=== PATIENT | male | born 1975 | race Caucasian/White ===

== ENCOUNTER 2021-03-29 07:32 | Inpatient (IN) ==
[~2021-03-29 07:32] MED LIST: BUPIVACAINE 0.25% 30 ML VIAL ONE; LIDOCAINE HCL 1% 20 ML VIAL ONE; VANCOMYCIN HCL 1000MG/20ML VIAL ONE; WATER, STERILE FOR INJ 10 ML VIAL ONE
[2021-03-29] MEDS ORDERED: fentaNYL citrate 100 MCG/2 ML VIAL ONE ×2 (08:03→09:01)
[2021-03-29] MEDS ORDERED: MIDAZOLAM HCL 5 MG/ML 1 ML VIAL ONE ×2 (08:03→09:35)
--- NOTE | 2021-03-29 08:14 | Pre Anesthesia Assessment ---
Date of Service March 29, 2021 Pre Sedation Assessment Vital Signs Temp Pulse Resp BP Pulse Ox 03/29/21 07:48 36.7 C 60 16 156/96 H 98 Cardiovascular + bradycardic Respiratory normal respiratory effort, lungs clear to auscultation Pre-Sedation Airway Assessment Smoking Status: Former smoker Short, Thick Neck: No Thyromental Distance: > or= 3.5 Finger Breadths Oral Cavity: + Chipped Teeth Mallampati Class: III ASA: ASA3 NPO Status Date of Last Intake of Fluids: 03/28/21 Time of Last Intake of Fluids: 21:00 Date of Last Intake of Solid Food: 03/28/21 Time of Last Intake of Solid Foods: 21:00 Procedure Planning Contraindications for Sedation: none Current Medications Reviewed: Yes Notes The planned sedation has been discussed with the patient. Informed Consent was obtained. I have identified the patient, determined the appropriateness of sedation and have assessed the patient immediately prior to the procedure. All medicine(s) and interventions are by my order.
--- NOTE | 2021-03-29 08:14 | History & Physical Bridge Note ---
Date of Service March 29, 2021 History & Physical Bridge Note I have examined the patient, reviewed the History & Physical and in the interval since the performance of the History & Physical I have noted the following changes of clinical significance: no changes noted
[2021-03-29] MEDS ORDERED: CLINDAMYCIN PHOS 300 MG/2 ML VIAL ONE (08:42)
[2021-03-29] MEDS ORDERED: MoRPHine SULFATE 2 MG/ML CARP ONE (11:11)
--- NOTE | 2021-03-29 11:23 | Post Anesthesia Assessment ---
Date of Service March 29, 2021 Post Sedation Assessment Vital Signs Temp Pulse Resp BP Pulse Ox 03/29/21 07:48 36.7 C 60 16 156/96 H 98 Recovery Score Activity: Moves 4 extremities Respiration: Deep Breath/Cough Circulation: +/-20% PreAnes Value Consciousness: Fully Awake Oxygen Saturation: > 92% On Room Air Discharge Sedation Level of Care: Fast Track Phase II Post Sedation Plan On clinical assessment, the patient appears to have tolerated the sedation without complications. Patient is recovering as anticipated. Patient will continue to be monitored by nursing and may be discharged when sedation discharge criteria are met per below protocol. Upon Completions of procedure up to 15 minutes continue every 5 minute vital signs and the P.A.R. score; then discharge to a Phase I or Fast Track to Phase II per the following guidelines: * Discharge Patient to appropriate Phase II area if PAR is 8 or greater or return to pre- procedure baseline. The post - procedure orders will be as directed. * If PAR score is less than 8 or not return to pre-procedure baseline then patient will follow Phase I monitoring till PAR is reached for Phase II. The Phase I may be done in procedure room or may call to secure a Phase I area. * If naloxone or flumazenil are used for reversal, hold in Phase I for continued monitoring from when last reversal dose was given for a minimum of 60 minutes or longer pending the nurse and/or physician discretion of patient condition before discharge to Phase II. Please call the Sedation Physician to re-evaluate and complete post-note for discharge to Phase II area. Do NOT discharge from procedure sedation or Phase 1 until post- sedation evaluation note is complete by procedure /sedation MD Sedation Discharge Instructions to be given to the patient at discharge to home.
--- NOTE | 2021-03-29 11:24 | Operative Report ---
Post Operative Report Pre & Post Diagnosis intermittent CHB Operation Date: 03/29/21 08:00 <No data on this case meets the specified criteria> I identified the patient and participated in the time-out.: Yes Procedure Operation Date: 03/29/21 08:00 Actual Procedures p Pacer with A/V Leads (Dual) - Jennifer Tabor DO Surgeon Jennifer Tabor, DO Classroom Assistant none Estimated Blood Loss 300 Findings Consistent with Post-Op Diagnosis Specimens none Description of Procedure see official report I attest to the content of the Intraoperative Record and any orders documented therein. Any exceptions are noted below.
[2021-03-29] MEDS ORDERED: ACETAMINOPHEN 325 MG TAB PO PRN (15:05)
--- NOTE | 2021-03-29 15:21 | History & Physical Report ---
Date of Service March 29, 2021 Assessment & Plan (1) Hypotension: -Perhaps related to periprocedural sedation, in the setting of severe underlying left ventricular hypertrophy, severe prosthetic stenosis. -Admit to telemetry. -Cautious IV fluid bolus. -Hold outpatient benazepril therapy -Monitor (2) Pacemaker: -Status post dual-chamber pacemaker, right atrial lead, RV septal lead. -No evidence of pocket hematoma on exam -Hemoglobin/hematocrit pending -Post procedure chest x-ray pending, oxygen saturations normal, no hypoxia. -No evidence of pericardial effusion on post procedure echo (3) Prosthetic aortic valve stenosis: -Prosthetic (perhaps prosthetic inlet) stenosis, mean gradient just above 40 mmHg, unchanged compared to recent outpatient echo. -Upcoming outpatient evaluation at [facility] in process of being arranged, for consideration of third open heart surgery (4) CAREN (obstructive sleep apnea): -Patient on positive pressure ventilation at bedtime at home His partner is to bring his machine from home for use this evening. Case discussed with Dr Tabor of . Updated Aly, patient's , phone #[phone] [facility]. History of Present Illness Primary Care Provider: Sergio Sosa MD Rich "Lori Mckeon is a 46 year old male who follows as an outpatient with Dr. Johnson of our practice with complex cardiac history as noted below. He presents today for elective permanent pacemaker implantation which was performed by Dr. Tabor of our practice for treatment of symptomatic conduction system disease with findings of recent intermittent complete heart block, sinus bradycardia, long first-degree AV block, and incomplete left bundle branch block. During the procedure, he received conscious sedation over a 2-hour interval including 10 mg of IV midazolam, 100 mcg of IV fentanyl and 2 mg of IV morphine. Post procedure, he has been noted to be hypotensive with recent systolic blood pressure of 76/45 when he stood up to use the restroom in the post procedure recovery unit. He was assessed by the undersigned, and IV fluid boluses in process, and his pressure has improved to 81/58. He is in no acute distress. His device has been interrogated and is functioning appropriately. He denies any chest pressure. His only complaint in terms of discomfort is in pain at his procedural incision area. Past Cardiac / Medical History: 1. Congenitally bicuspid aortic valve 2. Infectious endocarditis in July, for which patient underwent homograft aortic root replacement, aortic valve replacement, single-vessel (right coronary artery) coronary bypass grafting 3.Redo aortic valve replacement with a 21 mm [employer] bioprosthesis (Serial No: [id number], Model: [id number]) due to valve deterioration,insuffciency, November 2016. Surgery performed at [facility]. 2.Progressive prosthetic valve stenosis, moderate ascending aortic enlargement 3.Extreme calcification of the homograft root noted leading to the use of sutureless valve implantation 2016 4.Diagnostic cardiac catheterization performed prior to redo aortic valve replacement revealed an occluded vein graft with excellent onrz-zu-nbwvo collaterals. There was no evidence of obstructive disease in the left system. 5.Hypertension 6.CAREN, CPAP, with supplemental oxgyen. 7.Gastroesophageal reflux 8.Chronic conduction system disease first-degree AV block, incomplete left bundle-branch block with recent progression Allergies Allergy/AdvReac Type Severity Reaction Status Date / Time Sulfa (Sulfonamide Allergy Severe Verified 03/29/21 15:05 Antibiotics) Home Medications Medication Instructions Recorded Confirmed Type acyclovir 800 mg PO DAILY 03/29/21 03/29/21 History allopurinol 100 mg PO DAILY 03/29/21 03/29/21 History aspirin 81 mg PO DAILY 03/29/21 03/29/21 History atorvastatin 40 mg PO DAILY 03/29/21 03/29/21 History benazepril 40 mg PO DAILY 03/29/21 03/29/21 History doxycycline hyclate 50 mg PO DAILY 03/29/21 03/29/21 History famotidine 40 mg PO DAILY 03/29/21 03/29/21 History Past Med/Surg History Social History Smoking Status: Former smoker Hx Alcohol Use: No Hx Substance Use: Yes Communication Ability: Effective Beliefs That Will Affect Care: None Current Living Situation: Spouse Other Information That Helps Us Care for You: No Feels Safe at Home: Yes Safety Concerns: Feels Safe At This Time Assistive Devices: CPAP Review of Systems Review of Systems: All systems reviewed & are unremarkable except as noted in HPI & below Physical Exam Physical Exam: Temp Pulse Resp BP Pulse Ox 36.7 C 80 16 81/58 L 99 03/29/21 07:48 03/29/21 15:00 03/29/21 15:00 03/29/21 15:00 03/29/21 15:00 Constitutional: Mildly ill in appearance, without acute distress Respiratory: normal respiratory effort, lungs clear to auscultation Cardiovascular: Rate/Rhythm: regular rate Heart Sounds: normal S1, normal S2 and + murmur (2/6 systolic murmur) Gastrointestinal (Abdomen): normal bowel sounds, soft, nontender, no hepatosplenomegaly Neurologic: PERRL, EOMI, accommodation nl, no face palsy, no dysarthria Results & Data Results & Data ([facility]) Vital Signs (Past 12 Hours) Vital Signs Temp Pulse Resp BP Pulse Ox 03/29/21 15:00 80 16 81/58 L 99 03/29/21 14:30 90 16 76/45 L 99 03/29/21 14:00 80 16 88/56 L 99 03/29/21 13:30 80 16 114/76 100 03/29/21 13:00 90 16 99/69 L 99 03/29/21 12:45 90 16 114/73 98 03/29/21 12:30 74 18 103/81 98 03/29/21 12:15 84 18 122/66 97 03/29/21 12:00 84 18 95/65 L 97 03/29/21 11:45 90 18 91/65 L 98 03/29/21 11:35 80 18 96/64 L 99 03/29/21 07:48 36.7 C 60 16 156/96 H 98 Diagnostic Findings EKG performed 03/29/2021 at 1456 reveals sinus rhythm with atrial sensed, ventricular paced QRS complexes Echocardiogram performed in the EP lab at the conclusion of procedure today was reviewed independently revealing moderate concentric left ventricular hypertrophy, low normal LVEF 50 to 55%, bioprosthetic aortic valve with Doppler indices suggestive of severe prosthetic stenosis, similar findings to that noted on recent outpatient echo performed 03/08/2021 without evidence of acute pericardial effusion.
--- NOTE | 2021-03-29 16:05 | XRay Report ---
SINGLE VIEW CHEST CLINICAL HISTORY: Status post pacemaker implantation. FINDINGS: An AP, portable, upright chest radiograph is obtained. No prior studies are available for c omparison at the time of dictation. The examination is degraded by portable technique and apical lord otic positioning. The patient is status post midline sternotomy and cardiac valve surgery. A 2-lead c ardiac pacemaker has been placed. Leads project over the right atrial appendage and the right ventric le. The heart is enlarged noting atherosclerotic calcification of the thoracic aorta. The pulmonary v asculature is noncongested. Nonspecific interstitial thickening is likely chronic. No airspace consol idation or large pleural effusion is identified. No pneumothorax is seen. The bony thorax is grossly intact. IMPRESSION: 1. A 2-lead cardiac pacemaker has been placed as above. No pneumothorax is identified post procedure. 2. Cardiomegaly without radiographic evidence of congestive failure. 3. No airspace consolidation or pleural effusion is identified. ACT 112: Negative or not required by law. Electronically signed by: Trenton Delgado M.D. 03/29/2021 4:04 PM
--- NOTE | 2021-03-29 16:07 | Hospitalist Consultation ---
Date of Consultation March 29, 2021 Assessment & Plan (1) Pacemaker: - s/p pacemaker insertion by Dr. Tabor on 03/29/21 - Cardiology, is primary team - follows with Dr. Johnson as an outpatient - Continue all meds as per cardiology-aspirin 81 mg daily, atorvastatin 40 mg daily, benazepril 40 mg daily - CXR reviewed - no pneumothorax, no consolidation of pleural effusions - HH diet (2) Prosthetic aortic valve stenosis: - hx of such, as per HPI - Follow up with cardiology, [facility] (3) Hypotension: - Likely post procedural sedation effect, s/p bolus of 550 mL in procedure, and 250 ML at 1500 - Monitor H&H, awaiting results (4) CAREN (obstructive sleep apnea): - Continue home cpap- is bringing it in from home (5) GERD (gastroesophageal reflux disease): -Continue famotidine (6) DVT prophylaxis: - teds, scds CODE: Full code Dispo: From home, likely to remain in the hospital x 1-2 days Thank you for involving us in the care of Mr. Mckeon. Please do not hesitate to call with questions or concerns. At this time medicine service will follow along. Supervising Physician Co-Signing Physician Notes Patient is a 46-year-old male with history complex medical history was consulted for postop medical management after having elective permanent pacemaker insertion by Dr. Mckeon for symptomatic conduction system disease. Patient has history of intermittent complete heart block with, sinus bradycardia, first- degree AV block and incomplete left bundle branch block. Patient is doing well postop. He denies any chest pain, shortness of breath, dizziness, nausea, abdominal pain. He admits to having minimal soreness at the site of pacemaker insertion. Please review HPI for complete details. On exam patient is moderately built and nourished, no apparent distress, normocephalic atraumatic, lungs are clear to auscultation, S1-S2,+ systolic murmur, left pacemaker, abdomen soft, nontender, normal bowel sounds, alert, awake, oriented, grossly no focal deficits, no pedal edema. Patient is consulted for postop medical management. Found to be hypotensive postoperatively which improved with IV fluids. Will monitor on telemetry. Continue CPAP for obstructive sleep apnea. Cardiology on board. I personally reviewed the record. Patient is interviewed and examined at bedside. Patient's care is coordinated with Elayne Torres PA-C. Please refer to the documentation above for details of patient's presentation and for discussion of other issues. History of Present Illness Reason for Consultation: Medical management Requesting Physician: Dr. Dudley Attending Physician: Jennifer Tabor, History of Present Illness This is a 46 yo M with significant cardiac history who presented for elective permanent pacemaker insertion by Dr. Tabor for treatment of symptomatic conduction system disease with findings of recent intermittent complete heart block, sinus bradycardia, long first-degree AV block, and incomplete left bundle branch block. He has underwent two open heart surgeries previously, and is being evaluated by [facility] after this procedure today for possible third valve revision. Other past medical hx includes: 1. Congenitally bicuspid aortic valve 2. Infectious endocarditis in July, for which patient underwent homograft aortic root replacement, aortic valve replacement, single-vessel (right coronary artery) coronary bypass grafting 3.Redo aortic valve replacement with a 21 mm [employer] bioprosthesis (Serial No: [id number], Model: [id number]) due to valve deterioration, insufficiency, November 2016. Surgery performed at [facility]. 2.Progressive prosthetic valve stenosis, moderate ascending aortic enlargement 3.Extreme calcification of the homograft root noted leading to the use of sutureless valve implantation 2017 4.Diagnostic cardiac catheterization performed prior to redo aortic valve replacement revealed an occluded vein graft with excellent gbqw-yw-mldnz collaterals. There was no evidence of obstructive disease in the left system. 5.Hypertension 6.CAREN, CPAP, with supplemental oxygen. 7.Gastroesophageal reflux 8.Chronic conduction system disease first-degree AV block, incomplete left bundle-branch block with recent progression During the procedure, he received conscious sedation over a 2-hour interval including 10 mg of IV midazolam, 100 mcg of IV fentanyl and 2 mg of IV morphine. Post procedure, he has been noted to be hypotensive with recent systolic blood pressure of 76/45 when he stood up to use the restroom in the post procedure recovery unit. He received IV fluid boluses, and his pressure has improved to 81/58. It is thought that this hypotension is due to known aortic stenosis in conjunction with sedation. His device was interrogated post procedure and is functioning appropriately per cardiology. Pt is doing well currently in room, lying flat. Reports only having incisional pain from pacemaker placement. Denies pressure, flutter, chest pain, lightheadedness or dizziness. He is looking forward to his who is bringing in red lobster for dinner. Reports that he is also bringing in his CPAP. Left eye appears to have blood streaking, patient reports he had cataract surgery 3 weeks ago and suffered retinal detachment injury, and then required retinal reattachment surgery 1 week afterwards. Patient reports this is healing, no eye complaints. Allergies Allergy/AdvReac Type Severity Reaction Status Date / Time Sulfa (Sulfonamide Allergy Severe Verified 03/29/21 15:05 Antibiotics) Home Medications Medication Instructions Recorded Confirmed Type acyclovir 800 mg PO DAILY 03/29/21 03/29/21 History allopurinol 100 mg PO DAILY 03/29/21 03/29/21 History aspirin 81 mg PO DAILY 03/29/21 03/29/21 History atorvastatin 40 mg PO DAILY 03/29/21 03/29/21 History benazepril 40 mg PO DAILY 03/29/21 03/29/21 History doxycycline hyclate 50 mg PO DAILY 03/29/21 03/29/21 History famotidine 40 mg PO DAILY 03/29/21 03/29/21 History Patient History Social History Smoking Status: Never smoker Hx Alcohol Use: No Hx Substance Use: No Communication Ability: Effective Core Shaper Sides Required: No Beliefs That Will Affect Care: None Current Living Situation: Spouse Other Information That Helps Us Care for You: No Feels Safe at Home: Yes Safety Concerns: Feels Safe At This Time Assistive Devices: None Assistive Devices Comment: CPAP HS from home Review of Systems Review of Systems: Constitutional: No fever, sweats or chills Eyes: No diplopia, no worsening or blurred vision ENT: normal hearing, no trouble swallowing, + had Left eye retinal attachment surgery 2 weeks ago. Cataract surgery 3 wks ago on Left eye with retinal detachment. Respiratory: No cough, sputum, dyspnea at rest or on exertion Cardiovascular:+ incisional pain over left chest wall, otherwise No chest pain, tightness or palpitations Abdomen: No pain, nausea, vomiting, diarrhea or constipation Musculoskeletal: No joint pain, calf pain, swelling Neurologic: No weakness, numbness/tingling, or balance problems Psychiatric: No anxiety or depression Skin: No rash or itch Physical Exam Physical Exam: General: awake, alert, no apparent distress Head: Normocephalic, atraumatic ENT: PERRL, EOMI, no pharyngeal exudate, mucous membranes moist, Left eye erythematous with broken blood vessels, slight ecchymosis around the orbit, slight Chest: Clear to auscultation, on room air, no adventitious breath sounds Cardiac: Regular rate and rhythm,+ loud systolic murmur heard best at RSB, no JVD, pacemaker placement badage c/d/i. Normal peripheral pulses, good capillary refill Abdominal: NABS x 4 quadrants, soft, nondistended, nontender to palpation, no rebound or guarding Extremities: Normal inspection, no peripheral edema or erythema, calfs nontender to palpation Psych: Normal mood and affect Neuro: AAO x 3, strength intact bilaterally and rated 5/5, no motor deficits, speech is clear, no peripheral sensory deficits Results & Data Results & Data ([facility]) Vital Signs (Past 12 Hours) Vital Signs Temp Pulse Resp BP Pulse Ox 03/29/21 15:30 80 16 91/68 L 99 03/29/21 15:00 80 16 81/58 L 99 03/29/21 14:30 90 16 76/45 L 99 03/29/21 14:00 80 16 88/56 L 99 03/29/21 13:30 80 16 114/76 100 03/29/21 13:00 90 16 99/69 L 99 03/29/21 12:45 90 16 114/73 98 03/29/21 12:30 74 18 103/81 98 03/29/21 12:15 84 18 122/66 97 03/29/21 12:00 84 18 95/65 L 97 03/29/21 11:45 90 18 91/65 L 98 03/29/21 11:35 80 18 96/64 L 99 03/29/21 07:48 36.7 C 60 16 156/96 H 98
[2021-03-29 17:14] LABS: Basophils # (auto) 0.01 K/uL (0-0.2); Basophils % (auto) 0.1 %; Eosinophils # (auto) 0.08 K/uL (0-0.5); Eosinophils % (auto) 0.9 %; Hematocrit (blood only) 35.1 % (42-52); Hemoglobin 12.2 g/dL (14.0-18.0); Immature Granulocytes # (auto) 0.01 K/uL (0.00-0.02); Immature Granulocytes % (auto) 0.1 %; Lymphocytes # (auto) 1.23 K/uL (1.2-3.4); Lymphocytes % (auto) 13.8 %; Mean Corpuscular Hemoglobin 29.8 pg (25-34); Mean Corpuscular Hgb Conc 34.8 g/dL (32-36); Mean Corpuscular Volume 85.8 fL (80-100); Monocytes # (auto) 0.48 K/uL (0.11-0.59); Monocytes % (auto) 5.4 %; Neutrophils # (auto) 7.12 K/uL (1.4-6.5); Neutrophils % (auto) 79.7 %; Platelet Count 142 K/uL (130-400); RDW Coefficient of Variation 13.4 % (11.5-14.5); RDW Standard Deviation 41.9 fL (36.4-46.3); Red Blood Count 4.09 M/uL (4.7-6.1); White Blood Count 8.93 K/uL (4.8-10.8)
[2021-03-29 17:26] LABS: INR 1.1 (0.9-1.1); Partial Thromboplastin Ratio 0.9; Partial Thromboplastin Time 23.9 Seconds (21.0-31.0); Prothrombin Time 10.7 Seconds (9.0-12.0)
[2021-03-29 17:32] LABS: Albumin Level 3.7 gm/dl (3.4-5.0); BUN Creatinine Ratio 15.2 (10-20); Bilirubin Direct 0.2 mg/dl (0-0.2); Calcium 8.1 mg/dl (8.5-10.1); Creatinine Clr Calc Pharmacy 80.7 ml/min; Est GFR (African American) 89.5 ml/min; Est GFR (Non-African American) 77.3 ml/min; Potassium 3.9 mmol/L (3.5-5.1)
[2021-03-29 17:34] LABS: Albumin Globulin Ratio 1.5 (0.9-2); Bilirubin,Total 0.6 mg/dl (0.2-1); Globulin 2.5 gm/dl (2.5-4.0); Total Protein 6.2 gm/dl (6.4-8.2)
--- NOTE | 2021-03-29 17:37 | Communication Note ---
Date of Service: March 29, 2021 Official radiology report of chest x-ray describes no evidence of pneumothorax. Appropriately positioned. Labs reveal stable findings including stable hemoglobin of 12.2. Hemoglobin obtained as an outpatient 02/22/2021 was 13.6. Renal function normal. Lab results reassuring. Most recent blood pressure measurement from 1709 was 111/72. Trending toward improvement.
[2021-03-29] MEDS ORDERED: SODIUM CHLORIDE 0.65% NA SOLN 45 ML (OCEAN) PRN (18:38)
[2021-03-29] MEDS ORDERED: LORATADINE 10 MG TAB PO ONE (19:00)
[2021-03-29] MEDS ORDERED: oxyCODONE HCL IR 5 MG TAB (IMMEDIATE RELEASE) PO STA (22:47)
[2021-03-30 06:30] LABS: Basophils # (auto) 0.01 K/uL (0-0.2); Basophils % (auto) 0.2 %; Eosinophils # (auto) 0.36 K/uL (0-0.5); Eosinophils % (auto) 5.4 %; Hematocrit (blood only) 33.2 % (42-52); Hemoglobin 11.5 g/dL (14.0-18.0); Immature Granulocytes # (auto) 0.01 K/uL (0.00-0.02); Immature Granulocytes % (auto) 0.2 %; Lymphocytes # (auto) 2.05 K/uL (1.2-3.4); Mean Corpuscular Hemoglobin 30.7 pg (25-34); Mean Corpuscular Hgb Conc 34.6 g/dL (32-36); Mean Corpuscular Volume 88.5 fL (80-100); Monocytes % (auto) 6.1 %; Neutrophils # (auto) 3.78 K/uL (1.4-6.5); Neutrophils % (auto) 57.1 %; Platelet Count 133 K/uL (130-400); RDW Coefficient of Variation 13.5 % (11.5-14.5); RDW Standard Deviation 43.9 fL (36.4-46.3); Red Blood Count 3.75 M/uL (4.7-6.1); White Blood Count 6.61 K/uL (4.8-10.8)
[2021-03-30 07:07] LABS: BUN Creatinine Ratio 18.2 (10-20); Calcium 8.1 mg/dl (8.5-10.1); Creatinine Clr Calc Pharmacy 93.1 ml/min; Est GFR (African American) 106.6 ml/min; Est GFR (Non-African American) 91.9 ml/min
--- NOTE | 2021-03-30 07:41 | XRay Report ---
XR chest 2V PA/lateral HISTORY: 46 years-old Male reassess post pacemaker on 03/29/21 status post placement of left subclavi an pacer COMPARISON: Chest radiograph 03/29/2021 TECHNIQUE: PA and lateral views of the chest FINDINGS: Cardiac mediastinal and hilar silhouettes are unchanged. Prior median sternotomy with cardiac valvula r prosthesis. Left subclavian pacer is unchanged. No pneumothorax, pleural effusion, airspace consoli dation or overt pulmonary edema. Unchanged mild right hemidiaphragm elevation. Bones appear grossly i ntact. IMPRESSION: No acute process. ACT 112: Negative or not required by law. The above report was generated using voice recognition software. It may contain grammatical, syntax o r spelling errors. Electronically signed by: Preston Prince M.D. 03/30/2021 7:39 AM
[2021-03-30 08:04] LABS: Magnesium 2.1 mg/dl (1.8-2.4)
[2021-03-30] MEDS ORDERED: DOXYCYCLINE HYCLATE 50 MG CAP PO SCH (09:00)
[2021-03-30] MEDS ORDERED: ASPIRIN 81 MG ECTAB PO SCH (09:00)
[2021-03-30] MEDS ORDERED: allopurinoL 100 MG TAB PO SCH (09:00)
[2021-03-30] MEDS ORDERED: ATORVASTATIN 40 MG TAB PO SCH (09:00)
[2021-03-30] MEDS ORDERED: FAMOTIDINE 40 MG TABLET PO SCH (09:00)
--- NOTE | 2021-03-30 09:24 | Discharge Summary ---
Date of Service March 30, 2021 Admission HPI Per Admitting Provider Rich Mckeon (Clay) is a 46 year old male who follows as an outpatient with Dr. Johnson of our practice with complex cardiac history as noted below. He presents today for elective permanent pacemaker implantation which was performed by Dr. Tabor of our practice for treatment of symptomatic conduction system disease with findings of recent intermittent complete heart block, sinus bradycardia, long first-degree AV block, and incomplete left bundle branch block. During the procedure, he received conscious sedation over a 2-hour interval including 10 mg of IV midazolam, 100 mcg of IV fentanyl and 2 mg of IV morphine. Post procedure, he has been noted to be hypotensive with recent systolic blood pressure of 76/45 when he stood up to use the restroom in the post procedure recovery unit. He was assessed by the undersigned, and IV fluid boluses in process, and his pressure has improved to 81/58. He is in no acute distress. His device has been interrogated and is functioning appropriately. He denies any chest pressure. His only complaint in terms of discomfort is in pain at his procedural incision area. Past Cardiac / Medical History: 1. Congenitally bicuspid aortic valve 2. Infectious endocarditis in July, for which patient underwent homograft aortic root replacement, aortic valve replacement, single-vessel (right coronary artery) coronary bypass grafting 3.Redo aortic valve replacement with a 21 mm Anders Ondeego bioprosthesis (Serial No: [id number], Model: [id number]) due to valve deterioration,insuffciency, November 2016. [facility] performed at [facility]. 2.Progressive prosthetic valve stenosis, moderate ascending aortic enlargement 3.Extreme calcification of the homograft root noted leading to the use of sutureless valve implantation 2016 4.Diagnostic cardiac catheterization performed prior to redo aortic valve replacement revealed an occluded vein graft with excellent [id number] collaterals. There was no evidence of obstructive disease in the left system. 5.Hypertension 6.CAREN, CPAP, with supplemental oxgyen. 7.Gastroesophageal reflux 8.Chronic conduction system disease first-degree AV block, incomplete left bundle-branch block with recent progression Principal Diagnosis Periprocedure hypotension Dual-chamber pacemaker Prosthetic aortic valve stenosis Discharge Exam Temp Pulse Resp BP Pulse Ox 36.8 C 75 18 121/63 95 03/30/21 08:00 03/30/21 09:02 03/30/21 08:00 03/30/21 08:00 03/30/21 08:00 Constitutional WD/WN, vitals as above Respiratory normal respiratory effort, lungs clear to auscultation Cardiovascular RRR, no murmur, no edema Chest (Breasts) Additional Comments: Well-healing left infraclavicular pacemaker pocket, clean dry and intact, no erythema, no drainage. Gastrointestinal (Abdomen) normal bowel sounds, soft, nontender, no hepatosplenomegaly Neurologic PERRL, EOMI, accommodation nl, no face palsy, no dysarthria Discharge Data Allergies Allergy/AdvReac Type Severity Reaction Status Date / Time Sulfa (Sulfonamide Allergy Severe Verified 03/29/21 15:05 Antibiotics) Consultations 03/29/21 16:49 Consult Hospitalist Routine Procedures Performed Operation Date: 03/29/21 08:00 Actual Procedures p Pacer with A/V Leads (Dual) - Jennifer Tabor DO s Lead LV (No Priopr Implant) - Jennifer Tabor DO s Venogram, Unilateral - Jennifer Tabor DO Ordered Studies Cardiac Enzymes 03/29/21 Range/Units 17:01 AST 18 (15-37) U/L Coagulation 03/29/21 Range/Units 17:01 PT 10.7 (9.0-12.0) Seconds APTT 23.9 (21.0-31.0) Seconds CBC 03/29/21 03/30/21 Range/Units 17:01 05:52 WBC 8.93 6.61 (4.8-10.8) K/uL RBC 4.09 L 3.75 L (4.7-6.1) M/uL Hgb 12.2 L 11.5 L (14.0-18.0) g/dL Hct 35.1 L 33.2 L (42-52) % Plt Count 142 133 (130-400) K/uL Neut # (Auto) 7.12 H 3.78 (1.4-6.5) K/uL Lymph # (Auto) 1.23 2.05 (1.2-3.4) K/uL [place] # (Auto) 0.48 0.40 (0.11-0.59) K/uL Eos # (Auto) 0.08 0.36 (0-0.5) K/uL Baso # (Auto) 0.01 0.01 (0-0.2) K/uL Comprehensive Metabolic Panel 03/29/21 03/30/21 03/30/21 Range/Units 17:01 05:52 07:35 Sodium 140 141 (136-145) mmol/L Potassium 3.9 4.0 (3.5-5.1) mmol/L Chloride 110 H 110 H (98-107) mmol/L Carbon Dioxide 25 24 (21-32) mmol/L BUN 17 18 (7-18) mg/dl Creatinine 1.12 0.97 (0.6-1.4) mg/dl Glucose 98 111 H (70-99) mg/dl Calcium 8.1 L 8.1 L (8.5-10.1) mg/dl Direct Bilirubin 0.2 (0-0.2) mg/dl AST 18 (15-37) U/L ALT 42 (12-78) U/L Alkaline Phosphatase 47 (45-117) U/L Total Protein 6.2 L (6.4-8.2) gm/dl Albumin 3.7 (3.4-5.0) gm/dl Intake and Output 03/29/21 03/30/21 03/30/21 22:59 06:59 14:59 Intake Total 200 / 200 Balance 200 / 200 Intake: Oral 200 / 200 Other: # Unmeasured Voids 1 Weight 79.9 kg Summary of radiology report of chest x-ray performed 03/30/2021: Prior median sternotomy with cardiac valvular prosthesis. Left subclavian pacer is unchanged. No pneumothorax, pleural effusion, airspace consolidation or overt pulmonary edema. Unchanged mild right hemidiaphragm elevation. Bones appear grossly intact. IMPRESSION: No acute process. Subjective: Patient seen in follow-up today. He did well overnight. Blood pressures have stabilized. Chest x-ray and labs without acute abnormality. Hemoglobin stable. He has mild discomfort at the procedure site, controlled with acetaminophen. Telemetry reveals sinus rhythm in the 70s to 80s. He is stable for discharge. Follow-up appointments planned as noted. Hospital Course (1) Hypotension: -Patient presented for planned elective dual-chamber permanent pacemaker for treatment of recent symptomatic bradycardia including intermittent complete heart block. -Periprocedure hypotension noted with systolic blood pressure transiently in the 70s at the conclusion of the procedure. -After patient was monitored in the post procedure recovery area, he stood up to use the restroom, and his blood pressure declined back to the 70s transiently. He received IV fluids. -After admission to the telemetry unit, his blood pressure improved, with deepthi garces systolic blood pressure readings over 100 mmHg, most recent measurement this morning at 9 AM 121/63 which is his typical outpatient baseline. -Hypotension likely explained on the basis of his underlying severe concentric left ventricular hypertrophy, prosthetic aortic valve/aortic root (calcific) stenosis and having received the necessary sedation for the procedure. -Post procedure chest x-ray yesterday and again this morning reveals stable findings with no pneumothorax, leads are in the appropriate position. No congestive heart failure. -Device has been interrogated twice yesterday, with appropriate function. (2) Pacemaker: -Appropriate device function. -Patient already scheduled for wound check, device interrogation as an outpatient on 04/07/2021. (3) Prosthetic aortic valve stenosis: -Case discussed with Dr. Johnson by phone today. -Efforts are in process to release patient's records including recent pacemaker operative note to the [facility] with planned referral/consultation there within the next month. DISPOSITION: Follow-up appointments 04/07/2021 9:00 AM Provider [facility] Becerra -for wound check and device interrogation Total Time Total Time Spent Total Time Spent (In Minutes): 45 minutes including examining the patient, reviewing data, coordinating discharge appointments and preparing this document. Discharge Plan Discharge Items Patient Disposition: Home - Self-Care Reason For Visit: Intermittent Complete Heart Block Discharge Diagnosis: intermittent CHB s/p ppm Condition on Discharge: Good Activity: As commented below Activity Comment: do not raise the left elbow over the left shoulder for 1 month Lifting: No more than 10 pounds Lifting Comment: do not lift more than 10 pounds with the left arm for 2 weeks Bathing: Keep incision dry Bathing Comment: keep dressing on and dry until wound check next week; do not shower Sexual Activity: After two weeks Non-emergency contact: Collet Driller Call non-emergency contact if: you have any medication questions and your pain is not controlled Follow-up/Referrals: Sergio Sosa MD [Primary Care Provider] - Addtl Attending Provider Instructions: If you go home today 03/29/2021 then send a remote device check tomorrow 03/30/2021 Device and wound check as scheduled next week at [facility] Card[facility] Addtl Service [place] Provider Instructions: Hold home benazepril dose tomorrow, 03/31/2021. If patient without dizziness subjectively on 04/01/2021, he can resume his benazepril 40 mg daily at that time. Follow-up visits: 04/07/2021 9:00 AM Provider Pacer Clinic [facility]-for wound check, device interrogation -Referral to [facility] for evaluation of prosthetic/aortic root stenosis in process. Patient's records including recent pacemaker operative report are to be transferred to [place] by office staff, with plans for appointment within the next month. Pending Studies at Discharge: No Stand-Alone Forms: My [facility] Medications and DC Order Prescriptions: New acetaminophen 325 mg Tablet 650 mg PO Q4H PRNQty: 0 RF: 0 Continued atorvastatin 40 mg Tablet 40 mg PO DAILY RF: 0 famotidine 40 mg Tablet 40 mg PO DAILY RF: 0 allopurinol 100 mg Tablet 100 mg PO DAILY RF: 0 acyclovir 800 mg Tablet 800 mg PO DAILY RF: 0 aspirin 81 mg Tablet 81 mg PO DAILY RF: 0 benazepril 40 mg Tablet 40 mg PO DAILY RF: 0 doxycycline hyclate 50 mg Tablet 50 mg PO DAILY RF: 0 Discharge Orders: Discharge Order (Routine); Ordered 03/30/21 Ordered By: Kurtis Dudley Admission Data Admit Date/Time: 03/29/21 15:46 Attending Provider: Jennifer Tabor Admit Provider: Kurtis Dudley Primary Care Provider: Sergio Sosa Other Providers: Florentino Olmos ; Nai Berg
[2021-03-30] MEDS ORDERED: ACETAMINOPHEN 325 MG TAB PO ONE (09:31)
[2021-03-30] MEDS ORDERED: ACYCLOVIR 400 MG TAB PO SCH (12:00)
--- NOTE | 2021-03-30 22:25 | Electrocardiogram Report ---
Test Reason : Blood Pressure : / mmHG Vent. Rate : 075 BPM Atrial Rate : 075 BPM P-R Int : 162 ms QRS Dur : 156 ms QT Int : 460 ms P-R-T Axes : 026 -78 105 degrees QTc Int : 513 ms Atrial-sensed ventricular-paced rhythm Abnormal ECG No previous ECGs available Confirmed by Evangelista Moralez ([id number]) on 03/30/2021 10:25:14 PM Referred By: Scott Johnson Confirmed By:Evangelista Moralez
--- NOTE | 2021-04-05 16:48 | Operative Report (OR) ---
DATE OF OPERATION: 03/29/2021 PREOPERATIVE DIAGNOSIS: Intermittent complete heart block. POSTOPERATIVE DIAGNOSIS: Intermittent complete heart block. PROCEDURE: Dual chamber rate responsive permanent pacemaker along with intracardiac His electrogram recordings under fluoroscopic guidance along with peripheral venogram. SURGEON: Jennifer Tabor DO. ASSISTANTS: None. ANESTHESIA: Monitored conscious sedation administered under my supervision by Corinne Batista. Start time 8:52, end time 11:13. A total of 8 mg of Versed, 200 mcg of fentanyl. INTRAVENOUS FLUIDS 520 mL CONTRAST: 40 mL. ANTIBIOTICS: Clindamycin 600 mL. BLOOD LOSS: 300 mL ADDITIONAL MEDICINES: 2 mg of morphine. COMPLICATIONS: None. CONDITION: Stable. URINE OUTPUT: Not applicable. SPECIMENS: None. FINDINGS: See below. DRAINS: None. INDICATIONS: This is a 46-year-old gentleman who has a past medical history for aortic valve replacement x2 with most recent echo showing that he has severe aortic stenosis again with gradient of 42.6 mmHg and a velocity of 4.5 cm2, hypertension, obstructive sleep apnea, coronary artery disease, history of a CABG x1, first degree AV block, sinus bradycardia and most recently wore a Zio patch monitor that showed a lot of intermittent complete heart block. Due to the intermittent complete heart block, he was recommended a pacemaker. CONSENT: Consent was obtained prior to the patient going into electrophysiology lab. The patient was informed of the risks, benefits and alternative procedure. Risks include but not limited to sudden cardiac , cardiac arrhythmias, cerebrovascular accident, myocardial infarction, injury to the blood vessels, chamber of the heart, lung, bleeding, and infection. The patient understood these risks and agreed with procedure as planned. Informed consent was obtained. DESCRIPTION OF THE PROCEDURE: The patient was brought into the electrophysiology lab in a fasting state. He was connected to continuous cardiac monitoring. A timeout was performed to ensure patient identity and procedure correctly. He received prophylactic antibiotics prior to incision. [place] precautions maintained throughout the procedure. Monitored conscious sedation was given throughout the procedure for patient's comfort level. 10 mL of 1% lidocaine, bupivacaine mixture were given in the left deltopectoral groove. Incision was made in left deltopectoral groove. Blunt dissection performed down to identify cephalic vein; however, none could be identified, so peripheral venogram was performed to identify the axillary vein and venous axillary access was obtained through a needlestick without any problems. Guidewire was inserted without any resistance. A 7-Niuean sheath was then inserted through the guidewire without any resistance. Dilator was removed and a second guidewire was inserted through the sheath to allow for retained venous access. Sheath was removed, flushed, reinserted over the dilator, then reinserted over one of the guidewires. Guidewire and dilator were removed. Then, the right atrial lead was temporarily placed in the right ventricle to have backup pacing while we fixated the lead in the left bundle region. Then, over the retained guidewire, first I used a 7-Niuean short sheath but then I had to switch it out for a long followed then by the His C215 sheath, we ended up using 2 of them, so I had to switch 1 out, was advanced over a Glidewire down into the right ventricle. The Glidewire and dilator were removed. Then the pacing lead was advanced through the C315 sheath and intracardiac electrogram recordings of the His bundle was performed. The AH was found to be 166 milliseconds, HV 88 milliseconds with the camera then moved to ALANIS 30, we marked where the His bundle area is and then came about 2 cm down from that in a line that was conjunction with the apex to kind of have an idea where we are going to put the left bundle lead. The catheter was then positioned down in that area and we came on pacing to see how the waveform looked in V1. There were times where it looked good with a nice W pattern. I tried to screwing, but I was having some difficulty advancing the lead, so the lead was repositioned a few times and again at one point, I did use a second sheath, because the sheath was beginning to malfunction. Ultimately, I found a nice spot on the septum with good R waves with V1 showing a good progression into an R prime as well as impedance drops and V6 pacing stimulation to QRS being shorter. We did a venogram through the sheath to see how well I was into the septum. Ultimately, I liked the positioning and the threshold looked good and the morphology of the QRS looked good. So, the C315 His sheath was then slit under fluoroscopic guidance. Then a 7-Niuean sheath remained while I repositioned the right atrial lead into the right atrium. So the right atrial lead that was temporarily in the right ventricle for backup pacing, screw was retracted. Then using a preformed jacob J, the lead was placed in the right atrial appendage under fluoroscopic guidance. There was adequate pacing and sensing thresholds and no diaphragmatic stimulation with high output pacing. The 7-Niuean sheath was peeled away and lead was fixated to pectoralis muscle using 0 silk suture. The long 7-Niuean sheath was then slit, the wire was peeled away that is over the left bundle lead and then the left bundle lead was fixated to pectoralis muscle using 0 silk suture. A pacemaker pocket was created using blunt dissection over the pectoralis muscle within the pectoralis fascia. The pocket was flushed with copious amounts of bacitracin saline wash and inspected for hemostasis. The leads were attached to the pulse generator making sure the pins were in appropriate position, passed set screw and set screws were all tightened. Pulse generator was then placed in antibiotic pouch followed then by being placed in the pocket, making sure the leads were lying flat beneath the device. The incision was then closed in a 3-layer fashion with a 2-0 interrupted Vicryl stitch, followed by 3-0 Vicryl interrupted stitch followed by a 4-0 Monocryl running stitch and Dermabond and Telfa was applied. Of note, patient did have a significant blood loss, because there was a lot of back bleeding and I did end up putting a pursestring around the sites as well. Also, of note, the patient had transient drop in his blood pressure, most likely we think it was from the sedation and the severe aortic stenosis. We did do a limited echo when we were done and there was no effusion or anything in that nature. EQUIPMENT: 1. Pulse generator is a Medtronic Keli XT DR SUZY Kwok [id number], serial number [id number]. 2. Tyrx pouch, reference [id number], lot number [id number]. 3. Right atrial lead Medtronic 5076-52 cm, serial number [id number]. 4. Left bundle lead, Medtronic 3830-69 cm, serial number [id number]. INTRAOPERATIVE TESTIN. Right atrial lead: P waves 3.2 millivolts, impedance 535 ohms, threshold 1 volt at 0.5 milliseconds. 2. Left bundle lead: R-waves 8 millivolts, impedance 799 ohms, threshold 0.7 volts at 0.5 milliseconds. FINAL MEASUREMENTS THROUGH THE DEVICE: 1. Right atrial lead: P waves 2.4 millivolts, impedance 456 ohms, threshold 0.5 volts at 0.4 milliseconds. 2. Left bundle lead: R waves 9.3 millivolts, impedance 684 ohms, threshold 0.5 volts at 0.4 milliseconds. FINAL PARAMETERS: DDD 60/150, right atrial amplitude 3.5 volts, pulse width 0.4 milliseconds, sensitivity 0.3 millivolts. Left bundle amplitude 3.5 volts, pulse width 0.4 milliseconds, sensitivity 0.9 millivolts. IMPRESSION: Successful dual chamber rate responsive permanent pacemaker implantation along with intracardiac electrogram His recordings and a peripheral venogram under fluoroscopic guidance secondary to intermittent complete heart block. PLAN: Monitor the patient post-procedure. If his blood pressure does not improve then would monitor him overnight. He is not allowed to lift left elbow or left shoulder for 1 month. He cannot lift more than 10 pounds with the left arm for 2 weeks. He is to keep the dressing on and dry until his wound check next week. I attest to the content of the Intraoperative Record and any orders documented therein. Any exception s are noted below.
== END 2021-03-30 11:52 | disposition home or self-care (01) | DRG 243 ==
LOC: EP 07:32 → 2S 15:46

== ENCOUNTER 2021-10-28 09:06 | Inpatient (IN) ==
[2021-10-28] MEDS ORDERED: SODIUM CHLORIDE 0.9% 1000ML 1,000 ML IV ONE (09:39)
--- NOTE | 2021-10-28 09:46 | Emergency Department Note ---
History of Present Illness General Chief complaint: Infection Stated complaint: BLOOD INFECTION Time Seen by Provider: 10/28/21 09:25 Source: patient Mode of arrival: ambulatory Limitations: no limitations History of Present Illness Maximum Pain Intensity: 6 This patient is a 46-year-old male who was sent over after having a positive blood culture for strep drawn yesterday at [place]. He has started having symptoms last week where he had intermittent fevers body aches headache and right knee pain and swelling. The knee pain is been last for 5 days. He had a similar episode last month and got better with antibiotics. He did have open heart surgery for 5 months ago where they replaced a mechanical valve and did a single bypass. He said last month that was related to wound infection which is now healed. He was tested negative for Covid on 10 25. His CBC yesterday shows a normal white count of 7.2 and a hemoglobin of 12. He had normal electrolytes. He has had no cough or sore throat. No urinary symptoms. No rash. No diarrhea. No abdominal or back pain. At present he has a minimal headache. no neck pain or stiffness. He did tell me he had a temperature up to 102 last evening Home Medications Medication Instructions Recorded Confirmed Type atorvastatin 40 mg tablet 40 mg PO HS 03/29/21 10/28/21 History famotidine 40 mg tablet 40 mg PO QAM 03/29/21 10/28/21 History acetaminophen 325 mg tablet 650 mg PO Q4H PRN 10/28/21 10/28/21 History acyclovir 800 mg tablet 800 mg PO DAILY 10/28/21 10/28/21 History allopurinol 300 mg tablet 300 mg PO QAM 10/28/21 10/28/21 History amlodipine 10 mg tablet 10 mg PO DAILY 10/28/21 10/28/21 History aspirin 81 mg chewable tablet 81 mg PO QAM 10/28/21 10/28/21 History doxycycline hyclate 50 mg capsule 50 mg PO BID 10/28/21 10/28/21 History metoprolol tartrate 50 mg tablet 50 mg PO BID 10/28/21 10/28/21 History multivit with minerals-folic 1 tab PO QAM 10/28/21 10/28/21 History acid-lycopene 0.4 mg-600 mcg tablet (One Daily For Men) pregabalin 75 mg capsule 75 mg PO BID 10/28/21 10/28/21 History warfarin 4 mg tablet 2 mg PO ESQUIVEL 10/28/21 10/28/21 History warfarin 4 mg tablet 4 mg PO MOTUWETHFRSA 10/28/21 10/28/21 History Allergies Allergy/AdvReac Type Severity Reaction Status Date / Time Sulfa (Sulfonamide Allergy Severe Verified 10/28/21 10:07 Antibiotics) Past Med/Surg History Medical History (Updated 10/28/21 @ 13:59 by Elliott Hartman MD) Bacteremia due to Streptococcus GERD (gastroesophageal reflux disease) History of cardiac disorder Per outpatient cardiology note: Congenitally bicuspid aortic valve 1.Infectious endocarditis in July 2001 status post homograft aortic root replacement, aortic valve replacement, single-vessel (RCA) coronary artery bypass grafting (likely due to coronary compromise with homograft) in 2000 2.Redo aortic valve replacement with a 21 mm [employer] bioprosthesis (Serial No: [id number], Model: [id number]) due to valve deterioration,insuffciency, November 2016. Surgery performed at [facility]. Preoperative coronary angiography demonstrated chronic right coronary occlusion with collateral fill and no obstructive disease in left coronary system. Severe homograft and aortic root calcification was noted and patient underwent sutureless Anders valve surgical implantation. 3.Status post 03/29/2021 dual chamber pacemaker implantation at [facility], Dr. Tabor. [employer] [place] XT DR SUZY Kwok [id number], Serial number [id number]. Tyrx pouch, reference [id number], lot number [id number]. Right atrial lead: Medtronic 5076-52 cm, Serial number [id number]. Left bundle lead: Medtronic 3830-69 cm, Serial number [id number]. 4.Status post June 14, 2021 excision of homograft root with rebecca valve a nd replacement with a 23 mm On-X mechanical prosthetic valve, ascending yrn arch replacement, and right radial artery bypass grafting to the RCA via full conventional sternotomy at [facility]. Discharge date: 06/21/2021 HTN (hypertension) CAREN (obstructive sleep apnea) Pacemaker Surgical History (Updated 10/28/21 @ 13:59 by Elliott Hartman MD) Hx of mechanical aortic valve replacement S/P CABG x 1 Family History Mother Diabetes Social History Smoking Status: Never smoker Hx Alcohol Use: No Hx Substance Use: No Communication Ability: Effective Blood Bank Business Manager Required: No Beliefs That Will Affect Care: None Current Living Situation: Spouse Feels Safe at Home: Yes Assistive Devices: None Immunizations: Past medical historyartificial heart valve. Denies diabetes. Social historylives locally. Is followed by Dr. Sosa in [place] Review of Systems A total of 10 systems reviewed and were otherwise negative Physical Exam Vital Signs Vital Signs - 24 hr 10/28/21 09:15 10/28/21 10:00 10/28/21 11:15 Temperature 37.2 C Temperature Source Temporal Artery Scan Pulse Rate 98 H Pulse Rate [Left Apical] 84 Pulse Rhythm [Left Apical] Regular Pulse Strength [Left Apical] Normal Respiratory Rate 18 21 Respiratory Effort / Characteristics Non-Labored Spontaneous Non-Labored Spontaneous Respiratory Depth Normal Respiratory Pattern Regular Blood Pressure 132/72 Blood Pressure [Right Arm] 109/75 Blood Pressure Mean 92 Blood Pressure Mean [Right Arm] 86 Blood Pressure Position [Right Arm] Lying Pulse Oximetry 96 98 98 Oxygen Delivery Method Room Air Room Air Room Air Sepsis Recent Fever Within 48 Hours No Sepsis New/Unexplained Change in Mental Status No Sepsis Action Taken by Nursing No Action Required 10/28/21 12:00 10/28/21 13:15 Temperature Temperature Source Pulse Rate Pulse Rate [Left Apical] 94 H Pulse Rhythm [Left Apical] Regular Pulse Strength [Left Apical] Normal Respiratory Rate 17 Respiratory Effort / Characteristics Non-Labored Spontaneous Non-Labored Spontaneous Respiratory Depth Normal Respiratory Pattern Regular Blood Pressure Blood Pressure [Right Arm] 131/75 Blood Pressure Mean Blood Pressure Mean [Right Arm] 93 Blood Pressure Position [Right Arm] Lying Pulse Oximetry 97 98 Oxygen Delivery Method Room Air Room Air Sepsis Recent Fever Within 48 Hours Sepsis New/Unexplained Change in Mental Status Sepsis Action Taken by Nursing General: Well developed well nourished not ill-appearing middle-age male who appears in no acute distress, breathing comfortably on room air. Normal speech HEENT: Normal cephalic atraumatic. Pupils are equal round and reactive to light. Extraocular movements are intact. Oropharynx is pink with moist mucous membranes. No swelling of the mouth lips or tongue. Neck: Supple with a midline trachea. No meningeal signs or stiffness, no JVD or bruits. No Stridor. Chest: Clear to auscultation bilaterally. No wheezes or rhonchi. No increased work of breathing. Heart: Regular rate and rhythm without murmurs or gallops. Abdomen: Soft nontender, nondistended without rebound guarding or rigidity. Extremities: No cyanosis clubbing or edema. No calf tenderness or assymetry. Right knee is tender and moderately swollen. There is no redness. Spine/Back. Non tender to palpation. No CVA tenderness Skin: Good turgor without rashes. Neurologic exam: Cranial nerves two through 12 are intact. Motor and sensation are intact and symmetrical throughout. Course Administered Medications Discontinued Medications Sodium Chloride (Nss 1000ml) 1,000 mls @ 999 mls/hr IV .Q1H1M ONE Stop: 10/28/21 10:39 Last Infusion: 10/28/21 13:00 Dose: 0 mls/hr Documented by: [id number] Admin: 10/28/21 11:38 Dose: 999 mls/hr Documented by: [id number] Vancomycin HCl 2,000 mg/ (Sodium Chloride) 540 mls @ 200 mls/hr IV NOW STA Stop: 10/28/21 12:33 Last Admin: 10/28/21 11:37 Dose: 200 mls/hr Documented by: [id number] Ceftriaxone Sodium (Rocephin) 2,000 mg in 70 mls @ 140 mls/hr IV NOW STA Stop: 10/28/21 10:25 Last Infusion: 10/28/21 12:30 Dose: 0 mls/hr Documented by: [id number] Admin: 10/28/21 11:56 Dose: 140 mls/hr Documented by: [id number] Ioversol (Optiray 320 100ml) 94 ml IV ONCE ONE Stop: 10/28/21 13:31 Last Admin: 10/28/21 13:31 Dose: 94 ml Documented by: [id number] Lidocaine HCl (Xylocaine 1%/Sod Bicarb 20 Ml Vial) 20 ml INFIL NOW ONE Stop: 10/28/21 10:48 Last Admin: 10/28/21 11:38 Dose: Not Given Documented by: [id number] Tramadol HCl (Tramadol Hcl 50 Mg Tablet) 50 mg PO NOW STA Stop: 10/28/21 11:48 Last Admin: 10/28/21 11:56 Dose: 50 mg Documented by: [id number] Medical Decision Making Differential Diagnosis Sepsis, endocarditis, Covid, pneumonia, septic knee, tickborne illness, electrolyte or metabolic abnormality Medical Records Attestation: I reviewed the patient's medical records. Home Medications Current Medication List: was personally reviewed by me Laboratory Data Attestation: I reviewed the patient's lab results. Result diagrams: 10/28/21 10:21 10/28/21 10:21 Lab Results 10/28/21 10/28/21 10/28/21 Range/Units 10:21 10: 10:21 WBC 7.26 (4.8-10.8) K/uL RBC 4.60 L (4.7-6.1) M/uL Hgb 12.3 L (14.0-18.0) g/dL Hct 37.6 L (42-52) % MCV 81.7 (80-100) fL MCH 26.7 (25-34) pg MCHC 32.7 (32-36) g/dL RDW Std Deviation 46.9 H (36.4-46.3) fL RDW Coeff of Bronson 15.8 H (11.5-14.5) % Plt Count 208 (130-400) K/uL MPV 10.0 (7.4-10.4) fL Immature Gran % (Auto) 0.1 % Neut % (Auto) 79.9 % Lymph % (Auto) 13.5 % Ray % (Auto) 3.9 % Eos % (Auto) 2.5 % Baso % (Auto) 0.1 % Neut # (Auto) 5.80 (1.4-6.5) K/uL Lymph # (Auto) 0.98 L (1.2-3.4) K/uL Ray # (Auto) 0.28 (0.11-0.59) K/uL Eos # (Auto) 0.18 (0-0.5) K/uL Baso # (Auto) 0.01 (0-0.2) K/uL Immature Gran # (Auto) 0.01 (0.00-0.02) K/uL Polychromasia 1+ ESR (0-15) mm/hr PT 14.7 H (9.0-12.0) Seconds INR 1.5 H (0.9-1.1) APTT 41.6 H (21.0-31.0) Seconds PTT Ratio 1.6 Sodium 139 (136-145) mmol/L Potassium 3.8 (3.5-5.1) mmol/L Chloride 107 (98-107) mmol/L Carbon Dioxide 27 (21-32) mmol/L Anion Gap 5.0 (3-11) BUN 14 (7-18) mg/dl Creatinine 0.99 (0.6-1.4) mg/dl Est Cr Clr Drug Dosing 91.3 ml/min Est GFR ( Amer) 103.9 ml/min Est GFR (Non-Af Amer) 89.7 ml/min BUN/Creatinine Ratio 13.7 (10-20) Glucose 109 H (70-99) mg/dl Lactate (0.4-2.0) mmol/L Calcium 9.3 (8.5-10.1) mg/dl Magnesium 2.1 (1.8-2.4) mg/dl Total Bilirubin 0.9 (0.2-1) mg/dl AST 28 (15-37) U/L ALT 53 (12-78) Alkaline Phosphatase 137 H D (45-117) U/L Troponin I < 0.015 (0-0.045) ng/ml C-Reactive Protein 6.92 H (0-0.29) mg/dl Total Protein 7.9 (6.4-8.2) gm/dl Albumin 3.8 (3.4-5.0) gm/dl Globulin 4.1 H (2.5-4.0) gm/dl Albumin/Globulin Ratio 0.9 (0.9-2) Procalcitonin (0-0.5) ng/ml Fluid Comment Synovial Source Synovial Color Synovial Appearance Synovial WBC (0-200) /ul Synovial RBC /uL Synovial Polynuclear % % Synovial Mononuclear % % Anaplasma Smear See Comment Lyme Disease IgG Ab (Negative) Lyme Disease IgM Ab (Negative) SARS-CoV-2 (PCR) (Negative) Influenza Type A (PCR) (Neg) Influenza Type B (PCR) (Neg) RSV (RT-PCR) (Neg) 10/28/21 10/28/21 10/28/21 Range/Units 10:21 10:21 10:21 WBC (4.8-10.8) K/uL RBC (4.7-6.1) M/uL Hgb (14.0-18.0) g/dL Hct (42-52) % MCV (80-100) fL MCH (25-34) pg MCHC (32-36) g/dL RDW Std Deviation (36.4-46.3) fL RDW Coeff of Bronson (11.5-14.5) % Plt Count (130-400) K/uL MPV (7.4-10.4) fL Immature Gran % (Auto) % Neut % (Auto) % Lymph % (Auto) % Ray % (Auto) % Eos % (Auto) % Baso % (Auto) % Neut # (Auto) (1.4-6.5) K/uL Lymph # (Auto) (1.2-3.4) K/uL Ray # (Auto) (0.11-0.59) K/uL Eos # (Auto) (0-0.5) K/uL Baso # (Auto) (0-0.2) K/uL Immature Gran # (Auto) (0.00-0.02) K/uL Polychromasia ESR 49 H (0-15) mm/hr PT (9.0-12.0) Seconds INR (0.9-1.1) APTT (21.0-31.0) Seconds PTT Ratio Sodium (136-145) mmol/L Potassium (3.5-5.1) mmol/L Chloride (98-107) mmol/L Carbon Dioxide (21-32) mmol/L Anion Gap (3-11) BUN (7-18) mg/dl Creatinine (0.6-1.4) mg/dl Est Cr Clr Drug Dosing ml/min Est GFR ( Amer) ml/min Est GFR (Non-Af Amer) ml/min BUN/Creatinine Ratio (10-20) Glucose (70-99) mg/dl Lactate 2.0 (0.4-2.0) mmol/L Calcium (8.5-10.1) mg/dl Magnesium (1.8-2.4) mg/dl Total Bilirubin (0.2-1) mg/dl AST (15-37) U/L ALT (12-78) Alkaline Phosphatase (45-117) U/L Troponin I (0-0.045) ng/ml C-Reactive Protein (0-0.29) mg/dl Total Protein (6.4-8.2) gm/dl Albumin (3.4-5.0) gm/dl Globulin (2.5-4.0) gm/dl Albumin/Globulin Ratio (0.9-2) Procalcitonin 0.53 H (0-0.5) ng/ml Fluid Comment Synovial Source Synovial Color Synovial Appearance Synovial WBC (0-200) /ul Synovial RBC /uL Synovial Polynuclear % % Synovial Mononuclear % % Anaplasma Smear Lyme Disease IgG Ab Negative (Negative) Lyme Disease IgM Ab Negative (Negative) SARS-CoV-2 (PCR) (Negative) Influenza Type A (PCR) (Neg) Influenza Type B (PCR) (Neg) RSV (RT-PCR) (Neg) 10/28/21 10/28/21 Range/Units 10:21 11:26 WBC (4.8-10.8) K/uL RBC (4.7-6.1) M/uL Hgb (14.0-18.0) g/dL Hct (42-52) % MCV (80-100) fL MCH (25-34) pg MCHC (32-36) g/dL RDW Std Deviation (36.4-46.3) fL RDW Coeff of Bronson (11.5-14.5) % Plt Count (130-400) K/uL MPV (7.4-10.4) fL Immature Gran % (Auto) % Neut % (Auto) % Lymph % (Auto) % Ray % (Auto) % Eos % (Auto) % Baso % (Auto) % Neut # (Auto) (1.4-6.5) K/uL Lymph # (Auto) (1.2-3.4) K/uL Ray # (Auto) (0.11-0.59) K/uL Eos # (Auto) (0-0.5) K/uL Baso # (Auto) (0-0.2) K/uL Immature Gran # (Auto) (0.00-0.02) K/uL Polychromasia ESR (0-15) mm/hr PT (9.0-12.0) Seconds INR (0.9-1.1) APTT (21.0-31.0) Seconds PTT Ratio Sodium (136-145) mmol/L Potassium (3.5-5.1) mmol/L Chloride (98-107) mmol/L Carbon Dioxide (21-32) mmol/L Anion Gap (3-11) BUN (7-18) mg/dl Creatinine (0.6-1.4) mg/dl Est Cr Clr Drug Dosing ml/min Est GFR ( Amer) ml/min Est GFR (Non-Af Amer) ml/min BUN/Creatinine Ratio (10-20) Glucose (70-99) mg/dl Lactate (0.4-2.0) mmol/L Calcium (8.5-10.1) mg/dl Magnesium (1.8-2.4) mg/dl Total Bilirubin (0.2-1) mg/dl AST (15-37) U/L ALT (12-78) Alkaline Phosphatase (45-117) U/L Troponin I (0-0.045) ng/ml C-Reactive Protein (0-0.29) mg/dl Total Protein (6.4-8.2) gm/dl Albumin (3.4-5.0) gm/dl Globulin (2.5-4.0) gm/dl Albumin/Globulin Ratio (0.9-2) Procalcitonin (0-0.5) ng/ml Fluid Comment Synovial Source KNEE Synovial Color YELLOW Synovial Appearance CLOUDY Synovial WBC 96824 H (0-200) /ul Synovial RBC 6000 /uL Synovial Polynuclear % 87.0 % Synovial Mononuclear % 13.0 % Anaplasma Smear Lyme Disease IgG Ab (Negative) Lyme Disease IgM Ab (Negative) SARS-CoV-2 (PCR) NEGATIVE (Negative) Influenza Type A (PCR) Negative (Neg) Influenza Type B (PCR) Negative (Neg) RSV (RT-PCR) Negative (Neg) Imaging Data Attestation: I personally reviewed and interpreted this imaging study as follows: My Impression: Chest x-rayno acute infiltrate, failure, pneumothorax. There is a pacemaker in place. Knee x-rayno fracture or acute abnormality. There may be a small effusion. Radiologist's Impression: Chest X-Ray 10/28/21 09:36 XR chest 1V portable CLINICAL HISTORY: SEPSIS. Evaluate cardiopulmonary status COMPARISON STUDY: 03/30/2021 TECHNIQUE: 1 view of the chest FINDINGS: Single frontal view of the chest demonstrates the heart to be enlarged status post previous cardiothoracic surgery and pacer placement. There is hyperinflation of the lungs with attenuation of the pulmonary vasculature peripherally characteristic of underlying chronic obstructive pulmonary disease. No smoking history was provided. The lungs are clear of alveolar opacities. There is no evidence for pleural effusion. There is no evidence for vascular congestion. There is no acute osseous pathology. IMPRESSION: No acute cardiopulmonary disease. There is evidence for underlying COPD. ACT 112: Negative or not required by law. Electronically signed by: Kwame Barnett M.D. 10/28/2021 10:04 AM Knee X-Ray 10/28/21 09:37 XR knee RT 1 or 2V routine CLINICAL HISTORY: rt knee pain and swelling. COMPARISON STUDY: No previous studies for comparison. TECHNIQUE: 2 right knee views FINDINGS: Bones: There is no evidence for an acute fracture or dislocation. There is no lytic or blastic lesion. Joints: The joint spaces are maintained. There is a small intra-articular effusion. The bones are in anatomic alignment. Soft tissues: There is no focal soft tissue abnormality. There is no radiopaque foreign body. IMPRESSION: No acute osseous pathology. Small intra-articular effusion. ACT 112: Negative or not required by law. Electronically signed by: Kwame Barnett M.D. 10/28/2021 10:[address] 10/28/21 11:14 CT chest diagnostic w con CLINICAL HISTORY: eval for abscess, hx mechancial AVR, pacer, CABG . Reported positive blood cultures. COMPARISON STUDY: Portable chest from 10/28/2021 CT DOSE: 390.82 mGy.cm TECHNIQUE: Standard CT of the Chest was performed with IV contrast. A dose lowering technique was utilized adhering to the principles of ALARA. Contrast Volume: Optiray 320, 94 ml FINDINGS: Airway: The airway is clear. No endobronchial lesion is identified. Lungs: The lungs are clear of acute alveolar opacities, air bronchograms or pulmonary nodules. Pleura: There is no evidence for pleural effusion. There is no evidence for pneumothorax. There is minimal pleural thickening involving the right anterior chest wall the right middle lobe. Mediastinum: There is no evidence for pathologic adenopathy. The patient is status post previous cardiothoracic surgery. The heart size is within normal limits. Coronary artery calcifications present. No definite mediastinal hematoma is seen. Cardiac pacer is in place. The thoracic aorta is within normal limits. There is no evidence for pericardial effusion. Upper abdomen: The adrenal glands are normal bilaterally. There is a small hiatal hernia. Osseous structures: There is no acute osseous pathology. IMPRESSION: 1. No acute chest disease. 2. Status post previous cardiac thoracic surgery with no evidence for mediastinal hematoma or abnormal fluid collection. 3. Status post pacer placement with no evidence for abnormal fluid collection surrounding the pacer. ACT 112: Negative or not required by law. Electronically signed by: Kwame Barnett M.D. 10/28/2021 1:40 PM ECG Data Attestation: I personally reviewed and interpreted this ECG as follows: Indication: + weakness Rate (beats per minute): 81 Rhythm: + normal sinus ECG Intervals/blocks: + First degree AV block and + Left bundle branch block ECG [facility]: + Normal ECG ST segments: + Normal ST segments ECG Findings: no PACs or no PVCs Comparison ECG Date: from (03/29/21) Change: the following changes noted (Normal sinus rhythm has replaced a paced rhythm) MDM Narrative This patient comes in as described above. He was sent to the ER after an positive blood cultures yesterday he has had fevers and also knee pain he also has mechanical heart valve so he would certainly be at risk for endocarditis. I reviewed his chart and I saw him while he was still in the lobby as I was concerned with his history. He looks well. I did examine him and order blood work. I discussed his findings with our ED pharmacist. The patient had to strep positive on 2/2 vials and given his history I think is unlikely contaminant . we did order him IV Rocephin as well as IV vancomycin after seeing the patient but before any labs are back as I felt that he needed it promptly further blood testing and imaging was ordered here. He was ordered 1 L IV normal saline bolus. He was reassessed frequently. White count is not elevated. Lactic acid is to. Procalcitonin is not elevated. Covid testing was negative. We did tap his knee, please refer to Giles Cavazos PA-C note. Apparently there was turbid fluid, but the white count was only 15,000 so therefore is more likely inflammatory than infectious. EKG shows a bundle branch block. He has no chest pain. He may have endocarditis. Shannan saw the patient in the ER and will admit him for further treatment and evaluation. Continuous cardiac monitoring: Orders placed in EMR for continuous cardiac monitoring. Upon my interpretation the patient noted to be in normal sinus rhythm at a rate 85 Impression & Plan Sepsis, Pacemaker, Bacteremia due to Streptococcus, Hx of mechanical aortic valve replacement, Lab test negative for COVID-19 virus Discharge Plan Visit Data Chief Complaint: Infection Stated Complaint: BLOOD INFECTION ED Provider: Elliott Hartman Discharge Problem: Sepsis, Pacemaker, Bacteremia due to Streptococcus, Hx of mechanical aortic valve replacement, Lab test negative for COVID-19 virus Forms Stand Alone Forms: [facility] Prescriptions Prescriptions: No Action doxycycline hyclate 50 mg capsule 50 mg PO BID RF: 0 metoprolol tartrate 50 mg tablet 50 mg PO BID RF: 0 aspirin 81 mg Tablet,Chewable 81 mg PO QAM RF: 0 allopurinol 300 mg tablet 300 mg PO QAM RF: 0 acetaminophen 325 mg tablet 650 mg PO Q4H PRN (Reason: Pain) RF: 0 One Daily For Men 0.4-600 mg-mcg Tablet 1 tab PO QAM RF: 0 acyclovir 800 mg tablet 800 mg PO DAILY RF: 0 warfarin 4 mg tablet 4 mg PO MOTUWETHFRSA RF: 0 warfarin 4 mg tablet 2 mg PO ESQUIVEL RF: 0 amlodipine 10 mg tablet 10 mg PO DAILY RF: 0 pregabalin 75 mg capsule 75 mg PO BID RF: 0 atorvastatin 40 mg Tablet 40 mg PO HS RF: 0 famotidine 40 mg Tablet 40 mg PO QAM RF: 0 Referrals Referrals: Sergio Sosa MD [Primary Care Provider] - Discharge Problem: Sepsis Qualifiers: Sepsis type: sepsis due to unspecified organism Sepsis acute organ dysfunction status: unspecified Qualified Code(s): A41.9 - Sepsis, unspecified organism
[2021-10-28] MEDS ORDERED: VANCOMYCIN HCL 2,000 MG in SODIUM CHLORIDE 0.9% 500 ML IV STA (09:52)
[2021-10-28] MEDS ORDERED: cefTRIAXone SODIUM 2,000 MG/70 ML BAG IV STA (09:56)
--- NOTE | 2021-10-28 10:05 | XRay Report ---
XR chest 1V portable CLINICAL HISTORY: SEPSIS. Evaluate cardiopulmonary status COMPARISON STUDY: 03/30/2021 TECHNIQUE: 1 view of the chest FINDINGS: Single frontal view of the chest demonstrates the heart to be enlarged status post previous cardiotho racic surgery and pacer placement. There is hyperinflation of the lungs with attenuation of the pulmo nary vasculature peripherally characteristic of underlying chronic obstructive pulmonary disease. No smoking history was provided. The lungs are clear of alveolar opacities. There is no evidence for ple ural effusion. There is no evidence for vascular congestion. There is no acute osseous pathology. IMPRESSION: No acute cardiopulmonary disease. There is evidence for underlying COPD. ACT 112: Negative or not required by law. Electronically signed by: Kwame Barnett M.D. 10/28/2021 10:04 AM
--- NOTE | 2021-10-28 10:06 | XRay Report ---
XR knee RT 1 or 2V routine CLINICAL HISTORY: rt knee pain and swelling. COMPARISON STUDY: No previous studies for comparison. TECHNIQUE: 2 right knee views FINDINGS: Bones: There is no evidence for an acute fracture or dislocation. There is no lytic or blastic lesion . Joints: The joint spaces are maintained. There is a small intra-articular effusion. The bones are in anatomic alignment. Soft tissues: There is no focal soft tissue abnormality. There is no radiopaque foreign body. IMPRESSION: No acute osseous pathology. Small intra-articular effusion. ACT 112: Negative or not required by law. Electronically signed by: Kwame Barnett M.D. 10/28/2021 10:04 AM
[2021-10-28 10:28] LABS: Basophils # (auto) 0.01 K/uL (0-0.2); Basophils % (auto) 0.1 %; Eosinophils # (auto) 0.18 K/uL (0-0.5); Eosinophils % (auto) 2.5 %; Hematocrit (blood only) 37.6 % (42-52); Hemoglobin 12.3 g/dL (14.0-18.0); Immature Granulocytes # (auto) 0.01 K/uL (0.00-0.02); Immature Granulocytes % (auto) 0.1 %; Lymphocytes # (auto) 0.98 K/uL (1.2-3.4); Lymphocytes % (auto) 13.5 %; Mean Corpuscular Hemoglobin 26.7 pg (25-34); Mean Corpuscular Hgb Conc 32.7 g/dL (32-36); Mean Corpuscular Volume 81.7 fL (80-100); Monocytes # (auto) 0.28 K/uL (0.11-0.59); Monocytes % (auto) 3.9 %; Neutrophils % (auto) 79.9 %; Platelet Count 208 K/uL (130-400); RDW Coefficient of Variation 15.8 % (11.5-14.5); RDW Standard Deviation 46.9 fL (36.4-46.3); White Blood Count 7.26 K/uL (4.8-10.8)
[2021-10-28 10:38] LABS: INR 1.5 (0.9-1.1); Partial Thromboplastin Ratio 1.6; Partial Thromboplastin Time 41.6 Seconds (21.0-31.0); Prothrombin Time 14.7 Seconds (9.0-12.0)
[2021-10-28 10:44] LABS: Alanine Aminotransferase 53 (12-78); Albumin Level 3.8 gm/dl (3.4-5.0); Aspartate Aminotransferase 28 U/L (15-37); BUN Creatinine Ratio 13.7 (10-20); Blood Urea Nitrogen 14 mg/dl (7-18); C Reactive Protein 6.92 mg/dl (0-0.29); Calcium 9.3 mg/dl (8.5-10.1); Carbon Dioxide 27 mmol/L (21-32); Chloride 107 mmol/L (98-107); Creatinine Clr Calc Pharmacy 91.3 ml/min; Est GFR (African American) 103.9 ml/min; Est GFR (Non-African American) 89.7 ml/min; Glucose 109 mg/dl (70-99); Magnesium 2.1 mg/dl (1.8-2.4); Potassium 3.8 mmol/L (3.5-5.1); Sodium 139 mmol/L (136-145)
[2021-10-28] MEDS ORDERED: XYLOCAINE 1%/SOD BICARB 20 ML VIAL INFIL ONE (10:47)
[2021-10-28 10:49] LABS: Albumin Globulin Ratio 0.9 (0.9-2); Alkaline Phosphatase 137 U/L (45-117); Bilirubin,Total 0.9 mg/dl (0.2-1); Globulin 4.1 gm/dl (2.5-4.0); Total Protein 7.9 gm/dl (6.4-8.2); Troponin I < 0.015 ng/ml (0-0.045)
[2021-10-28 10:50] LABS: Polychromasia 1+
[2021-10-28 11:07] LABS: Procalcitonin 0.53 ng/ml (0-0.5)
[2021-10-28 11:13] LABS: Lyme Ab IgG w/WB Rflx Negative (Negative); Lyme Ab IgM w/WB Rflx Negative (Negative)
[2021-10-28 11:14] LABS: Influenza A virus by PCR Negative (Neg); Influenza B virus by PCR Negative (Neg); RSV by PCR Negative (Neg); SARS CoV2 RNA(COVID-19) InHosp NEGATIVE (Negative)
[2021-10-28] MEDS ORDERED: traMADol HCL 50 MG TABLET PO STA (11:47)
--- NOTE | 2021-10-28 11:56 | Cardiology Consultation ---
Date of Consultation October 28, 2021 Assessment & Plan (1) Bacteremia due to Streptococcus: (2) Hx of mechanical aortic valve replacement: (3) Pacemaker: (4) Septic joint of right knee joint: Complex 46-year-old patient presents with acute right knee septic joint and Streptococcus bacteremia. Recent Streptococcus bacteremia noted in early September successfully treated with single dose of intramuscular Rocephin and oral antibiotics. Follow-up cultures negative. I suspect recurrent bacteremia secondary to dental cleanings he performs routinely with metal utensils. Recommend empiric broad-spectrum antibiotic therapy and ID consultation. CT of the chest will be performed due to right-sided discomfort near prior surgical site to exclude presence of abscess. Resting 2D transthoracic echocardiogram will be performed at bedside while in the emergency department. Ultimately patient will most likely require transesophageal echocardiogram to exclude endocarditis. Further recommendations pending review of imaging. Patient is status post aortic valve replacement with On-X aortic valve mechanical prosthesis. Goal INR for this type of valve in the aortic position is 1.5-2.0 in combination with low-dose aspirin. History of Present Illness Reason for Consultation: Bacteremia Requesting Physician: Dr. Benavides Attending Physician: Dr. Benavides History of Present Illness 46-year-old patient with complex cardiovascular history listed below presents fo r evaluation of fever, right knee pain, and outpatient Streptococcus blood culture. Admits to scraping his teeth with a dental utensil on a weekly basis. Typically takes antibiotics before any dental procedures, however, does not utilize antibiotics in his home. Generally does not cause any gum bleeding although he admits this is a terrible habit. Fevers began on Saturday. The discomfort but developed on Saturday. He contacted his primary care physician who performed a Covid test and blood cultures. Right knee was tapped by orthopedic surgery in the ER. Fluid sent for culture. IV antibiotics ordered, however, have not administered. Patient currently resting comfortably. Denies chest discomfort or unusual shortness of breath. Fevers typically occurring in the evening with associated diaphoresis. Notes mild soreness near his right sided chest incision. Sternotomy wound well opposed without erythema or drainage. Patient present at bedside. Offers no additional concerns/complaints. Complex cardiovascular history: 1. Congenitally bicuspid aortic valve 2. Infectious endocarditis in July 2001 status post homograft aortic root replacement, aortic valve replacement, single-vessel (RCA) coronary artery bypass grafting (likely due to coronary compromise with homograft) in 2000 3. Redo aortic valve replacement with a 21 mm Anders [employer]ical bioprosthesis (Serial No: [id number], Model: [id number]) due to valve deterioration,insuffciency, November 2016. Surgery performed at [facility]. Preoperative coronary angiography demonstrated chronic right coronary occlusion with collateral fill and no obstructive disease in left coronary system. Severe homograft and aortic root calcification was noted and patient underwent sut ureless Anders valve surgical implantation. 4. Status post 03/29/2021 dual chamber pacemaker implantation at [facility], Dr. Tabor. Medtronic [place] XT DR SUZY Kwok [id number], Serial number [id number]. Tyrx pouch, reference [id number], lot number [id number]. Right atrial lead: Medtronic 5076-52 cm, Serial number [id number]. Left bundle lead: Medtronic 3830-69 cm, Serial number [id number]. 5. Status post June 14, 2021 excision of homograft root with rebecca valve and replacement with a 23 mm On-X mechanical prosthetic valve, ascending yrn arch replacement, and right radial artery bypass grafting to the RCA via full conventional sternotomy at [facility]. Discharge date: 06/21/2021 6. Hypertension 7. CAREN, CPAP, with supplemental oxgyen. 8. Gastroesophageal reflux 9. Gout Allergies Allergy/AdvReac Type Severity Reaction Status Date / Time Sulfa (Sulfonamide Allergy Severe Unknown Verified 10/28/21 14:33 Antibiotics) Home Medications Medication Instructions Recorded Confirmed Type atorvastatin 40 mg tablet 40 mg PO HS 03/29/21 10/28/21 History famotidine 40 mg tablet 40 mg PO QAM 03/29/21 10/28/21 History acetaminophen 325 mg tablet 650 mg PO Q4H PRN 10/28/21 10/28/21 History acyclovir 800 mg tablet 800 mg PO DAILY 10/28/21 10/28/21 History allopurinol 300 mg tablet 300 mg PO QAM 10/28/21 10/28/21 History amlodipine 10 mg tablet 10 mg PO DAILY 10/28/21 10/28/21 History aspirin 81 mg chewable tablet 81 mg PO QAM 10/28/21 10/28/21 History doxycycline hyclate 50 mg capsule 50 mg PO BID 10/28/21 10/28/21 History metoprolol tartrate 50 mg tablet 50 mg PO BID 10/28/21 10/28/21 History multivit with minerals-folic 1 tab PO QAM 10/28/21 10/28/21 History acid-lycopene 0.4 mg-600 mcg tablet (One Daily For Men) pregabalin 75 mg capsule 75 mg PO BID 10/28/21 10/28/21 History warfarin 4 mg tablet 2 mg PO ESQUIVEL 10/28/21 10/28/21 History warfarin 4 mg tablet 4 mg PO MOTUWETHFRSA 10/28/21 10/28/21 History Patient History Medical History (Updated 10/28/21 @ 13:59 by Elliott Hartman MD) Bacteremia due to Streptococcus GERD (gastroesophageal reflux disease) History of cardiac disorder Per outpatient cardiology note: Congenitally bicuspid aortic valve 1.Infectious endocarditis in July 2001 status post homograft aortic root replacement, aortic valve replacement, single-vessel (RCA) coronary artery bypass grafting (likely due to coronary compromise with homograft) in 2000 2.Redo aortic valve replacement with a 21 mm Anders [employer]ical bioprosthesis (Serial No: [id number], Model: [id number]) due to valve deterioration,insuffciency, November 2016. Surgery performed at [facility]. Preoperative coronary angiography demonstrated chronic right coronary occlusion with collateral fill and no obstructive disease in left coronary system. Severe homograft and aortic root calcification was noted and patient underwent sutureless Anders valve surgical implantation. 3.Status post 03/29/2021 dual chamber pacemaker implantation at [facility], Dr. Tabor. Medtronic [place] XT DR SUZY Kwok [id number], Serial number [id number]. Tyrx pouch, reference [id number], lot number [id number]. Right atrial lead: Medtronic 5076-52 cm, Serial number [id number]. Left bundle lead: Medtronic 3830-69 cm, Serial number [id number]. 4.Status post June 14, 2021 excision of homograft root with rebecca valve and replacement with a 23 mm On-X mechanical prosthetic valve, ascending yrn arch replacement, and right radial artery bypass grafting to the RCA via full conventional sternotomy at [facility]. Discharge date: 06/21/2021 HTN (hypertension) CAREN (obstructive sleep apnea) Pacemaker Surgical History (Updated 10/28/21 @ 13:59 by Elliott Hartman MD) Hx of mechanical aortic valve replacement S/P CABG x 1 Family History Mother Diabetes Social History Smoking Status: Never smoker Second Hand Exposure: No; Do You Dip or Chew Tobacco: No; Tobacco Cessation Education Requested by Patient: No Hx Alcohol Use: No Hx Substance Use: Yes Last Used Substance: Unknown Preferred Language: Estonian Communication Ability: Effective Clam Bed Laborer Required: No Beliefs That Will Affect Care: None Current Living Situation: Spouse Current Living Situation Comment: second floor apartment Other Information That Helps Us Care for You: No Feels Safe at Home: Yes Safety Concerns: Feels Safe At This Time Assistive Devices: CPAP and Glasses Review of Systems Review of Systems: All systems reviewed & are unremarkable except as noted in Subjective Physical Exam Constitutional: well developed, well nourished and + ill appearing; no acute distress Respiratory: normal respiratory effort; no respiratory distress, no labored breathing and no retractions Auscultation: lungs clear to auscultation bilaterally; no crackles, no rales, no rhonchi and no wheezes Cardiovascular: Rate/Rhythm: regular rate and regular rhythm Heart Sounds: normal S1, normal S2 and + murmur (2/6 systolic murmur heard best at the base. Humphreys closure click.) Vessels: no JVD and no carotid bruit Extremities: + edema (+ Right knee tenderness without erythema or edema.) Gastrointestinal (Abdomen): Inspection/Auscultation: abdomen normal to inspection and normal bowel sounds; abdomen not distended Percussion/Palpation: abdomen soft; abdomen nontender, no guarding and abdomen not rigid Neurologic: CN's II-XI intact bilaterally and moves all extremities; no focal motor deficits Motor/Sensory: no tremor Psychiatric: A+Ox3, euthymic affect Results & Data ([facility]) Vital Signs (Past 12 Hours) Vital Signs Temp Pulse Resp BP Pulse Ox 10/28/21 09:15 37.2 C 98 H 18 132/72 96
--- NOTE | 2021-10-28 12:35 | History & Physical Report ---
Date of Service October 28, 2021 Assessment & Plan (1) Bacteremia due to Streptococcus: (2) Hx of mechanical aortic valve replacement: Plan: -Admit to telemetry -Patient presenting by referral of outpatient provider for evaluation of recurrent strep bacteremia. 09/19 outpatient blood cultures grew strep and patient received IM ceftriaxone x 1 dose and completed a course of p.o. Augmentin for 10 days. Repeat blood cultures on 09/26 were negative. Blood cultures from 10/27 growing strep. -Recurrent bacteremia may be due to patient's self dental cleanings. -Echocardiogram and CT chest ordered to evaluate for abscess due to recent cardiac surgical history and mechanical aortic valve. Ultimately likely will need NINO. -S/p Vanco and ceftriaxone in ED, will continue with -ID consult -Continue Coumadin for mechanical aortic valve, INR 1.5 - acceptable for On-X valve -Cardiology consult, case discussed with Dr. Martinez (3) Septic joint of right knee joint: Plan: -Given significant pain and effusion on XR, highly suspicious for septic right knee joint -No history of prior surgical intervention to right knee -S/p joint aspiration in the ED -Follow cultures (4) Pacemaker: Plan: -S/p 03/2021, insertion site healed without dehiscence, surrounding erythema or drainage (5) HTN (hypertension): Plan: -BP controlled, continue metoprolol and amlodipine (6) CAREN (obstructive sleep apnea): Plan: -CPAP as per home settings (7) DVT prophylaxis: Plan: -On Coumadin Plan: Attending Addendum: care coordinated with CHEY rosado please refer to her notes for full details, I agree with her notes patient seen and examined, records reviewed by myself as well on exam, patient seen resting in bed, not in distress Reports 5 out of 10 pain on the knee no chest pain, dyspnea, palpitations, dizziness no other symptoms VS noted and reviewed oriented x 3 , not in distress, speaks in sentences with no effort nor accessory muscle use normal rate, regular rhythm, no murmurs clear breath sounds bilaterally non distended, soft, nontender Right knee edema, warmth, tenderness no bipedal edema, erythema, warmth no neuro deficits WBC 7.2 Hg 12.3 Crea 0.99 ASSESSMENT AND PLAN Streptococcus bacteremia Rule out infective endocarditis Septic knee arthritis, right knee TTE Follow-up right knee synovial fluid culture IV vancomycin and ceftriaxone other diagnoses and plan of care as per CHEY rosado's notes Maximo Benavides MD History of Present Illness Chief Complaint: Bacteremia Primary Care Provider: Sergio Sosa MD 46-year-old medically complex male with PMH infectious endocarditis in July 2001 status post homograft aortic root replacement, aortic valve replacement, single-vessel (RCA) coronary artery bypass grafting; redo aortic valve replacement with bioprosthetic valve 2016, s/p pacemaker for high-grade second-degree and third-degree AV block March 2021, s/p excision of homograft root with rebecca valve and replacement with a 23 mm On-X mechanical prosthetic valve, ascending yrn arch replacement, and right radial artery bypass grafting to the RCA via full conventional sternotomy 06/14/2021, CAREN on CPAP, HTN, and other problems listed below who presents the ED by referral of outpatient provider for bacteremia. At the beginning of September, patient developed fevers and body aches and questionable infection of pacemaker insertion site. Blood cultures at that time grew strep and patient received IM ceftriaxone x 1 dose and completed a course of p.o. Augmentin for 10 days. Repeat blood cultures on 09/26 were negative. Patient was starting to feel improved until about 1 week ago when fevers returned. Reports he is running a fever of as high as 102 in the evenings. Has associated body aches, chills, diaphoresis. Developed acute right knee pain a few days ago and patient has been requiring a cane to ambulate. No known injury or trauma. Patient denies previous surgical intervention to the right knee. Reports that pacemaker insertion site and right chest wall incision site have healed however patient reports a deep pain over the right chest wall incision site. No dehiscence, surrounding erythema, or drainage reported. Patient also reports intermittent headaches that are resolved with Tylenol. No nuchal rigidity. Patient denies chest pain or shortness of breath. No lightheadedness, dizziness, diaphoresis, syncopal events. He has had a poor appetite however denies abdominal pain, nausea, vomiting, diarrhea. No urinary symptoms. With the return of fevers this week, patient had repeat blood cultures performed on 10/27 that are growing strep. Patient was referred to the ED for further evaluation. In the ED, patient is hemodynamically stable and afebrile. Labs show CRP 6.9, procalcitonin 0.5, otherwise unremarkable. Right knee x-ray shows a small effusion and patient underwent joint aspiration in ED. Patient received IV ceftriaxone, IV vancomycin, IVF. 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 Allergies Allergy/AdvReac Type Severity Reaction Status Date / Time Sulfa (Sulfonamide Allergy Severe Unknown Verified 10/28/21 14:33 Antibiotics) Home Medications Medication Instructions Recorded Confirmed Type atorvastatin 40 mg tablet 40 mg PO HS 03/29/21 10/28/21 History famotidine 40 mg tablet 40 mg PO QAM 03/29/21 10/28/21 History acetaminophen 325 mg tablet 650 mg PO Q4H PRN 10/28/21 10/28/21 History acyclovir 800 mg tablet 800 mg PO DAILY 10/28/21 10/28/21 History allopurinol 300 mg tablet 300 mg PO QAM 10/28/21 10/28/21 History amlodipine 10 mg tablet 10 mg PO DAILY 10/28/21 10/28/21 History aspirin 81 mg chewable tablet 81 mg PO QAM 10/28/21 10/28/21 History doxycycline hyclate 50 mg capsule 50 mg PO BID 10/28/21 10/28/21 History metoprolol tartrate 50 mg tablet 50 mg PO BID 10/28/21 10/28/21 History multivit with minerals-folic 1 tab PO QAM 10/28/21 10/28/21 History acid-lycopene 0.4 mg-600 mcg tablet (One Daily For Men) pregabalin 75 mg capsule 75 mg PO BID 10/28/21 10/28/21 History warfarin 4 mg tablet 2 mg PO ESQUIVEL 10/28/21 10/28/21 History warfarin 4 mg tablet 4 mg PO MOTUWETHFRSA 10/28/21 10/28/21 History Past Med/Surg History Medical History (Updated 10/28/21 @ 13:59 by Elliott Hartman MD) Bacteremia due to Streptococcus GERD (gastroesophageal reflux disease) History of cardiac disorder Per outpatient cardiology note: Congenitally bicuspid aortic valve 1.Infectious endocarditis in July 2001 status post homograft aortic root replacement, aortic valve replacement, single-vessel (RCA) coronary artery bypass grafting (likely due to coronary compromise with homograft) in 2000 2.Redo aortic valve replacement with a 21 mm Anders [employer]ical bioprosthesis (Serial No: [id number], Model: [id number]) due to valve deterioration,insuffciency, November 2016. Surgery performed at [facility]. Preoperative coronary angiography demonstrated chronic right coronary occlusion with collateral fill and no obstructive disease in left coronary system. Severe homograft and aortic root calcification was noted and patient underwent sutureless Anders valve surgical implantation. 3.Status post 03/29/2021 dual chamber pacemaker implantation at [facility], Dr. Tabor. Medtronic [place] XT DR SUZY Kwok [id number], Serial number [id number]. Tyrx pouch, reference [id number], lot number [id number]. Right atrial lead: Medtronic 5076-52 cm, Serial number [id number]. Left bundle lead: Medtronic 3830-69 cm, Serial number [id number]. 4.Status post June 14, 2021 excision of homograft root with rebecca valve and replacement with a 23 mm On-X mechanical prosthetic valve, ascending yrn arch replacement, and right radial artery bypass grafting to the RCA via full conventional sternotomy at [facility]. Discharge date: 06/21/2021 HTN (hypertension) CAREN (obstructive sleep apnea) Pacemaker Surgical History (Updated 10/28/21 @ 13:59 by Elliott Hartman MD) Hx of mechanical aortic valve replacement S/P CABG x 1 Family History Mother Diabetes Social History Smoking Status: Never smoker Second Hand Exposure: No; Do You Dip or Chew Tobacco: No; Tobacco Cessation Education Requested by Patient: No Hx Alcohol Use: No Hx Substance Use: Yes Last Used Substance: Unknown Preferred Language: Mongolian Communication Ability: Effective Wire Inserter Required: No Beliefs That Will Affect Care: None Current Living Situation: Spouse Current Living Situation Comment: second floor apartment Other Information That Helps Us Care for You: No Feels Safe at Home: Yes Safety Concerns: Feels Safe At This Time Assistive Devices: Cane, CPAP and Glasses Review of Systems Review of Systems: ROS per HPI, all other systems reviewed and negative Physical Exam Constitutional: WD/WN, vitals as above Eyes: PERRL, conjunctivae normal, anicteric sclerae ENMT: external ear and nose normal, oropharynx normal Respiratory: normal respiratory effort, lungs clear to auscultation Cardiovascular: Rate/Rhythm: regular rate and regular rhythm Heart Sounds: + click Vessels: normal peripheral pulses Extremities: no edema Chest (Breasts): Additional Comments: Right chest wall incision site, medial sternotomy incision site, left chest wall pacemaker insertion site all healed without signs of dehiscence, surrounding erythema, or drainage Gastrointestinal (Abdomen): normal bowel sounds, soft, nontender, no hepatosplenomegaly Musculoskeletal: no cyanosis or clubbing, extremities motor strength 5/5 Knee: + limited ROM of knee (Right knee due to pain, mild edema noted) Skin: no rashes, warm and dry Neurologic: PERRL, EOMI, accommodation nl, no face palsy, no dysarthria Psychiatric: A+Ox3, euthymic affect Results & Data Results & Data ([facility]) Vital Signs (Past 12 Hours) Vital Signs Temp Pulse Pulse Resp BP BP Pulse Ox 10/28/21 11:15 84 21 109/75 98 10/28/21 09:15 37.2 C 98 H 18 132/72 96 Laboratory Results Short CBC 10/28/21 Range/Units 10:21 WBC 7.26 (4.8-10.8) K/uL Hgb 12.3 L (14.0-18.0) g/dL Hct 37.6 L (42-52) % Plt Count 208 (130-400) K/uL BMP 10/28/21 10:21 Sodium 139 Potassium 3.8 Chloride 107 Carbon Dioxide 27 BUN 14 Creatinine 0.99 Glucose 109 H Calcium 9.3 Cardiac Enzymes 10/28/21 Range/Units 10:21 Troponin I < 0.015 (0-0.045) ng/ml Liver Function 10/28/21 Range/Units 10:21 Total Bilirubin 0.9 (0.2-1) mg/dl AST 28 (15-37) U/L ALT 53 (12-78) Alkaline Phosphatase 137 H D (45-117) U/L Albumin 3.8 (3.4-5.0) gm/dl Diagnostic Findings Chest X-Ray 10/28/21 09:36 XR chest 1V portable CLINICAL HISTORY: SEPSIS. Evaluate cardiopulmonary status COMPARISON STUDY: 03/30/2021 TECHNIQUE: 1 view of the chest FINDINGS: Single frontal view of the chest demonstrates the heart to be enlarged status post previous cardiothoracic surgery and pacer placement. There is hyperinflation of the lungs with attenuation of the pulmonary vasculature peripherally characteristic of underlying chronic obstructive pulmonary disease. No smoking history was provided. The lungs are clear of alveolar opacities. There is no evidence for pleural effusion. There is no evidence for vascular congestion. There is no acute osseous pathology. IMPRESSION: No acute cardiopulmonary disease. There is evidence for underlying COPD. ACT 112: Negative or not required by law. Electronically signed by: Kwame Barnett M.D. 10/28/2021 10:04 AM Knee X-Ray 10/28/21 09:37 XR knee RT 1 or 2V routine CLINICAL HISTORY: rt knee pain and swelling. COMPARISON STUDY: No previous studies for comparison. TECHNIQUE: 2 right knee views FINDINGS: Bones: There is no evidence for an acute fracture or dislocation. There is no lytic or blastic lesion. Joints: The joint spaces are maintained. There is a small intra-articular effusion. The bones are in anatomic alignment. Soft tissues: There is no focal soft tissue abnormality. There is no radiopaque foreign body. IMPRESSION: No acute osseous pathology. Small intra-articular effusion. ACT 112: Negative or not required by law. Electronically signed by: Kwame Barnett M.D. 10/28/2021 10:04 AM Code Status & VTE Plan VTE Prophylaxis Plan VTE Prophylaxis will be ordered: Yes
[2021-10-28 12:45] LABS: Appearance Synovial Fluid CLOUDY; Color Synovial Fluid YELLOW; RBC Synovial Fluid (A) 6000 /uL; Source Synovial Fluid KNEE; WBC Synovial Fluid (A) 15843 /ul (0-200)
--- NOTE | 2021-10-28 12:56 | Emergency Department Note ---
ED Visit Note Patient was seen in room C1. I was asked to aspirate his right knee by Dr. Hartman. Please see his dictation for full history and physical. Patient has a moderate right knee effusion. There is no redness or warmth. It is tender to touch. Informed oral consent was obtained for aspiration. Patient's right knee was identified in the suprapatellar pouch was marked. Skin was cleansed Betadine x2 and alcohol swab x1. An 18-gauge needle was used to aspirate the knee of 30 mL of cloudy yellow synovial fluid. Knee was decompressed. Hemostasis was achieved with a Band-Aid. Fluid was sent for crystal analysis, Gram stain, aerobic and anaerobic culture with sensitivity. Patient tolerated the procedure well. : Sepsis Qualifiers: Sepsis type: sepsis due to unspecified organism Sepsis acute organ dysfunction status: unspecified Qualified Code(s): A41.9 - Sepsis, unspecified organism
[2021-10-28] MEDS ORDERED: OPTIRAY 320 100ml IV ONE (13:30)
--- NOTE | 2021-10-28 13:41 | CT Scan Report ---
CT chest diagnostic w con CLINICAL HISTORY: eval for abscess, hx mechancial AVR, pacer, CABG . Reported positive blood cultures . COMPARISON STUDY: Portable chest from 10/28/2021 CT DOSE: 390.82 mGy.cm TECHNIQUE: Standard CT of the Chest was performed with IV contrast. A dose lowering technique was u tilized adhering to the principles of ALARA. Contrast Volume: Optiray 320, 94 ml FINDINGS: Airway: The airway is clear. No endobronchial lesion is identified. Lungs: The lungs are clear of acute alveolar opacities, air bronchograms or pulmonary nodules. Pleura: There is no evidence for pleural effusion. There is no evidence for pneumothorax. There is mi nimal pleural thickening involving the right anterior chest wall the right middle lobe. Mediastinum: There is no evidence for pathologic adenopathy. The patient is status post previous card iothoracic surgery. The heart size is within normal limits. Coronary artery calcifications present. N o definite mediastinal hematoma is seen. Cardiac pacer is in place. The thoracic aorta is within norm al limits. There is no evidence for pericardial effusion. Upper abdomen: The adrenal glands are normal bilaterally. There is a small hiatal hernia. Osseous structures: There is no acute osseous pathology. IMPRESSION: 1. No acute chest disease. 2. Status post previous cardiac thoracic surgery with no evidence for mediastinal hematoma or abnorma l fluid collection. 3. Status post pacer placement with no evidence for abnormal fluid collection surrounding the pacer. ACT 112: Negative or not required by law. Electronically signed by: Kwame Barnett M.D. 10/28/2021 1:40 PM
[2021-10-28] MEDS ORDERED: VANCOMYCIN CONSULT ACTIVE PRN (14:28)
--- NOTE | 2021-10-28 15:20 | Pharmacy Report ---
Pharmacy Vanc AUC Short Note - Date of Service October 28, 2021 - Assessment & Plan Assessment 46 year old M receiving IV Vancomycin and Ceftriaxone (not a consult) for treatment of recurrent bacteremia secondary to Strep; also with septic joint of R knee. Day # 1 of antimicrobial therapy. * Patient recently given Ceftriaxone IM x 1 and completed 10 days of Augmentin. He has recurrent bacteremia. Hx mechanical valve replacement. * No renal impairment noted; sCr = 0.99 mg/dL with estimated CrCl ~91 mL/min. Estimated pharmacokinetic parameters: * Ke ~0.079/hr, T1/2 ~8.8 hrs * Patient received Vancomycin 2000mg (~25mg/kg) IV x 1 as a loading dose in the ED Plan Vancomycin * AUC/MARTIN is the preferred PK/PD target for vancomycin * AUC guided dosing is effective and associated with decreased risk of nephrotoxicity compared to traditional trough targets * Given indication of bacteremia, will dose Vancomycin aggressively at 1250mg (~15.5 mg/kg) IV q12 to quickly achieve therapeutic concentrations, which according to [employer] will produce a supratherapeutic AUC/MARTIN and trough. Dosing will likely need to be reduced. * Target AUC/MARTIN of 400-600 mg/L.hr and goal trough 15-20 mcg/mdL * Trough level ordered for: 10/30/21 @ 0930 Pharmacy will continue to follow and will adjust dose/frequency as necessary. Thank you.
[2021-10-28] MEDS: ACETAMINOPHEN 325 MG TAB PO PRN (16:20)
[2021-10-28] MEDS: WARFARIN SOD 4 MG TAB PO SCH (17:16)
[2021-10-28 22:00] LABS: Appearance Urine Clear (Clear); Bilirubin Urine Negative (Negative); Blood Urine Negative (Negative); Color Urine Yellow; Glucose Urine UA Negative (Negative); Ketones Urine Negative (Negative); Leukocyte Esterase Urine Negative (Negative); Nitrite Urine Negative (Negative); Protein Urine Negative (Negative); Urobilinogen Urine Negative (Negative)
[2021-10-28] MEDS: VANCOMYCIN HCL 1,250 MG in SODIUM CHLORIDE 0.9% 250 ML IV SCH (22:12)
[2021-10-28] MEDS: PREGABALIN 75 MG CAP PO SCH (22:12)
[2021-10-28] MEDS: ATORVASTATIN 40 MG TAB PO SCH (22:12)
[2021-10-28] MEDS: METOPROLOL TARTRATE 50 MG TAB PO SCH (22:30)
[2021-10-29 08:10] LABS: Hemoglobin 11.2 g/dL (14.0-18.0); Mean Corpuscular Hemoglobin 26.2 pg (25-34); Mean Platelet Volume 10.1 fL (7.4-10.4); Platelet Count 227 K/uL (130-400); RDW Coefficient of Variation 15.8 % (11.5-14.5); RDW Standard Deviation 47.3 fL (36.4-46.3); Red Blood Count 4.27 M/uL (4.7-6.1)
[2021-10-29 08:25] LABS: INR 1.6 (0.9-1.1); Prothrombin Time 15.4 Seconds (9.0-12.0)
[2021-10-29 08:44] LABS: BUN Creatinine Ratio 12.2 (10-20); Calcium 8.9 mg/dl (8.5-10.1); Creatinine Clr Calc Pharmacy 114.4 ml/min; Est GFR (African American) 123.1 ml/min; Est GFR (Non-African American) 106.2 ml/min; Potassium 3.8 mmol/L (3.5-5.1)
[2021-10-29] MEDS: PREGABALIN 75 MG CAP PO SCH ×2 (08:59→21:24)
[2021-10-29] MEDS: ASPIRIN 81 MG ECTAB PO SCH (08:59)
[2021-10-29] MEDS: FAMOTIDINE 40 MG TABLET PO SCH (08:59)
[2021-10-29] MEDS: allopurinoL 300 MG TAB PO SCH (08:59)
[2021-10-29] MEDS: amLODIPine BESYLATE 5 MG TAB PO SCH (08:59)
[2021-10-29] MEDS: METOPROLOL TARTRATE 50 MG TAB PO SCH ×2 (08:59→21:24)
[2021-10-29] MEDS: ACYCLOVIR 400 MG TAB PO SCH (08:59)
[2021-10-29] MEDS: VANCOMYCIN HCL 1,250 MG in SODIUM CHLORIDE 0.9% 250 ML IV SCH ×2 (09:04→22:25)
--- NOTE | 2021-10-29 10:17 | Consultation Report ---
ORTHOPEDIC INPATIENT CONSULTATION DATE OF CONSULTATION: 10/29/2021. Special attention to right knee swelling. HISTORY OF PRESENT ILLNESS: This is a 46-year-old male who was admitted with strep bacteremia. He n otes complaints of pain and swelling in the right knee over the past several days. He was seen in [facility] Emergency Department last night. The knee was aspirated. He states overall the knee feels much be tter today and he denies significant pain in the knee. Radiographic evaluation, I reviewed AP and la teral of the right knee. No acute fracture or dislocation. No significant arthritic changes are see n. Small effusion is seen on lateral radiographs. Laboratory test, aspirated fluid shows white coun t of 15. Crystals are pending. Synovial red cells are 6000. 87% PMNs. Aspirate findings were 30 m L of cloudy yellow synovial fluid. Gram stain is negative. Right knee exam shows minimal swelling in the knee. Patient has near full range of motion of the kne e without significant pain or discomfort. He has no evidence of erythema surrounding the knee and cl inically does not have evidence of septic knee on examination. Casts are soft. Knee is stable to varus and valgus stress, and he has flexion beyond 90 degrees of t he knee without significant discomfort. Quadriceps is intact to function. ASSESSMENT: 1. Right knee effusion. 2. Strep bacteremia. 3. History of mechanical aortic valve. PLAN: I discussed findings and treatment with him. At this point in time, his exam is very benign, does not suggest a septic knee. Cell count was 15,000, which makes a septic knee somewhat less likel y. Gram stain was negative. At this point in time, we will observe and follow cultures. At this po int in time, I would not recommend any surgical intervention for right knee. From my standpoint, he may eat today. Job ID: [id number]
[2021-10-29] MEDS: HYDROCODONE/ACETAMOPHEN 5/325MG TAB PO PRN (10:32)
--- NOTE | 2021-10-29 10:47 | Cardiology Progress Note ---
Date of Service October 29, 2021 Assessment & Plan (1) Bacteremia due to Streptococcus: (2) Hx of mechanical aortic valve replacement: (3) Pacemaker: (4) Septic joint of right knee joint: Plan: Complex 46-year-old patient presents with Streptococcus bacteremia and possible right septic knee joint. Recent Streptococcus bacteremia noted in early September successfully treated with single dose of intramuscular Rocephin and oral antibiotics. Recurrent bacteremia secondary to dental cleanings he performs routinely with metal utensils. Continue broad-spectrum antibiotic therapy and ID consultation. Recommend transesophageal echocardiogram. Risk versus benefit discussed. Patient agreeable to proceed in a.m. 10/30/2021. Anesthesia consulted. N.p.o. except medications after midnight. Patient is status post aortic valve replacement with On-X aortic valve mechanical prosthesis. Goal INR for this type of valve in the aortic position is 1.5-2.0 in combination with low-dose aspirin. Admission and Anticipated Discharge Date Admission Date: October 28, 2021 Subjective Patient seen and examined at the bedside. Feeling better today. Heart rate trending downward. No recurrent fevers. Right knee pain improved. Reports fleeting chest pain yesterday in the afternoon. No recurrence overnight. Denies orthopnea, PND, or lower extremity edema. Difficulty achieving IV access noted. IV team present to attempt access under ultrasound guidance. Review of Systems Review of Systems: All systems reviewed & are unremarkable except as noted in Subjective Physical Exam Constitutional: well developed, well nourished and + ill appearing; no acute distress Respiratory: normal respiratory effort; no respiratory distress, no labored breathing and no retractions Auscultation: lungs clear to auscultation bilaterally; no crackles, no rales, no rhonchi and no wheezes Cardiovascular: Rate/Rhythm: regular rate and regular rhythm Heart Sounds: normal S1, normal S2 and + murmur (2/6 systolic murmur heard best at the base. [place] closure click.) Vessels: no JVD and no carotid bruit Extremities: + edema (+ Right knee tenderness without erythema or edema.) Gastrointestinal (Abdomen): Inspection/Auscultation: abdomen normal to inspection and normal bowel sounds; abdomen not distended Percussion/Palpation: abdomen soft; abdomen nontender, no guarding and abdomen not rigid Neurologic: CN's II-XI intact bilaterally and moves all extremities; no focal motor deficits Motor/Sensory: no tremor Psychiatric: A+Ox3, euthymic affect Results & Data ([facility]) Vital Signs (Past 12 Hours) Vital Signs Temp Pulse Pulse Resp BP Pulse Ox 10/29/21 07:19 75 10/29/21 07:15 36.7 C 71 18 123/79 94 10/29/21 03:30 36.7 C 79 18 121/73 97 10/28/21 23:11 36.8 C 73 17 125/77 96
--- NOTE | 2021-10-29 11:03 | Anesthesiology Consultation ---
Date of Service October 29, 2021 Assessment & Plan (1) Encounter for pre-operative examination: Chart Review Chart Review: Acceptable Risk for Surgery History Height/Weight Height: 5 ft 9 in Weight: 82 kg Allergies Allergy/AdvReac Type Severity Reaction Status Date / Time Sulfa (Sulfonamide Allergy Severe Unknown Verified 10/28/21 14:33 Antibiotics) Medications Home Medications Medication Instructions Recorded Confirmed Last Taken atorvastatin 40 mg tablet 40 mg PO HS 03/29/21 10/28/21 10/27/21 famotidine 40 mg tablet 40 mg PO QAM 03/29/21 10/28/21 10/28/21 acetaminophen 325 mg tablet 650 mg PO Q4H PRN 10/28/21 10/28/21 10/27/21 acyclovir 800 mg tablet 800 mg PO DAILY 10/28/21 10/28/21 Unknown allopurinol 300 mg tablet 300 mg PO QAM 10/28/21 10/28/21 10/28/21 amlodipine 10 mg tablet 10 mg PO DAILY 10/28/21 10/28/21 Unknown aspirin 81 mg chewable tablet 81 mg PO QAM 10/28/21 10/28/21 10/28/21 doxycycline hyclate 50 mg capsule 50 mg PO BID 10/28/21 10/28/21 10/28/21 metoprolol tartrate 50 mg tablet 50 mg PO BID 10/28/21 10/28/21 10/28/21 multivit with minerals-folic 1 tab PO QAM 10/28/21 10/28/21 10/28/21 acid-lycopene 0.4 mg-600 mcg tablet (One Daily For Men) pregabalin 75 mg capsule 75 mg PO BID 10/28/21 10/28/21 Unknown warfarin 4 mg tablet 2 mg PO ESQUIVEL 10/28/21 10/28/21 Unknown warfarin 4 mg tablet 4 mg PO [id number] 10/28/21 10/28/21 Unknown Active Medications Generic Name Dose Route Start Last Admin Trade Name Freq PRN Reason Stop Dose Admin Acetaminophen 650 mg 10/28/21 14:28 10/28/21 16:20 Acetaminophen 325 Mg Tab PO 11/27/21 14:27 650 mg Q4H PRN Administration Pain or Fever Hydrocodone Bitart/Acetaminophen 1 tab 10/28/21 14:28 10/29/21 10:32 Hydrocodone/Acetamophen 5/325mg Tab PO 11/11/21 14:27 1 tab Q6H PRN Administration Severe Pain Acyclovir 800 mg 10/29/21 09:00 10/29/21 08:59 Acyclovir 400 Mg Tab PO 11/28/21 08:59 800 mg DAILY MICHAEL Administration Allopurinol 300 mg 10/29/21 09:00 10/29/21 08:59 Allopurinol 300 Mg Tab PO 11/28/21 08:59 300 mg QAM MICHAEL Administration Amlodipine Besylate 10 mg 10/29/21 09:00 10/29/21 08:59 Amlodipine Besylate 5 Mg Tab PO 11/28/21 08:59 10 mg DAILY MICHAEL Administration Aspirin 81 mg 10/29/21 09:00 10/29/21 08:59 Aspirin 81 Mg Ectab PO 11/28/21 08:59 81 mg QAM MICHAEL Administration Atorvastatin Calcium 40 mg 10/28/21 21:00 10/28/21 22:12 Atorvastatin 40 Mg Tab PO 11/27/21 20:59 40 mg HS MICHAEL Administration Famotidine 40 mg 10/29/21 09:00 10/29/21 08:59 Famotidine 40 Mg Tablet PO 11/28/21 08:59 40 mg QAM MICHAEL Administration Vancomycin HCl 1,250 mg/ 275 mls @ 200 mls/hr 10/28/21 22:00 10/29/21 09:04 Sodium Chloride IV 11/11/21 21:59 200 mls/hr Q12H MICHAEL Administration Metoprolol Tartrate 50 mg 10/28/21 21:00 10/29/21 08:59 Metoprolol Tartrate 50 Mg Tab PO 11/27/21 20:59 50 mg BID MICHAEL Administration Pregabalin 75 mg 10/28/21 21:00 10/29/21 08:59 Pregabalin 75 Mg Cap PO 11/27/21 20:59 75 mg BID MICHAEL Administration Warfarin Sodium 4 mg 10/28/21 16:00 10/28/21 17:16 Warfarin Sod 4 Mg Tab PO 11/27/21 15:59 4 mg [id number] MICHAEL Administration Past Medical History Medical History (Updated 10/29/21 @ 11:02 by Low Quevedo MD) Anemia Bacteremia due to Streptococcus GERD (gastroesophageal reflux disease) History of cardiac disorder Per outpatient cardiology note: Congenitally bicuspid aortic valve 1.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 Surgery performed at [facility]. Preoperative coronary angiography demonstrated chronic right coronary occlusion with collateral fill and no obstructive disease in left coronary system. Severe homograft and aortic root calcification was noted and patient underwent sutureless Anders valve surgical implantation. 3.Status post 03/29/2021 dual chamber pacemaker implantation at [facility], Dr. Tabor. [employer] [place] XT DR SUZY Kwok [id number], Serial number [id number]. Tyrx pouch, reference ETCX5557, lot number [id number]. Right atrial lead: Medtronic 5076-52 cm, Serial number [id number]. Left bundle lead: Medtronic 3830-69 cm, Serial number [id number]. 4.Status post June 14, 2021 excision of homograft root with rebecca valve and replacement with a 23 mm On-X mechanical prosthetic valve, ascending yrn arch replacement, and right radial artery bypass grafting to the RCA via full conventional sternotomy at [facility]. Discharge date: 06/21/2021 HTN (hypertension) CAREN (obstructive sleep apnea) Pacemaker Past Family History Family History Mother Diabetes Past Surgical History Surgical History (Updated 10/29/21 @ 10:58 by Low Quevedo MD) History of permanent cardiac pacemaker placement Hx of mechanical aortic valve replacement Hx of prosthetic aortic valve replacement S/P CABG x 1 Social History Smoking Status: Never smoker Do You Dip or Chew Tobacco: No Hx Alcohol Use: No Hx Substance Use: Yes substance use type: marijuana Last Used Substance: Unknown Physical Exam Vital Signs Last Vital Signs Temp 36.7 C 10/29/21 07:15 Pulse 75 10/29/21 07:19 Resp 18 10/29/21 07:15 BP 123/79 10/29/21 07:15 Pulse Ox 94 10/29/21 07:15 Testing Laboratory Results 10/29/21 07:38 10/29/21 07:38 PT 15.4 Seconds (9.0-12.0) H 10/29/21 07:38 INR 1.6 (0.9-1.1) H 10/29/21 07:38 APTT 41.6 Seconds (21.0-31.0) H 10/28/21 10:21 Urine Color Yellow 10/28/21 21:45 Urine Appearance Clear (Clear) 10/28/21 21:45 Urine pH 6.0 (4.5-7.5) 10/28/21 21:45 Ur Specific [place] 1.020 (1.000-1.030) 10/28/21 21:45 Urine Protein Negative (Negative) 10/28/21 21:45 Urine Glucose (UA) Negative (Negative) 10/28/21 21:45 Urine Ketones Negative (Negative) 10/28/21 21:45 Urine Nitrite Negative (Negative) 10/28/21 21:45 Ur Leukocyte Esterase Negative (Negative) 10/28/21 21:45 10/28/21 10:21 Aerobic Blood Culture - Preliminary Blood Gram positive cocci in chains Anaerobic Blood Culture - Preliminary Gram positive cocci in chains 10/28/21 09:36 Aerobic Blood Culture - Preliminary Blood Gram positive cocci in chains Anaerobic Blood Culture - Preliminary Gram positive cocci in chains 10/28/21 11:26 Gram Stain - Final Knee,Right Electrocardiogram Date: 10/28/21 Findings: + NSR @ (with LBBB vs pacemaker? Rate 81) Echocardiogram Date: 10/28/21 EF: 50-55% LV Function: normal Other Findings: + LVH (moderate) appropriately functioning mechanical aortic valve prosthesis
--- NOTE | 2021-10-29 11:46 | Hospitalist Progress Note ---
Date of Service October 29, 2021 Assessment & Plan (1) Bacteremia due to Streptococcus: (2) Hx of mechanical aortic valve replacement: Plan: per CHEY Guerra's notes with attending including below: -Patient presenting by referral of outpatient provider for evaluation of recurrent strep bacteremia. 09/19 outpatient blood cultures grew strep and patient received IM ceftriaxone x 1 dose and completed a course of p.o. Augmentin for 10 days. Repeat blood cultures on 09/26 were negative. Blood cultures from 10/27 growing strep. -Recurrent bacteremia may be due to patient's self dental cleanings. -Echocardiogram and CT chest ordered to evaluate for abscess due to recent cardiac surgical history and mechanical aortic valve. Ultimately likely will need NINO. -S/p Vanco and ceftriaxone in ED, will continue with -ID consult -Continue Coumadin for mechanical aortic valve, INR 1.5 - acceptable for On-X valve -Cardiology consult, case discussed with Dr. Martinez 10/29 blood culture: gram positive cocci in chains afebrile clinically improving continue Vanco + Ceftri Day 2 ID consulted for NINO tomorrow (3) Septic joint of right knee joint: Plan: -Given significant pain and effusion on XR, highly suspicious for septic right knee joint -No history of prior surgical intervention to right knee -S/p joint aspiration in the ED 10/29 synovial fluid: WBC 15 K cultures pending pain better PRN analgesics (4) Pacemaker: Plan: -S/p 03/2021, insertion site healed without dehiscence, surrounding erythema or drainage (5) HTN (hypertension): Plan: -BP controlled, continue metoprolol and amlodipine (6) CAREN (obstructive sleep apnea): Plan: -CPAP as per home settings (7) DVT prophylaxis: Plan: -On Coumadin Admission and Anticipated Discharge Date Admission Date: October 28, 2021 Subjective ff up for Strep bacteremia, Knee infection, etc seen resting in bed, US guided IV placement in progress patient reports pain on the IV insertion site no chest pain, dyspnea, palpitations, dizziness no fever/chills knee pain improving no other symptoms Review of Systems Review of Systems: all noted and negative except for above Physical Exam Physical Exam: General- oriented x 3, not in distress, speaks in sentences with no effort or accessory muscle use Eyes- anicteric Neck- no JVD Lungs- clear breath sounds bilaterally, no rales/wheezes Heart- normal rate, regular rhythm; no murmurs Abdomen- normal bowel sounds, nondistended, soft, nontender Extremities- no pretibial edema, no calf tenderness Neuro- alert, oriented x 3; no gross focal neurologic deficits Skin- warm & dry Results & Data Results & Data ([facility]) Vital Signs (Past 12 Hours) Vital Signs Temp Pulse Pulse Resp BP Pulse Ox 10/29/21 11:25 36.7 C 79 18 126/67 95 10/29/21 07:19 75 10/29/21 07:15 36.7 C 71 18 123/79 94 10/29/21 03:30 36.7 C 79 18 121/73 97
[2021-10-29] MEDS: cefTRIAXone SODIUM 2,000 MG in DEXTROSE 5% 50 ML IV SCH (13:36)
[2021-10-29] MEDS ORDERED: WARFARIN SOD 2 MG TAB PO SCH (16:00)
[2021-10-29] MEDS: ACETAMINOPHEN 325 MG TAB PO PRN (16:18)
[2021-10-29] MEDS: traMADol HCL 50 MG TABLET PO PRN (19:42)
--- NOTE | 2021-10-29 21:09 | Electrocardiogram Report ---
Test Reason : Blood Pressure : / mmHG Vent. Rate : 081 BPM Atrial Rate : 081 BPM P-R Int : 228 ms QRS Dur : 160 ms QT Int : 400 ms P-R-T Axes : 043 -05 091 degrees QTc Int : 464 ms Sinus rhythm with 1st degree A-V block Left bundle branch block Abnormal ECG When compared with ECG of 29-MAR-2021 14:56, Ventricular pacing is no longer present Confirmed by Evangelista Moralez ([id number]) on 10/29/2021 9:08:57 PM Referred By: REFERRED SELF Confirmed By:Evangelista Moralez
[2021-10-29] MEDS: ATORVASTATIN 40 MG TAB PO SCH (21:24)
[2021-10-30] MEDS ORDERED: BENZOCAINE/TETRACAIN/BUTAM 50 APPLN/5 GM CAN EXT ONE (07:40)
[2021-10-30] MEDS ORDERED: ATROPINE SULFATE 0.1 MG/ML 10ML SYR IV PRN (07:51)
[2021-10-30] MEDS ORDERED: ePHEDrine sulfate 50 MG/ML AMP IV PRN (07:51)
--- NOTE | 2021-10-30 08:10 | Anesthesiology Progress Note ---
Date of Service October 30, 2021 Anesthesia Post Procedure Vital Signs Vital Signs: Temp Pulse Pulse Pulse Resp BP Pulse Ox 10/30/21 07:12 67 10/30/21 07:00 69 20 131/79 98 10/30/21 02:55 36.4 C L 63 18 114/72 98 10/29/21 22:48 68 10/29/21 22:46 36.5 C 68 18 127/80 96 10/29/21 19:49 36.7 C 76 19 129/75 95 10/29/21 15:54 72 10/29/21 15:39 36.7 C 69 16 123/74 97 10/29/21 11:25 36.7 C 79 18 126/67 95 Pain Intensity Head: Pain Intensity: 5 Transfer of Care Handoff Completed per policy Notes Mental Status: alert / awake / arousable Patient Amnestic to Procedure: Yes Nausea / Vomiting: adequately controlled Pain: adequately controlled Airway Patency, RR, SpO2: stable & adequate BP & HR: stable & adequate Hydration State: stable & adequate Anesthetic Complications: no major complications apparent
[2021-10-30] MEDS ORDERED: PROPOFOL IV EMULSION 10 MG/ML 20 ML VIAL IV ONE (08:15)
[2021-10-30] MEDS ORDERED: VANCOMYCIN TROUGH ONE (09:30)
[2021-10-30 10:44] LABS: INR 1.5 (0.9-1.1); Prothrombin Time 15.1 Seconds (9.0-12.0)
[2021-10-30] MEDS: traMADol HCL 50 MG TABLET PO PRN ×2 (11:04→16:18)
[2021-10-30] MEDS: ACYCLOVIR 400 MG TAB PO SCH (11:05)
[2021-10-30] MEDS: amLODIPine BESYLATE 5 MG TAB PO SCH (11:06)
[2021-10-30] MEDS: ASPIRIN 81 MG ECTAB PO SCH (11:06)
[2021-10-30] MEDS: allopurinoL 300 MG TAB PO SCH (11:06)
[2021-10-30] MEDS: METOPROLOL TARTRATE 50 MG TAB PO SCH ×2 (11:07→20:04)
[2021-10-30] MEDS: FAMOTIDINE 40 MG TABLET PO SCH (11:07)
[2021-10-30] MEDS: PREGABALIN 75 MG CAP PO SCH ×2 (11:09→20:04)
[2021-10-30] MEDS: VANCOMYCIN HCL 1,250 MG in SODIUM CHLORIDE 0.9% 250 ML IV SCH (11:12)
--- NOTE | 2021-10-30 11:24 | Cardiology Progress Note ---
Date of Service October 30, 2021 Assessment & Plan (1) Endocarditis of mitral valve: (2) Bacteremia due to Streptococcus: (3) Hx of mechanical aortic valve replacement: (4) Pacemaker: (5) Septic joint of right knee joint: Plan: Complex 46-year-old patient presents with Streptococcus bacteremia and possible right septic knee joint. Transesophageal echocardiogram performed 10/30/21 demonstrating filamentous mitral valve echodensity suggesting possible vegetati on. 6 weeks of antibiotic therapy recommended. Initial blood culture reporting alpha Streptococcus with sensitivities to follow. Previous bacteremia secondary to strep viridans noted in September. Await ID recommendations. Suspect recurrent bacteremia secondary to dental cleanings he performs routinely with metal utensils. Repeat blood cultures x2 today. Patient is status post aortic valve replacement with On-X aortic valve mechanical prosthesis. Goal INR for this type of valve in the aortic position is 1.5-2.0 in combination with low-dose aspirin. Admission and Anticipated Discharge Date Admission Date: October 28, 2021 Subjective Patient seen examined the bedside. Transesophageal echocardiogram performed today. Evidence of possible mitral valve vegetation. No evidence of mechanical aortic valve replacement vegetation. Patient feeling well post procedure. Denies chest pain or shortness of breath. No dysphagia or odynophagia. Telemetry reveals sinus rhythm and atrial pacing. No recurrent fevers overnight. Review of Systems Review of Systems: All systems reviewed & are unremarkable except as noted in Subjective Physical Exam Constitutional: well developed, well nourished and + ill appearing; no acute distress Respiratory: normal respiratory effort; no respiratory distress, no labored breathing and no retractions Auscultation: lungs clear to auscultation bilaterally; no crackles, no rales, no rhonchi and no wheezes Cardiovascular: Rate/Rhythm: regular rate and regular rhythm Heart Sounds: normal S1, normal S2 and + murmur (2/6 systolic murmur heard best at the base. [place] closure click.) Vessels: no JVD and no carotid bruit Extremities: + edema (+ Right knee tenderness without erythema or edema.) Gastrointestinal (Abdomen): Inspection/Auscultation: abdomen normal to inspection and normal bowel sounds; abdomen not distended Percus abel/Palpation: abdomen soft; abdomen nontender, no guarding and abdomen not rigid Neurologic: CN's II-XI intact bilaterally and moves all extremities; no focal motor deficits Motor/Sensory: no tremor Psychiatric: A+Ox3, euthymic affect Results & Data ([facility]) Vital Signs (Past 12 Hours) Vital Signs Temp Pulse Pulse Resp BP Pulse Ox 10/30/21 08:57 75 10/30/21 08:38 36.4 C L 66 18 124/78 99 10/30/21 08:24 66 15 119/73 99 10/30/21 08:20 66 15 109/69 99 10/30/21 08:15 73 15 115/71 99 10/30/21 08:10 74 15 103/69 98 10/30/21 07:12 67 10/30/21 07:00 69 20 131/79 98 10/30/21 02:55 36.4 C L 63 18 114/72 98
--- NOTE | 2021-10-30 12:11 | Hospitalist Progress Note ---
Date of Service October 30, 2021 Assessment & Plan (1) Bacteremia due to Streptococcus: (2) Endocarditis of mitral valve: (3) Hx of mechanical aortic valve replacement: Plan: -Patient presenting by referral of outpatient provider for evaluation of recurrent strep bacteremia. 09/19 outpatient blood cultures grew strep and patient received IM ceftriaxone x 1 dose and completed a course of p.o. Augmentin for 10 days. Repeat blood cultures on 09/26 were negative. Blood cultures from 10/27 growing strep. -Recurrent bacteremia may be due to patient's self dental cleanings. -No abscess identified on CT chest -S/p NINO 10/30/2021 - filamentous mitral valve echodensity suggesting possible vegetation. Cardiology recommending 6 weeks of antibiotics. -Remains on IV Vanco and ceftriaxone (day 3) -12/20 blood cultures from 10/28 growing alpha strep. Will repeat cultures today. -Remains afebrile -Awaiting ID recommendations -Continue Coumadin for mechanical aortic valve, INR 1.5 - acceptable for On-X valve -Cardiology following, input appreciated (4) Septic joint of right knee joint: Plan: -Septic joint ruled out -S/p joint aspiration on 10/28 - Gram stain and culture negative -Evaluated by orthopedics -Pain resolved (5) Pacemaker: Plan: -S/p 03/2021, insertion site healed without dehiscence, surrounding erythema or d rainage (6) HTN (hypertension): Plan: -BP controlled, continue metoprolol and amlodipine (7) CAREN (obstructive sleep apnea): Plan: -CPAP as per home settings (8) DVT prophylaxis: Plan: -On Coumadin Plan: Attending Addendum: care coordinated with CHEY rosado please refer to her notes for full details, I agree with her notes patient seen and examined, records reviewed by myself as well on exam, patient seen sitting up in bed, comfortable, not in distress, pleasant States he feels better overall No fevers or chills, weakness, headache, nausea vomiting Right knee pain resolved No chest pain, palpitations, dizziness no other symptoms VS noted and reviewed oriented x3, not in distress, speaks in sentences with no effort nor accessory muscle use normal rate, regular rhythm, positive click clear breath sounds bilaterally non distended, soft, nontender Right knee-no edema/warmth/tenderness, no bipedal edema, erythema, warmth no neuro deficits INR 1.5 ASSESSMENT AND PLAN Strep bacteremia, possible endocarditis Possible septic arthritis Blood cultures: Strep day Repeat blood cultures: Negative so far Synovial fluid cultures: Negative so far Status post NINO: Positive edema to structure in the mitral valve Continue IV vancomycin plus ceftriaxone day #3 Awaiting ID service recommendations, will need 6 weeks of IV antibiotics Follow synovial fluid crystal analysis other diagnoses and plan of care as per CHEY rosado's notes Maximo Benavides MD Admission and Anticipated Discharge Date Admission Date: October 28, 2021 Subjective Patient seen and examined. Follow-up for strep bacteremia. Status post NINO this morning. Feeling well post procedure. Reports intermittent headaches that have been resolved with Tylenol. Remains afebrile. Right knee pain resolved. Ambulating without difficulty. Denies chest pain or shortness of breath. No abdominal pain or nausea. Review of Systems Review of Systems: ROS per HPI, all other systems reviewed and negative Physical Exam Constitutional: WD/WN, vitals as above no acute distress Respiratory: normal respiratory effort, lungs clear to auscultation Cardiovascular: Rate/Rhythm: regular rate and regular rhythm Heart Sounds: + click Vessels: normal peripheral pulses Extremities: no edema Gastrointestinal (Abdomen): Percussion/Palpation: abdomen soft; abdomen nontender Musculoskeletal: Full range of motion without pain to right knee Skin: no rashes, warm and dry Neurologic: no focal motor deficits Psychiatric: A+Ox3, euthymic affect Results & Data Results & Data ([facility]) Vital Signs (Past 12 Hours) Vital Signs Temp Pulse Pulse Resp BP Pulse Ox 10/30/21 10:43 36.6 C 70 18 136/84 97 10/30/21 08:57 75 10/30/21 08:38 36.4 C L 66 18 124/78 99 10/30/21 08:24 66 15 119/73 99 10/30/21 08:20 66 15 109/69 99 10/30/21 08:15 73 15 115/71 99 10/30/21 08:10 74 15 103/69 98 10/30/21 07:12 67 10/30/21 07:00 69 20 131/79 98 10/30/21 02:55 36.4 C L 63 18 114/72 98
[2021-10-30] MEDS: cefTRIAXone SODIUM 2,000 MG in DEXTROSE 5% 50 ML IV SCH (12:46)
[2021-10-30] MEDS: HYDROCODONE/ACETAMOPHEN 5/325MG TAB PO PRN (12:50)
--- NOTE | 2021-10-30 13:09 | Pharmacy Report ---
Pharmacy Vanc AUC Short Note - Date of Service October 30, 2021 - Assessment & Plan Assessment 46 year old M receiving empiric vancomycin and ceftriaxone for treatment of Streptococcal bacteremia/endocarditis/septic arthritis of right knee. Patient has history of mechanical aortic valve replacement and recurrent bacteremia. NINO completed today showing filamentous mitral valve echodensity (suggesting possible vegetation) although no vegetation noted on mechanical aortic valve. Pertinent microbiologic data includes: Blood culture growing alpha strep and gram-positive cocci in chains (likely also alpha strep). Patient previously had viridans group strep bacteremia. Reasonable to continue current antibiotic regimen until final identification and sensitivities are available. Day # 3 of antimicrobial therapy. Plan Vancomycin * AUC/MARTIN is the preferred PK/PD target for vancomycin * AUC guided dosing is effective and associated with decreased risk of nephrotoxicity compared to traditional trough targets * Trough level of 9.9 mcg/mL is predicted to achieve low-end of target AUC/MARTIN of 400-600 mg/L.hr , but given bacteremia/endocarditis will increase dose * Change dose to 1000 mg IV every 8 hours is predicted to achieve target AUC/MARTIN of 400-600 mg/L.hr and has 10% risk of nephrotoxicity * Follow-up trough levels will be ordered as needed Ceftriaxone * 2 g IV q24h - remains appropriate Pharmacy will continue to follow and will adjust dose/frequency as necessary. Thank you.
[2021-10-30] MEDS: WARFARIN SOD 4 MG TAB PO SCH (16:17)
[2021-10-30] MEDS: VANCOMYCIN HCL 1,000 MG in SODIUM CHLORIDE 0.9% 250 ML IV SCH (17:30)
[2021-10-30] MEDS: ATORVASTATIN 40 MG TAB PO SCH (20:04)
[2021-10-31] MEDS: VANCOMYCIN HCL 1,000 MG in SODIUM CHLORIDE 0.9% 250 ML IV SCH (01:59)
[2021-10-31] MEDS: METOPROLOL TARTRATE 50 MG TAB PO SCH (08:12)
[2021-10-31] MEDS: amLODIPine BESYLATE 5 MG TAB PO SCH (08:13)
[2021-10-31] MEDS: FAMOTIDINE 40 MG TABLET PO SCH (08:14)
[2021-10-31] MEDS: ASPIRIN 81 MG ECTAB PO SCH (08:14)
[2021-10-31] MEDS: allopurinoL 300 MG TAB PO SCH (08:14)
[2021-10-31] MEDS: ACYCLOVIR 400 MG TAB PO SCH (08:14)
[2021-10-31] MEDS: PREGABALIN 75 MG CAP PO SCH (08:17)
[2021-10-31 08:23] LABS: Hematocrit (blood only) 36.2 % (42-52); Hemoglobin 11.9 g/dL (14.0-18.0); Mean Corpuscular Hemoglobin 26.7 pg (25-34); Mean Corpuscular Hgb Conc 32.9 g/dL (32-36); Mean Corpuscular Volume 81.3 fL (80-100); Mean Platelet Volume 9.6 fL (7.4-10.4); Platelet Count 282 K/uL (130-400); RDW Coefficient of Variation 15.5 % (11.5-14.5); RDW Standard Deviation 45.5 fL (36.4-46.3); Red Blood Count 4.45 M/uL (4.7-6.1); White Blood Count 6.28 K/uL (4.8-10.8)
[2021-10-31 08:36] LABS: INR 1.6 (0.9-1.1); Prothrombin Time 15.6 Seconds (9.0-12.0)
[2021-10-31 08:42] LABS: BUN Creatinine Ratio 13.6 (10-20); Calcium 8.9 mg/dl (8.5-10.1); Creatinine Clr Calc Pharmacy 101.5 ml/min; Est GFR (African American) 117.2 ml/min; Est GFR (Non-African American) 101.1 ml/min
[2021-10-31 08:48] LABS: Potassium 3.8 mmol/L (3.5-5.1)
--- NOTE | 2021-10-31 11:10 | Cardiology Progress Note ---
Date of Service October 31, 2021 Assessment & Plan (1) Endocarditis of mitral valve: (2) Bacteremia due to Streptococcus: (3) Hx of mechanical aortic valve replacement: (4) Pacemaker: (5) Septic joint of right knee joint: Plan: Culture and sensitivity finalized. Continue Rocephin. Discontinue vancomycin. Await ID recommendations regarding antibiotic therapy. Patient will need PICC line placement. INR therapeutic, 1.6 today. Repeat blood culture drawn yesterday with results pending at this time. Continue other cardiovascular medications. Patient may be discharged home pending PICC line placement and ID recommendations. Admission and Anticipated Discharge Date Admission Date: October 28, 2021 Subjective Patient seen examined at the bedside. Feeling well overnight. No dysrhythmias on telemetry. No recurrent fevers. Blood culture demonstrating strep mitis/oralis. Pansensitive. Awaiting ID input. Review of Systems Review of Systems: All systems reviewed & are unremarkable except as noted in Subjective Physical Exam Constitutional: well developed, well nourished and + ill appearing; no acute distress Respiratory: normal respiratory effort; no respiratory distress, no labored breathing and no retractions Auscultation: lungs clear to auscultation bilaterally; no crackles, no rales, no rhonchi and no wheezes Cardiovascular: Rate/Rhythm: regular rate and regular rhythm Heart Sounds: normal S1, normal S2 and + murmur (2/6 systolic murmur heard best at the base. [place] closure click.) Vessels: no JVD and no carotid bruit Extremities: + edema (+ Right knee tenderness without erythema or edema.) Gastrointestinal (Abdomen): Inspection/Auscultation: abdomen normal to inspection and normal bowel sounds; abdomen not distended Percussion/Palpation: abdomen soft; abdomen nontender, no guarding and abdomen not rigid Neurologic: CN's II-XI intact bilaterally and moves all extremities; no focal motor deficits Motor/Sensory: no tremor Psychiatric: A+Ox3, euthymic affect Results & Data ([facility]) Vital Signs (Past 12 Hours) Vital Signs Temp Pulse Pulse Resp BP Pulse Ox 10/31/21 07:58 36.6 C 60 18 141/62 H 10/31/21 07:19 71 10/31/21 03:25 36.6 C 63 18 119/73 97 10/31/21 00:14 36.6 C 63 16 122/76 98
[2021-10-31] MEDS: cefTRIAXone SODIUM 2,000 MG in DEXTROSE 5% 50 ML IV SCH (12:05)
--- NOTE | 2021-10-31 17:36 | Discharge Summary ---
Date of Service October 31, 2021 Admission HPI Per Admitting Provider 46-year-old medically complex male with PMH infectious endocarditis in July 2001 status post homograft aortic root replacement, aortic valve replacement, single-vessel (RCA) coronary artery bypass grafting; redo aortic valve replacement with bioprosthetic valve 2016, s/p pacemaker for high-grade second- degree and third-degree AV block March 2021, s/p excision of homograft root with rebecca valve and replacement with a 23 mm On-X mechanical prosthetic valve, ascending yrn arch replacement, and right radial artery bypass grafting to the RCA via full conventional sternotomy 06/14/2021, CAREN on CPAP, HTN, and other problems listed below who presents the ED by referral of outpatient provider for bacteremia. At the beginning of September, patient developed fevers and body aches and questionable infection of pacemaker insertion site. Blood cultures at that time grew strep and patient received IM ceftriaxone x 1 dose and completed a course of p.o. Augmentin for 10 days. Repeat blood cultures on 09/26 were negative. Patient was starting to feel improved until about 1 week ago when fevers returned. Reports he is running a fever of as high as 102 in the evenings. Has associated body aches, chills, diaphoresis. Developed acute right knee pain a few days ago and patient has been requiring a cane to ambulate. No known injury or trauma. Patient denies previous surgical intervention to the right knee. Reports that pacemaker insertion site and right chest wall incision site have healed however patient reports a deep pain over the right chest wall incision site. No dehiscence, surrounding erythema, or drainage reported. Patient also reports intermittent headaches that are resolved with Tylenol. No nuchal rigidity. Patient denies chest pain or shortness of breath. No lightheadedness, dizziness, diaphoresis, syncopal events. He has had a poor appetite however denies abdominal pain, nausea, vomiting, diarrhea. No urinary symptoms. With the return of fevers this week, patient had repeat blood cultures performed on 10/27 that are growing strep. Patient was referred to the ED for further evaluation. In the ED, patient is hemodynamically stable and afebrile. Labs show CRP 6.9, procalcitonin 0.5, otherwise unremarkable. Right knee x-ray shows a small effusion and patient underwent joint aspiration in ED. Patient received IV ceftriaxone, IV vancomycin, IVF. 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 Admission Exam Per Admitting Provider Constitutional: WD/WN, vitals as above Eyes: PERRL, conjunctivae normal, anicteric sclerae ENMT: external ear and nose normal, oropharynx normal Respiratory: normal respiratory effort, lungs clear to auscultation Cardiovascular: Rate/Rhythm: regular rate and regular rhythm Heart Sounds: + click Vessels: normal peripheral pulses Extremities: no edema Chest (Breasts): Additional Comments: Right chest wall incision site, medial sternotomy incision site, left chest wall pacemaker insertion site all healed without signs of dehiscence, surrounding erythema, or drainage Gastrointestinal (Abdomen): normal bowel sounds, soft, nontender, no hepatosplenomegaly Musculoskeletal: no cyanosis or clubbing, extremities motor strength 5/5 Knee: + limited ROM of knee (Right knee due to pain, mild edema noted) Skin: no rashes, warm and dry Neurologic: PERRL, EOMI, accommodation nl, no face palsy, no dysarthria Psychiatric: A+Ox3, euthymic affect Principal Diagnosis Streptococcal bacteremia Mitral valve endocarditis Discharge Exam Constitutional WD/WN, vitals as above Respiratory normal respiratory effort, lungs clear to auscultation Cardiovascular Rate/Rhythm: regular rate and regular rhythm Heart Sounds: + click Extremities: no edema Gastrointestinal (Abdomen) Percussion/Palpation: abdomen soft; abdomen nontender Skin no rashes, warm and dry Neurologic no focal motor deficits Psychiatric A+Ox3, euthymic affect Discharge Data Allergies Allergy/AdvReac Type Severity Reaction Status Date / Time Sulfa (Sulfonamide Allergy Severe Unknown Verified 11/01/21 08:18 Antibiotics) Consultations Cardiology Infectious disease Orthopedics Procedures Performed Operation Date: 10/30/21 07:30 Actual Procedures p Echo Transesophageal - DO miguel ángel Mancuso Doppler Echo Limited/Follow Up - DO miguel ángel Mancuso Echo Color Flow - Joshua Martinez DO Ordered Studies 10/28/2021 CXR IMPRESSION: No acute cardiopulmonary disease. There is evidence for underlying COPD. 10/28/2021 right knee XR IMPRESSION: No acute osseous pathology. Small intra- articular effusion. 10/28/2021 CT chest IMPRESSION: 1. No acute chest disease. 2. Status post previous cardiac thoracic surgery with no evidence for mediastinal hematoma or abnormal fluid collection. 3. Status post pacer placement with no evidence for abnormal fluid collection surrounding the pacer. Hospital Course (1) Bacteremia due to Streptococcus: (2) Endocarditis of mitral valve: (3) Hx of mechanical aortic valve replacement: -Patient presenting by referral of outpatient provider for evaluation of recurrent strep bacteremia. 09/19 outpatient blood cultures grew strep and patient received IM ceftriaxone x 1 dose and completed a course of p.o. Augmentin for 10 days. Repeat blood cultures on 09/26 were negative. Blood cultures from 10/27 growing strep. -Recurrent bacteremia may be due to patient's self dental cleanings. -No abscess identified on CT chest -S/p NINO 10/30/2021 - filamentous mitral valve echodensity suggesting possible vegetation. -ID consulted -Initially on IV Vanco and ceftriaxone --> discharged on ceftriaxone 2 g IV daily to complete 6 weeks of therapy from last negative blood culture (last dose 12/11/2021). Ultrasound-guided IV placed. Patient will receive daily antibiotic at MTU at [facility]. -2/2 blood cultures from 10/28 growing Streptococcus mitis/oralis. Blood cultures from 10/30 no growth to date. -Continue Coumadin for mechanical aortic valve, INR 1.6 - acceptable for On-X valve. [facility] anticoagulation clinic notified. (4) Septic joint of right knee joint: -Septic joint ruled out -S/p joint aspiration on 10/28 - Gram stain and culture negative -Evaluated by orthopedics -Pain resolved (5) Pacemaker: -S/p 03/2021, insertion site healed without dehiscence, surrounding erythema or drainage (6) HTN (hypertension): -BP controlled, continue metoprolol and amlodipine (7) CAREN (obstructive sleep apnea): -CPAP as per home settings Attending Addendum: delayed entry date of service noted above care coordinated with CHEY Guerra please refer to her notes for full details, I agree with her notes patient seen and examined, records reviewed by myself as well on exam, patient seen resting in bed, comfortable, in good spirit states he feels much better overall no chest pain, dyspnea, palpitations, dizziness no other symptoms VS noted and reviewed oriented x 3, not in distress, speaks in sentences with no effort nor accessory muscle use normal rate, regular rhythm, no murmurs, (+) click clear breath sounds bilaterally non distended, soft, nontender no bipedal edema, erythema, warmth knee: no edema, warmth, tenderness, full ROM no neuro deficits WBC 6 INR 1.2 ASSESSMENT AND PLAN STREP BACTEREMIA Ceftri 2g IV x 6 weeks KNEE SEPTIC ARTHRITIS RULED OUT synovial fluid culture negative other diagnoses and plan of care as per CHEY Guerra's notes Maximo Benavides MD Total Time Total Time Spent Total Time Spent (In Minutes): 35 Discharge Plan Discharge Items Patient Disposition: Home - Self-Care Reason For Visit: BACTEREMIA Discharge Diagnosis: Bacteremia (infection and blood) Activity: Resume your previous activity Non-emergency contact: Primary Care Provider and Pyrotechnic Mixer Call non-emergency contact if: you have any medication questions, your symptoms worsen, your pain is not controlled and you have a fever Follow-up/Referrals: Joshua Martinez DO [Pyrotechnic Mixer] - (Office will reach out to you regarding appointment) Sergio Sosa MD [Primary Care Provider] - (Date & Time 11/03/2021 3:20 PM Provider Sergio Sosa MD Department Family Practice [facility] ) Diet: Heart Healthy Addtl Attending Provider Instructions: You were admitted to the hospital for bacteremia (infection in your blood). There is also concern that the mitral valve in your heart may be infected as well. You will need to be on IV antibiotics for the next 6 weeks. You will need to come to the medical treatment unit (MTU) at [facility] daily. First appointment tomorrow at 830. Saturday-Saturday @0830 and Saturday and Saturday @0800 You also had right knee pain. Fluid was drained. There was no suggested infection in the fluid. Continue follow-up appointments as scheduled. The cardiology office will reach out to you for a follow-up appointment. Continue all other home medications as prescribed. Continue to follow with the anticoagulation clinic for Coumadin dosing. Pending Studies at Discharge: Yes Studies:: Blood cultures from 10/30 Stand-Alone Forms: [facility] [employer], Smoking Cessation Medications and DC Order Prescriptions: New ceftriaxone 2 gram recon soln 2 g IV DAILY Qty: 40 RF: 0 Continued doxycycline hyclate 50 mg capsule 50 mg PO DAILY RF: 0 metoprolol tartrate 50 mg tablet 50 mg PO BID RF: 0 aspirin 81 mg Tablet,Chewable 81 mg PO QAM RF: 0 allopurinol 300 mg tablet 300 mg PO QAM RF: 0 acetaminophen 325 mg tablet 650 mg PO Q4H PRN (Reason: Pain) RF: 0 One Daily For Men 0.4-600 mg-mcg Tablet 1 tab PO QAM RF: 0 acyclovir 800 mg tablet 800 mg PO DAILY RF: 0 warfarin 4 mg tablet 4 mg PO MOTUWETHFRSA RF: 0 warfarin 4 mg tablet 2 mg PO ESQUIVEL RF: 0 amlodipine 10 mg tablet 10 mg PO DAILY RF: 0 pregabalin 75 mg capsule 75 mg PO BID RF: 0 atorvastatin 40 mg Tablet 40 mg PO HS RF: 0 famotidine 40 mg Tablet 40 mg PO QAM RF: 0 Discharge Orders: Discharge Order (Routine); Ordered 10/31/21 Ordered By: Miya Guerra Admission Data Admit Date/Time: 10/28/21 10:26 Attending Provider: Maximo Benavides Admit Provider: Maximo Benavides Primary Care Provider: Sergio Sosa Other Providers: Joshua Martinez ; Loy Mazariegos ; Marek Owens ; Clifford Quintanilla I. ; Jose Griffin II ; Vanessa Rubio ; Kirk Kim ; Dima Rosenberg ; Maximo Benavides ; Dejon Adams ; Keyana Soto ; Ximena Harvey ; Penelope Mulligan ; Alissa Tang ; Soha Jacobo ; Low Quevedo ; Ramón Loo ; Crow Gomez ; Robby Soriano ; Marie Soriano ; Elliott Baker ; Kisha Ann ; Zeeshan Newman ; Adalberto Stearns ; Ward Wong ; Kiran Hernandez ; Becky Benitez ; Kirk Malik ; María Baez ; Miya Malik ; Ghulam Guevara ; Anne Marie Garner ; Saeid Martinez ; Herlinda De La Rosa ; Amanda Pina ; Anne Marie Rebolledo ; Ester Lewis ; Gerardo Tovar ; Alize Ross ; Bhavna Stokes ; Sangita Glover ; Augusta Dudley ; Reddy Dudley V ; Gaetano Spears ; Ximena Stahl ; Prashant Velazquez ; Jess Sotelo ; Susan Valverde ; Reddy Rodríguez ; Julian Benitez ; Paul Bryant ; Luisana Olivera ; Luisa Patton ; Reddy Lion ; Sangita Lindo ; Kurtis Saha ; Balwinder Hernandez ; Lucía Evans ; Dejon Mortensen ; Brionna Vickers ; Jaime Avila ; Ancelmo Prieto ; Dejon Walker ; Low Farias Jr ; Bonny Robertosn Other Interventions: Discharge Summary Assessment (RN) Last Done: 10/31/21 13:57
== END 2021-10-31 15:30 | disposition home or self-care (01) | DRG 393 ==
LOC: ED 09:06 → EDINP 10:26 → 2S 20:28

== ENCOUNTER 2024-09-05 10:24 | Inpatient (IN) ==
--- OUTSIDE RECORDS SUMMARY | 2024-09-05 10:30 | External Medical Summary | Summary of Care ---
Author Name Unknown Organization [facility] Address [address] [place] [address] Phone [phone] Care Team Providers Care Health Information Manager Name Role Phone Sergio Sosa MD Primary Care Provider [phone] Reason for Visit * Reason Comments Dosage Adjustment In Person (Anticoag Cl inic) Encounter Details Date Type Department Care Team (Latest Contact Info) Description 09/04/2024 8:10 AM EDT Anticoagulation Pharmacy, [place] [address] [place] [address] [facility] [address] [place] [address] Status post mechanical aortic valve replacement*; Anticoagulation management encounter Allergies Active Allergy Reactions Criticality Noted Date Comments Sulfa Antibiotics Other (Please comment) High 2017 Pt cannot remember what reaction he had to sulfa documented as of this encounter (statuses as of 09/04/2024) Medications Medication Sig Dispensed Refills Start Date End Date Status CPAP every night at bedtime. Active One-A-Day Mens Oral Tablet Take 1 Tablet by mouth in the morning. Active [facility] Adv Probiotic Gummies Oral Tablet Chewable Take 1 Each by mouth in the morning. Active Finasteride 2.5 MG OR TABS Take 0.5 Tablets by mouth in the morning. Active hydrOXYzine HCl 10 MG Oral Tablet (Atarax) TAKE 1 TABLET BY MOUTH EVERY 6 HOURS NEEDED FOR ITCHING. 40 Tablet 2 09/10/2023 Active Doxycycline Hyclate 50 MG Oral Capsule (Vibramycin)Indication s:Perioral dermatitis TAKE 1 CAPSULE BY MOUTH IN THE MORNING AND BEFORE BEDTIME 60 Capsule 2 03/21/2024 Active Aspirin Low Dose 81 MG Oral Tablet Delayed Release (aspirin enteric coated)Indications:ASC VD (arteriosclerotic cardiovascular disease) TAKE 1 TABLET BY MOUTH EVERY DAY 30 Tablet 5 05/15/2024 Active amLODIPine Besylate 10 MG Oral Tablet (Norvasc) Take 1 Tablet by mouth in the morning. 90 Tablet 2 07/09/2024 Active Lisinopril 2.5 MG Oral Tablet (Prinivil)Indications: Hypertensive nephropathy Take 1 Tablet by mouth in the morning. 90 Tablet 07/10/2024 Active Allopurinol 300 MG Oral Tablet (Zyloprim)Indications: Hyperuricemia TAKE 1 TABLET BY MOUTH EVERY DAY IN THE MORNING 90 Tablet 07/11/2024 Active Metoprolol Tartrate 50 MG Oral Tablet (Lopressor) TAKE 1 TABLET BY MOUTH IN THE MORNING AND BEFORE BEDTIME 180 Tablet 07/11/2024 Active Atorvastatin Calcium 40 MG Oral Tablet (Lipitor)Indications:S /P CABG x 1 TAKE 1 TABLET BY MOUTH EVERY DAY IN THE MORNING 30 Tablet 2 08/04/2024 Active Acyclovir 800 MG Oral Tablet (Zovirax) TAKE 1 TABLET BY MOUTH DAILY AT NOON 30 Tablet 5 08/14/2024 Active Pregabalin 75 MG Oral Capsule (Lyrica)Indications:St atus post mechanical aortic valve replacement TAKE 1 CAPSULE BY MOUTH IN THE MORNING AND BEFORE BEDTIME 60 Capsule 08/14/2024 Active Amoxicillin 500 MG Oral Capsule (Amoxil) Take four capsules one hour prior to dental work 4 Capsule 5 08/20/2024 Active Warfarin Sodium 4 MG Oral Tablet (Coumadin)Indications: Status post mechanical aortic valve replacement TAKE 1 TO 1.5 TABLETS (4MG TO 6MG) BY MOUTH DAILY DIRECTED BY COUMADIN CLINIC 45 Tablet 5 09/04/2024 Active Famotidine 40 MG Oral Tablet (Pepcid) TAKE 1 TABLET BY MOUTH EVERY DAY IN THE MORNING 30 Tablet 5 09/04/2024 Active documented as of this encounter (statuses as of 09/04/2024) Active Problems Problem Noted Date Diagnosed Date Overweight (BMI 25.0-29.9) 05/28/2023 Intermittent complete atrioventricular block 01/2023 Cardiac pacemaker in situ 07/12/2021 Status post mechanical aortic valve replacement 06/20/2021 Hyperuricemia 01/02/2019 S/P CABG x 1 01/01/2019 CAREN (obstructive sleep apnea) 01/01/2019 Gastroesophageal reflux disease with esophagitis 06/26/2018 HTN, goal below 130/80 06/26/2018 documented as of this encounter (statuses as of 09/04/2024) Resolved Problems Problem Noted Date Diagnosed Date Resolved Date Mitral valve vegetation 11/06/2021 02/0 12/2022 S/P aortic valve replacement with bioprosthetic valve 01/01/2019 07/12/2021 HIV disease 06/26/2018 06/27/2018 History of endocarditis 06/26/201801/16 documented as of this encounter (statuses as of 09/04/2024) Immunizations Name Administration Dates Next Due COVID-19 mRNA, LNP-s, No Pre serve, 2-Dose Series (BluelightApp) 08/17/2021,02/15/2021,01/25/2021 COVID-19, LNP-s, No Preserve , Poncho-sucrose, Ages 12+ (Pfizer) 02/12/2022 COVID-19, MRNA-LNP, 23-24, P F, 50 MCG/0.5 mL, 12 YRS AND ABOVE, IM (MODERNA-Spikevax) 08/03/2023 Covid-19, Mrna, Lnp-s, Pf, B ivalent, 50 Mcg, IM, 12 yrs and above (Moderna) 08/15/2022 Seasonal Influenza Virus Vac cine, Unspecified Formulation 01/01/2019 Seasonal Influenza, MDCK, Tr ivalent, PF, (Flucelvax) 07/04/2024 Seasonal Influenza, PF, 6 M & above, IM , (FluLaval or Fluzone) 08/09/2023,07/28/2021,08/09/2020,2018,01/01/2019 Seasonal Influenza, Quadriva lent, No Preserve, IM 08/15/2022 TDAP (age 10 and older)(Boostrix) 01/01/2019 documented as of this encounter Social History Tobacco Use Types Packs/Day Years Used Date Smoking Tobacco: Never Smokeless Tobacco: Never Comments:smoked a few cigare ttes in his early 20s Alcohol Use Standard Drinks/Week Comments Not Currently 2 (1 standard drink = 0.6 oz pur e alcohol) PHQ-2 Answer Date Recorded PHQ Adult Total Score 0 09/10/2022 Hunger Vital Sign Answer Date Recorded Within the past 12 months, y ou worried that your food would run out before you got the money to buy more. Never true 08/06/20 24 Within the past 12 months, t he food you bought just didn't last and you didn't have money to get more. Never true 08/06/2024 Childcare Answer Date Recorded Do you feel overwhelmed with taking care of a child, family member or friend? No 08/06/2024 Does your family need help f inding childcare? (Household - for ages 0-17 years) Not on file 08/06/2024 Clothing Answer Date Recorded Have you been unable to get clothing when it was really needed? No 08/06/2024 Is your family able to get c lothes or diapers when needed? (Household - for ages 0-17 years) Not on file 08/06/2024 Personal Safety Answer Date Recorded Do you feel unsafe or have concerns for your saf ety? No 08/06/2024 Do you have concerns for you r family's safety? (Household - for ages 0-17 years) Not on file 08/06/2024 Utilities Answer Date Recorded Do you have trouble paying y our heating, water, or electric bill? No 08/06/2024 Is your family able to pay t he heat, water, or electric bill? (Household - for ages 0-17 years) Not on file 08/06/2024 Does your family have access to good internet? (Household - for ages 0-17 years) Not on file 08/06/2024 Employment Status Answer Date Recorded Are you unemployed or without regular income? No 08/06/2024 Does the household have a re gular source of income? (Household - for ages 0-17 years) Not on file 08/06/2024 Social Connections Answer Date Recorded How often do you feel lonely or isolated from th ose around you? Never 08/06/2024 Financial Resource Strain Answer Date R ecorded Do you have any trouble payi ng for your medications, or do you think you might in the future? No 08/06/2024 Does your family have troubl e paying for medicine? (Household - for ages 0-17 years) Not on file 08/06/2024 Transportation Needs Answer Date Record ed Do you have trouble getting a ride to medical visits or work? (Adult - for ages 18 years and over) Not on file 08/06/2024 Does your family have a hard time getting a ride to doctors visits? (Household - for ages 0-17 years) Not on file 08/06/2024 Has lack of transportation k ept you from medical appointments, meetings, work, or from getting things needed for daily living? Check all that apply. No 08/06/2024 Do you (or your family) have trouble finding or paying for a ride (transportation)? (Household - for ages 0-17 years) Not on file 08/06/2024 Housing Stability Answer Date Recorded Do you currently live in a s helter or have no steady place to sleep at night? No 08/06/2024 Do you think you are at risk of becoming homeless? (Adult - for ages 18 years and over) Not on file 08/06/2024 Does your family worry about paying for your home or becoming homeless? (Household - for ages 0-17 years) Not on file 0 08/06/2024 Are you homeless or worried that you might be in the future? No 08/06/2024 Are you (or your family) leslie eless or worried that you might be in the future? (Household - for ages 0-17 years) Not on file Food Insecurity Answer Date Recorded Do you need food for this week? No 08/06/2024 Are you able to get enough f ood for your family? (Household - for ages 0-17 years) Not on file 08/06/2024 Does your family need food t his week? (Household - for ages 0-17 years) Not on file 08/06/2024 Do you always have enough fo od for your family? (Household - for ages 0-17 years) Not on file 08/06/2024 Sex and Gender Information Value Date Recorded Sex Assigned at Male 04/11/2023 12:28 PM EDT Gender Identity Male 04/11/2023 12:28 PM EDT Sexual Orientation [place] 04/11/2023 12 :28 PM EDT Job Start Date Occupation Industry Not on file Not on file Not on file documented as of this encounter Progress Notes * Whit Espinosa RPh - 09/04/2024 8:11 AM EDT Medication Therapy Disease Management - Anticoagulation Patient: Rich Mckeon | : 1975 Subjective Contacts Contact Date/Time Type Contact Phone/Fax 08/28/2024 05:11 AM EDT Vendor (Outgoing) Rich Mckeon [phone] 09/01/2024 05:14 AM EDT Vendor (Outgoing) Rich Mckeon [phone] 09/03/2024 05:11 AM EDT Vendor (Outgoing) Laura Mckeonence Ritchie [phone] Patient-Reported Symptoms: Objective Current Warfarin Dose As of 09/04/2024 Warfarin maintenance plan: 6 mg (4 mg x 1.5) every Fri; 4 mg (4 mg x 1) all other days INR Result As of 09/04/2024 INR goal: 1.7-2.5 INR used for dosin.7 (09/04/2024) Assessment & Plan Warfarin Plan As of 09/04/2024 Full warfarin instructions: 6 mg every Fri; 4 mg all other days No change documented: Whit Espinosa RPh Next INR check: 10/23/2024 Repeat PT/INR in 7 week(s) Weekly dose: not changed Additional Dosing Information: Description I spent a total of 10-19 minutes (exact time 10 mins) on the date of service in preparation, delivery, and documentation of the care provided to Rich Mckeon excluding any time spent in the performance of separately billed services or time spent by another provider/QHP. Whit Espinosa RPh Clinical Pharmacist 09/04/2024, 8:11 AM documented in this encounter Plan of Treatment Upcoming Encounters Date Type Department Care Team (Late st Contact Info) Description 10/08/2024 9:00 AM EST Office Visit [facility] [address] [place] [place] [phone] Liz Leigh CRNP [address] [place] [address] 10/23/2024 8:00 AM EST Anticoagulation Pharmacy, [facility] [address] [place] [address] [facility] [address] [place] [address] Scheduled Procedures Name Priority Associated Diagnoses Date/Ti me COLONOSCOPY FLEXIBLE PROXIMA L DIAGNOSTIC Recall Special screening for malignant neoplasms, colon Health Maintenance Due Date Last Done Comments Hepatitis B Vaccine (1 of 3 - 19+ 3-dose series) 1992 Cologuard 2018 Fecal Occult Blood Test 2018 Sigmoidoscopy 2018 Zoster Vaccines (1 of 2) 2023 Depression Screening 09/10/2023 09/10/2022 COVID-19 Vaccine ( season) 2024 07/04/2024, 08/03/2023, 08/15/2022, Additional history exists GFR 04/03/2025 04/03/2024, 03/19, 08/20/2022, Additional history exists Albumin/Creatinine Ratio 04/12/2026 04/12/2023, 08/19 Diabetes Screening 08/07/2027 08/07/2024, 0 04/03/2024, 04/12/2023, Additional history exists DTap/Tdap Vaccines (2 - Td or Tdap) 01/01/2029 01/01/2019 Lipid Panel 08/07/2029 08/07/2024, 03/19, 02/22/2021, Additional history exists Colonoscopy 04/26/2033 04/26/2023, 04/26/2023 Colorectal Cancer Screening 04/26/2033 Influenza Vaccine (FLU shot) Completed , 08/09/2023, 08/15/2022, Additional history exists HPV (Gardasil) Vaccine Aged Out No lo nger eligible based on patient's age to complete this topic MENINGOCOCCAL (MENACTRA/MENVEO) Aged Out No longer eligible based on patient's age to complete this topic Pneumococcal Vaccine: Pediatrics (0 to 5 Years) and At-Risk Patients (6 to 64 Years) Aged Out No longer eligible based on patient's age to complete this topic documented as of this encounter Medical Devices Implanted Type Area Syrup Machine Laborer Device Identifier Shelf Expiration Date Model / Serial / Lot Lens 15.0 [id number] - [id number] - [id number] Implanted:Qty: 1 on 05/12/2020 by Javid Zepeda MD at [facility] Right: Eye [employer] 10/17/2022 [id number] / [id number] / [id number] Envista [id number] 15.00d Implanted:Qty: 1 on 02/21/2021 by Javid Zepeda MD at [facility] Left: Eye [employer] 02/15/2023 [id number] / [id number] / [id number] Band Circling 2.5mm Michael - [id number] Implanted:Qty: 1 on 03/03/2021 by Rich Chaudhari MD at [facility] Left: Eye [employer] 05/17/2024 [id number] / / [id number] Silicone Band (Shruthi 70) - [id number] Implanted:Qty: 1 on 03/03/2021 by Rich Chaudhari MD at [facility] Left: Eye [employer] 04/17/2024 [id number] / / [id number] documented as of this encounter Procedures Procedure Name Priority Date/Time Associated Diagnosis Comments INR FINGERSTICK, POINT OF CARE STAT 09/04/2024 8:14 AM EDT Status post mechanical aortic valve replacement Anticoagulation management encounter documented in this encounter Results * INR FINGERSTICK, POINT OF CARE (09/04/2024 8:14 AM EDT) Fingerstick INR 1.7 INR 8:30 AM EDT [facility] Blood 09/04/2024 8:14 AM EDT 09/04/2024 8:30 AM EDT Narrative [facility] 56- - 09/04/2024 8:30 AM EDT Therapeutic ranges for non-operative patients: Prophylaxsis/treatment of DVT: (Range:2.0-3.0) Treatment of pulmonary embolism:(Range:2.0-3.0) Prevention of systemic embolism from: -tissue heart valves -acute myocardial infarction -valvular heart disease -atrial fibrillation (Range: 2.0-3.0) Mechanical prosthetic valves: (Range: 2.5-3.5) Whit Espinosa [facility] POINT OF CARE TEST DOCKED DEVICE UNSOLICITED RESULTS [facility] [address] [place] [address] documented in this encounter Visit Diagnoses Diagnosis Status post mechanical aortic valve replacement- Primary Anticoagulation management encounter Encounter for therapeutic drug monitoring documented in this encounter Care Teams Health Information Manager Relationship Specialty Start Date End Date Sergio Sosa MD [address] [facility] [place] [address] PCP - General Family Medicine 06/26/18 documented as of this encounter"
--- OUTSIDE RECORDS SUMMARY | 2024-09-05 10:31 | External Medical Summary | Summary of Care ---
Author Name Unknown Organization [facility] Address [address] [place] [address] Phone [phone] Care Team Providers Care Cook Restaurant Name Role Phone Sergio Sosa MD Primary Care Provider [phone] Reason for Visit * Reason Comments Dosage Adjustment In Person (Anticoag Cl inic) Encounter Details Date Type Department Care Team (Latest Contact Info) Description 07/24/2024 8:30 AM EDT Anticoagulation Pharmacy, [place] [address] [place] [address] [facility] [address] [place] [address] Anticoagulation management encounter*; Status post mechanical aortic valve replacement Allergies Active Allergy Reactions Criticality Noted Date Comments Sulfa Antibiotics Other (Please comment) High 2017 Pt cannot remember what reaction he had to sulfa documented as of this encounter (statuses as of 07/24/2024) Medications Medication Sig Dispensed Refills Start Date End Date Status CPAP every night at bedtime. Active One-A-Day Mens Oral Tablet Take 1 Tablet by mouth in the morning. Active Amoxicillin 500 MG Oral Capsule (Amoxil) Take four capsules one hour prior to dental work 4 Capsule 5 01/21/2023 Active [facility] Adv Probiotic Gummies Oral Tablet Chewable Take 1 Each by mouth in the morning. Active Finasteride 2.5 MG OR TABS Take 0.5 Tablets by mouth in the morning. Active hydrOXYzine HCl 10 MG Oral Tablet (Atarax) TAKE 1 TABLET BY MOUTH EVERY 6 HOURS NEEDED FOR ITCHING. 40 Tablet 2 09/10/2023 Active Warfarin Sodium 4 MG Oral Tablet (Coumadin)Indications: Status post mechanical aortic valve replacement Take 1 to 1.5 tablets (4mg to 6mg) by mouth daily as directed by Coumadin clinic 135 Tablet 1 12/25/2023 Active Acyclovir 800 MG Oral Tablet (Zovirax) TAKE 1 TABLET BY MOUTH DAILY AT NOON 90 Tablet 1 02/29/2024 Active Atorvastatin Calcium 40 MG Oral Tablet (Lipitor)Indications:S /P CABG x 1 TAKE 1 TABLET BY MOUTH EVERY DAY IN THE MORNING 90 Tablet 1 02/29/2024 Active Famotidine 40 MG Oral Tablet (Pepcid) TAKE 1 TABLET BY MOUTH EVERY DAY IN THE MORNING 90 Tablet 1 03/14/2024 Active Doxycycline Hyclate 50 MG Oral Capsule [...] the morning. 90 Tablet 2 07/09/2024 Active Pregabalin 75 MG Oral Capsule (Lyrica)Indications:St atus post mechanical aortic valve replacement Take 1 Capsule by mouth in the morning and 1 Capsule before bedtime. 60 Capsule 07/10/2024 Active Lisinopril 2.5 MG Oral Tablet (Prinivil)Indications: [...] AND BEFORE BEDTIME 180 Tablet 07/11/2024 Active documented as of this encounter (statuses as of 07/24/2024) Active Problems Problem Noted Date Diagnosed Date Overweight (BMI 25.0-29.9) 05/28/2023 Intermittent complete atrioventricular block 01/2023 Cardiac pacemaker in situ 07/12/2021 Status post mechanical aortic valve replacement 06/20/2021 Hyperuricemia 01/02/2019 S/P CABG x 1 01/01/2019 CAREN (obstructive sleep apnea) 01/01/2019 Gastroesophageal reflux disease with esophagitis 06/26/2018 HTN, goal below 130/80 06/26/2018 documented as of this encounter (statuses as of 07/24/2024) Resolved Problems Problem Noted Date Diagnosed Date Resolved Date Mitral valve vegetation 11/06/2021 02/12/2022 S/P aortic valve replacement with bioprosthetic valve 01/01/2019 07/12/2021 HIV disease 06/26/2018 06/27/2018 History of endocarditis 06/26/201801/16 documented as of this encounter (statuses as of 07/24/2024) Immunizations Name Administration Dates Next Due COVID-19 mRNA, LNP-s, No Pre serve, 2-Dose Series ([employer]) 08/17/2021,02/15/2021,01/25/2021 COVID-19, LNP-s, No Preserve , Poncho-sucrose, Ages 12+ (Pfizer) 02/12/2022 Covid-19, Mrna, Lnp-s, Pf, Bivalent, 50 Mcg, IM, 12 yrs and above (Moderna) 08/15/2022 Seasonal Influenza, PF, 6 M & above, IM , (FluLaval or Fluzone) 08/09/2023,07/28/2021,08/09/2020, 0 19,01/01/2019 Seasonal Influenza, Quadriva lent, No Preserve, IM [...] the money to buy more. Never true 05/23/20 23 Within the past 12 months, t he food you bought just didn't last and you didn't have money to get more. Never true 05/23/2023 Childcare Answer Date Recorded Do you feel overwhelmed with taking care of a child, family member or friend? No 05/23/2023 Does your family need help f inding childcare? (Household - for ages 0-17 years) Not on file 05/23/2023 Clothing Answer Date Recorded Have you been unable to get clothing when it was really needed? No 05/23/2023 Is your family able to get c lothes or diapers when needed? (Household - for ages 0-17 years) Not on file 05/23/2023 Personal Safety Answer Date Recorded Do you feel unsafe or have concerns for your saf ety? No 05/23/2023 Do you have concerns for you r family's safety? (Household - for ages 0-17 years) Not on file 05/23/2023 Utilities Answer Date Recorded Do you have trouble paying y our heating, water, or electric bill? (Adult - for ages 18 years and over) Not on file 06/03/2024 Is your family able to pay t he heat, water, or electric bill? (Household - for ages 0-17 years) Not on file 06/03/2024 Does your family have access to good internet? (Household - for ages 0-17 years) Not on file 06/03/2024 Employment Status Answer Date Recorded Are you unemployed or without regular income? No 05/23/2023 Does the household have a re lar source of income? (Household - for ages 0-17 years) Not on file 05/23/2023 Social Connections Answer Date Recorded How often do you feel lonely or isolated from those around you? (Adult - for ages 18 years and over) Not on file 06/03/2024 Financial Resource Strain Answer Date R ecorded Do you have any trouble payi ng for your medications, or do you think you might in the future? No 05/23/2023 Does your family have troubl e paying for medicine? (Household - for ages 0-17 years) Not on file 05/23/2023 Transportation Needs Answer Date Record ed READ ONLY Do you have troubl e getting a ride to medical visits or work? Never True 05/23/2023 Does your family have a hard time getting a ride to doctors visits? (Household - for ages 0-17 years) Not on file 05/23/2023 Has lack of transportation k ept you from medical appointments, meetings, work, or from getting things needed for daily living? Check all that apply. (Adult - for ages 18 years and over) Not on file 05/23/2023 Do you (or your family) have trouble finding or paying for a ride (transportation)? (Household - for ages 0-17 years) Not on file 05/23/2023 Housing Stability Answer Date Recorded Do you currently live in a s helter or have no steady place to sleep at night? No 05/23/2023 READ ONLY Do you think you a re at risk of becoming homeless? No 05/23/2023 Does your family worry about paying for your home or becoming homeless? (Household - for ages 0-17 years) Not on file 0 05/23/2023 Are you homeless or worried that you might be in the future? (Adult - for ages 18 years and over) Not on file Are you (or your family) leslie eless or worried that you might be in the future? (Household - for ages 0-17 years) Not on file Food Insecurity Answer Date Recorded Do you need food for this week? No 05/23/2023 Are you able to get enough f ood for your family? (Household - for ages 0-17 years) Not on file 05/23/2023 Does your family need food t his week? (Household - for ages 0-17 years) Not on file 05/23/2023 Do you always have enough fo od for your family? (Household - for ages 0-17 years) Not on file 05/23/2023 Sex and Gender Information Value Date Recorded Sex Assigned at Male 04/11/2023 12:28 PM EDT Gender Identity Male 04/11/2023 12:28 PM EDT Sexual Orientation [place] 04/11/2023 12 :28 PM EDT Job Start Date Occupation Industry Not on file Not on file Not on file documented as of this encounter Progress Notes * Whit Espinosa, Formerly [facility] - 07/24/2024 8:19 AM EDT Medication Therapy Disease Management - Anticoagulation Patient: Rich Mckeon | : 1975 Subjective Patient-Reported Symptoms: Patient Findings Negatives: Signs/symptoms of thrombosis, Signs/symptoms of bleeding, Change in health, Change in alcohol use, Change in activity, Upcoming invasive procedure, Missed doses, Extra doses, Change in medications, Change in diet/appetite, Bruising Objective Current Warfarin Dose As of 07/24/2024 Warfarin maintenance plan: 6 mg (4 mg x 1.5) every Fri; 4 mg (4 mg x 1) all other days INR Result As of 07/24/2024 INR goal: 1.7-2.5 INR used for dosin.1 (07/24/2024) Assessment & Plan Warfarin Plan As of 07/24/2024 Full warfarin instructions: 6 mg every Fri; 4 mg all other days No change documented: Whit Espinosa dee dee Next INR check: 09/04/2024 Repeat PT/INR in 6 week(s) Weekly dose: not changed Additional Dosing Information: Description I spent a total of 10-19 minutes (exact time 10 mins) on the date of service in preparation, delivery, and documentation of the care provided to Rich Mckeon excluding any time spent in the performance of separately billed services or time spent by another provider/QHP. Whit Espinosa [facility] Clinical Pharmacist 07/24/2024, 8:24 AM documented in this encounter Plan of Treatment Upcoming Encounters Date Type Department Care Team (Late st Contact Info) Description 08/07/2024 11:40 AM EDT Office Visit [facility] [address] [place] [address] Sergio Sosa MD [address] [place] [address] 09/04/2024 8:10 AM EDT [address] [address] [facility] [address] [facility] [place] [address] Scheduled Procedures Name Priority Associated Diagnoses Date/Ti me COLONOSCOPY FLEXIBLE PROXIMA L DIAGNOSTIC Recall Special screening for malignant neoplasms, colon Health Maintenance Due Date Last Done Comments Hepatitis B Vaccine (1 of 3 - 19+ 3-dose series) 1992 Cologuard 2018 Fecal Occult Blood Test 2018 Sigmoidoscopy 2018 Zoster Vaccines (1 of 2) 2023 Depression Screening 09/10/2023 09/10/2022 GFR 04/03/2025 04/03/2024, 03/19, 08/20/2022, Additional history exists Albumin/Creatinine Ratio 04/12/2026 04/12/2023, 08/19 Diabetes Screening 04/03/2027 04/03/2024, 0 04/12/2023, 08/20/2022, Additional history exists Lipid Panel 04/12/2028 04/12/2023, 04/0 05/2021, 06/26/2018 DTap/Tdap Vaccines (2 - Td or Tdap) 01/01/2029 01/01/2019 Colonoscopy 04/26/2033 04/26/2023, 04/26/2023 Colorectal Cancer Screening 04/26/2033 COVID-19 Vaccine Completed 07/04/2024, , 08/15/2022, Additional history exists Influenza Vaccine (FLU shot) Completed , 08/09/2023, [...] this encounter Medical Devices Implanted Type Area Lead Php Developer Device Identifier Shelf Expiration Date Model / Serial / Lot Lens 15.0 Mx60e - [id number] - [id number] Implanted:Qty: 1 on 05/12/2020 by Javid Zepeda MD at OR [facility] Right: Eye [employer]US[employer] LOMB 10/17/2022 [id number]-58.0 / [id number] / [id number] Envista Mx60e 15.00d Implanted:Qty: 1 on 02/21/2021 by Javid Zepeda MD at [facility] Left: Eye BAUSCH & LOMB 02/15/2023 [id number] / [id number] / [id number] Band Circling 2.5mm Michael - [id number] Implanted:Qty: 1 on 03/03/2021 by Rich Chaudhari MD at [facility] Left: Eye [employer] 05/17/2024 [id number] / / [id number] Silicone Band (Shruthi 70) - [id number] Implanted:Qty: 1 on 03/03/2021 by Rich Chaudhari MD at [facility] Left: Eye [employer] 04/17/2024 [id number] / / [id number] documented as of this encounter Procedures Procedure Name Priority Date/Time Associated Diagnosis Comments INR FINGERSTICK, POINT OF CARE STAT 07/24/2024 8:24 AM EDT Status post mechanical aortic valve replacement Anticoagulation management encounter documented in this encounter Results * INR FINGERSTICK, POINT OF CARE (07/24/2024 8:24 AM EDT) Fingerstick INR 2.1 INR 8:26 AM EDT [facility] Blood 07/24/2024 8:24 AM EDT 07/24/2024 8:[address] [facility] - 07/24/2024 8:26 AM EDT Therapeutic ranges for non-operative patients: Prophylaxsis/treatment of DVT: (Range:2.0-3.0) Treatment of pulmonary embolism:(Range:2.0-3.0) Prevention of systemic embolism from: -tissue heart valves -acute myocardial infarction -valvular heart disease -atrial fibrillation (Range: 2.0-3.0) Mechanical prosthetic valves: (Range: 2.5-3.5) Whit Espinosa [facility] LAB POINT OF CARE TEST DOCKED DEVICE UNSOLICITED RESULTS LAB[facility]ATORY [place] [address] [place], [place] [id number] documented in this encounter Visit Diagnoses Diagnosis Anticoagulation management encounter- Primary Encounter for therapeutic drug monitoring Status post mechanical aortic valve replacement documented in this encounter Care Teams Cook Restaurant Relationship Specialty Start Date End Date [facility]ergio [facility] [address] [facility] [place] [address] PCP - General Family Medicine 06/26/18 documented as of this encounter"
--- OUTSIDE RECORDS SUMMARY | 2024-09-05 10:31 | External Medical Summary | Summary of Care ---
Author Name Unknown Organization [facility] Address [address] [facility] [place] [address] Phone [phone] Care Team Providers Care Mixer Blender Name Role Phone Sergio Sosa MD Primary Care Provider [phone] Encounter Details Date Type Department Care Team (Late st Contact Info) Description 08/07/2024 Orders Only PATIENT PORTAL DO NOT DELETE THIS DEPT USED BY [place] [place] [address] Allergies Active Allergy Reactions Criticality Noted Date Comments Sulfa Antibiotics Other (Please comment) High 2017 Pt cannot remember what reaction he had to sulfa documented as of this encounter (statuses as of 08/07/2024) Medications Medication Sig Dispensed Refills Start Date [...] AT NOON 90 Tablet 1 02/29/2024 Active Famotidine 40 [...] THE MORNING 30 Tablet 2 08/04/2024 Active documented as of this encounter (statuses as of 08/07/2024) Active Problems Problem Noted Date Diagnosed Date Overweight (BMI 25.0-29.9) 05/28/2023 Intermittent complete atrioventricular block 01/2023 Cardiac pacemaker in situ 07/12/2021 Status post mechanical aortic valve replacement 06/20/2021 Hyperuricemia 01/02/2019 S/P CABG x 1 01/01/2019 CAREN (obstructive sleep apnea) 01/01/2019 Gastroesophageal reflux disease with esophagitis 06/26/2018 HTN, goal below 130/80 06/26/2018 documented as of this encounter (statuses as of 08/07/2024) Resolved Problems Problem Noted Date Diagnosed Date Resolved Date Mitral valve vegetation 11/06/2021 0212/2022 S/P aortic valve replacement with bioprosthetic valve 01/01/2019 07/12/2021 HIV disease 06/26/2018 06/27/2018 History of endocarditis 06/26/201801/16 documented as of this encounter (statuses as of 08/07/2024) Immunizations Name Administration Dates Next Due COVID-19 mRNA, LNP-s, No Pre serve, 2-Dose Series (Pfizer) 08/17/2021,02/15/2021,01/25/2021 COVID-19, LNP-s, No Preserve , Poncho-sucrose, [...] on file documented as of this encounter Plan of Treatment Upcoming Encounters Date Type Department Care Team (Late st Contact Info) Description 08/07/2024 11:40 AM EDT Office Visit Family Practice [facility] [address] [address] Serigo Sosa MD [address] [place] [address] 09/04/2024 8:10 AM EDT Anticoagulation Pharmacy, [place] [address] [place] [address] [facility] [address] [place] [address] Scheduled Procedures Name Priority Associated Diagnoses Date/Ti [...] this encounter Medical Devices Implanted Type Area Fisher Reef Net Device Identifier Shelf Expiration Date Model / Serial / Lot Lens 15.0 Mx60e - [id number] - [id number] Implanted:Qty: 1 on 05/12/2020 by Javid Zepeda MD at [facility] Right: Eye [employer] LOMB 10/17/2022 [id number]-[id number] / [id number] / [id number] Envista Mx60e 15.00d Implanted:Qty: 1 on 02/21/2021 by Javid Zepeda MD at [facility] Left: Eye BAUSCH [employer] LOMB 02/15/2023 [id number] / [id number] / [id number] Band Circling 2.5mm Michael - [id number] Implanted:Qty: 1 on 03/03/2021 by [facility] Left: Eye [employer] 05/17/2024 [id number] / / [id number] Silicone Band (Shruthi 70) - [id number] Implanted:Qty: 1 on 03/03/2021 by Rich [facility]aud[facility]ari MD [facility] Left: Eye [employer] 04/17/2024 [id number] / / [id number] documented as of this encounter Care Teams Mixer Blender Relationship Specialty Start Date End Date Sergio Sosa MD [address] [place] [address] PCP - General Family Medicine 06/26/18 documented as of this encounter
--- OUTSIDE RECORDS SUMMARY | 2024-09-05 10:31 | External Medical Summary | Summary of Care ---
Author Name Unknown Organization [facility] Address [address] [place] [facility] [place] [address] Phone [phone] Care Team Providers Care Board Operator Name Role Phone Sergio Sosa MD Primary Care Provider [phone] Reason for Visit * Reason Onset Date Comments Medication Refill 08/19/2024 Encounter Details Date Type Department Care Team (Late st Contact Info) Description 08/19/2024 Refill [address]iology, [facility] [address] [place] [address] Wilfred Ricketts [facility] [address] [place] [address] Allergies Active Allergy Reactions Criticality Noted Date Comments Sulfa Antibiotics Other (Please comment) High 2017 Pt cannot remember what reaction he had to sulfa documented as of this encounter (statuses as of 08/20/2024) Medications Medication Sig Dispensed Refills Start Date [...] Active Warfarin Sodium 4 MG Oral Tablet (Coumadin)Indication s:Status post mechanical aortic valve replacement Take 1 to 1.5 tablets (4mg to 6mg) by mouth daily as directed by Coumadin clinic 135 Tablet 1 12/25/2023 Active Famotidine 40 MG Oral Tablet (Pepcid) TAKE 1 TABLET BY MOUTH EVERY DAY IN THE MORNING 90 Tablet 1 03/14/2024 Active Doxycycline Hyclate 50 MG Oral Capsule (Vibramycin)Indicati ons:Perioral dermatitis TAKE 1 CAPSULE BY MOUTH IN THE MORNING AND BEFORE BEDTIME 60 Capsule 2 03/21/2024 Active Aspirin Low Dose 81 MG Oral Tablet Delayed Release (aspirin enteric coated)Indications:A SCVD (arteriosclerotic cardiovascular disease) TAKE 1 TABLET BY MOUTH EVERY DAY 30 Tablet 5 05/15/2024 Active amLODIPine Besylate 10 MG Oral Tablet (Norvasc) Take 1 Tablet by mouth in the morning. 90 Tablet 2 07/09/2024 Active Lisinopril 2.5 MG Oral Tablet (Prinivil)Indication s:Hypertensive nephropathy Take 1 Tablet by mouth in the morning. 90 Tablet 07/10/2024 Active Allopurinol 300 MG Oral Tablet (Zyloprim)Indication s:Hyperuricemia TAKE 1 TABLET BY MOUTH EVERY DAY IN THE MORNING 90 Tablet 07/11/2024 Active Metoprolol Tartrate 50 MG Oral Tablet (Lopressor) TAKE 1 TABLET BY MOUTH IN THE MORNING AND BEFORE BEDTIME 180 Tablet 07/11/2024 Active Atorvastatin Calcium 40 MG Oral Tablet (Lipitor)Indications :S/P CABG x 1 TAKE 1 TABLET BY MOUTH EVERY DAY IN THE MORNING 30 Tablet 2 08/04/2024 Active Acyclovir 800 MG Oral Tablet (Zovirax) TAKE 1 TABLET BY MOUTH DAILY AT NOON 30 Tablet 5 08/14/2024 Active Pregabalin 75 MG Oral Capsule (Lyrica)Indications: Status post mechanical aortic valve replacement TAKE 1 CAPSULE BY MOUTH IN THE MORNING AND BEFORE BEDTIME 60 Capsule 08/14/2024 Active Amoxicillin 500 MG Oral Capsule (Amoxil) Take four capsules one hour prior to dental work 4 Capsule 5 08/20/2024 Active Amoxicillin 500 MG Oral Capsule (Amoxil) Take four capsules one hour prior to dental work 4 Capsule 5 01/21/2023 Discontinue d(Refill) documented as of this encounter (statuses as of 08/20/2024) Active Problems Problem Noted Date Diagnosed Date Overweight (BMI 25.0-29.9) 05/28/2023 Intermittent complete atrioventricular block 01/2023 Cardiac pacemaker in situ 07/12/2021 Status post mechanical aortic valve replacement 06/20/2021 Hyperuricemia 01/02/2019 S/P CABG x 1 01/01/2019 CAREN (obstructive sleep apnea) 01/01/2019 Gastroesophageal reflux disease with esophagitis 06/26/2018 HTN, goal below 130/80 06/26/2018 documented as of this encounter (statuses as of 08/20/2024) Resolved Problems Problem Noted Date Diagnosed Date Resolved Date Mitral valve vegetation 11/06/2021 02/12/2022 S/P aortic valve replacement with bioprosthetic valve 01/01/2019 07/12/2021 HIV disease 06/26/2018 06/27/2018 History of endocarditis 06/26/201801/16 documented as of this encounter (statuses as of 08/20/2024) Immunizations Name Administration Dates Next Due COVID-19 mRNA, LNP-s, No Pre serve, 2-Dose Series ([employer]) 08/17/2021,02/15/2021,01/25/2021 COVID-19, LNP-s, No Preserve , Poncho-sucrose, [...] on file documented as of this encounter Miscellaneous Notes * Telephone Encounter - Wilfred Ricketts PA-C - 08/20/2024 5:28 PM EDTSigned Prescriptions: Disp Refills Amoxicillin 500 MG Oral Capsule (Amoxil) 4 Caps*5 Sig: Take four capsules one hour prior to dental work Authorizing Provider: WILFRED RICKETTS * Telephone Encounter - Flo Colmenares RPh - 08/20/2024 3:07 PM EDTPending Prescriptions: Disp Refills Amoxicillin 500 MG Oral Capsule (Amoxil) 4 Caps*5 Sig: Take four capsules one hour prior to dental work Electronically signed by Flo Colmenares [facility] at 08/20/2024 3:07 PM EDT * Telephone Encounter - Flo Colmenares RP - 08/20/2024 3:06 PM EDT [facility] is currently not authorized to approve refills for the pended medication(s) per refill protocol. Please approve if appropriate. Patient has not been seen by cardiology since 03/22/23. Flo Colmenares, Pharm.D. Clinical Pharmacist Centralized Clinical Pharmacy Services ([facility]) 08/20/2024, 3:06 PM [phone] Electronically signed by Flo Colmenares [facility] at 08/20/2024 3:07 PM EDT documented in this encounter Plan of Treatment Upcoming Encounters Date Type Department Care Team (Late st Contact Info) Description 09/04/2024 8:10 AM EDT [facility]ticoagulation Pharm[facility], [place] [address] [address] [facility] [address] [address] 10/08/2024 9:00 AM EST Office Visit [facility] [address] [place] [phone] Liz Leigh CRNP [address] [place] [address] Scheduled Procedures Name Priority Associated Diagnoses Date/Ti [...] this encounter Medical Devices Implanted Type Area Manager Of Training Device Identifier Shelf Expiration Date Model / Serial / Lot Lens 15.0 Mx60e - [id number] - [id number] Implanted:Qty: 1 on 05/12/2020 by Javid Zepeda MD at [facility] Right: Eye [employer]OM[employer] 10/17/2022 [id number]-80.0 / [id number] / [id number] Envista Mx60e 15.00d Implanted:Qty: 1 on 02/21/2021 by Javid Zepeda MD at [facility] Left: Eye BAUSCH [employer] LOMB 02/15/2023 [id number] / [id number] / [id number] Band Circling 2.5mm Michael - [id number] Implanted:Qty: 1 on 03/03/2021 by Rich Chaudhari MD at [facility] Left: Eye [employer] 05/17/2024 [id number] / / [id number] Silicone Band (Shruthi 70) - [id number] Implanted:Qty: 1 on 03/03/2021 by Rich Chaudhari MD at [facility] Left: Eye [employer] 04/17/2024 [id number] / / [id number] documented as of this encounter Care Teams Board Operator Relationship Specialty Start Date End Date Sergio Sosa MD [address] [place] [address] PCP - General Family Medicine 06/26/18 documented as of this encounter
--- OUTSIDE RECORDS SUMMARY | 2024-09-05 10:31 | External Medical Summary ---
Author Name Unknown Address Unknown Organization K01:LABORATORY [facility] [place] - [address] [place] [address] Laboratory Report Ordering Provider Test Date Status NAS BARBOZA 08/07/2024 12:23:38 Final Observation Date Value Abnormality Reference (Units ) Status HbA1C 08/07/2024 12:23:38 5.5 4.0-5.6 (% ) Final The use of HbA1c to monitor glycemic status is based on normal hemoglobin and HbA composition. This test should not be used in patients with abnormal hemoglobin that affects the half life of the red blood cell or the in vivo glycation rates. Glucose, estimated average 08/07/2024 12:23:38 111 <126 (mg/dL) Final Performing Location LABORATORY [facility] - [address] [place] [address]
--- OUTSIDE RECORDS SUMMARY | 2024-09-05 10:31 | External Medical Summary ---
Author Name Unknown Address Unknown Organization K01:LABORATORY [facility] - [address] [place] [address] Laboratory Report Ordering Provider Test Date Status NAS BARBOZA 08/07/2024 12:23:38 Final Observation Date Value Abnormality Reference (Units ) Status Uric Acid 08/07/2024 12:23:38 4.8 3.4-7.0 (m g/dL) Final Performing Location LABORATORY [facility] - [address] [place] [address]
--- OUTSIDE RECORDS SUMMARY | 2024-09-05 10:31 | External Medical Summary | Summary of Care ---
Author Name Unknown Organization [facility] Address [address] [facility] [place] [address] Phone [phone] Care Team Providers Care School Superintendent Name Role Phone Jabari Lovell MD Primary Care Provider [phone] Reason for Visit * Reason Comments eRx-Medication Refill Encounter Details Date Type Department Care Team (Late st Contact Info) Description 08/02/2024 Refill Family Practice [facility] [address] [place] [address] Jabari Lovell MD [address] [place] [address] ASCVD (arteriosclerotic cardiovascular disease)*; S/P CABG x 1 Allergies Active Allergy Reactions Criticality Noted Date Comments Sulfa Antibiotics Other (Please comment) High 2017 Pt cannot remember what reaction he had to sulfa documented as of this encounter (statuses as of 08/05/2024) Medications Medication Sig Dispensed Refills Start Date [...] Active Warfarin Sodium 4 MG Oral Tablet (Coumadin)Indicatio ns:Status post mechanical aortic valve replacement Take 1 [...] Active Doxycycline Hyclate 50 MG Oral Capsule (Vibramycin)Indicat ions:Perioral dermatitis TAKE 1 CAPSULE BY MOUTH IN THE MORNING AND BEFORE BEDTIME 60 Capsule 2 03/21/2024 Active Aspirin Low Dose 81 MG Oral Tablet Delayed Release (aspirin enteric coated)Indications: ASCVD (arteriosclerotic cardiovascular disease) TAKE 1 TABLET BY MOUTH EVERY DAY 30 Tablet 5 05/15/2024 Active amLODIPine Besylate 10 MG Oral Tablet (Norvasc) Take 1 Tablet by mouth in the morning. 90 Tablet 2 07/09/2024 Active Pregabalin 75 MG Oral Capsule (Lyrica)Indications :Status post mechanical aortic valve replacement Take 1 Capsule by mouth in the morning and 1 Capsule before bedtime. 60 Capsule 07/10/2024 Active Lisinopril 2.5 MG Oral Tablet (Prinivil)Indicatio ns:Hypertensive nephropathy Take 1 Tablet by mouth in the morning. 90 Tablet 07/10/2024 Active Allopurinol 300 MG Oral Tablet (Zyloprim)Indicatio ns:Hyperuricemia TAKE 1 TABLET BY MOUTH EVERY DAY IN THE MORNING 90 Tablet 07/11/2024 Active Metoprolol Tartrate 50 MG Oral Tablet (Lopressor) TAKE 1 TABLET BY MOUTH IN THE MORNING AND BEFORE BEDTIME 180 Tablet 07/11/2024 Active Atorvastatin Calcium 40 MG Oral Tablet (Lipitor)Indication s:S/P CABG x 1 TAKE 1 TABLET BY MOUTH EVERY DAY IN THE MORNING 30 Tablet 2 08/04/2024 Active Atorvastatin Calcium 40 MG Oral Tablet (Lipitor)Indication s:S/P CABG x 1 TAKE 1 TABLET BY MOUTH EVERY DAY IN THE MORNING 90 Tablet 1 02/29/2024 4 Discontinued documented as of this encounter (statuses as of 08/05/2024) Active Problems Problem Noted Date Diagnosed Date Overweight (BMI 25.0-29.9) 05/28/2023 Intermittent complete atrioventricular block 01/2023 Cardiac pacemaker in situ 07/12/2021 Status post mechanical aortic valve replacement 06/20/2021 Hyperuricemia 01/02/2019 S/P CABG x 1 01/01/2019 CAREN (obstructive sleep apnea) 01/01/2019 Gastroesophageal reflux disease with esophagitis 06/26/2018 HTN, goal below 130/80 06/26/2018 documented as of this encounter (statuses as of 08/05/2024) Resolved Problems Problem Noted Date Diagnosed Date Resolved Date Mitral valve vegetation 11/06/2021 02/0 12/2022 S/P aortic valve replacement with bioprosthetic valve 01/01/2019 07/12/2021 HIV disease 06/26/2018 06/27/2018 History of endocarditis 06/26/201801/16 documented as of this encounter (statuses as of 08/05/2024) Immunizations Name Administration Dates Next Due COVID-19 [...] 05/23/2023 Does the household have a re gular [...] encounter Miscellaneous Notes * Telephone Encounter - Long Foy - 08/05/2024 11:21 PM EDT Received message from [facility] regarding patient needing labs. Patient was notified. Successfully contacted patient and provided [facility] message. * Telephone Encounter - Denisse Hernandez [facility] - 08/04/2024 7:52 AM EDTSigned Prescriptions: Disp Refills Atorvastatin Calcium 40 MG Oral Tablet (Li*30 Tab*2 Sig: TAKE 1 TABLET BY MOUTH EVERY DAY IN THE MORNING Authorizing Provider: JABARI LOVELL Ordering User: DENISSE HERNANDEZ * Telephone Encounter - Denisse Hernandez [facility] - 08/04/2024 7:50 AM EDT Provided 90 days supply with 0 refill(s) until upcoming appointment. Per refill protocol patient should have lipid panel on file within past year. Reviewed AMP report, Care Gaps/Health Maintenance, medications list, and for any routine labs typically ordered for this patient. Lab orders placed. Please contact patient to advise of labs ordered for blood draw. Recommend patient to fast if able for labs. Patient may still have water and regular medications. Advise to obtain labs before requesting the next refill. Thanks, Denisse Hernandez [facility] Clinical Pharmacist Centralized Clinical Pharmacy Services (CCPS) [phone] documented in this encounter Plan of Treatment Upcoming Encounters Date Type Department Care Team (Late st Contact Info) Description 08/07/2024 11:40 AM EDT Office Visit Family Practice [facility] [address] [place] [address] Jabari Lovell MD [address] [place] [address] 09/04/2024 8:10 AM EDT Anticoagulation Pharmacy, [place] [address] [address] [facility] [address] [place] [address] Scheduled Orders Name Type Priority Associated Diagnoses Orde r Schedule LIPID PANEL WITH DIRECT LDL IF TG IS HIGH Lab Routine ASCVD (arteriosclerotic cardiovascular disease) Expected: 08/11/2024 (Approximate), Expires: 08/04/2025 Scheduled Procedures Name Priority Associated Diagnoses Date/Ti [...] Additional history exists Lipid Panel 04/12/2028 04/12/2023, 05/2021, 06/26/2018 DTap/Tdap Vaccines (2 - Td [...] this encounter Medical Devices Implanted Type Area Chucking Lathe Operator Device Identifier Shelf Expiration Date Model / Serial / Lot Lens 15.0 Mx60e - [id number] - [id number] Implanted:Qty: 1 on 05/12/2020 by Javid Zepeda MD at OR [facility] Right: Eye BAUSCH [employer] LOMB 10/17/2022 [id number] / [id number] / [id number] Envista Mx60e 15.00d Implanted:Qty: 1 on 02/21/2021 by Javid Zepeda MD at OR [facility] Left: Eye BAUSCH & LOMB 02/15/2023 [id number] / [id number] / [id number] Band Circling 2.5mm Michael - [id number] Implanted:Qty: 1 on 03/03/2021 by [facility] Left: Eye [employer] 05/17/2024 [id number] / / [id number] Silicone Band (Shruthi 70) - [id number] Implanted:Qty: 1 on 03/03/2021 by [facility] Left: Eye [employer] 04/17/2024 [id number] / / [id number] documented as of this encounter Visit Diagnoses Diagnosis ASCVD (arteriosclerotic cardiovascular disease)- Primary Unspecified cardiovascular disease S/P CABG x 1 Postsurgical aortocoronary bypass status documented in this encounter Care Teams School Superintendent Relationship Specialty Start Date End Date Jabari Lovell MD [address] [place] [address] PCP - General Family Medicine 06/26/18 documented as of this encounter
--- OUTSIDE RECORDS SUMMARY | 2024-09-05 10:31 | External Medical Summary ---
Author Name Unknown Address Unknown Organization K01:LABORATORY [facility] [place] [address] [place] [address] Laboratory Report Ordering Provider Test Date Status KHLOE BARROS 08/07/2024 12:23:38 Final Observation Date Value Abnormality Reference (Units ) Status MYCODE SPECIMEN-SST 08/07/2024 12:23:38 Freezing of extracted DNA, whole blood and/or serum. Final Performing Location LABORATORY [facility] - [address] [place] [address]
--- OUTSIDE RECORDS SUMMARY | 2024-09-05 10:31 | External Medical Summary | Summary of Care ---
Author Name Unknown Organization [facility] Address [address] [facility] [place] [address] Phone [phone] Care Team Providers Care Motel Manager Name Role Phone Jabari Lovell MD Primary Care Provider [phone] Reason for Visit * Reason Comments eRx-Medication Refill Encounter Details Date Type Department Care Team (Late st Contact Info) Description 08/13/2024 Refill Family Practice [facility] [address] [place] [address] Jabari Lovell MD [address] [place] [address] Encounter for long-term (current) use of medications*; Status post mechanical aortic valve replacement Allergies Active Allergy Reactions Criticality Noted Date Comments Sulfa Antibiotics Other (Please comment) High 2017 Pt cannot remember what reaction he had to sulfa documented as of this encounter (statuses as of 08/14/2024) Medications Medication Sig Dispensed Refills Start Date [...] 07/09/2024 Active Lisinopril 2.5 MG Oral Tablet (Prinivil)Indicatio [...] 08/14/2024 Active Pregabalin 75 MG Oral Capsule (Lyrica)Indications :Status post mechanical aortic valve replacement TAKE 1 CAPSULE BY MOUTH IN THE MORNING AND BEFORE BEDTIME 60 Capsule 08/14/2024 Active Acyclovir 800 MG Oral Tablet (Zovirax) TAKE 1 TABLET BY MOUTH DAILY AT NOON 90 Tablet 1 02/29/2024 4 Discontinued Pregabalin 75 MG Oral Capsule (Lyrica)Indications :Status post mechanical aortic valve replacement Take 1 Capsule by mouth in the morning and 1 Capsule before bedtime. 60 Capsule 07/10/2024 4 Discontinued documented as of this encounter (statuses as of 08/14/2024) Active Problems Problem Noted Date Diagnosed Date Overweight (BMI 25.0-29.9) 05/28/2023 Intermittent complete atrioventricular block 01/2023 Cardiac pacemaker in situ 07/12/2021 Status post mechanical aortic valve replacement 06/20/2021 Hyperuricemia 01/02/2019 S/P CABG x 1 01/01/2019 CAREN (obstructive sleep apnea) 01/01/2019 Gastroesophageal reflux disease with esophagitis 06/26/2018 HTN, goal below 130/80 06/26/2018 documented as of this encounter (statuses as of 08/14/2024) Resolved Problems Problem Noted Date Diagnosed Date Resolved Date Mitral valve vegetation 11/06/2021 02/0 12/2022 S/P aortic valve replacement with bioprosthetic valve 01/01/2019 07/12/2021 HIV disease 06/26/2018 06/27/2018 History of endocarditis 06/26/201801/16 documented as of this encounter (statuses as of 08/14/2024) Immunizations Name Administration Dates Next Due COVID-19 mRNA, LNP-s, No Pre serve, 2-Dose Series ([employer]) 08/17/2021,02/15/2021,01/25/2021 COVID-19, LNP-s, No Preserve , Poncho-sucrose, [...] encounter Miscellaneous Notes * Telephone Encounter - Jabari Lovell MD - 08/14/2024 10:46 AM EDTSigned Prescriptions: Disp Refills Acyclovir 800 MG Oral Tablet (Zovirax) 30 Tab*5 Sig: TAKE 1 TABLET BY MOUTH DAILY AT NOON Authorizing Provider: JABARI LOVELL Ordering User: YADY SILVA Pregabalin 75 MG Oral Capsule (Lyrica) 60 Cap*0 Sig: TAKE 1 CAPSULE BY MOUTH IN THE MORNING AND BEFORE BEDTIME Authorizing Provider: JABARI LOVELL * Telephone Encounter - Yady Silva [facility] - 08/14/2024 9:20 AM EDTPending Prescriptions: Disp Refills Pregabalin 75 MG Oral Capsule (Lyrica) 60 Cap*0 Sig: TAKE 1 CAPSULE BY MOUTH IN THE MORNING AND BEFORE BEDTIME Signed Prescriptions: Disp Refills Acyclovir 800 MG Oral Tablet (Zovirax) 30 Tab*5 Sig: TAKE 1 TABLET BY MOUTH DAILY AT NOON Authorizing Provider: JABARI LOVELL Ordering User: YADY SILVA * Telephone Encounter - Yady Silva RP - 08/14/2024 9:14 AM EDT I have reviewed the patients controlled substance dispensing history in the Prescription Drug Monitoring Program in compliance with the [facility] regulations before prescribing a controlled substance. PDMP checked on 08/14/2024. Pending Prescriptions: Disp Refills Pregabalin 75 MG Oral Capsule (Lyrica) [P*60 Cap*0 Sig: TAKE 1 CAPSULE BY MOUTH IN THE MORNING AND BEFORE BEDTIME Last Visit: 08/07/2024 (in office), Visit date not found (telemedicine) Next Visit: Visit date not found Date medication was last filled: 07/11 Date medication is due for refill: 08/09 Pharmacy: [id number] [address] [place] [address] Is this request for a controlled substance? Yes and Urine Drug Screen Not completed Toxicology results: No results found for this or any previous visit. Please approve if appropriate. Thanks, Yady Silva PharmD Clinical Pharmacist Centralized Clinical Pharmacy Services (CCPS) [phone] 08/14/2024 9:14 AM * Telephone Encounter - Yady Silva [facility] - 08/14/2024 9:11 AM EDT Pt just had labs drawn 08/07- CBC not ordered Provided 30 days supply with 5 refill(s) until next routine labs will approximately be drawn. Per refill protocol patient should have CBC on file within past year. Reviewed AMP report, Care Gaps/Health Maintenance, medications list, and for any routine labs typically ordered for this patient. Lab orders placed. Patient can complete labs with next routine lab work. Thanks, Yady Silva PharmD Clinical Pharmacist Centralized Clinical Pharmacy Services (CCPS) [phone] 08/14/2024 9:13 AM documented in this encounter Plan of Treatment Upcoming Encounters Date Type Department Care Team (Late st Contact Info) Description 09/04/2024 8:10 AM EDT Anticoagulation Pharmacy, [place] [address] [address] [facility] [address] [address] 10/08/2024 9:00 AM EST Office Visit Sleep Disorders Ctr [facility] [address] [place] [phone] Liz Leigh CRNP [address] [place] [address] Scheduled Orders Name Type Priority Associated Diagnoses Orde r Schedule CBC Lab Routine Status post mechanical aortic valve replacement Encounter for long-term (current) use of medications Expected: 08/14/2024 (Approximate), Expires: 08/14/2025 Scheduled Procedures Name Priority Associated Diagnoses Date/Ti [...] this encounter Medical Devices Implanted Type Area Legal Support Assistant Device Identifier Shelf Expiration Date Model / Serial / Lot Lens 15.0 Mx60e - [id number] - [id number] Implanted:Qty: 1 on 05/12/2020 by Javid Zepeda MD at OR [facility] Right: Eye [employer]CH [employer] LOMB 10/17/2022 [id number]-09.0 / [id number] / [id number] Envista Mx60e 15.00d Implanted:Qty: 1 on 02/21/2021 by Javid Zepeda MD at OR [facility] Left: Eye BAUSCH & LOMB 02/15/2023 [id number] / [id number] / [id number] Band Circling 2.5mm [place] - [id number] Implanted:Qty: 1 on 03/03/2021 by Rich Chaudhari MD at [facility] Left: Eye [employer] 05/17/2024 [id number] / / [id number] Silicone Band (Shruthi 70) - [id number] Implanted:Qty: 1 on 03/03/2021 by [facility] Left: Eye [employer] 04/17/2024 [id number] / / [id number] documented as of this encounter Visit Diagnoses Diagnosis Encounter for long-term (current) use of medications- Primary Encounter for long-term (current) use of other medications Status post mechanical aortic valve replacement documented in this encounter Care Teams Motel Manager Relationship Specialty Start Date End Date Jabari Lovell MD [address] [place] [address] PCP - General Family Medicine 06/26/18 documented as of this encounter
--- OUTSIDE RECORDS SUMMARY | 2024-09-05 10:31 | External Medical Summary | Summary of Care ---
Author Name Unknown Organization [facility] Address [address] [place] [address] Phone [phone] Care Team Providers Care Cargo Bracer Name Role Phone Sergio Sosa MD Primary Care Provider [phone] Reason for Visit * Reason Comments Outpatient Testing Encounter Details Date Type Department Care Team (Late st Contact Info) Description 08/07/2024 12:30 PM EDT Laboratory Laboratory, [place] [facility] [address] [place] [phone] [facility] [address] [place] [address] Open CS Other*[id number]; ASCVD (arteriosclerotic cardiovascular disease); Hyperuricemia; Screening for diabetes mellitus Allergies Active Allergy Reactions Criticality Noted Date [...] mRNA, LNP-s, No Pre serve, 2-Dose Series ([employer]) 08/17/2021,02/15/2021,01/25/2021 COVID-19, LNP-s, No Preserve , Poncho-sucrose, [...] Description 09/04/2024 8:10 AM EDT Anticoagulation Pharmacy, [place] [address] [facility] [address] [place] [address] [facility] [address] 10/08/2024 9:00 AM EST [facility] [address] [place] [phone] Liz Leigh CRNP [address] [facility] [place] [address] Pending Results Name Type Priority Associated Diagnoses Date /Time MYCODE SUBSEQUENT ADULT Lab Routine MyCode Research Other*[id number] 08/07/2024 12:23 PM EDT LIPID PANEL WITH DIRECT LDL IF TG IS HIGH Lab Routine ASCVD (arteriosclerotic cardiovascular disease) 08/07/2024 12:23 PM EDT URIC ACID Lab Routine Hyperuricemia 08/07/2024 12:23 PM EDT HEMOGLOBIN A1C Lab Routine Screening for diabetes mellitus 08/07/2024 12:23 PM EDT MYCODE SST1 Lab Routine MyCode Research Other*[id number] 08/07/2024 12:23 PM EDT MYCODE SST2 Lab Routine MyCode Research Other*[id number] 08/07/2024 12:23 PM EDT Scheduled Procedures Name Priority Associated Diagnoses Date/Ti [...] Additional history exists Lipid Panel 04/12/2028 04/12/2023, 0405/2021, 06/26/2018 DTap/Tdap Vaccines (2 - Td or [...] this encounter Medical Devices Implanted Type Area Product Evangelist Device Identifier Shelf Expiration Date Model / Serial / Lot Lens 15.0 Mx60e - [id number] - [id number] Implanted:Qty: 1 on 05/12/2020 by Javid Zepeda MD at OR [facility] Right: Eye BAUSCH & LOMB 10/17/2022 [id number]-41.0 / [id number] / [id number] Envista Mx60e 15.00d Implanted:Qty: 1 on 02/21/2021 by Javid Zepeda MD at OR [facility] Left: Eye BAUSCH & LOMB 02/15/2023 [id number] / [id number] / [id number] Band Circling 2.5mm [place] - [id number] Implanted:Qty: 1 on 03/03/2021 by Rich Chaudhari MD at [facility] Left: Eye [employer] 05/17/2024 [id number] / / [id number] Silicone Band (Shruthi 70) - [id number] Implanted:Qty: 1 on 03/03/2021 by [facility] Left: Eye [employer] 04/17/2024 [id number] / / [id number] documented as of this encounter Visit Diagnoses Diagnosis MyCode Research Other*[id number] ASCVD (arteriosclerotic cardiovascular disease) Unspecified cardiovascular disease Hyperuricemia Other abnormal blood chemistry Screening for diabetes mellitus documented in this encounter Care Teams Cargo Bracer Relationship Specialty Start Date End Date Sergio Sosa MD [address] [place] [address] PCP - General Family Medicine 06/26/18 documented as of this encounter
--- OUTSIDE RECORDS SUMMARY | 2024-09-05 10:31 | External Medical Summary | Summary of Care ---
Author Name Unknown Organization [facility] Address [address] [place] [facility] [place] [place] [address] Phone [phone] Care Team Providers Care Grab Setter Name Role Phone Jabari Lovell MD Primary Care Provider [phone] Reason for Visit * Reason Comments eRx-Medication Refill Encounter Details Date Type Department Care Team (Late st Contact Info) Description 09/04/2024 Refill Family Practice [facility] [address] [place] [address] Jabari Lovell MD [address] [place] [address] Status post mechanical aortic valve replacement Allergies [...] (Coumadin)Indicatio ns:Status post mechanical aortic valve replacement TAKE 1 TO 1.5 TABLETS (4MG TO 6MG) BY MOUTH DAILY DIRECTED BY COUMADIN CLINIC 45 Tablet 5 09/04/2024 Active Famotidine 40 MG Oral Tablet (Pepcid) TAKE 1 TABLET BY MOUTH EVERY DAY IN THE MORNING 30 Tablet 5 09/04/2024 Active Warfarin Sodium 4 MG Oral Tablet (Coumadin)Indicatio ns:Status post mechanical aortic valve replacement Take 1 to 1.5 tablets (4mg to 6mg) by mouth daily as directed by Coumadin clinic 135 Tablet 1 12/25/2023 4 Discontinued Famotidine 40 MG Oral Tablet (Pepcid) TAKE 1 TABLET BY MOUTH EVERY DAY IN THE MORNING 90 Tablet 1 03/14/2024 4 Discontinued documented as of this encounter [...] mRNA, LNP-s, No Pre serve, 2-Dose Series ([employer]) 08/17/2021,02/15/2021,01/25/2021 COVID-19, LNP-s, No Preserve , Poncho-sucrose, [...] encounter Miscellaneous Notes * Telephone Encounter - Ileana Huizar [facility] - 09/04/2024 7:41 AM EDTSigned Prescriptions: Disp Refills Warfarin Sodium 4 MG Oral Tablet (Coumadin)45 Tab*5 Sig: TAKE 1 TO 1.5 TABLETS (4MG TO 6MG) BY MOUTH DAILY DIRECTED BY COUMADIN CLINICAuthorizing Provider: JABARI LOVELL User: ILEANA HUIZAR Famotidine 40 MG Oral Tablet (Pepcid) 30 Tab*5 Sig:TAKE 1 TABLET BY MOUTH EVERY DAY IN THE MORNINGAuthorizing Provider: JABARI LOVELL User: ILEANA HUIZAR documented in this encounter Plan of Treatment Upcoming Encounters Date Type Department Care Team (Late st Contact Info) Description 09/04/2024 8:10 AM EDT Anticoagulation Pharmacy, [place] [address] [place] [facility] [place] [address] [facility] [address] [place] [facility] [place] [place] [address] 10/08/2024 9:00 AM EST Office Visit Sleep Disorders Ctr [address] [place] [address] Liz Leigh CRNP [address] [place] [address] Scheduled Procedures Name Priority Associated Diagnoses Date/Ti [...] this encounter Medical Devices Implanted Type Area School Psychologist Assistant Device Identifier Shelf Expiration Date Model / Serial / Lot Lens 15.0 Mx60e - [id number] - [id number] Implanted:Qty: 1 on 05/12/2020 by Javid Zepeda MD at OR [facility] Right: Eye BAUSCH [employer] LOMB 10/17/2022 [id number]-25.0 / [id number] / [id number] Envista Mx60e 15.00d Implanted:Qty: 1 on 02/21/2021 by Javid Zepeda MD at OR [facility] Left: Eye BAUSCH & LOMB 02/15/2023 [id number] / [id number] / [id number] Band Circling 2.5mm [place] - [id number] Implanted:Qty: 1 on 03/03/2021 by [facility] Left: Eye [employer] 05/17/2024 [id number] / / [id number] Silicone Band (Shruthi 70) - [id number] Implanted:Qty: 1 on 03/03/2021 by Rich Chaudhari MD at [facility] Left: Eye [employer] 04/17/2024 [id number] / / [id number] documented as of this encounter Visit Diagnoses Diagnosis Status post mechanical aortic valve replacement documented in this encounter Care Teams Grab Setter Relationship Specialty Start Date End Date Jabari Lovell MD [address] [facility] [place] [address] PCP - General Family Medicine 06/26/18 documented as of this encounter
--- OUTSIDE RECORDS SUMMARY | 2024-09-05 10:31 | External Medical Summary | Summary of Care ---
Author Name Unknown Organization [facility] Address [address] [place] [address] Phone [phone] Care Team Providers Care Sealer Operator Name Role Phone Sergio Sosa MD Primary Care Provider [phone] [phone] Reason for Visit * Reason Onset Date Comments Encounter Created in Error 07/10/2024 Encounter Details Date Type Department Care Team (Late st Contact Info) Description 07/10/2024 Telephone Family Practice [facility] [address] [place] [address] Sergio Sosa MD [address] [place] [address] Encounter Created in Error Allergies Active Allergy Reactions Criticality Noted Date Comments Sulfa Antibiotics Other (Please comment) High 2017 Pt cannot remember what reaction he had to sulfa documented as of this encounter (statuses as of 07/15/2024) Medications Medication Sig Dispensed Refills Start Date [...] the morning. 90 Tablet 2 07/09/2024 Active documented as of this encounter (statuses as of 07/15/2024) Active Problems Problem Noted Date Diagnosed Date Overweight (BMI 25.0-29.9) 05/28/2023 Intermittent complete atrioventricular block 01/2023 Cardiac pacemaker in situ 07/12/2021 Status post mechanical aortic valve replacement 06/20/2021 Hyperuricemia 01/02/2019 S/P CABG x 1 01/01/2019 CAREN (obstructive sleep apnea) 01/01/2019 Gastroesophageal reflux disease with esophagitis 06/26/2018 HTN, goal below 130/80 06/26/2018 documented as of this encounter (statuses as of 07/15/2024) Resolved Problems Problem Noted Date Diagnosed Date Resolved Date Mitral valve vegetation 11/06/2021 02/0 12/2022 S/P aortic valve replacement with bioprosthetic valve 01/01/2019 07/12/2021 HIV disease 06/26/2018 06/27/2018 History of endocarditis 06/26/201801/16 documented as of this encounter (statuses as of 07/15/2024) Immunizations Name Administration Dates Next Due COVID-19 [...] Care Team (Late st Contact Info) Description 07/24/2024 8:30 AM EDT [facility] [place] [address] [address] [facility] [address] [address] 08/07/2024 11:40 AM EDT Office Visit Family Practice [facility] [address] [place] [address] Sergio Sosa MD [address] [place] [address] Scheduled Procedures Name Priority Associated Diagnoses Date/Ti [...] this encounter Medical Devices Implanted Type Area Sheet Metal Mechanic Device Identifier Shelf Expiration Date Model / Serial / Lot Lens 15.0 Mx60e - [id number] - [id number] Implanted:Qty: 1 on 05/12/2020 by Javid Zepeda MD at [facility] Right: Eye [employer]CH [employer] LOMB 10/17/2022 [id number]-00.0 / [id number] / [id number] Envista Mx60e 15.00d Implanted:Qty: 1 on 02/21/2021 by Javid Zepeda MD at [facility] Left: Eye BAUSCH & LOMB 02/15/2023 [id number] / [id number] / [id number] Band Circling 2.5mm Michael - [id number] Implanted:Qty: 1 on 03/03/2021 by Rich Chaudhari MD at [facility] Left: Eye [employer] 05/17/2024 [id number] / / [id number] Silicone Band (Shruthi 70) - [id number] Implanted:Qty: 1 on 03/03/2021 by Rich Chaudhari MD at [facility] Left: Eye [employer] 04/17/2024 [id number] / / [id number] documented as of this encounter Care Teams Sealer Operator Relationship Specialty Start Date End Date Sergio Sosa MD [address] [place] [place] [address] PCP - General Family Medicine 06/26/18 documented as of this encounter
--- OUTSIDE RECORDS SUMMARY | 2024-09-05 10:31 | External Medical Summary | Summary of Care ---
Author Name Unknown Organization [facility] Address [address] [facility] [place] [address] Phone [phone] Care Team Providers Care Sales Marketing Director Name Role Phone Sergio Sosa MD Primary Care Provider [phone] Encounter Details Date Type Department Care Team (Late st Contact Info) Description 07/24/2024 Result Scan Unspecified Department Scott Johnson MD [address] [place] [address] <No scans attached> Allergies Active Allergy Reactions Criticality Noted Date [...] mRNA, LNP-s, No Pre serve, 2-Dose Series (Partly) 08/17/2021,02/15/2021,01/25/2021 COVID-19, LNP-s, No Preserve , Poncho-sucrose, [...] 08/07/2024 11:40 AM EDT Office Visit Family [address] [place] [address] Sergio Sosa MD [address] [place] [address] 09/04/2024 8:10 AM EDT Anticoagulation Pharmacy, [place] [address] [place] [address] [facility] [address] [place] [address] Scheduled Procedures Name Priority Associated Diagnoses Date/Ti [...] this encounter Medical Devices Implanted Type Area Debone Supervisor Device Identifier Shelf Expiration Date Model / Serial / Lot Lens 15.0 Mx60e - [id number] - [id number] Implanted:Qty: 1 on 05/12/2020 by Javid Zepeda MD at [facility] Right: Eye BAUSCH & LOMB 10/17/2022 [id number]-24.0 / [id number] / [id number] Envista Mx60e 15.00d Implanted:Qty: 1 on 02/21/2021 by Javid Zepeda MD at [facility] Left: Eye BAUSCH & LOMB 02/15/2023 [id number] / [id number] / [id number] Band Circling 2.5mm Allen - [id number] Implanted:Qty: 1 on 03/03/2021 by Rich Chaudhari MD at [facility] Left: Eye [employer] 05/17/2024 [id number] / / [id number] Silicone Band (Shruthi 70) - [id number] Implanted:Qty: 1 on 03/03/2021 by Rich Chaudhari MD at [facility] Left: Eye [employer] 04/17/2024 [id number] / / [id number] documented as of this encounter Procedures Procedure Name Priority Date/Time Associated Diagnosis Comments CARDIOLOGY SCANNED RESULT 07/24/2024 documented in this encounter Results * CARDIOLOGY SCANNED RESULT (07/24/2024) 07/24/2024 Scott Johnson MD OTHER documented in this encounter Care Teams Sales Marketing Director Relationship Specialty Start Date End Date Sergio Sosa MD [address] [place] [address] PCP - General Family Medicine 06/26/18 documented as of this encounter
--- OUTSIDE RECORDS SUMMARY | 2024-09-05 10:31 | External Medical Summary ---
Author Name Unknown Address Unknown Organization K01:[facility] [place] [address] [place] [address] Laboratory Report Ordering Provider Test Date Status KHLOE BARROS 08/07/2024 12:23:38 Final Observation Date Value Abnormality Reference (Units ) Status MYCODE SPECIMEN-SST 08/07/2024 12:23:38 Freezing of extracted DNA, whole blood and/or serum. Final Performing Location LABORATORY C - [address] [place] [address]
--- OUTSIDE RECORDS SUMMARY | 2024-09-05 10:31 | External Medical Summary | Summary of Care ---
Author Name Unknown Organization [facility] Address [address] [place] [address] Phone [phone] Care Team Providers Care Government Relations Analyst Name Role Phone Sergio Sosa MD Primary Care Provider [phone] [phone] Reason for Visit * Reason Onset Date Comments Advice 08/06/2024 Encounter Details Date Type Department Care Team (Late st Contact Info) Description 08/06/2024 Telephone Family Practice [facility] [address] [place] [address] Sergio Sosa MD [address] [place] [address] Advice Allergies Active Allergy Reactions Criticality Noted Date Comments Sulfa Antibiotics Other (Please comment) High 2017 Pt cannot remember what reaction he had to sulfa documented as of this encounter (statuses as of 08/17/2024) Medications Medication Sig Dispensed Refills Start Date [...] as of this encounter (statuses as of 08/17/2024) Active Problems Problem Noted Date Diagnosed Date Overweight (BMI 25.0-29.9) 05/28/2023 Intermittent complete atrioventricular block 01/2023 Cardiac pacemaker in situ 07/12/2021 Status post mechanical aortic valve replacement 06/20/2021 Hyperuricemia 01/02/2019 S/P CABG x 1 01/01/2019 CAREN (obstructive sleep apnea) 01/01/2019 Gastroesophageal reflux disease with esophagitis 06/26/2018 HTN, goal below 130/80 06/26/2018 documented as of this encounter (statuses as of 08/17/2024) Resolved Problems Problem Noted Date Diagnosed Date Resolved Date Mitral valve vegetation 11/06/2021 02/0 12/2022 S/P aortic valve replacement with bioprosthetic valve 01/01/2019 07/12/2021 HIV disease 06/26/2018 06/27/2018 History of endocarditis 06/26/201801/16 documented as of this encounter (statuses as of 08/17/2024) Immunizations Name Administration Dates Next Due COVID-19 mRNA, LNP-s, No Pre serve, 2-Dose Series ([employer]) 08/17/2021,02/15/2021,01/25/2021 COVID-19, LNP-s, No Preserve , Poncho-sucrose, [...] encounter Miscellaneous Notes * Telephone Encounter - Michelle Barron LPN - 08/06/2024 3:59 PM EDT Called patient. He is coming in for a physical C-pap/sleep apnea was just a question he had. He will come in and have his blood work done. He will fast 8 hours. * Telephone Encounter - Sergio Sosa MD - 08/06/2024 12:20 PM EDT Sebastien is on my schedule tomorrow for "sleep apnea CPAP alternatives." That would be for sleep medicine, not family practice. The only thing I would do is refer him to sleep medicine, so an appointment is not needed. Call Sebastien and ask 1.) Who he last saw for sleep apnea And 2.) If he doesn't have a sleep doctor in the area, pend a referral so that I can refer him to one to discuss Thank you! Dr. Sosa documented in this encounter Plan of Treatment Upcoming Encounters Date Type Department Care Team (Late st Contact Info) Description 09/04/2024 8:10 AM EDT Anticoagulation Pharmacy, [place] [address] [place] [address] [facility] [address] [place] [address] 10/08/2024 9:00 AM EST Office Visit Sleep Disorders Ctr [facility] [address] [facility] [place] [id number] Liz Leigh CRNP [address] [place] [address] Scheduled Procedures Name Priority Associated Diagnoses Date/Ti [...] this encounter Medical Devices Implanted Type Area Public Transit Bus Driver Device Identifier Shelf Expiration Date Model / Serial / Lot Lens 15.0 Mx60e - [id number] - [id number] Implanted:Qty: 1 on 05/12/2020 by Javid Zepeda MD at OR [facility] Right: Eye BAUSCH & LOMB 10/17/2022 [id number]-46.0 / [id number] / [id number] Envista Mx60e 15.00d Implanted:Qty: 1 on 02/21/2021 by Javid Zepeda MD at OR [facility] Left: Eye BAUSCH & LOMB 02/15/2023 [id number] / [id number] / [id number] Band Circling 2.5mm [place] - [id number] Implanted:Qty: 1 on 03/03/2021 by Rich Chaudhari MD at [facility] Left: Eye [employer] 05/17/2024 [id number] / / [id number] Silicone Band (Shruthi 70) - [id number] Implanted:Qty: 1 on 03/03/2021 by Rich Chaudhari MD at [facility] Left: Eye [employer] 04/17/2024 [id number] / / [id number] documented as of this encounter Care Teams Government Relations Analyst Relationship Specialty Start Date End Date Sergio Sosa MD [address] [place] [address] PCP - General Family Medicine 06/26/18 documented as of this encounter
--- OUTSIDE RECORDS SUMMARY | 2024-09-05 10:31 | External Medical Summary ---
Author Name Unknown Address Unknown Organization : Laboratory Report Ordering Provider Test Date Status FRITZROYA 07/24/2024 08:24:32 Final Therapeutic ranges for non-o perative patients:
Prophylaxsis/treatment of DVT: (Range:2.0-3.0)
Treatment of pulmonary embolism:(Range:2.0-3.0)
Prevention of systemic embolism from:
-tissue heart valves
-acute myocardial infarction
-valvular heart disease
-atrial fibrillation
(Range: 2.0-3.0)
Mechanical prosthetic valves: (Range: 2.5-3.5) Observation Date Value Abnormality Reference (Units ) Status INR in Capillary blood by Coagulation assay 07/24/2024 08:24:32 2.1 (INR) Final Performing Location
--- OUTSIDE RECORDS SUMMARY | 2024-09-05 10:31 | External Medical Summary ---
Author Name Unknown Address Unknown Organization K01:[facility] [place] [address] [place] [facility] [place] [address] Laboratory Report Ordering Provider Test Date Status DAVID FALLON 08/07/2024 12:23:38 Final Observation Date Value Abnormality Reference (Units ) Status Triglyceride 08/07/2024 12:23:38 189 Above high normal <=174 (mg/dL) Final Triglyceride Reference Range s (mg/dL):
<150 Acceptable
150-174 Borderline high
175-499 High
>=500 Very high Cholesterol 08/07/2024 12:23:38 163 <200 (mg /dL) Final Total Cholesterol Reference Ranges (mg/dL):
<200 Desirable
200-239 Borderline high
>=240 High HDL 08/07/2024 12:23:38 52 >39 (mg/dL ) Final HDL Cholesterol Reference Ra nges (mg/dL):
>=60 High (Desirable)
<50 Low (Undesirable) For Females
<40 Low (Undesirable) For Males NON-HDL CHOLESTEROL 08/07/2024 12:23:38 111 <=159 (mg/dL) Final Non-HDL Cholesterol Referenc e Range (mg/dL):
<100 Target level for high risk ASCVD patient
<130 Optimal for general population
130-159 Near optimal for general population
160-189 Borderline High
190-219 High
>=220 Very High LDL, (calculated) 08/07/2024 12:23:38 73 <= 129 (mg/dL) Final LDL Cholesterol Reference Ra nges (mg/dL):
<70 Target level for high risk ASCVD patient
<100 Optimal for general population
100-129 Near optimal for general population
130-159 Borderline high
160-189 High
>=190 Very high Performing Location [facility] [place] [address] [facility] [place] [address]
--- OUTSIDE RECORDS SUMMARY | 2024-09-05 10:31 | External Medical Summary | Summary of Care ---
Author Name Unknown Organization [facility] Address [address] [place] [address] Phone [phone] Care Team Providers Care Appraisal Technician Name Role Phone Sergio Sosa MD Primary Care Provider [phone] Reason for Referral * Evaluate & Treat - Unlimited Visits (Within 10 days (routine)) - Authorized Specialty Diagnoses / Procedures Referred By Contcheri t Referred To Contact Sleep Medicine / Sleep Disorders Diagnoses CAREN (obstructive sleep apnea) Sergio Sosa MD [address] [place] [address] Referral ID Status Reason Start Date Expiration Date Visits Requested Visits Authorized [id number] Authorized Specialty Services Required 08/07/2024 2 2 Question Answer GS CAD SLEEP MED ADULT REFERRAL Sleep Apnea Testing and Management Does the patient snore and/or gasp at night or has been told they stop breathing at night? Yes, document patient's symptoms in progress note Referral Priority Within 10 days (routine) Where should this appointment be scheduled? [facility] Reason for Visit * Reason Comments Physical-Exam Pt here for cpe Encounter Details Date Type Department Care Team (Latest Contact Info) Description 08/07/2024 11:40 AM EDT Office Visit Family Practice [facility] [address] [place] [address] Sergio Sosa MD [address] [place] [address] Routine general medical examination at a health care facility*; CAREN (obstructive sleep apnea); Status post mechanical aortic valve replacement; Intermittent complete atrioventricular block (HCC); HTN, goal below 130/80; Cardiac pacemaker in situ; Gastroesophageal reflux disease with esophagitis without hemorrhage; S/P CABG x 1; Overweight (BMI 25.0-29.9); Screening for diabetes mellitus; Hyperuricemia Allergies Active Allergy Reactions Criticality Noted Date [...] mRNA, LNP-s, No Pre serve, 2-Dose Series ([employer]) 08/17/2021,02/15/2021,01/25/2021 COVID-19, LNP-s, No Preserve , Poncho-sucrose, [...] on file documented as of this encounter Last Filed Vital Signs Vital Sign Reading Time Taken Comments Blood Pressure 122/78 08/07/2024 11:46 AM EDT Pulse 68 08/07/2024 11:46 AM EDT Temperature 36.3 C (97.4 F) 08/07/2024 11:46 AM E DT Respiratory Rate 18 08/07/2024 11:46 AM EDT Oxygen Saturation - - Inhaled Oxygen Concentration - - Weight 80.3 kg (177 lb) 08/07/2024 11:46 AM EDT Height 175.3 cm (5' 9") 08/07/2024 11:46 AM EDT Body Mass Index 26.14 08/07/2024 11:46 AM EDT documented in this encounter Progress Notes * Sergio Sosa MD - 08/07/2024 2:07 PM EDT SUBJECTIVE: Rich Mckeon is a 49 year old male. Chief Complaint Patient presents with Physical-Exam Pt here for cpe HPI: Routine yearly exam. Doing very well. Hasn't seen sleep medicine in 5 years so needs to get back inwith them. Referral placed. Medications reviewed. Blood work up to date. Flu vaccine given. Patient Active Problem List Diagnosis Gastroesophageal reflux disease with esophagitis HTN, goal below 130/80 S/P CABG x 1 CAREN (obstructive sleep apnea) Hyperuricemia Status post mechanical aortic valve replacement Cardiac pacemaker in situ Intermittent complete atrioventricular block (HCC) Overweight (BMI 25.0-29.9) Current Outpatient Medications Medication Sig Dispense Refill CPAP every night at bedtime. One-A-Day Mens Oral Tablet Take 1 Tablet by mouth in the morning. Amoxicillin 500 MG Oral Capsule (Amoxil) Take four capsules one hour prior to dental work 4 Capsule5 [facility] Adv Probiotic Gummies Oral Tablet Chewable Take 1 Each by mouth in the morning. Finasteride 2.5 MG OR TABS Take 0.5 Tablets by mouth in the morning. hydrOXYzine HCl 10 MG Oral Tablet (Atarax) TAKE 1 TABLET BY MOUTH EVERY 6 HOURS NEEDED FOR ITCHING. 40 Tablet 2 Warfarin Sodium 4 MG Oral Tablet (Coumadin) Take 1 to 1.5 tablets (4mg to 6mg) by mouth daily as directed by Coumadin clinic 135 Tablet 1 Acyclovir 800 MG Oral Tablet (Zovirax) TAKE 1 TABLET BY MOUTH DAILY AT NOON 90 Tablet 1 Famotidine 40 MG Oral Tablet (Pepcid) TAKE 1 TABLET BY MOUTH EVERY DAY IN THE MORNING 90 Tablet 1 Doxycycline Hyclate 50 MG Oral Capsule (Vibramycin) TAKE 1 CAPSULE BY MOUTH IN THE MORNING AND BEFORE BEDTIME 60 Capsule 2 Aspirin Low Dose 81 MG Oral Tablet Delayed Release (aspirin enteric coated) TAKE 1 TABLET BY MOUTH EVERY DAY 30 Tablet 5 amLODIPine Besylate 10 MG Oral Tablet (Norvasc) Take 1 Tablet by mouth in the morning. 90 Tablet 2 Pregabalin 75 MG Oral Capsule (Lyrica) Take 1 Capsule by mouth in the morning and 1 Capsule before bedtime. 60 Capsule 0 Lisinopril 2.5 MG Oral Tablet (Prinivil) Take 1 Tablet by mouth in the morning. 90 Tablet 0 Allopurinol 300 MG Oral Tablet (Zyloprim) TAKE 1 TABLET BY MOUTH EVERY DAY IN THE MORNING 90 Tablet0 Metoprolol Tartrate 50 MG Oral Tablet (Lopressor) TAKE 1 TABLET BY MOUTH IN THE MORNING AND BEFORE BEDTIME 180 Tablet 0 Atorvastatin Calcium 40 MG Oral Tablet (Lipitor) TAKE 1 TABLET BY MOUTH EVERY DAY IN THE MORNING 30Tablet 2 No current facility-administered medications for this visit. Allergy: Review of patient's allergies indicates: Allergen Reactions Sulfa Antibiotics Other (Please comment) Pt cannot remember what reaction he had to sulfa OBJECTIVE: BP 122/78 | Pulse 68 | Temp 36.3 C (97.4 F) (Tympanic) | Resp 18 | Ht 1.753 m (5' 9") | Wt 80.3kg (177 lb) | BMI 26.14 kg/m | BSA 1.98 m General: alert, healthy, and no distress Head: Normocephalic, No masses, lesions, tenderness or abnormalities Neck: supple, no adenopathy, no bruits, thyroid normal size, non-tender, without nodularity Lungs: chest symmetric with normal AP diameter, no chest deformities noted, no chest wall tenderness, lungs clear to auscultation Heart: regular rate & rhythm, no murmur, and no gallops; + aortic click Extremities: less than 2 second capillary refill, no joint deformities, effusion, or inflammation Neuro Exam: alert & oriented x 3 with fluent speech, no focal motor/sensory deficits, gait normal, reflexes normal and symmetric Skin: skin color, texture, turgor are normal, no rashes or significant lesions ASSESSMENT AND PLAN: (Z00.00) Routine general medical examination at a health care facility (primary encounter diagnosis) Plan: age appropriate anticipatory guidance and health maintenance discussed/updated (G47.33) CAREN (obstructive sleep apnea) Plan: SLEEP MEDICINE REFERRAL OP (Z95.2) Status post mechanical aortic valve replacement Plan: stable (I44.2) Intermittent complete atrioventricular block (HCC) Plan: stable (I10) HTN, goal below 130/80 Plan: stable (Z95.0) Cardiac pacemaker in situ Plan: stable (K21.00) Gastroesophageal reflux disease with esophagitis without hemorrhage Plan: stable (Z95.1) S/P CABG x 1 Plan: continue medical mgmt (E66.3) Overweight (BMI 25.0-29.9) Plan: diet/exercise (Z13.1) Screening for diabetes mellitus Plan: HEMOGLOBIN A1C (E79.0) Hyperuricemia Plan: URIC ACID Follow up as needed. No other complaints were offered at this time. Sergio Sosa MD documented in this encounter Nursing Notes * Mary Ellen Mackey LPN - 08/07/2024 11:46 AM EDT The patient has been properly identified by confirmation of name and date of . Chief Complaint Patient presents with Physical-Exam Pt here for cpe documented in this encounter Plan of Treatment Upcoming Encounters Date Type Department Care Team (Late st Contact Info) Description 09/04/2024 8:10 AM EDT Anticoagulation Pharmacy, [place] [address] [place] [address] [facility] [address] [place] [address] 10/08/2024 9:00 AM EST Office Visit Sleep Disorders Ctr [facility] [address] [facility] [place] [phone] Liz Leigh CRNP [address] [facility] [place] [address] Pending Results Name Type Priority Associated Diagnoses Date /Time URIC ACID Lab Routine Hyperuricemia 08/07/2024 12:23 PM EDT HEMOGLOBIN A1C Lab Routine Screening for diabetes mellitus 08/07/2024 12:23 PM EDT Scheduled Orders Name Type Priority Associated Diagnoses Orde r Schedule URIC ACID Lab Routine Hyperuricemia Expected: 08/07/2024 (Approximate), Expires: 08/07/2025 HEMOGLOBIN A1C Lab Routine Screening for diabetes mellitus Expected: 08/07/2024 (Approximate), Expires: 08/07/2025 Scheduled Procedures Name Priority Associated Diagnoses Date/Ti me COLONOSCOPY FLEXIBLE PROXIMA L DIAGNOSTIC Recall Special screening for malignant neoplasms, colon Scheduled Referrals Name Type Priority Associated Diagnoses Orde r Schedule SLEEP MEDICINE REFERRAL OP Referral Within 10 days (routine) CAREN (obstructive sleep apnea) Ordered: 08/07/2024 Health Maintenance Due Date Last Done Comments [...] encounter Medical Devices Implanted Type Area Lead Esthetician Device Identifier Shelf Expiration Date Model / Serial / Lot Lens 15.0 Mx60e - [id number] - [id number] Implanted:Qty: 1 on 05/12/2020 by Javid Zepeda MD at OR [facility] Right: Eye BAUSCH [employer] LOMB 10/17/2022 [id number]-88.0 / [id number] / [id number] Envista Mx60e 15.00d Implanted:Qty: 1 on 02/21/2021 by Javid Zepeda MD at OR [facility] Left: Eye BAUSCH [employer] LOMB 02/15/2023 [id number] / [id number] / [id number] Band Circling 2.5mm Michael - [id number] Implanted:Qty: 1 on 03/03/2021 by Rich Chaudhari MD at [facility] Left: Eye [employer] 05/17/2024 [id number] / / [id number] Silicone Band (Shruthi 70) - [id number] Implanted:Qty: 1 on 03/03/2021 by iRch Chaudhari MD at [facility] Left: Eye [employer] 04/17/2024 [id number] / / [id number] documented as of this encounter Visit Diagnoses Diagnosis Routine general medical examination at a health care facility- Primary CAREN (obstructive sleep apnea) Obstructive sleep apnea (adult) (pediatric) Status post mechanical aortic valve replacement Intermittent complete atrioventricular block (HCC) Atrioventricular block, complete HTN, goal below 130/80 Unspecified essential hypertension Cardiac pacemaker in situ Gastroesophageal reflux disease with esophagitis without hemorrhage S/P CABG x 1 Postsurgical aortocoronary bypass status Overweight (BMI 25.0-29.9) Overweight Screening for diabetes mellitus Hyperuricemia Other abnormal blood chemistry documented in this encounter Care Teams Appraisal Technician Relationship Specialty Start Date End Date Sergio Sosa MD [address] [place] [address] PCP - General Family Medicine 06/26/18 documented as of this encounter
--- OUTSIDE RECORDS SUMMARY | 2024-09-05 10:31 | External Medical Summary ---
Author Name Unknown Address Unknown Organization : Laboratory Report Ordering Provider Test Date Status LEO HUZayra 09/04/2024 08:14:17 Final Therapeutic ranges for non-o perative patients:
Prophylaxsis/treatment of DVT: (Range:2.0-3.0)
Treatment of pulmonary embolism:(Range:2.0-3.0)
Prevention of systemic embolism from:
-tissue heart valves
-acute myocardial infarction
-valvular heart disease
-atrial fibrillation
(Range: 2.0-3.0)
Mechanical prosthetic valves: (Range: 2.5-3.5) Observation Date Value Abnormality Reference (Units ) Status INR in Capillary blood by Coagulation assay 09/04/2024 08:14:17 1.7 (INR) Final Performing Location
--- OUTSIDE RECORDS SUMMARY | 2024-09-05 10:32 | External Medical Summary | Summary of Care ---
Author Name Unknown Organization [facility] Address [address] [place] [address] Phone [phone] Care Team Providers Care Cooking Appliance Repair Technician Name Role Phone Jabari Lovell MD Primary Care Provider +1 [phone] Reason for Visit * Reason Comments eRx-Medication Refill Encounter Details Date Type Department Care Team (Late st Contact Info) Description 04/28/2024 Refill Family Practice [facility] [address] [place] [address] Jabari Lovell MD [address] [place] [address] Status post mechanical aortic valve replacement Allergies Active Allergy Reactions Criticality Noted Date Comments Sulfa Antibiotics Other (Please comment) High 2017 Pt cannot remember what reaction he had to sulfa documented as of this encounter (statuses as of 04/29/2024) Medications Medication Sig Dispensed Refills Start Date [...] FOR ITCHING. 40 Tablet 2 09/10/2023 Active Aspirin Low Dose 81 MG Oral Tablet Delayed Release (aspirin enteric coated)Indications: ASCVD (arteriosclerotic cardiovascular disease) TAKE 1 TABLET BY MOUTH EVERY DAY 30 Tablet 5 11/15/2023 Active Lisinopril 2.5 MG Oral Tablet (Prinivil)Indicatio ns:Hypertensive nephropathy TAKE 1 TABLET BY MOUTH EVERY DAY IN THE MORNING 30 Tablet 5 11/29/2023 Active amLODIPine Besylate 10 MG Oral Tablet (Norvasc) TAKE 1 TABLET BY MOUTH EVERY DAY IN THE MORNING 90 Tablet 2 12/13/2023 Active Metoprolol Tartrate 50 MG Oral Tablet (Lopressor) TAKE 1 TABLET BY MOUTH IN THE MORNING AND BEFORE BEDTIME 180 Tablet 1 12/25/2023 Active Allopurinol 300 MG Oral Tablet (Zyloprim)Indicatio ns:Hyperuricemia TAKE 1 TABLET BY MOUTH EVERY DAY IN THE MORNING 90 Tablet 1 12/25/2023 Active Warfarin Sodium 4 MG Oral Tablet [...] BEFORE BEDTIME 60 Capsule 2 03/21/2024 Active Pregabalin 75 MG Oral Capsule (Lyrica)Indications :Status post mechanical aortic valve replacement TAKE 1 CAPSULE BY MOUTH EVERY DAY IN THE MORNING AND AT BEDTIME 60 Capsule 04/29/2024 Active Pregabalin 75 MG Oral Capsule (Lyrica)Indications :Status post mechanical aortic valve replacement TAKE 1 CAPSULE BY MOUTH IN THE MORNING AND AT BEDTIME 60 Capsule 03/21/2024 Discontinued documented as of this encounter (statuses as of 04/29/2024) Active Problems Problem Noted Date Diagnosed Date Overweight (BMI 25.0-29.9) 05/28/2023 Intermittent complete atrioventricular block 01/2023 Cardiac pacemaker in situ 07/12/2021 Status post mechanical aortic valve replacement 06/20/2021 Hyperuricemia 01/02/2019 S/P CABG x 1 01/01/2019 CAREN (obstructive sleep apnea) 01/01/2019 Gastroesophageal reflux disease with esophagitis 06/26/2018 HTN, goal below 130/80 06/26/2018 documented as of this encounter (statuses as of 04/29/2024) Resolved Problems Problem Noted Date Diagnosed Date Resolved Date Mitral valve vegetation 11/06/202112/2022 S/P aortic valve replacement with bioprosthetic valve 01/01/2019 07/12/2021 HIV disease 06/26/2018 06/27/2018 History of endocarditis 06/26/201801/16 documented as of this encounter (statuses as of 04/29/2024) Immunizations Name Administration Dates Next Due COVID-19 mRNA, LNP-s, No Pre serve, 2-Dose Series (Nine Star) 08/17/2021,02/15/2021,01/25/2021 COVID-19, LNP-s, No Preserve , Poncho-sucrose, [...] money to get more. Never true 05/23/2023 Sex and Gender Information Value Date Recorded Sex Assigned at Male 04/11/2023 12:28 PM EDT Gender Identity Male 04/11/2023 12:28 PM EDT Sexual Orientation [place] 04/11/2023 12 :28 PM EDT Job Start Date Occupation Industry Not on file Not on file Not on file documented as of this encounter Miscellaneous Notes * Telephone Encounter - Jabari Lovell MD - 04/29/2024 11:26 AM EDTSigned Prescriptions: Disp Refills Pregabalin 75 MG Oral Capsule (Lyrica) 60 Cap*0 Sig: TAKE 1 CAPSULE BY MOUTH EVERY DAY IN THE MORNING AND AT BEDTIME Authorizing Provider: JABARI LOVELL * Telephone Encounter - Crow Lundberg [facility] - 04/29/2024 10:52 AM EDTPending Prescriptions: Disp Refills Pregabalin 75 MG Oral Capsule [Pharmacy Me*60 Cap*0 Sig: TAKE 1 CAPSULE BY MOUTH EVERY DAY IN THE MORNING AND AT BEDTIME * Telephone Encounter - Crow Lundberg [facility] - 04/29/2024 10:51 AM EDT I have reviewed the patients controlled substance dispensing history in the Prescription Drug Monitoring Program in compliance with the [facility] regulations before prescribing a controlled substance. PDMP checked on 04/29/2024. Pending Prescriptions: Disp Refills Pregabalin 75 MG Oral Capsule (Lyrica) [P*60 Cap*0 Sig: TAKE 1 CAPSULE BY MOUTH EVERY DAY IN THE MORNING AND AT BEDTIME Last Visit: 05/28/2023 (in office), Visit date not found (telemedicine) Next Visit: Visit date not found Date medication was last filled: 03/21/24 Date medication is due for refill: 04/19/24 Pharmacy: [id number] [address] [place] [address] Is this request for a controlled substance? Yes and Urine Drug Screen Not completed Toxicology results: No results found for this or any previous visit. Please approve if appropriate. Thank You, Crow Espitia [facility] Clinical Pharmacist Centralized Clinical Pharmacy Services (CCPS) 04/29/2024, 10:51 AM documented in this encounter Plan of Treatment Upcoming Encounters Date Type Department Care Team (Late st Contact Info) Description 06/12/2024 8:30 AM EDT Anticoagulation Pharmacy, [address] [address] [facility] [address] [place] [id number] Scheduled Procedures Name Priority Associated Diagnoses Date/Ti me COLONOSCOPY FLEXIBLE PROXIMA L DIAGNOSTIC Recall Special screening for malignant neoplasms, colon Health Maintenance Due Date Last Done Comments Hepatitis B (1 of 3 - 19+ 3-dose series) 1992 Cologuard 2018 Fecal Occult Blood Test 2018 Sigmoidoscopy 2018 Zoster Vaccines (1 of 2) 2023 Depression Screening 09/10/2023 09/10/2022 GFR 04/03/2025 04/03/2024, 03/19, 08/20/2022, Additional history exists Albumin/Creatinine Ratio 04/12/2026 04/12/2023, 08/19 Diabetes Screening 04/03/2027 04/03/2024, 0 04/12/2023, 08/20/2022, Additional history exists Lipid Panel 04/12/2028 04/12/2023, 04/0 05/2021, 06/26/2018 DTaP,Tdap,and Td Vaccines (2 - Td or Tdap) 01/01/2029 01/01/2019 Colonoscopy 04/26/2033 04/26/2023, 04/26/2023 Colorectal Cancer Screening 04/26/2033 COVID-19 Vaccine Completed 08/03/2023, , 02/12/2022, Additional history exists Influenza Vaccine (FLU shot) Completed , 08/15/2022, 07/28/2021, Additional history exists GARDASIL-HPV IMMUNIZATION SERIES Aged Out No longer eligible based on [...] this encounter Medical Devices Implanted Type Area Dollyman Device Identifier Shelf Expiration Date Model / Serial / Lot Lens 15.0 Mx60e - [id number] - [id number] Implanted:Qty: 1 on 05/12/2020 by Javid Zepeda MD at OR [facility] Right: Eye [employer]OMB 10/17/2022 [id number] / [id number] / [id number] Envista Mx60e 15.00d Implanted:Qty: 1 on 02/21/2021 by Javid Zepeda MD at OR [facility] Left: Eye BAUSCH [employer] LOMB 02/15/2023 [id number] / [id number] / [id number] Band Circling 2.5mm [place] - [id number] Implanted:Qty: 1 on 03/03/2021 by [facility] Left: Eye [employer] 05/17/2024 [id number] / / [id number] Silicone Band (Shruthi 70) - [id number] Implanted:Qty: 1 on 03/03/2021 by [facility] Left: Eye [employer] 04/17/2024 [id number] / / [id number] documented as of this encounter Visit Diagnoses Diagnosis Status post mechanical aortic valve replacement documented in this encounter Care Teams Cooking Appliance Repair Technician Relationship Specialty Start Date End Date Jabari Lovell MD [address] [place] [address] PCP - General Family Medicine 06/26/18 documented as of this encounter
--- OUTSIDE RECORDS SUMMARY | 2024-09-05 10:32 | External Medical Summary ---
Author Name Unknown Address Unknown Organization K01:[facility] [address] [facility] [place] [address] Laboratory Report Ordering Provider Test Date Status YVONNE BEE 04/03/2024 08:16:26 Final Observation Date Value Abnormality Reference (Units ) Status BUN 04/03/2024 08:16:26 13 6-20 (mg/dL) Final Creatinine 04/03/2024 08:16:26 1.0 0.6-1.2 (mg/dL) Final Glomerular filtration rate/1.73 sq M.predicted [Volume Rate/Area] in Serum, Plasma or Blood by Creatinine-based formula (CKD-EPI) 04/03/2024 08:16:26 >90 >=60 (mL/min) Final eGFR is calculated based on the CKD-EPI 2020 equation Sodium 04/03/2024 08:16:26 141 135-146 (m mol/L) Final Potassium 04/03/2024 08:16:26 4.5 3.5-5.1 (m mol/L) Final Cl 04/03/2024 08:16:26 106 98-107 (mm ol/L) Final CO2 04/03/2024 08:16:26 25 22-32 (mmo l/L) Final Anion gap 04/03/2024 08:16:26 10 7-15 (mmol /L) Final Glucose 04/03/2024 08:16:26 98 70-120 (mg /dL) Final Albumin 04/03/2024 08:16:26 4.5 3.8-5.0 (g /dL) Final AST (Aspartate aminotransferase) 04/03/2024 08:16:26 35 10-50 (U/L) Fin al Alk Phos 04/03/2024 08:16:26 63 35-130 (U/ L) Final Bilirubin, Total 04/03/2024 08:16:26 0.8 <=1 .2 (mg/dL) Final Calcium 04/03/2024 08:16:26 9.1 8.4-10.2 ( mg/dL) Final Protein 04/03/2024 08:16:26 6.5 6.0-8.3 (g /dL) Final ALT (Alanine aminotransferase) 04/03/2024 08:16:26 52 Above high normal 10-50 (U/L) Final Performing Location [facility] - [address] [facility] [address]
--- OUTSIDE RECORDS SUMMARY | 2024-09-05 10:32 | External Medical Summary | Summary of Care ---
Author Name Unknown Organization [facility] Address [address] [place] [place] [address] Phone [phone] Care Team Providers Care Facilitator Name Role Phone Jabari Lovell MD Primary Care Provider [phone] [phone] Reason for Visit * Reason Comments eRx-Medication Refill Encounter Details Date Type Department Care Team (Late st Contact Info) Description 03/13/2024 [facility]ill [facility] [place] [address] Jabari Lovell MD [address] [place] [address] Encounter for long-term (current) use of medications* Allergies Active Allergy Reactions Criticality Noted Date Comments Sulfa Antibiotics Other (Please comment) High 2017 Pt cannot remember what reaction he had to sulfa documented as of this encounter (statuses as of 03/14/2024) Medications Medication Sig Dispensed Refills Start Date End Date Status CPAP every night at bedtime. 0 Active One-A-Day Mens Oral Tablet Take 1 Tablet by mouth in the morning. 0 Active Amoxicillin 500 MG Oral Capsule (Amoxil) Take four capsules one hour prior to dental work 4 Capsule 5 01/21/2023 Active [facility] Adv Probiotic Gummies Oral Tablet Chewable Take 1 Each by mouth in the morning. 0 Active Finasteride 2.5 MG OR TABS Take 0.5 Tablets by mouth in the morning. 0 Active hydrOXYzine HCl 10 MG Oral Tablet (Atarax) TAKE 1 TABLET BY MOUTH EVERY 6 HOURS NEEDED FOR ITCHING. 40 Tablet 2 09/10/2023 Active Doxycycline Hyclate 50 MG Oral Capsule (Vibramycin)Indicat ions:Perioral dermatitis TAKE 1 CAPSULE BY MOUTH IN THE MORNING AND BEFORE BEDTIME 60 Capsule 2 10/07/2023 Active Aspirin Low Dose 81 MG Oral [...] Coumadin clinic 135 Tablet 1 12/25/2023 Active Pregabalin 75 MG Oral Capsule (Lyrica)Indications :Status post mechanical aortic valve replacement TAKE 1 CAPSULE BY MOUTH IN THE MORNING AND BEFORE BEDTIME 60 Capsule 0 02/13/2024 Active Acyclovir 800 MG Oral Tablet (Zovirax) [...] THE MORNING 90 Tablet 1 03/14/2024 Active Famotidine 40 MG Oral Tablet (Pepcid) TAKE 1 TABLET BY MOUTH EVERY DAY IN THE MORNING 30 Tablet 5 10/04/2023 4 Discontinued documented as of this encounter (statuses as of 03/14/2024) Active Problems Problem Noted Date Diagnosed Date Overweight (BMI 25.0-29.9) 05/28/2023 Intermittent complete atrioventricular block 01/2023 Cardiac pacemaker in situ 07/12/2021 Status post mechanical aortic valve replacement 06/20/2021 Hyperuricemia 01/02/2019 S/P CABG x 1 01/01/2019 CAREN (obstructive sleep apnea) 01/01/2019 Gastroesophageal reflux disease with esophagitis 06/26/2018 HTN, goal below 130/80 06/26/2018 documented as of this encounter (statuses as of 03/14/2024) Resolved Problems Problem Noted Date Diagnosed Date Resolved Date Mitral valve vegetation 11/06/202112/2022 S/P aortic valve replacement with bioprosthetic valve 01/01/2019 07/12/2021 HIV disease 06/26/2018 06/27/2018 History of endocarditis 06/26/201801/16 documented as of this encounter (statuses as of 03/14/2024) Immunizations Name Administration Dates Next Due COVID-19 mRNA, LNP-s, No Pre serve, 2-Dose Series (JoGuru) 08/17/2021,02/15/2021,01/25/2021 COVID-19, LNP-s, No Preserve , Poncho-sucrose, [...] encounter Miscellaneous Notes * Telephone Encounter - Robyn Kent RPh - 03/14/2024 6:42 AM EDT Signed Prescriptions: Disp Refills Famotidine 40 MG Oral Tablet (Pepcid) 90 Tab*1 Sig: TAKE 1 TABLET BY MOUTH EVERY DAY IN THE MORNINGAuthorizing Provider: JABARI LOVELL User: ROBYN KENT * Telephone Encounter - Robyn Kent RPh - 03/14/2024 6:40 AM EDT Protocol passed, but pt is due for SCr soon. Appropriate labs ordered. Patient may obtain these labs with next routine blood work. Thank you, Victorino AnsariD Clinical Pharmacist Centralized Clinical Pharmacy Services (formally Telepharmacy) [phone] 03/14/2024 6:42 AM documented in this encounter Plan of Treatment Upcoming Encounters Date Type Department Care Team (Late st Contact Info) Description 04/24/2024 8:30 AM EDT Anticoagulation Pharmacy, [place] [address] [place] [facility] [place] [address] [facility] [address] [place] [facility] [place] [address] Scheduled Orders Name Type Priority Associated Diagnoses Orde r Schedule COMPREHENSIVE METABOLIC PANEL Lab Routine Encounter for long-term (current) use of medications Expected: 03/21/2024 (Approximate), Expires: 03/14/2025 Scheduled Procedures Name Priority Associated Diagnoses Date/Ti me COLONOSCOPY FLEXIBLE PROXIMA L DIAGNOSTIC Recall Special screening for malignant neoplasms, colon Health Maintenance Due Date Last Done Comments Hepatitis B (1 of 3 - 19+ 3-dose series) 1992 Cologuard 2018 Fecal Occult Blood Test 2018 Sigmoidoscopy 2018 Zoster Vaccines (1 of 2) 2023 Depression Screening 09/10/2023 09/10/2022 GFR 04/12/2024 04/12/2023, 10/01/2022, 10/27/2021, Additional history exists Albumin/Creatinine Ratio 04/12/2026 04/12/2023, 102 02/2022 Diabetes Screening 04/12/2026 04/12/2023, 1 , 10/27/2021, Additional history exists Lipid Panel 04/12/2028 04/12/2023, [...] this encounter Medical Devices Implanted Type Area Mail Carrier Device Identifier Shelf Expiration Date Model / Serial / Lot Lens 15.0 Mx60e - [id number] - [id number] Implanted:Qty: 1 on 05/12/2020 by Javid Zepeda MD at OR [facility] Right: Eye BAUSCH [employer] LOMB 10/17/2022 [id number]-21.0 / [id number] / [id number] Envista Mx60e 15.00d Implanted:Qty: 1 on 02/21/2021 by Javid Zepeda MD at [facility] Left: Eye BAUSCH [employer] LOMB 02/15/2023 [id number] / [id number] / [id number] Band Circling 2.5mm [place] - [id number] Implanted:Qty: 1 on 03/03/2021 by Rich Chaudhari MD at [facility] Left: Eye [employer] 05/17/2024 [id number] / / [id number] Silicone Band (Shruthi 70) - [id number] Implanted:Qty: 1 on 03/03/2021 by [facility] Left: Eye [employer] 04/17/2024 [id number] / / [id number] documented as of this encounter Visit Diagnoses Diagnosis Encounter for long-term (current) use of medications- Primary Encounter for long-term (current) use of other medications documented in this encounter Care Teams Facilitator Relationship Specialty Start Date End Date Jabari Lovell MD [address] [place] [address] PCP - General Family Medicine 06/26/18 documented as of this encounter
--- OUTSIDE RECORDS SUMMARY | 2024-09-05 10:32 | External Medical Summary | Summary of Care ---
Author Name Unknown Organization [facility] Address [address] [place] [address] Phone [phone] Care Team Providers Care Weights And Measures Inspector Name Role Phone Sergio Sosa MD Primary Care Provider [phone] [phone] Reason for Visit * Reason Comments Outpatient Testing Encounter Details Date Type Department Care Team (Late st Contact Info) Description 04/03/2024 8:20 AM EDT Laboratory Laboratory, [place] [address] [place] [id number] [facility] [address], [place] [id number] Encounter for long-term (current) use of medications Allergies Active Allergy Reactions Criticality Noted Date Comments Sulfa Antibiotics Other (Please comment) High 2017 Pt cannot remember what reaction he had to sulfa documented as of this encounter (statuses as of 04/03/2024) Medications Medication Sig Dispensed Refills Start Date [...] 11/15/2023 Active Lisinopril 2.5 MG Oral Tablet (Prinivil)Indications: Hypertensive nephropathy TAKE 1 TABLET BY MOUTH EVERY [...] 12/25/2023 Active Allopurinol 300 MG Oral Tablet (Zyloprim)Indications: [...] 03/21/2024 Active Pregabalin 75 MG Oral Capsule (Lyrica)Indications:St atus post mechanical aortic valve replacement TAKE 1 CAPSULE BY MOUTH IN THE MORNING AND AT BEDTIME 60 Capsule 0 03/21/2024 Active documented as of this encounter (statuses as of 04/03/2024) Active Problems Problem Noted Date Diagnosed Date Overweight (BMI 25.0-29.9) 05/28/2023 Intermittent complete atrioventricular block 01/2023 Cardiac pacemaker in situ 07/12/2021 Status post mechanical aortic valve replacement 06/20/2021 Hyperuricemia 01/02/2019 S/P CABG x 1 01/01/2019 CAREN (obstructive sleep apnea) 01/01/2019 Gastroesophageal reflux disease with esophagitis 06/26/2018 HTN, goal below 130/80 06/26/2018 documented as of this encounter (statuses as of 04/03/2024) Resolved Problems Problem Noted Date Diagnosed Date Resolved Date Mitral valve vegetation 11/06/2021 02/0 12/2022 S/P aortic valve replacement with bioprosthetic valve 01/01/2019 07/12/2021 HIV disease 06/26/2018 06/27/2018 History of endocarditis 06/26/201801/16 documented as of this encounter (statuses as of 04/03/2024) Immunizations Name Administration Dates Next Due COVID-19 [...] Description 04/24/2024 8:30 AM EDT Anticoagulation Pharmacy, [place] [address] [place] [address] [facility] [address] [place] [address] Pending Results Name Type Priority Associated Diagnoses Date /Time COMPREHENSIVE METABOLIC PANEL Lab Routine Encounter for long-term (current) use of medications 04/03/2024 8:16 AM EDT Scheduled Procedures Name Priority Associated Diagnoses Date/Ti me COLONOSCOPY FLEXIBLE PROXIMA L DIAGNOSTIC Recall Special screening for malignant neoplasms, colon Health Maintenance Due Date Last Done Comments Hepatitis B (1 of 3 - 19+ 3-dose series) 1992 Cologuard 2018 Fecal Occult Blood Test 2018 Sigmoidoscopy 2018 Zoster Vaccines (1 of 2) 2023 Depression Screening 09/10/2023 09/10/2022 GFR 04/12/2024 04/12/2023, 10/0 01/2022, 10/27/2021, Additional history exists Albumin/Creatinine Ratio 04/12/2026 04/12/2023, 10/2 02/2022 Diabetes Screening 04/12/2026 04/12/2023, 1 , [...] this encounter Medical Devices Implanted Type Area Supervisor Plate Pasting Device Identifier Shelf Expiration Date Model / Serial / Lot Lens 15.0 Mx60e - [id number] - [id number] Implanted:Qty: 1 on 05/12/2020 by Javid Zepeda MD at OR [facility] Right: Eye [employer]CH [employer] LOMB 10/17/2022 [id number]-23.0 / [id number] / [id number] Envista Mx60e 15.00d Implanted:Qty: 1 on 02/21/2021 by Javid Zepeda MD at [facility] Left: Eye BAUSCH [employer] LOMB 02/15/2023 [id number] / [id number] / [id number] Band Circling 2.5mm [place] - [id number] Implanted:Qty: 1 on 03/03/2021 by [facility] Left: Eye [employer] 05/17/2024 [id number] / / [id number] Silicone Band (Shruthi 70) - [id number] Implanted:Qty: 1 on 03/03/2021 by [facility] Left: Eye [employer] 04/17/2024 [id number] / / [id number] documented as of this encounter Visit Diagnoses Diagnosis Encounter for long-term (current) use of medications Encounter for long-term (current) use of other medications documented in this encounter Care Teams Weights And Measures Inspector Relationship Specialty Start Date End Date Sergio Sosa MD [address] [place] [address] PCP - General Family Medicine 06/26/18 documented as of this encounter
--- OUTSIDE RECORDS SUMMARY | 2024-09-05 10:32 | External Medical Summary ---
Author Name Unknown Address Unknown Organization : Laboratory Report Ordering Provider Test Date Status ROYA HU 04/24/2024 08:28:53 Final Therapeutic ranges for non-o perative patients:
Prophylaxsis/treatment of DVT: (Range:2.0-3.0)
Treatment of pulmonary embolism:(Range:2.0-3.0)
Prevention of systemic embolism from:
-tissue heart valves
-acute myocardial infarction
-valvular heart disease
-atrial fibrillation
(Range: 2.0-3.0)
Mechanical prosthetic valves: (Range: 2.5-3.5) Observation Date Value Abnormality Reference (Units ) Status INR in Capillary blood by Coagulation assay 04/24/2024 08:28:53 2.3 (INR) Final Performing Location
--- OUTSIDE RECORDS SUMMARY | 2024-09-05 10:32 | External Medical Summary | Summary of Care ---
Author Name Unknown Organization [facility] Address [address] [facility] [address] Phone [phone] Care Team Providers Care Supervisor Hydrochloric Area Name Role Phone Jabari Lovell MD Primary Care Provider [phone] [phone] Reason for Visit * Reason Comments eRx-Medication Refill Encounter Details Date Type Department Care Team (Late st Contact Info) Description 07/10/2024 Refill Family Practice [facility] [address] [place] [address] Jabari Lovell MD [address] [place] [address] Hyperuricemia Allergies Active Allergy Reactions Criticality Noted Date Comments Sulfa Antibiotics Other (Please comment) High 2017 Pt cannot remember what reaction he had to sulfa documented as of this encounter (statuses as of 07/11/2024) Medications Medication Sig Dispensed Refills Start Date [...] AND BEFORE BEDTIME 180 Tablet 07/11/2024 Active Metoprolol Tartrate 50 MG Oral Tablet (Lopressor) TAKE 1 TABLET BY MOUTH IN THE MORNING AND BEFORE BEDTIME 180 Tablet 1 12/25/2023 08/24/202 4 Discontinued Allopurinol 300 MG Oral Tablet (Zyloprim)Indicatio ns:Hyperuricemia TAKE 1 TABLET BY MOUTH EVERY DAY IN THE MORNING 90 Tablet 1 12/25/2023 4 Discontinued documented as of this encounter (statuses as of 07/11/2024) Active Problems Problem Noted Date Diagnosed Date Overweight (BMI 25.0-29.9) 05/28/2023 Intermittent complete atrioventricular block 01/2023 Cardiac pacemaker in situ 07/12/2021 Status post mechanical aortic valve replacement 06/20/2021 Hyperuricemia 01/02/2019 S/P CABG x 1 01/01/2019 CAREN (obstructive sleep apnea) 01/01/2019 Gastroesophageal reflux disease with esophagitis 06/26/2018 HTN, goal below 130/80 06/26/2018 documented as of this encounter (statuses as of 07/11/2024) Resolved Problems Problem Noted Date Diagnosed Date Resolved Date Mitral valve vegetation 11/06/2021 0212/2022 S/P aortic valve replacement with bioprosthetic valve 01/01/2019 07/12/2021 HIV disease 06/26/2018 06/27/2018 History of endocarditis 06/26/201801/16 documented as of this encounter (statuses as of 07/11/2024) Immunizations Name Administration Dates Next Due COVID-19 mRNA, LNP-s, No Pre serve, 2-Dose Series ([employer]) 08/17/2021,02/15/2021,01/25/2021 COVID-19, LNP-s, No Preserve , [...] encounter Miscellaneous Notes * Telephone Encounter - Florentino Daniel [facility] - 07/11/2024 12:08 PM EDT Signed Prescriptions: Disp Refills Allopurinol 300 MG Oral Tablet (Zyloprim) 90 Tab*0 Sig: TAKE 1 TABLET BY MOUTH EVERY DAY IN THE MORNINGAuthorizing Provider: JABARI LOVELL User: FLORENTINO DANIEL Metoprolol Tartrate 50 MG Oral Tablet (Lop*180 Ta*0 Sig: TAKE 1 TABLET BY MOUTH IN THE MORNING AND BEFORE BEDTIMEAuthorizing Provider: JABARI LOVELL User: FLORENTINO DANIEL * Telephone Encounter - Florentino Daniel [facility] - 07/11/2024 12:05 PM EDT 90 days sent until appt. Thank You, Florentino Daniel, Pharm-D Clinical Pharmacist [facility] ([facility]) [phone] 07/11/2024, 12:06 PM documented in this encounter Plan of Treatment Upcoming Encounters Date Type Department Care Team (Late st Contact Info) Description 07/24/2024 8:30 AM EDT [facility]ticoagulation Pharmacy, [place] [address] [address] [place], [facility] [address] [address] 08/07/2024 11:40 AM EDT Office Visit Family [facility] [address] [place] [address] Jabari Lovell MD [address] [place] [address] Scheduled Procedures Name Priority Associated Diagnoses Date/Ti [...] this encounter Medical Devices Implanted Type Area It Security Administrator Device Identifier Shelf Expiration Date Model / Serial / Lot Lens 15.0 Mx60e - [id number] - [id number] Implanted:Qty: 1 on 05/12/2020 by Javid Zepeda MD at [facility] Right: Eye [employer] 10/17/2022 [id number]-[id number] / [id number] / [id number] Envista Mx60e 15.00d Implanted:Qty: 1 on 02/21/2021 by Javid Zepeda MD at OR [facility] Left: Eye [employer]OMB 02/15/2023 [id number] / [id number] / [id number] Band Circling 2.5mm [place] - [id number] Implanted:Qty: 1 on 03/03/2021 by [facility] Left: Eye [employer] 05/17/2024 [id number] / / [id number] Silicone Band (Shruthi 70) - [id number] Implanted:Qty: 1 on 03/03/2021 by [facility] Left: Eye [employer] 04/17/2024 [id number] / / [id number] documented as of this encounter Visit Diagnoses Diagnosis Hyperuricemia Other abnormal blood chemistry documented in this encounter Care Teams Supervisor Hydrochloric Area Relationship Specialty Start Date End Date Jabari Lovell MD [address] [place] [address] PCP - General Family Medicine 06/26/18 documented as of this encounter
--- OUTSIDE RECORDS SUMMARY | 2024-09-05 10:32 | External Medical Summary | Summary of Care ---
Author Name Unknown Organization [facility] Address [address] [place] [address] Phone [phone] Care Team Providers Care Watch Caser Name Role Phone Jabari Lovell MD Primary Care Provider [phone] [phone] Reason for Visit * Reason Onset Date Comments Medication Refill 07/09/2024 Encounter Details Date Type Department Care Team (Late st Contact Info) Description 07/09/[address] [facility] [address] [place] [address] Jabari Lovell MD [address] [place] [address] Status post mechanical aortic valve replacement Allergies Active Allergy Reactions Criticality Noted Date Comments Sulfa Antibiotics Other (Please comment) High 2017 Pt cannot remember what reaction he had to sulfa documented as of this encounter (statuses as of 07/10/2024) Medications Medication Sig Dispensed Refills Start Date [...] FOR ITCHING. 40 Tablet 2 09/10/2023 Active Metoprolol Tartrate 50 MG Oral Tablet (Lopressor) TAKE 1 TABLET BY MOUTH IN THE MORNING AND BEFORE BEDTIME 180 Tablet 1 12/25/2023 Active Allopurinol 300 MG Oral Tablet (Zyloprim)Indication [...] 07/09/2024 Active Pregabalin 75 MG Oral Capsule (Lyrica)Indications: Status post mechanical aortic valve replacement Take 1 Capsule by mouth in the morning and 1 Capsule before bedtime. 60 Capsule 07/10/2024 Active Lisinopril 2.5 MG Oral Tablet (Prinivil)Indication s:Hypertensive nephropathy TAKE 1 TABLET BY MOUTH EVERY DAY IN THE MORNING 90 Tablet 05/16/2024 Discontinue d(Refill) Pregabalin 75 MG Oral Capsule (Lyrica)Indications: Status post mechanical aortic valve replacement TAKE 1 CAPSULE BY MOUTH EVERY DAY IN THE MORNING AND AT BEDTIME 60 Capsule 06/04/2024 Discontinue d(Refill) documented as of this encounter (statuses as of 07/10/2024) Active Problems Problem Noted Date Diagnosed Date Overweight (BMI 25.0-29.9) 05/28/2023 Intermittent complete atrioventricular block 01/2023 Cardiac pacemaker in situ 07/12/2021 Status post mechanical aortic valve replacement 06/20/2021 Hyperuricemia 01/02/2019 S/P CABG x 1 01/01/2019 CAREN (obstructive sleep apnea) 01/01/2019 Gastroesophageal reflux disease with esophagitis 06/26/2018 HTN, goal below 130/80 06/26/2018 documented as of this encounter (statuses as of 07/10/2024) Resolved Problems Problem Noted Date Diagnosed Date Resolved Date Mitral valve vegetation 11/06/202112/2022 S/P aortic valve replacement with bioprosthetic valve 01/01/2019 07/12/2021 HIV disease 06/26/2018 06/27/2018 History of endocarditis 06/26/201801/16 documented as of this encounter (statuses as of 07/10/2024) Immunizations Name Administration Dates Next Due COVID-19 mRNA, LNP-s, No Pre serve, 2-Dose Series ([employer]) 08/17/2021,02/15/2021,01/25/2021 COVID-19, LNP-s, No Preserve , [place]-sucrose, [...] Telephone Encounter - Jabari Lovell MD - 07/10/2024 4:36 PM EDTSigned Prescriptions: Disp Refills Pregabalin 75 MG Oral Capsule (Lyrica) 60 Cap*0 Sig: Take 1 Capsule by mouth in the morning and 1 Capsule before bedtime. Authorizing Provider: JABARI LOVELL * Telephone Encounter - Crow Lundberg [facility] - 07/10/2024 2:26 PM EDTPending Prescriptions: Disp Refills Pregabalin 75 MG Oral Capsule (Lyrica) 60 Cap*0 Sig: Take 1 Capsule by mouth in the morning and 1 Capsule before bedtime. * Telephone Encounter - Crow Lundberg [facility] - 07/10/2024 2:25 PM EDT I have reviewed the patients controlled substance dispensing history in the Prescription Drug Monitoring Program in compliance with the [facility] regulations before prescribing a controlled substance. PDMP checked on 07/10/2024. Pending Prescriptions: Disp Refills Pregabalin 75 MG Oral Capsule (Lyrica) 60 Cap*0 Sig: Take 1 Capsule by mouth in the morning and 1 Capsule before bedtime. Last Visit: 05/28/2023 (in office), Visit date not found (telemedicine) Next Visit: 08/07/2024 Date medication was last filled: 06/05/24 Date medication is due for refill: 07/04/24 Pharmacy: [id number] [address] [facility] Is this request for a controlled substance? Yes and Urine Drug Screen Not completed Toxicology results: No results found for this or any previous visit. Please approve if appropriate. Thank You, Crow Espitia [facility] Clinical Pharmacist [facility] ([facility]) 07/10/2024, 2:25 PM documented in this encounter Plan of Treatment Upcoming Encounters Date Type Department Care Team (Late st Contact Info) Description 07/24/2024 8:30 AM EDT Anticoagulation Pharmacy, [address] [address] [facility] [address] [place] [address] 08/07/2024 11:40 AM EDT Office Visit Family Practice [facility] [address] [facility] [place] [address] Jabari Lovell MD [address] [place] [address] Scheduled Procedures Name Priority Associated Diagnoses Date/Ti me COLONOSCOPY FLEXIBLE PROXIMA L DIAGNOSTIC Recall Special screening for malignant neoplasms, colon Health Maintenance Due Date Last Done Comments Hepatitis B Vaccine (1 of 3 - 19+ 3-dose series) 1992 Cologuard 2018 Fecal Occult Blood Test 2018 Sigmoidoscopy 2018 Zoster Vaccines (1 of 2) 2023 Depression Screening 09/10/2023 09/10/2022 GFR 04/03/2025 04/03/2024, 05/2 04/2023, 08/20/2022, Additional history exists Albumin/Creatinine Ratio 04/12/2026 [...] this encounter Medical Devices Implanted Type Area Repacker Device Identifier Shelf Expiration Date Model / Serial / Lot Lens 15.0 Mx60e - [id number] - [id number] Implanted:Qty: 1 on 05/12/2020 by Javid Zepeda MD at OR [facility] Right: Eye [employer] 10/17/2022 [id number]-82.0 / [id number] / [id number] Envista Mx60e 15.00d Implanted:Qty: 1 on 02/21/2021 by Javid Zepeda MD at [facility] Left: Eye [employer] LOM[employer] 02/15/2023 [id number] / [id number] / [id number] Band Circling 2.5mm [place] - [id number] Implanted:Qty: 1 on 03/03/2021 by Rich Chaudhari MD at [facility] Left: Eye [employer] 05/17/2024 [id number] / / [id number] Silicone Band (Shruthi 70) - [id number] Implanted:Qty: 1 on 03/03/2021 by Rich Chaudhari MD at [facility] Left: Eye [employer] 04/17/2024 [id number] / / [id number] documented as of this encounter Visit Diagnoses Diagnosis Status post mechanical aortic valve replacement documented in this encounter Care Teams Watch Caser Relationship Specialty Start Date End Date Jabari Lovell MD [address] [place] [address] PCP - General Family Medicine 06/26/18 documented as of this encounter
--- OUTSIDE RECORDS SUMMARY | 2024-09-05 10:32 | External Medical Summary ---
Author Name Unknown Address Unknown Organization : Laboratory Report Ordering Provider Test Date Status SYLVIE LEONARD 06/12/2024 08:34:42 Final Therapeutic ranges for non-o perative patients:
Prophylaxsis/treatment of DVT: (Range:2.0-3.0)
Treatment of pulmonary embolism:(Range:2.0-3.0)
Prevention of systemic embolism from:
-tissue heart valves
-acute myocardial infarction
-valvular heart disease
-atrial fibrillation
(Range: 2.0-3.0)
Mechanical prosthetic valves: (Range: 2.5-3.5) Observation Date Value Abnormality Reference (Units ) Status INR in Capillary blood by Coagulation assay 06/12/2024 08:34:42 2.1 (INR) Final Performing Location
--- OUTSIDE RECORDS SUMMARY | 2024-09-05 10:32 | External Medical Summary | Summary of Care ---
Author Name Unknown Organization [facility] Address [address] [place] [facility] [place] [address] Phone [phone] Care Team Providers Care Marketing Information Coordinator Name Role Phone Jabari Lovell MD Primary Care Provider +1 [phone] Reason for Visit * Reason Onset Date Comments Medication Refill 07/09/2024 Encounter Details Date Type Department Care Team (Late st Contact Info) Description 07/09/2024 Refill Family Practice [address] [place] [address] [place] [address] Erasmo Delgado DO [address] [place] [address] Allergies Active Allergy Reactions Criticality Noted Date Comments Sulfa Antibiotics Other (Please comment) High 2017 Pt cannot remember what reaction he had to sulfa documented as of this encounter (statuses as of 07/09/2024) Medications Medication Sig Dispensed Refills Start Date [...] EVERY DAY 30 Tablet 5 05/15/2024 Active Lisinopril 2.5 MG Oral Tablet (Prinivil)Indication s:Hypertensive nephropathy TAKE 1 TABLET BY MOUTH EVERY DAY IN THE MORNING 90 Tablet 05/16/2024 Active Pregabalin 75 MG Oral Capsule (Lyrica)Indications: Status post mechanical aortic valve replacement TAKE 1 CAPSULE BY MOUTH EVERY DAY IN THE MORNING AND AT BEDTIME 60 Capsule 06/04/2024 Active amLODIPine Besylate 10 MG Oral Tablet (Norvasc) Take 1 Tablet by mouth in the morning. 90 Tablet 2 07/09/2024 Active amLODIPine Besylate 10 MG Oral Tablet (Norvasc) TAKE 1 TABLET BY MOUTH EVERY DAY IN THE MORNING 90 Tablet 2 12/13/2023 4 Discontinue d(Refill) documented as of this encounter (statuses as of 07/09/2024) Active Problems Problem Noted Date Diagnosed Date Overweight (BMI 25.0-29.9) 05/28/2023 Intermittent complete atrioventricular block 01/2023 Cardiac pacemaker in situ 07/12/2021 Status post mechanical aortic valve replacement 06/20/2021 Hyperuricemia 01/02/2019 S/P CABG x 1 01/01/2019 CAREN (obstructive sleep apnea) 01/01/2019 Gastroesophageal reflux disease with esophagitis 06/26/2018 HTN, goal below 130/80 06/26/2018 documented as of this encounter (statuses as of 07/09/2024) Resolved Problems Problem Noted Date Diagnosed Date Resolved Date Mitral valve vegetation 11/06/202112/2022 S/P aortic valve replacement with bioprosthetic valve 01/01/2019 07/12/2021 HIV disease 06/26/2018 06/27/2018 History of endocarditis 06/26/201801/16 documented as of this encounter (statuses as of 07/09/2024) Immunizations Name Administration Dates Next Due COVID-19 [...] Telephone Encounter - Jabari Lovell MD - 07/09/2024 9:42 PM EDTSigned Prescriptions: Disp Refills amLODIPine Besylate 10 MG Oral Tablet (Nor*90 Tab*2 Sig: Take 1 Tablet by mouth in the morning. Authorizing Provider: JABARI LOVELL * Telephone Encounter - Anila Fontaine [facility] - 07/09/2024 1:29 PM EDT Pending Prescriptions: Disp Refills amLODIPine Besylate 10 MG Oral Tablet (Nor*90 Tab*2 * Telephone Encounter - Anila Fontaine [facility] - 07/09/2024 1:28 PM EDT Did you pend patient's preferred pharmacy and medication before forwarding?no Pharmacy: [id number] [address] [facility] Pending Prescriptions: Disp Refills amLODIPine Besylate 10 MG Oral Tablet (No*90 Tab*2 Last Visit: Visit date not found (in office), Visit date not found (telemedicine) Next Visit: Visit date not found If no future appointments scheduled, and last appointment is greater than a year ago, please schedule patient for a follow-up appointment Last date the medication was ordered: 12/13/2023 Is this request for a controlled substance?No Urine Drug Screen:No results found for this or any previous visit. Patient Phone Numbers Labs: Lab Results Component Value Date/Time CREAT 1.0 04/03/2024 08:16 AM CREAT 0.9 09/25/2019 09:10 AM POTASSIUM 4.5 04/03/2024 08:16 AM POTASSIUM 4.3 06/21/2021 06:48 AM POTASSIUM 4.2 09/25/2019 09:10 AM TSH 1.36 08/20/2022 10:41 AM TSH 1.37 01/26/2019 11:43 AM LDLCALC 104 06/26/2018 09:49 AM LDLDIRECT 79 04/12/2023 11:00 AM LDLDIRECT NOT APPLICABLE 06/26/2018 09:49 AM ALT 52 (H) 04/03/2024 08:16 AM ALT 26 01/26/2019 11:43 AM documented in this encounter Plan of Treatment Upcoming Encounters Date Type Department Care Team (Late st Contact Info) Description 07/24/2024 8:30 AM EDT Anticoagulation Pharmacy, [place] [address] [place] [address] [facility] [address] [place] [address] 08/07/2024 11:40 AM EDT Office Visit Family Practice [facility] [address] [place] [place] [address] Jabari Lovell MD [address] [place] [address] Scheduled Procedures Name Priority Associated Diagnoses Date/Ti [...] this encounter Medical Devices Implanted Type Area Production Administrator Device Identifier Shelf Expiration Date Model / Serial / Lot Lens 15.0 Mx60e - [id number] - [id number] Implanted:Qty: 1 on 05/12/2020 by Javid Zepeda MD at OR [facility] Right: Eye [employer] 10/17/2022 [id number] / [id number] / [id number] Envista Mx60e 15.00d Implanted:Qty: 1 on 02/21/2021 by Javid Zepeda MD at OR [facility] Left: Eye [employer]OM[employer] 02/15/2023 [id number] / [id number] / [id number] Band Circling 2.5mm [place] - [id number] Implanted:Qty: 1 on 03/03/2021 by Rich Chaudhari MD at [facility] Left: Eye [employer] 05/17/2024 [id number] / / [id number] Silicone Band (Shruthi 70) - [id number] Implanted:Qty: 1 on 03/03/2021 by Rich Chaudhari MD at [facility] Left: Eye [employer] 04/17/2024 [id number] / / [id number] documented as of this encounter Care Teams Marketing Information Coordinator Relationship Specialty Start Date End Date Jabari Lovell MD [address] [place] [address] PCP - General Family Medicine 06/26/18 documented as of this encounter
--- OUTSIDE RECORDS SUMMARY | 2024-09-05 10:32 | External Medical Summary | Summary of Care ---
Author Name Unknown Organization [facility] Address [address] [place] [address] Phone [phone] Care Team Providers Care Safety Patrol Officer Name Role Phone Sergio Sosa MD Primary Care Provider [phone] [phone] Reason for Visit * Reason Comments Dosage Adjustment In Person (Anticoag Cl inic) Encounter Details Date Type Department Care Team (Latest Contact Info) Description 03/13/2024 8:20 AM EDT Anticoagulation Pharmacy, [place] [address] [place] [address] [facility] [address] [place] [address] Anticoagulation management encounter*; Status post mechanical aortic valve replacement Allergies Active Allergy Reactions Criticality Noted Date Comments Sulfa Antibiotics Other (Please comment) High 2017 Pt cannot remember what reaction he had to sulfa documented as of this encounter (statuses as of 03/13/2024) Medications Medication Sig Dispensed Refills Start Date [...] FOR ITCHING. 40 Tablet 2 09/10/2023 Active Famotidine 40 MG Oral Tablet (Pepcid) TAKE 1 TABLET BY MOUTH EVERY DAY IN THE MORNING 30 Tablet 5 10/04/2023 Active Doxycycline Hyclate 50 MG Oral Capsule [...] 12/25/2023 Active Pregabalin 75 MG Oral Capsule (Lyrica)Indications:St [...] THE MORNING 90 Tablet 1 02/29/2024 Active documented as of this encounter (statuses as of 03/13/2024) Active Problems Problem Noted Date Diagnosed Date Overweight (BMI 25.0-29.9) 05/28/2023 Intermittent complete atrioventricular block 01/2023 Cardiac pacemaker in situ 07/12/2021 Status post mechanical aortic valve replacement 06/20/2021 Hyperuricemia 01/02/2019 S/P CABG x 1 01/01/2019 CAREN (obstructive sleep apnea) 01/01/2019 Gastroesophageal reflux disease with esophagitis 06/26/2018 HTN, goal below 130/80 06/26/2018 documented as of this encounter (statuses as of 03/13/2024) Resolved Problems Problem Noted Date Diagnosed Date Resolved Date Mitral valve vegetation 11/06/2021 0212/2022 S/P aortic valve replacement with bioprosthetic valve 01/01/2019 07/12/2021 HIV disease 06/26/2018 06/27/2018 History of endocarditis 06/26/201801/16 documented as of this encounter (statuses as of 03/13/2024) Immunizations Name Administration Dates Next Due COVID-19 [...] of this encounter Progress Notes * Whit Espionsa RPh - 03/13/2024 8:20 AM EDT Medication Therapy Disease Management - Anticoagulation Patient: Rich Mckeon | : 1975 Subjective Patient-Reported Symptoms: Patient Findings Negatives: Signs/symptoms of thrombosis, Signs/symptoms of bleeding, Change in health, Change in alcohol use, Change in activity, Upcoming invasive procedure, Missed doses, Extra doses, Change in medications, Change in diet/appetite, Bruising Objective Current Warfarin Dose As of 03/13/2024 Warfarin maintenance plan: 6 mg (4 mg x 1.5) every Fri; 4 mg (4 mg x 1) all other days INR Result As of 03/13/2024 INR goal: 1.7-2.5 INR used for dosin.1 (03/13/2024) Assessment & Plan Warfarin Plan As of 03/13/2024 Full warfarin instructions: 6 mg every Fri; 4 mg all other days No change documented: Whit Espinosa RPh Next INR check: 04/24/2024 Repeat PT/INR in 6 week(s) Weekly dose: not changed Additional Dosing Information: Description Whit Espinosa RPh Clinical Pharmacist 03/13/2024, 8:20 AM documented in this encounter Plan of Treatment Upcoming Encounters Date Type Department Care Team (Late st Contact Info) Description 04/24/2024 8:30 AM EDT Anticoagulation Pharmacy, [address] [place] [address] [facility] [address] [place] [address] Scheduled Procedures Name Priority Associated Diagnoses Date/Ti me COLONOSCOPY FLEXIBLE PROXIMA L DIAGNOSTIC Recall Special screening for malignant neoplasms, colon Health Maintenance Due Date Last Done Comments Hepatitis B (1 of 3 - 19+ 3-dose series) 1992 Cologuard 2018 Fecal Occult Blood Test 2018 Sigmoidoscopy 2018 Zoster Vaccines (1 of 2) 2023 Depression Screening 09/10/2023 09/10/2022 GFR 04/12/2024 04/12/2023, 1001/2022, 10/27/2021, Additional history exists Albumin/Creatinine Ratio 04/12/2026 04/12/2023, 2 02/2022 Diabetes Screening 04/12/2026 04/12/2023, 1 , 10/27/2021, Additional history exists Lipid Panel 04/12/2028 04/12/2023, 040 05/2021, 06/26/2018 DTaP,Tdap,and Td Vaccines (2 - [...] this encounter Medical Devices Implanted Type Area Compliance Mgr Device Identifier Shelf Expiration Date Model / Serial / Lot Lens 15.0 Mx60e - [id number] - [id number] Implanted:Qty: 1 on 05/12/2020 by Javid Zepeda MD at OR [facility] Right: Eye [employer]CH [employer] LOMB 10/17/2022 [id number]-01.0 / [id number] / [id number] Envista Mx60e 15.00d Implanted:Qty: 1 on 02/21/2021 by Javid Zepeda MD at [facility] Left: Eye BAUSCH & LOMB 02/15/2023 [id number] / [id number] / [id number] Band Circling 2.5mm [place] - [id number] Implanted:Qty: 1 on 03/03/2021 by Rich Chaudhari MD at [facility] Left: Eye [employer] 05/17/2024 [id number] / / [id number] Silicone Band (Shruhti 70) - [id number] Implanted:Qty: 1 on 03/03/2021 by [facility] Left: Eye [employer] 04/17/2024 [id number] / / [id number] documented as of this encounter Procedures Procedure Name Priority Date/Time Associated Diagnosis Comments INR FINGERSTICK, POINT OF CARE STAT 03/13/2024 8:23 AM EDT Status post mechanical aortic valve replacement Anticoagulation management encounter documented in this encounter Results * INR FINGERSTICK, POINT OF CARE (03/13/2024 8:23 AM EDT) Fingerstick INR 2.1 INR 8:24 AM EDT [facility] 56-01 Blood 03/13/2024 8:23 AM EDT 03/13/2024 8:24 AM EDT [facility] - 03/13/2024 8:24 AM EDT Therapeutic ranges for non-operative patients: Prophylaxsis/treatment of DVT: (Range:2.0-3.0) Treatment of pulmonary embolism:(Range:2.0-3.0) Prevention of systemic embolism from: -tissue heart valves -acute myocardial infarction -valvular heart disease -atrial fibrillation (Range: 2.0-3.0) Mechanical prosthetic valves: (Range: 2.5-3.5) Whit Espinosa [facility] LAB POINT OF CARE TEST DOCKED DEVICE UNSOLICITED RESULTS [facility] [address] [place] [address] documented in this encounter Visit Diagnoses Diagnosis Anticoagulation management encounter- Primary Encounter for therapeutic drug monitoring Status post mechanical aortic valve replacement documented in this encounter Care Teams Safety Patrol Officer Relationship Specialty Start Date End Date Sergio Sosa [facility] [address] [facility] [place] [address] PCP - General Family Medicine 06/26/18 documented as of this encounter"
--- OUTSIDE RECORDS SUMMARY | 2024-09-05 10:32 | External Medical Summary | Summary of Care ---
Author Name Unknown Organization [facility] Address [address] [place] [address] Phone [phone] Care Team Providers Care Veneer Manufacturer Name Role Phone Jabari Lovell MD Primary Care Provider [phone] [phone] Reason for Visit * Reason Onset Date Comments Medication Refill 07/09/2024 Encounter Details Date Type Department Care Team (Late st Contact Info) Description 07/09/2024 Refill Family Practice [facility] [address] [place] [address] Jabari Lovell MD [address] [place] [address] Hypertensive nephropathy Allergies Active Allergy Reactions Criticality Noted Date [...] EVERY DAY 30 Tablet 5 05/15/2024 Active Pregabalin 75 MG Oral Capsule (Lyrica)Indications: [...] in the morning. 90 Tablet 07/10/2024 Active Lisinopril 2.5 MG Oral Tablet (Prinivil)Indication s:Hypertensive nephropathy TAKE 1 TABLET BY MOUTH EVERY DAY IN THE MORNING 90 Tablet 05/16/2024 4 Discontinue d(Refill) documented as of this [...] encounter Miscellaneous Notes * Telephone Encounter - Mary Jo Lundberg [facility] - 07/10/2024 2:34 PM EDTSigned Prescriptions: Disp Refills Lisinopril 2.5 MG Oral Tablet (Prinivil) 90 Tab*0 Sig: Take 1 Tablet by mouth in the morning.Authorizing Provider: JABARI LOVELL User: MARY JO CARRANZA Electronically signed by Mary Jo Lundberg [facility] at 07/10/2024 2:34 PM EDT * Telephone Encounter - Mary Jo Lundberg [facility] - 07/10/2024 2:33 PM EDT Approved refill to hold until office visit on 08/07/24 Electronically signed by Mary Jo Lundberg [facility] at 07/10/2024 2:34 PM EDT * Telephone Encounter - Mary Jo Lundberg [facility] - 07/10/2024 2:33 PM EDT Pending Prescriptions: Disp Refills Lisinopril 2.5 MG Oral Tablet (Prinivil) 90 Tab*0 Last Visit: 05/28/2023 (in office), Visit date not found (telemedicine) Next Visit: 08/07/2024 If no future appointments scheduled, and last appointment is greater than a year ago, please schedule patient for a follow-up appointment Last date the medication was ordered: 05/16/24 Pharmacy: [id number] Is this request for a controlled substance? No Urine Drug Screen:No results found for this [...] 08:16 AM ALT 26 01/26/2019 11:43 AM Electronically signed by Mary Jo Lundberg [facility] at 07/10/2024 2:34 PM EDT documented in this encounter Plan of Treatment Upcoming Encounters Date Type Department Care Team (Late st Contact Info) Description 07/24/2024 8:30 AM EDT Anticoagulation Pharmacy, [place] [address] [place] [address] [facility] [address] [place] [address] 08/07/2024 11:40 AM EDT Office Visit Family Practice [facility] [address] [facility] [place] [address] Jabari Lovell MD [address] [facility] [place] [address] Scheduled Procedures Name Priority Associated Diagnoses Date/Ti [...] Ratio 04/12/2026 04/12/2023, 10/2 02/2022 Diabetes Screening 04/03/2027 04/03/2024, 0 04/12/2023, 08/20/2022, [...] this encounter Medical Devices Implanted Type Area Certified Anesthesiologist Assistant Device Identifier Shelf Expiration Date Model / Serial / Lot Lens 15.0 Mx60e - [id number] - [id number] Implanted:Qty: 1 on 05/12/2020 by Javid Zepeda MD at OR [facility] Right: Eye [employer]CH [employer] LOMB 10/17/2022 [id number]-63.0 / [id number] / [id number] Envista Mx60e 15.00d Implanted:Qty: 1 on 02/21/2021 by Javid [facility]epeda MD at [facility] Left: Eye BAUSCH & LOMB 02/15/2023 [id number] / [id number] / [id number] Band Circling 2.5mm [place] - [id number] Implanted:Qty: 1 on 03/03/2021 by Rich Chaudhari MD at [facility] Left: Eye [employer] 05/17/2024 [id number] / / [id number] Silicone Band (Shruthi 70) - [id number] Implanted:Qty: 1 on 03/03/2021 by Rich Chaudhari MD at [facility] Left: Eye [employer] 04/17/2024 [id number] / / [id number] documented as of this encounter Visit Diagnoses Diagnosis Hypertensive nephropathy Unspecified hypertensive kidney disease with chronic kidney disease stage I through stage IV, or unspecified documented in this encounter Care Teams Veneer Manufacturer Relationship Specialty Start Date End Date Jabrai Lovell MD [address] [place] [address] PCP - General Family Medicine 06/26/18 documented as of this encounter
--- OUTSIDE RECORDS SUMMARY | 2024-09-05 10:32 | External Medical Summary | Summary of Care ---
Author Name Unknown Organization [facility] Address [address] [place] [facility] [place] [address] Phone [phone] Care Team Providers Care Jewelry Consultant Name Role Phone Sergio Sosa MD Primary Care Provider [phone] [phone] Encounter Details Date Type Department Care Team (Late st Contact Info) Description 04/23/2024 Result Scan Unspecified Department Scott Johnson MD [address] [place] [address] <No scans attached> Allergies Active Allergy Reactions Criticality Noted Date Comments Sulfa Antibiotics Other (Please comment) High 2017 Pt cannot remember what reaction he had to sulfa documented as of this encounter (statuses as of 04/23/2024) Medications Medication Sig Dispensed Refills Start Date [...] MORNING AND AT BEDTIME 60 Capsule 03/21/2024 Active documented as of this encounter (statuses as of 04/23/2024) Active Problems Problem Noted Date Diagnosed Date Overweight (BMI 25.0-29.9) 05/28/2023 Intermittent complete atrioventricular block 01/2023 Cardiac pacemaker in situ 07/12/2021 Status post mechanical aortic valve replacement 06/20/2021 Hyperuricemia 01/02/2019 S/P CABG x 1 01/01/2019 CAREN (obstructive sleep apnea) 01/01/2019 Gastroesophageal reflux disease with esophagitis 06/26/2018 HTN, goal below 130/80 06/26/2018 documented as of this encounter (statuses as of 04/23/2024) Resolved Problems Problem Noted Date Diagnosed Date Resolved Date Mitral valve vegetation 11/06/2021 02/0 12/2022 S/P aortic valve replacement with bioprosthetic valve 01/01/2019 07/12/2021 HIV disease 06/26/2018 06/27/2018 History of endocarditis 06/26/201801/16 documented as of this encounter (statuses as of 04/23/2024) Immunizations Name Administration Dates Next Due COVID-19 mRNA, LNP-s, No Pre serve, 2-Dose Series ([employer]) 08/17/2021,02/15/2021,01/25/2021 COVID-19, LNP-s, No Preserve , Poncho-sucrose, [...] Description 04/24/2024 8:30 AM EDT Anticoagulation Pharmacy, [place] [address] [place] [address] [facility] [address] [place] [address] Scheduled Procedures Name Priority Associated Diagnoses Date/Ti [...] this encounter Medical Devices Implanted Type Area Rotary Screen Printing Machine Operator Device Identifier Shelf Expiration Date Model / Serial / Lot Lens 15.0 Mx60e - [id number] - [id number] Implanted:Qty: 1 on 05/12/2020 by Javid Zepeda MD at OR [id number] Right: Eye [employer] LOMB 10/17/2022 [id number]-67.0 / [id number] / [id number] Envista Mx60e 15.00d Implanted:Qty: 1 on 02/21/2021 by Javid Zepeda MD at [facility] Left: Eye BAUSCH [employer] LOMB 02/15/2023 [id number] / [id number] / [id number] Band Circling 2.5mm Michael - [id number] Implanted:Qty: 1 on 03/03/2021 by Rich Chaudhari MD at [facility] Left: Eye [employer] 05/17/2024 [id number] / / [id number] Silicone Band (Shruthi 70) - [id number] Implanted:Qty: 1 on 03/03/2021 by Rich Chaudhari MD at [facility] Left: Eye [employer] 04/17/2024 [id number] / / [id number] documented as of this encounter Procedures Procedure Name Priority Date/Time Associated Diagnosis Comments CARDIOLOGY SCANNED RESULT 04/23/2024 documented in this encounter Results * CARDIOLOGY SCANNED RESULT (04/23/2024) 04/23/2024 Scott Johnson MD OTHER documented in this encounter Care Teams Jewelry Consultant Relationship Specialty Start Date End Date Sergio Sosa MD [address] [place] [address] PCP - General Family Medicine 06/26/18 documented as of this encounter
--- OUTSIDE RECORDS SUMMARY | 2024-09-05 10:32 | External Medical Summary | Summary of Care ---
Author Name Unknown Organization [facility] Address [address] [facility] [place] [address] Phone [phone] Care Team Providers Care Peanut Picker Name Role Phone Sergio Sosa MD Primary Care Provider [phone] [phone] Encounter Details Date Type Department Care Team (Late st Contact Info) Description 03/17/2024 Orders Only PATIENT PORTAL DO NOT DELETE THIS DEPT USED BY [place] [address] Allergies Active Allergy Reactions Criticality Noted Date Comments Sulfa Antibiotics Other (Please comment) High 2017 Pt cannot remember what reaction he had to sulfa documented as of this encounter (statuses as of 03/17/2024) Medications Medication Sig Dispensed Refills Start Date [...] THE MORNING 90 Tablet 1 03/14/2024 Active documented as of this encounter (statuses as of 03/17/2024) Active Problems Problem Noted Date Diagnosed Date Overweight (BMI 25.0-29.9) 05/28/2023 Intermittent complete atrioventricular block 01/2023 Cardiac pacemaker in situ 07/12/2021 Status post mechanical aortic valve replacement 06/20/2021 Hyperuricemia 01/02/2019 S/P CABG x 1 01/01/2019 CAREN (obstructive sleep apnea) 01/01/2019 Gastroesophageal reflux disease with esophagitis 06/26/2018 HTN, goal below 130/80 06/26/2018 documented as of this encounter (statuses as of 03/17/2024) Resolved Problems Problem Noted Date Diagnosed Date Resolved Date Mitral valve vegetation 11/06/2021 0212/2022 S/P aortic valve replacement with bioprosthetic valve 01/01/2019 07/12/2021 HIV disease 06/26/2018 06/27/2018 History of endocarditis 06/26/201801/16 documented as of this encounter (statuses as of 03/17/2024) Immunizations Name Administration Dates Next Due COVID-19 mRNA, LNP-s, No Pre serve, 2-Dose Series (IRI) 08/17/2021,02/15/2021,01/25/2021 COVID-19, LNP-s, No Preserve , Poncho-sucrose, [...] Description 04/24/2024 8:30 AM EDT Anticoagulation Pharmacy, [place] [address] [place] [facility] [place] [place] [address] [facility] [address] [place] [facility] [place] [place] [address] Scheduled Procedures Name Priority Associated Diagnoses Date/Ti [...] this encounter Medical Devices Implanted Type Area Bell Maker Device Identifier Shelf Expiration Date Model / Serial / Lot Lens 15.0 Mx60e - [id number] - [id number] Implanted:Qty: 1 on 05/12/2020 by Javid Zepeda MD at OR [facility] Right: Eye BAUSCH [employer] LOMB 10/17/2022 [id number]-67.0 / [id number] / [id number] Envista Mx60e 15.00d Implanted:Qty: 1 on 02/21/2021 by Javid Zepeda MD at OR [facility] Left: Eye BAUSCH [employer] LOMB 02/15/2023 [id number] / [id number] / [id number] Band Circling 2.5mm [place] - [id number] Implanted:Qty: 1 on 03/03/2021 by [facility] Left: Eye [employer] 05/17/2024 [id number] / / [id number] Silicone Band (Shruthi 70) - [id number] Implanted:Qty: 1 on 03/03/2021 by [facility] Left: Eye [employer] 04/17/2024 [id number] / / [id number] documented as of this encounter Care Teams Peanut Picker Relationship Specialty Start Date End Date Sergio Sosa MD [address] [place] [address] PCP - General Family Medicine 06/26/18 documented as of this encounter
--- OUTSIDE RECORDS SUMMARY | 2024-09-05 10:32 | External Medical Summary | Summary of Care ---
Author Name Unknown Organization [facility] Address [address] [place] [address] Phone [phone] Care Team Providers Care Retail Interior Designer Name Role Phone Sergio Sosa MD Primary Care Provider [phone] Encounter Details Date Type Department Care Team (Late st Contact Info) Description 06/29/2024 Orders Only Outcomes Research Department [address] [place], [place] [id number] Shakila Blackmon CHRA MyCode Research Other*[id number] Allergies Active Allergy Reactions Criticality Noted Date Comments Sulfa Antibiotics Other (Please comment) High 2017 Pt cannot remember what reaction he had to sulfa documented as of this encounter (statuses as of 06/29/2024) Medications Medication Sig Dispensed Refills Start Date [...] FOR ITCHING. 40 Tablet 2 09/10/2023 Active amLODIPine Besylate 10 MG Oral Tablet [...] 05/15/2024 Active Lisinopril 2.5 MG Oral Tablet (Prinivil)Indications: Hypertensive nephropathy TAKE 1 TABLET BY MOUTH EVERY DAY IN THE MORNING 90 Tablet 05/16/2024 Active Pregabalin 75 MG Oral Capsule (Lyrica)Indications:St atus post mechanical aortic valve replacement TAKE 1 CAPSULE BY MOUTH EVERY DAY IN THE MORNING AND AT BEDTIME 60 Capsule 06/04/2024 Active documented as of this encounter (statuses as of 06/29/2024) Active Problems Problem Noted Date Diagnosed Date Overweight (BMI 25.0-29.9) 05/28/2023 Intermittent complete atrioventricular block 01/2023 Cardiac pacemaker in situ 07/12/2021 Status post mechanical aortic valve replacement 06/20/2021 Hyperuricemia 01/02/2019 S/P CABG x 1 01/01/2019 CAREN (obstructive sleep apnea) 01/01/2019 Gastroesophageal reflux disease with esophagitis 06/26/2018 HTN, goal below 130/80 06/26/2018 documented as of this encounter (statuses as of 06/29/2024) Resolved Problems Problem Noted Date Diagnosed Date Resolved Date Mitral valve vegetation 11/06/202112/2022 S/P aortic valve replacement with bioprosthetic valve 01/01/2019 07/12/2021 HIV disease 06/26/2018 06/27/2018 History of endocarditis 06/26/201801/16 documented as of this encounter (statuses as of 06/29/2024) Immunizations Name Administration Dates Next Due COVID-19 mRNA, LNP-s, No Pre serve, 2-Dose Series ([email or web address]) 08/17/2021,02/15/2021,01/25/2021 COVID-19, LNP-s, No Preserve , Poncho-sucrose, [...] Description 07/24/2024 8:30 AM EDT Anticoagulation Pharmacy, [place] [address] [facility] [place] [address] [facility] [address] [place] [address] 08/07/2024 11:40 AM EDT Office Visit Family [facility] [address] [place] [address] Sergio Sosa MD [address] [place] [address] Scheduled Orders Name Type Priority Associated Diagnoses Orde r Schedule MYCODE SUBSEQUENT ADULT Lab Routine MyCode Research Other*[id number] Every 6 Months for 2 Occurrences starting 06/29/2024 until 07/19/2025 Scheduled Procedures Name Priority Associated Diagnoses Date/Ti me COLONOSCOPY FLEXIBLE PROXIMA L DIAGNOSTIC Recall Special screening for malignant neoplasms, colon Health Maintenance Due Date Last Done Comments Hepatitis B Vaccine (1 of 3 - 19+ 3-dose series) 1992 Cologuard 2018 Fecal Occult Blood Test 2018 Sigmoidoscopy 2018 Zoster Vaccines (1 of 2) 2023 Depression Screening 09/10/2023 09/10/2022 Influenza Vaccine (FLU shot) (#1) 2024 08/09/2023, 08/15/2022, 07/28/2021, Additional history exists GFR 04/03/2025 04/03/2024, 03/19, 08/20/2022, Additional history exists Albumin/Creatinine Ratio 04/12/2026 04/12/2023, 08/19 Diabetes Screening 04/03/2027 04/03/2024, 0 04/12/2023, 08/20/2022, Additional history exists Lipid Panel 04/12/2028 04/12/2023, 04/0 05/2021, 06/26/2018 DTaP,Tdap,and Td Vaccines (2 - Td or Tdap) 01/01/2029 01/01/2019 Colonoscopy 04/26/2033 04/26/2023, 04/26/2023 Colorectal Cancer Screening 04/26/2033 COVID-19 Vaccine Completed 08/03/2023, , 02/12/2022, Additional history exists HPV (Gardasil) Vaccine Aged [...] this encounter Medical Devices Implanted Type Area Customer Support Manager Device Identifier Shelf Expiration Date Model / Serial / Lot Lens 15.0 Mx60e - [id number] - [id number] Implanted:Qty: 1 on 05/12/2020 by Javid Zepeda MD at OR [facility] Right: Eye BAUSCH [employer] LOMB 10/17/2022 [id number]-71.0 / [id number] / [id number] Envista Mx60e 15.00d Implanted:Qty: 1 on 02/21/2021 by Javid Zepeda MD at OR [facility] Left: Eye BAUSCH [employer] LOMB 02/15/2023 [id number] / [id number] / [id number] Band Circling 2.5mm [place] - [id number] Implanted:Qty: 1 on 03/03/2021 by [facility] Left: Eye [employer] 05/17/2024 [id number] / / [id number] Silicone Band (Shruthi 70) - [id number] Implanted:Qty: 1 on 03/03/2021 by Rich Chaudhari MD [facility] Left: Eye [employer] 04/17/2024 [id number] / / [id number] documented as of this encounter Visit Diagnoses Diagnosis MyCode Research Other*[id number] documented in this encounter Care Teams Retail Interior Designer Relationship Specialty Start Date End Date Sergio Sosa MD [address] [place] [address] PCP - General Family Medicine 06/26/18 documented as of this encounter
--- OUTSIDE RECORDS SUMMARY | 2024-09-05 10:32 | External Medical Summary | Summary of Care ---
Author Name Unknown Organization [facility] Address [address] [place] [place] [address] Phone [phone] Care Team Providers Care Liner Machine Operator Helper Name Role Phone Jabari Lovell MD Primary Care Provider [phone] [phone] Reason for Visit * Reason Comments eRx-Medication Refill Encounter Details Date Type Department Care Team (Late st Contact Info) Description 05/15/2024 Refill Family Practice [facility] [address] [place] [address] Jabari Lovell MD [address] [place] [address] ASCVD (arteriosclerotic cardiovascular disease) Allergies Active Allergy Reactions Criticality Noted Date Comments Sulfa Antibiotics Other (Please comment) High 2017 Pt cannot remember what reaction he had to sulfa documented as of this encounter (statuses as of 05/15/2024) Medications Medication Sig Dispensed Refills Start Date [...] FOR ITCHING. 40 Tablet 2 09/10/2023 Active Lisinopril 2.5 MG Oral Tablet (Prinivil)Indicatio [...] AND AT BEDTIME 60 Capsule 04/29/2024 Active Aspirin Low Dose 81 MG Oral Tablet Delayed Release (aspirin enteric coated)Indications: ASCVD (arteriosclerotic cardiovascular disease) TAKE 1 TABLET BY MOUTH EVERY DAY 30 Tablet 5 05/15/2024 Active Aspirin Low Dose 81 MG Oral Tablet Delayed Release (aspirin enteric coated)Indications: ASCVD (arteriosclerotic cardiovascular disease) TAKE 1 TABLET BY MOUTH EVERY DAY 30 Tablet 5 11/15/2023 4 Discontinued documented as of this encounter (statuses as of 05/15/2024) Active Problems Problem Noted Date Diagnosed Date Overweight (BMI 25.0-29.9) 05/28/2023 Intermittent complete atrioventricular block 01/2023 Cardiac pacemaker in situ 07/12/2021 Status post mechanical aortic valve replacement 06/20/2021 Hyperuricemia 01/02/2019 S/P CABG x 1 01/01/2019 CAREN (obstructive sleep apnea) 01/01/2019 Gastroesophageal reflux disease with esophagitis 06/26/2018 HTN, goal below 130/80 06/26/2018 documented as of this encounter (statuses as of 05/15/2024) Resolved Problems Problem Noted Date Diagnosed Date Resolved Date Mitral valve vegetation 11/06/2021 02/0 12/2022 S/P aortic valve replacement with bioprosthetic valve 01/01/2019 07/12/2021 HIV disease 06/26/2018 06/27/2018 History of endocarditis 06/26/201801/16 documented as of this encounter (statuses as of 05/15/2024) Immunizations Name Administration Dates Next Due COVID-19 [...] our heating, water, or electric bill? No 05/23/2023 Is your family able to pay t he heat, water, or electric bill? (Household - for ages 0-17 years) Not on file 05/23/2023 Does your family have access to good internet? (Household - for ages 0-17 years) Not on file 05/23/2023 Employment Status Answer Date Recorded Are you unemployed or without regular income? No 05/23/2023 Does the household have a re gular source of income? (Household - for ages 0-17 years) Not on file 05/23/2023 Social Connections Answer Date Recorded How often do you feel lonely or isolated from th ose around you? Never 05/23/2023 Financial Resource Strain Answer Date R ecorded [...] encounter Miscellaneous Notes * Telephone Encounter - Kaci Murray [facility] - 05/15/2024 10:43 AM EDT Signed Prescriptions: Disp Refills Aspirin Low Dose 81 MG Oral Tablet Delayed*30 Tab*5 Sig: TAKE 1 TABLET BY MOUTH EVERY DAYAuthorizing Provider: JABARI LOVELL User: KACI MURRAY E documented in this encounter Plan of Treatment Upcoming Encounters Date Type Department Care Team (Late st Contact Info) Description 06/12/2024 8:30 AM EDT [facility] [address] [place] [address] [facility] [address] [place] [address] Scheduled Procedures Name Priority Associated Diagnoses Date/Ti [...] this encounter Medical Devices Implanted Type Area Sales Associate Device Identifier Shelf Expiration Date Model / Serial / Lot Lens 15.0 Mx60e - [id number] - [id number] Implanted:Qty: 1 on 05/12/2020 by Javid Zepeda MD at [facility] Right: Eye [employer]OM[employer] 10/17/2022 [id number] / [id number] / [id number] Envista Mx60e 15.00d Implanted:Qty: 1 on 02/21/2021 by Javid Zepeda MD at [facility] Left: Eye BAUSCH [employer] LOMB 02/15/2023 [id number] / [id number] / [id number] Band Circling 2.5mm Michael - [id number] Implanted:Qty: 1 on 03/03/2021 by Rich Chaudhari MD at [facility] Left: Eye [employer] 05/17/2024 [id number] / / [id number] Silicone Band (Shruthi 70) - [id number] Implanted:Qty: 1 on 03/03/2021 by [facility] Left: Eye [employer] 04/17/2024 [id number] / / [id number] documented as of this encounter Visit Diagnoses Diagnosis ASCVD (arteriosclerotic cardiovascular disease) Unspecified cardiovascular disease documented in this encounter Care Teams Liner Machine Operator Helper Relationship Specialty Start Date End Date Jabari Lovell MD [address] [place] [address] PCP - General Family Medicine 06/26/18 documented as of this encounter
--- OUTSIDE RECORDS SUMMARY | 2024-09-05 10:32 | External Medical Summary | Summary of Care ---
Author Name Unknown Organization [facility] Address [address] [place] [address] Phone [phone] Care Team Providers Care Janitorial Account Manager Name Role Phone Sergio Sosa MD Primary Care Provider [phone] [phone] Reason for Visit * Reason Comments Dosage Adjustment In Person (Anticoag Cl inic) Encounter Details Date Type Department Care Team (Latest Contact Info) Description 04/24/2024 8:30 AM EDT Anticoagulation Pharmacy, [place] [address] [place] [address] [facility] [address] [place] [address] Anticoagulation management encounter*; Status post mechanical aortic valve replacement Allergies Active Allergy Reactions Criticality Noted Date Comments Sulfa Antibiotics Other (Please comment) High 2017 Pt cannot remember what reaction he had to sulfa documented as of this encounter (statuses as of 04/24/2024) Medications Medication Sig Dispensed Refills Start Date [...] as of this encounter (statuses as of 04/24/2024) Active Problems Problem Noted Date Diagnosed Date Overweight (BMI 25.0-29.9) 05/28/2023 Intermittent complete atrioventricular block 01/2023 Cardiac pacemaker in situ 07/12/2021 Status post mechanical aortic valve replacement 06/20/2021 Hyperuricemia 01/02/2019 S/P CABG x 1 01/01/2019 CAREN (obstructive sleep apnea) 01/01/2019 Gastroesophageal reflux disease with esophagitis 06/26/2018 HTN, goal below 130/80 06/26/2018 documented as of this encounter (statuses as of 04/24/2024) Resolved Problems Problem Noted Date Diagnosed Date Resolved Date Mitral valve vegetation 11/06/202112/2022 S/P aortic valve replacement with bioprosthetic valve 01/01/2019 07/12/2021 HIV disease 06/26/2018 06/27/2018 History of endocarditis 06/26/201801/16 documented as of this encounter (statuses as of 04/24/2024) Immunizations Name Administration Dates Next Due COVID-19 [...] Progress Notes * Whit Espinosa RPh - 04/24/2024 8:21 AM EDT Medication Therapy Disease Management - Anticoagulation Patient: Rich Mckeon | : 1975 Subjective Patient-Reported Symptoms: Patient Findings Negatives: Signs/symptoms of thrombosis, Signs/symptoms of bleeding, Change in health, Change in alcohol use, Change in activity, Upcoming invasive procedure, Missed doses, Extra doses, Change in medications, Change in diet/appetite, Bruising Objective Current Warfarin Dose As of 04/24/2024 Warfarin maintenance plan: 6 mg (4 mg x 1.5) every Fri; 4 mg (4 mg x 1) all other days INR Result As of 04/24/2024 INR goal: 1.7-2.5 INR used for dosin.3 (04/24/2024) Assessment & Plan Warfarin Plan As of 04/24/2024 Full warfarin instructions: 6 mg every Fri; 4 mg all other days No change documented: Whit Espinosa RPh Next INR check: 06/12/2024 Repeat PT/INR in 7 week(s) Weekly dose: not changed Additional Dosing Information: Description Whit Espinosa RPh Clinical Pharmacist 04/24/2024, 8:21 AM documented in this encounter Plan of Treatment Upcoming Encounters Date Type Department Care Team (Late st Contact Info) Description 06/12/2024 8:30 AM EDT Anticoagulation Pharmacy, [address] [address] [facility] [address] [facility] [address] Scheduled Orders Name Type Priority Associated Diagnoses Orde r Schedule PT INR Lab Routine Status post mechanical aortic valve replacement Anticoagulation management encounter 26 Occurrences starting 04/24/2024 until 04/24/2025 INR FINGERSTICK, POINT OF CARE Point of Care Testing - Unsolicited Results STAT Status post mechanical aortic valve replacement Anticoagulation management encounter Every 2 Weeks for 26 Occurrences starting 04/24/2024 until 04/24/2025, 1 completed Scheduled Procedures Name Priority Associated Diagnoses Date/Ti [...] this encounter Medical Devices Implanted Type Area Bus Monitor Device Identifier Shelf Expiration Date Model / Serial / Lot Lens 15.0 Mx60e - [id number] - [id number] Implanted:Qty: 1 on 05/12/2020 by Javid Zepeda MD at OR [facility] Right: Eye [employer] LOMB 10/17/2022 [id number]-86.0 / [id number] / [id number] Envista Mx60e 15.00d Implanted:Qty: 1 on 02/21/2021 by Javid Zepeda MD at [facility] Left: Eye [employer] LOMB 02/15/2023 [id number] / [id number] / [id number] Band Circling 2.5mm Michael - [id number] Implanted:Qty: 1 on 03/03/2021 by [facility] Left: Eye [employer] 05/17/2024 [id number] / / [id number] Silicone Band (Shruthi 70) - [id number] Implanted:Qty: 1 on 03/03/2021 by [facility] Left: Eye [employer] 04/17/2024 [id number] / / [id number] documented as of this encounter Procedures Procedure Name Priority Date/Time Associated Diagnosis Comments INR FINGERSTICK, POINT OF CARE STAT 04/24/2024 8:28 AM EDT Status post mechanical aortic valve replacement Anticoagulation management encounter documented in this encounter Results * INR FINGERSTICK, POINT OF CARE (04/24/2024 8:28 AM EDT) Fingerstick INR 2.3 INR 8:30 AM EDT LABORATORY [place] 56-01 Blood 04/24/2024 8:28 AM EDT 04/24/2024 8:30 AM EDT [facility]ative [facility] - 04/24/2024 8:30 AM EDT Therapeutic ranges for non-operative patients: Prophylaxsis/treatment of DVT: (Range:2.0-3.0) Treatment of pulmonary embolism:(Range:2.0-3.0) Prevention of systemic embolism from: -tissue heart valves -acute myocardial infarction -valvular heart disease -atrial fibrillation (Range: 2.0-3.0) Mechanical prosthetic valves: (Range: 2.5-3.5) Whit Espinosa [facility] POINT OF CARE TEST DOCKED DEVICE UNSOLICITED RESULTS LABORATORY [place] [address] [place] [address] documented in this encounter Visit Diagnoses Diagnosis Anticoagulation management encounter- Primary Encounter for therapeutic drug monitoring Status post mechanical aortic valve replacement documented in this encounter Care Teams Janitorial Account Manager Relationship Specialty Start Date End Date Sergio Sosa MD [facility] [place] [address] PCP - General Family Medicine 06/26/18 documented as of this encounter"
--- OUTSIDE RECORDS SUMMARY | 2024-09-05 10:32 | External Medical Summary | Summary of Care ---
Author Name Unknown Organization [facility] Address [address] [place] [address] Phone [phone] Care Team Providers Care Sheet Mill Supervisor Name Role Phone Jabari Lovell MD Primary Care Provider [phone] [phone] Reason for Visit * Reason Comments eRx-Medication Refill Encounter Details Date Type Department Care Team (Late st Contact Info) Description 06/03/2024 Refill Family Practice [facility] [address] [place] [address] Jabari Lovell MD [address] [place] [address] Status post mechanical aortic valve replacement Allergies Active Allergy Reactions Criticality Noted Date Comments Sulfa Antibiotics Other (Please comment) High 2017 Pt cannot remember what reaction he had to sulfa documented as of this encounter (statuses as of 06/04/2024) Medications Medication Sig Dispensed Refills Start Date [...] 05/15/2024 Active Lisinopril 2.5 MG Oral Tablet (Prinivil)Indicatio ns:Hypertensive nephropathy TAKE 1 TABLET BY MOUTH EVERY DAY IN THE MORNING 90 Tablet 05/16/2024 Active Pregabalin 75 MG Oral Capsule (Lyrica)Indications :Status post mechanical aortic valve replacement TAKE 1 CAPSULE BY MOUTH EVERY DAY IN THE MORNING AND AT BEDTIME 60 Capsule 06/04/2024 Active Pregabalin 75 MG Oral Capsule (Lyrica)Indications :Status post mechanical aortic valve replacement TAKE 1 CAPSULE BY MOUTH EVERY DAY IN THE MORNING AND AT BEDTIME 60 Capsule 04/29/2024 Discontinued documented as of this encounter (statuses as of 06/04/2024) Active Problems Problem Noted Date Diagnosed Date Overweight (BMI 25.0-29.9) 05/28/2023 Intermittent complete atrioventricular block 01/2023 Cardiac pacemaker in situ 07/12/2021 Status post mechanical aortic valve replacement 06/20/2021 Hyperuricemia 01/02/2019 S/P CABG x 1 01/01/2019 CAREN (obstructive sleep apnea) 01/01/2019 Gastroesophageal reflux disease with esophagitis 06/26/2018 HTN, goal below 130/80 06/26/2018 documented as of this encounter (statuses as of 06/04/2024) Resolved Problems Problem Noted Date Diagnosed Date Resolved Date Mitral valve vegetation 11/06/202112/2022 S/P aortic valve replacement with bioprosthetic valve 01/01/2019 07/12/2021 HIV disease 06/26/2018 06/27/2018 History of endocarditis 06/26/201801/16 documented as of this encounter (statuses as of 06/04/2024) Immunizations Name Administration Dates Next Due COVID-19 [...] Telephone Encounter - Jabari Lovell MD - 06/04/2024 10:39 PM EDTSigned Prescriptions: Disp Refills Pregabalin 75 MG Oral Capsule (Lyrica) 60 Cap*0 Sig: TAKE 1 CAPSULE BY MOUTH EVERY DAY IN THE MORNING AND AT BEDTIME Authorizing Provider: JABARI LOVELL * Telephone Encounter - Juan Good [facility] - 06/04/2024 10:55 AM EDT Pending Prescriptions: Disp Refills Pregabalin 75 MG Oral Capsule [Pharmacy Me*60 Cap*0 Sig: TAKE 1 CAPSULE BY MOUTH EVERY DAY IN THE MORNING AND AT BEDTIME * Telephone Encounter - Juan Good [facility] - 06/04/2024 10:54 AM EDT I have reviewed the patients controlled substance dispensing history in the Prescription Drug Monitoring Program in compliance with the [facility] regulations before prescribing a controlled substance. PDMP checked on 06/04/2024. Pending Prescriptions: Disp Refills Pregabalin 75 MG Oral Capsule (Lyrica) [P*60 Cap*0 Sig: TAKE 1 CAPSULE BY MOUTH EVERY DAY IN THE MORNING AND AT BEDTIME Last Visit: 05/28/2023 (in office), Visit date not found (telemedicine) Next Visit: 08/07/2024 Date medication was last filled: 04/29/2024 Date medication is due for refill: 05/28/2024 Pharmacy: [id number] Is this request for a controlled substance? Yes and Urine Drug Screen Not completed Toxicology results: No results found for this or any previous visit. Please approve if appropriate. Thank you, Sami Good, PharmD Clinical Pharmacist [facility] ([facility]) 06/04/24 10:54 AM [phone] documented in this encounter Plan of Treatment Upcoming Encounters Date Type Department Care Team (Late st Contact Info) Description 06/12/2024 8:30 AM EDT Anticoagulation Pharmacy, [address] [address] [facility] [address] [place] [address] 08/07/2024 11:40 AM EDT Office Visit Family Practice [facility] [address] [facility] [place] [address] Jabari Lovell MD [address] [facility] [place] [address] Scheduled Procedures Name Priority Associated Diagnoses Date/Ti [...] this encounter Medical Devices Implanted Type Area Dietary Aide Cook Device Identifier Shelf Expiration Date Model / Serial / Lot Lens 15.0 Mx60e - [id number] - [id number] Implanted:Qty: 1 on 05/12/2020 by Javid Zepeda MD at [facility] Right: Eye [employer] 10/17/2022 [id number]-07.0 / [id number] / [id number] Envista Mx60e 15.00d Implanted:Qty: 1 on 02/21/2021 by Javid Zepeda MD at [facility] Left: Eye BAUSCH [employer] LOMB 02/15/2023 [id number] / [id number] / [id number] Band Circling 2.5mm [place] - [id number] Implanted:Qty: 1 on 03/03/2021 by Rich Chaudhari MD at [facility] Left: Eye [employer] 05/17/2024 [id number] / / [id number] Silicone Band (Shruthi 70) - [id number] Implanted:Qty: 1 on 03/03/2021 by Rich Chaudhari MD at [facility] Left: Eye [employer] 04/17/2024 [id number] / / [id number] documented as of this encounter Visit Diagnoses Diagnosis Status post mechanical aortic valve replacement documented in this encounter Care Teams Sheet Mill Supervisor Relationship Specialty Start Date End Date Jabari Lovell MD [address] [place] [address] PCP - General Family Medicine 06/26/18 documented as of this encounter
--- OUTSIDE RECORDS SUMMARY | 2024-09-05 10:32 | External Medical Summary | Summary of Care ---
Author Name Unknown Organization [facility] Address [address] [place] [address] Phone [phone] Care Team Providers Care Cbx Operator Name Role Phone Sergio Sosa MD Primary Care Provider +1 [phone] Reason for Visit * Reason Comments Dosage Adjustment In Person (Anticoag Cl inic) Encounter Details Date Type Department Care Team (Latest Contact Info) Description 06/12/2024 8:30 AM EDT Anticoagulation Pharmacy, [place] [address] [place] [address] [facility] [address] [place] [address] Anticoagulation management encounter*; Status post mechanical aortic valve replacement Allergies Active Allergy Reactions Criticality Noted Date Comments Sulfa Antibiotics Other (Please comment) High 2017 Pt cannot remember what reaction he had to sulfa documented as of this encounter (statuses as of 06/12/2024) Medications Medication Sig Dispensed Refills Start Date [...] as of this encounter (statuses as of 06/12/2024) Active Problems Problem Noted Date Diagnosed Date Overweight (BMI 25.0-29.9) 05/28/2023 Intermittent complete atrioventricular block 01/2023 Cardiac pacemaker in situ 07/12/2021 Status post mechanical aortic valve replacement 06/20/2021 Hyperuricemia 01/02/2019 S/P CABG x 1 01/01/2019 CAREN (obstructive sleep apnea) 01/01/2019 Gastroesophageal reflux disease with esophagitis 06/26/2018 HTN, goal below 130/80 06/26/2018 documented as of this encounter (statuses as of 06/12/2024) Resolved Problems Problem Noted Date Diagnosed Date Resolved Date Mitral valve vegetation 11/06/202112/2022 S/P aortic valve replacement with bioprosthetic valve 01/01/2019 07/12/2021 HIV disease 06/26/2018 06/27/2018 History of endocarditis 06/26/201801/16 documented as of this encounter (statuses as of 06/12/2024) Immunizations Name Administration Dates Next Due COVID-19 mRNA, LNP-s, No Pre serve, 2-Dose Series (Friendly Score) 08/17/2021,02/15/2021,01/25/2021 COVID-19, LNP-s, No Preserve , Poncho-sucrose, [...] Progress Notes * Whit Espinosa RPh - 06/12/2024 8:55 AM EDT Agree with plan as documented. Whit Espinosa [facility] Clinical Pharmacist 06/12/2024, 8:55 AM * Nubia Jiménez, Pharmacy [employer] Collector - 06/12/2024 8:28 AM EDT Medication Therapy Disease Management - Anticoagulation Patient: Rich Mckeon | : 1975 Subjective Patient-Reported Symptoms: Patient Findings Positives: Missed doses (Reported 2 missed doses before last week. Educated on adherence.) Negatives: Signs/symptoms of thrombosis, Signs/symptoms of bleeding, Change in health, Change in alcohol use, Change in activity, Upcoming invasive procedure, Extra doses, Change in medications, Change in diet/appetite, Bruising Objective Current Warfarin Dose As of 06/12/2024 Warfarin maintenance plan: 6 mg (4 mg x 1.5) every Fri; 4 mg (4 mg x 1) all other days INR Result As of 06/12/2024 INR goal: 1.7-2.5 INR used for dosin.1 (06/12/2024) Assessment & Plan Warfarin Plan As of 06/12/2024 Full warfarin instructions: 6 mg every Fri; 4 mg all other days No change documented: Nubia Jiménez, Pharmacy [employer] Collector Next INR check: 07/24/2024 Repeat PT/INR in 6 week(s) Weekly dose: not changed Additional Dosing Information: Description Nubia Jiménez PharmD, [facility] PGY1 [facility] 06/12/2024 8:41 AM documented in this encounter Plan of Treatment Upcoming Encounters Date Type Department Care Team (Late st Contact Info) Description 07/24/2024 8:30 AM EDT [facility]tico[facility] Pharm[facility], [place] [address] [facility] [address] [place], [place] [address] [address] [facility] [address] 08/07/2024 11:40 AM EDT Office Visit Family Practice [facility] [address] [place] [address] Sergio Sosa MD [address] [place] [address] Scheduled Procedures Name Priority Associated Diagnoses Date/Ti [...] this encounter Medical Devices Implanted Type Area Waste Machine Tender Device Identifier Shelf Expiration Date Model / Serial / Lot Lens 15.0 Mx60e - [id number] - [id number] Implanted:Qty: 1 on 05/12/2020 by Javid Zepeda MD at [facility] Right: Eye [employer]OM[employer] 10/17/2022 [id number]-33.0 / [id number] / [id number] Envista Mx60e 15.00d Implanted:Qty: 1 on 02/21/2021 by Javid Zepeda MD at [facility] Left: Eye [employer]CH [employer] LOMB 02/15/2023 [id number] / [id number] / [id number] Band Circling 2.5mm Michael - [id number] Implanted:Qty: 1 on 03/03/2021 by Rich Chaudhari MD at [facility] Left: Eye [employer] 05/17/2024 [id number] / / [id number] Silicone Band (Shruthi 70) - [id number] Implanted:Qty: 1 on 03/03/2021 by Rich Chaudhari MD at [facility] Left: Eye [employer] 04/17/2024 [id number] / / [id number] documented as of this encounter Procedures Procedure Name Priority Date/Time Associated Diagnosis Comments INR FINGERSTICK, POINT OF CARE [place] 06/12/2024 8:34 AM EDT documented in this encounter Results * INR FINGERSTICK, POINT OF CARE (06/12/2024 8:34 AM EDT) Fingerstick INR 2.1 INR 8:36 AM EDT [facility] Blood 06/12/2024 8:34 AM EDT 06/12/2024 8:36 AM EDT [facility] LABORATORY [place] - 06/12/2024 8:36 AM EDT Therapeutic ranges for non-operative patients: Prophylaxsis/treatment of DVT: (Range:2.0-3.0) Treatment of pulmonary embolism:(Range:2.0-3.0) Prevention of systemic embolism from: -tissue heart valves -acute myocardial infarction -valvular heart disease -atrial fibrillation (Range: 2.0-3.0) Mechanical prosthetic valves: (Range: 2.5-3.5) [facility] [place] LAB POINT OF CARE TEST DOCKED DEVICE UNSOLICITED RESULTS LABORATORY [place] [address] [facility] [place] [id number] documented in this encounter Visit Diagnoses Diagnosis Anticoagulation management encounter- Primary Encounter for therapeutic drug monitoring Status post mechanical aortic valve replacement documented in this encounter Care Teams Cbx Operator Relationship Specialty Start Date End Date Sergio Sosa MD [address] [facility] [place] [address] PCP - General Family Medicine 06/26/18 documented as of this encounter"
--- OUTSIDE RECORDS SUMMARY | 2024-09-05 10:32 | External Medical Summary | Summary of Care ---
Author Name Unknown Organization [facility] Address [address] [facility] [place] [address] Phone [phone] Care Team Providers Care Table Inspector Name Role Phone Jabari Lovell MD Primary Care Provider [phone] Reason for Visit * Reason Comments eRx-Medication Refill Encounter Details Date Type Department Care Team (Late st Contact Info) Description 03/20/2024 Refill Family Practice [facility] [address] [place] [address] Jabari Lovell MD [address] [place] [address] Perioral dermatitis; Status post mechanical aortic valve replacement Allergies Active Allergy Reactions Criticality Noted Date Comments Sulfa Antibiotics Other (Please comment) High 2017 Pt cannot remember what reaction he had to sulfa documented as of this encounter (statuses as of 03/21/2024) Medications Medication Sig Dispensed Refills Start Date [...] AT BEDTIME 60 Capsule 0 03/21/2024 Active Doxycycline Hyclate 50 MG Oral Capsule (Vibramycin)Indicat ions:Perioral dermatitis TAKE 1 CAPSULE BY MOUTH IN THE MORNING AND BEFORE BEDTIME 60 Capsule 2 10/07/2023 4 Discontinued Pregabalin 75 MG Oral Capsule (Lyrica)Indications :Status post mechanical aortic valve replacement TAKE 1 CAPSULE BY MOUTH IN THE MORNING AND BEFORE BEDTIME 60 Capsule 0 02/13/2024 4 Discontinued documented as of this encounter (statuses as of 03/21/2024) Active Problems Problem Noted Date Diagnosed Date Overweight (BMI 25.0-29.9) 05/28/2023 Intermittent complete atrioventricular block 01/2023 Cardiac pacemaker in situ 07/12/2021 Status post mechanical aortic valve replacement 06/20/2021 Hyperuricemia 01/02/2019 S/P CABG x 1 01/01/2019 CAREN (obstructive sleep apnea) 01/01/2019 Gastroesophageal reflux disease with esophagitis 06/26/2018 HTN, goal below 130/80 06/26/2018 documented as of this encounter (statuses as of 03/21/2024) Resolved Problems Problem Noted Date Diagnosed Date Resolved Date Mitral valve vegetation 11/06/202112/2022 S/P aortic valve replacement with bioprosthetic valve 01/01/2019 07/12/2021 HIV disease 06/26/2018 06/27/2018 History of endocarditis 06/26/201801/16 documented as of this encounter (statuses as of 03/21/2024) Immunizations Name Administration Dates Next Due COVID-19 mRNA, LNP-s, No Pre serve, 2-Dose Series ([employer]) 08/17/2021,02/15/2021,01/25/2021 COVID-19, LNP-s, No Preserve , Poncho-sucrose, [...] Telephone Encounter - Jabari Lovell MD - 03/21/2024 10:19 AM EDTSigned Prescriptions: Disp Refills Doxycycline Hyclate 50 MG Oral Capsule (Vi*60 Cap*2 Sig: TAKE 1 CAPSULE BY MOUTH IN THE MORNING AND BEFORE BEDTIME Authorizing Provider: JABARI LOVELL Pregabalin 75 MG Oral Capsule (Lyrica) 60 Cap*0 Sig: TAKE 1 CAPSULE BY MOUTH IN THE MORNING AND AT BEDTIME Authorizing Provider: JABARI LOVELL * Telephone Encounter - Martha Da Silva [facility] - 03/21/2024 6:47 AM EDTPending Prescriptions: Disp Refills Doxycycline Hyclate 50 MG Oral Capsule [Ph*60 Cap*2 Sig: TAKE 1 CAPSULE BY MOUTH IN THE MORNING AND BEFORE BEDTIME Pregabalin 75 MG Oral Capsule [Pharmacy Me*60 Cap*0 Sig: TAKE 1 CAPSULE BY MOUTH IN THE MORNING AND AT BEDTIME * Telephone Encounter - Martha Da Silva [facility] - 03/21/2024 6:46 AM EDT I have reviewed the patients controlled substance dispensing history in the Prescription Drug Monitoring Program in compliance with the [facility] regulations before prescribing a controlled substance. PDMP checked on 03/21/2024. Pending Prescriptions: Disp Refills Doxycycline Hyclate 50 MG Oral Capsule (V*60 Cap*2 Sig: TAKE 1 CAPSULE BY MOUTH IN THE MORNING AND BEFORE BEDTIME Pregabalin 75 MG Oral Capsule (Lyrica) [P*60 Cap*0 Sig: TAKE 1 CAPSULE BY MOUTH IN THE MORNING AND AT BEDTIME Last Visit: 05/28/2023 (in office), Visit date not found (telemedicine) Next Visit: Visit date not found Date medication was last filled: 02/13/24 Date medication is due for refill: 03/15/24 Pharmacy: [id number] [address] [facility] Is this request for a controlled substance? Yes and Urine Drug Screen Not completed Toxicology results: No results found for this or any previous visit. Please approve if appropriate. Thank You, Martha Da Silva [facility] Clinical Pharmacist [facility] ([facility]) (formerly Telepharmacy) [phone] 03/21/2024, 6:47 AM documented in this encounter Plan of Treatment Upcoming Encounters Date Type Department Care Team (Late st Contact Info) Description 04/24/2024 8:30 AM EDT [address] [address] [facility] [address] [facility] [place] [address] Scheduled Procedures Name Priority Associated Diagnoses Date/Ti [...] this encounter Medical Devices Implanted Type Area Co Director Device Identifier Shelf Expiration Date Model / Serial / Lot Lens 15.0 [id number] - [id number] - [id number] Implanted:Qty: 1 on 05/12/2020 by Javid Zepeda MD at [facility] Right: Eye [employer] 10/17/2022 [id number]-[id number] / [id number] / [id number] Envista Mx60e 15.00d Implanted:Qty: 1 on 02/21/2021 by Javid Zepeda MD at [facility] Left: Eye [employer] 02/15/2023 [id number] / [id number] / [id number] Band Circling 2.5mm [place] - [id number] Implanted:Qty: 1 on 03/03/2021 by Rich Chaudhari MD at [facility] Left: Eye [employer] 05/17/2024 [id number] / / [id number] Silicone Band (Shruthi 70) - [id number] Implanted:Qty: 1 on 03/03/2021 by Rich Chaudhari MD at [facility] Left: Eye [employer] 04/17/2024 [id number] / / [id number] documented as of this encounter Visit Diagnoses Diagnosis Perioral dermatitis Rosacea Status post mechanical aortic valve replacement documented in this encounter Care Teams Table Inspector Relationship Specialty Start Date End Date Jabari Lovell MD [address] [place] [address] PCP - General Family Medicine 06/26/18 documented as of this encounter
--- OUTSIDE RECORDS SUMMARY | 2024-09-05 10:33 | External Medical Summary ---
Author Name Unknown Address Unknown Organization : Laboratory Report Ordering Provider Test Date Status FRITZROYA 03/13/2024 08:23:27 Final Therapeutic ranges for non-o perative patients:
Prophylaxsis/treatment of DVT: (Range:2.0-3.0)
Treatment of pulmonary embolism:(Range:2.0-3.0)
Prevention of systemic embolism from:
-tissue heart valves
-acute myocardial infarction
-valvular heart disease
-atrial fibrillation
(Range: 2.0-3.0)
Mechanical prosthetic valves: (Range: 2.5-3.5) Observation Date Value Abnormality Reference (Units ) Status INR in Capillary blood by Coagulation assay 03/13/2024 08:23:27 2.1 (INR) Final Performing Location
--- NOTE | 2024-09-05 10:36 | Emergency Department Note ---
Impression & Plan Ventricular tachycardia, History of permanent cardiac pacemaker placement, Hx of prosthetic aortic valve replacement, Wide-complex tachycardia, Elevated troponin ED Provider Note NAME: SALINAS BLOOM AGE: 49 SEX: M : 1975 ARRIVES VIA: Ambulance INFORMANT: Patient, EMS ED PROVIDER(S): Booker Carlson MD CHIEF COMPLAINT: Elevated heart rate MEDICAL DECISION MAKING: Patient presents due to concern for elevated heart rate. I did receive a medical command call and review the EKGs that show a wide-complex tachycardia. I did send the EKG to the on-call hot mill shearer prior to the patient presenting do not know whether or not this was V. tach versus possible a flutter with aberrancy given the patient does have a prior history of a bundle branch block. Patient did spontaneously convert back into sinus rhythm prior to arrival. The patient is currently asymptomatic. IV was established and blood work was obtained. The patient's pacemaker was interrogated and there was concern from [employer] service that the patient was in ventricular tachycardia. I did convey this to the on-call hot mill shearer Dr. Esqueda who recommended the amiodarone bolus and drip which were ordered. Patient's blood work shows a normal white count hemoglobin and platelet count. The patient's kidney function is unremarkable. Initial troponin of 43. Patient is without chest pain or shortness of breath at this time. I did speak with the on-call hospitalist service Dr. Pierce and the patient was admitted to the medicine service. Critical Care: I have personally spent 45 minutes of critical care time in direct management of this patient. This includes bedside care, interpretation of diagnostic studies, and testing, discussion with consultants, patient, and family members, and other require inpatient management activities. This 45 minutes is in excess of all separately billable procedures. Discussion w/ other healthcare providers: Dr. Esqueda cardiology Dr. Pierce inpatient medicine service Prior /Outside records reviewed: I reviewed part of a prior discharge summary from Miya rosado from October 2021 patient with history of infectious endocarditis July 2001 status post aortic root replacement aortic valve replacement and single-vessel RCA coronary artery bypass grafting. Also associated AV block. Differential diagnosis: Benign positional vertigo, dehydration, hypovolemia, anemia, infection, hypoglycemia, electrolyte abnormalities, arrhythmia, tox among others were considered. Diagnostics, as interpreted by me: EKG: Prehospital EKG interpreted by myself Wide-complex tachycardia rate of 200, wide QRS Repeat EKG interpreted by myself Sinus with first-degree AV block, PVC noted, rate of 80, prolonged NH, normal QRS and normal axis. Cardiac monitoring: An order was placed for continuous cardiac monitoring. The monitor shows a rate of 78 with sinus rhythm. Patient was placed on pulse oximetry Medical decision rules: None Imaging studies: I informally interpreted the patient's Chest x-ray does not show obvious pneumonia or pneumothorax, device noted. with formal report to follow. HPI: Patient presents due to concern for an elevated heart rate. Patient reports that his heart rate seem to be rapid and elevated around 815 this morning. The patient states that he was already awake at the time of this occurred. EMS had called in and already given 6 and 12 mg of adenosine but without improvement. Patient subsequently did have an improvement in his heart rate into the 80s. The patient states that while he had the rapid heart rate he did feel short of breath and had some mild chest tightness. Patient states that the chest tightness was more generalized nonradiating. No nausea vomiting or diaphoresis. Patient does see Kirk Ricketts with cardiology most recently saw him on his birthday in [birth year]. Patient states that he is to have his Coumadin level between 1.7 and 2.5. Patient does have a prior history of valve replacements. Since the patient's heart reverted into the 80s the patient has had resolution of symptoms. Patient denies any falls or trauma. Patient denies any cough or fever. Patient does have a prior history of endocarditis but does not take any daily antibiotics. Patient states that most recently at the dentist he did take prophylactic course of if taking an antibiotic consider taking a probiotic and/or eating yogurt, but at the least, please take with food as it can cause upset stomach. Prior to his dental visit. PAST MEDICAL HISTORY: See Below PAST SURGICAL HISTORY: See Below SOCIAL HISTORY: See Below HOME MEDICATIONS: See Below ALLERGIES: See Below VITALS: See Below PHYSICAL EXAMINATION: GENERAL: NAD, non-toxic. EYE EXAM: Normal conjunctiva. PERRL, no anisocoria and EOM's grossly intact w/o pain. OROPHARYNX: Moist mucus membranes, grossly normal dentition. NECK: Trachea midline, no stridor. LUNGS: Clear to auscultation. Normal chest wall mechanics. HEART: NSR, no MRG. ABDOMEN: Abdomen soft, non-tender, no masses, no rebound or guarding. BACK: No CVA TTP. SKIN: No rashes and no bruising. UPPER EXTREMITIES: Upper extremities are grossly normal. LOWER EXTREMITIES: Grossly normal, no edema. NEURO EXAM: A&O x3, cranial nerves II-XII grossly intact, normal speech, moves all 4 extremities. 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 Anemia Hx of prosthetic aortic valve replacement (Acute) History of permanent cardiac pacemaker placement (Acute) HTN (hypertension) Pacemaker (Acute) CAREN (obstructive sleep apnea) Bacteremia due to Streptococcus (Acute) Hx of mechanical aortic valve replacement (Acute) Medical History Retinal detachment left eye History of cardiac disorder Per outpatient cardiology note: Congenitally bicuspid aortic valve 1.Infectious endocarditis in July 2001 status post homograft aortic root replacement, aortic valve replacement, single-vessel (RCA) coronary artery bypass grafting (likely due to coronary compromise with homograft) in 2000 2.Redo aortic valve replacement with a 21 mm [employer] bioprosthesis (Serial No: [id number], Model: [id number]) due to valve deterioration,insuffciency, November 2016. Surgery performed at [facility]. Preoperative coronary angiography demonstrated chronic right coronary occlusion with collateral fill and no obstructive disease in left coronary system. Severe homograft and aortic root calcification was noted and patient underwent sutureless Anders valve surgical implantation. 3.Status post 03/29/2021 dual chamber pacemaker implantation at [facility], Dr. Tabor. [employer] Keli XT DR SUZY Kwok [id number], Serial number [id number]. Tyrx pouch, reference [id number], lot number [id number]. Right atrial lead: Med[employer] 5076-52 cm, Serial number [id number]. Left bundle lead: [employer] 3830-69 cm, Serial number [id number]. 4.Status post June 14, 2021 excision of homograft root with rebecca valve and replacement with a 23 mm On-X mechanical prosthetic valve, ascending yrn arch replacement, and right radial artery bypass grafting to the RCA via full conventional sternotomy at [facility]. Discharge date: 06/21/2021 GERD (gastroesophageal reflux disease) Surgical History S/P CABG x 1 Family History Mother Diabetes Social History Smoking Status: Never smoker Second Hand Exposure: No; Do You Dip or Chew Tobacco: No; Hx Alcohol Use: No Hx Substance Use: Yes Last Used Substance: Unknown Preferred Language: [place] Communication Ability: Effective Site Coordinator Required: No Beliefs That Will Affect Care: None marital status: Current Living Situation: Spouse Current Living Situation Comment: second floor apartment How many Children do You have: 0 Feels Safe at Home: Yes Assistive Devices: None Allergies Allergies Allergy/AdvReac Type Severity Reaction Status Date / Time Sulfa (Sulfonamide Allergy Severe Unknown Verified 12/11/21 08:10 Antibiotics) Home Meds Home Medications Medication Instructions Recorded Confirmed atorvastatin 40 mg tablet 40 mg PO HS 03/29/21 09/05/24 famotidine 40 mg tablet 40 mg PO QAM 03/29/21 09/05/24 acetaminophen 325 mg tablet 650 mg PO Q4H PRN Pain 10/28/21 09/05/24 acyclovir 800 mg tablet 800 mg PO DAILY 10/28/21 09/05/24 allopurinol 300 mg tablet 300 mg PO QAM 10/28/21 09/05/24 amlodipine 10 mg tablet 10 mg PO DAILY 10/28/21 09/05/24 aspirin 81 mg chewable tablet 81 mg PO QAM 10/28/21 09/05/24 doxycycline hyclate 50 mg capsule 50 mg PO DAILY 10/28/21 09/05/24 metoprolol tartrate 50 mg tablet 50 mg PO AMHS 10/28/21 09/05/24 multivit with minerals-folic 1 tab PO QAM 10/28/21 09/05/24 acid-lycopene 0.4 mg-600 mcg tablet (One Daily For Men) pregabalin 75 mg capsule 75 mg PO BID 10/28/21 09/05/24 lisinopril 2.5 mg tablet 2.5 mg PO QAM 09/05/24 09/05/24 warfarin 4 mg tablet 4 mg PO UD 09/05/24 09/05/24 Results & Data (ED) Vital Signs Vital Signs - 24 hr 09/05/24 10:17 09/05/24 10:30 09/05/24 10:39 Temperature 36.6 C Temperature Source Oral Pulse Rate 78 80 Pulse Rate from SpO2 Sensor Pulse Rhythm Regular Pulse Strength Normal Respiratory Rate Respiratory Effort / Characteristics Non-Labored Spontaneous Respiratory Depth Normal Respiratory Pattern Regular Blood Pressure 122/84 Blood Pressure Mean 96 Blood Pressure Position Sitting Pulse Oximetry 96 94 Oxygen Delivery Method Room Air Room Air Sepsis Recent Fever Within 48 Hours No Sepsis New/Unexplained Change in Mental Status No Sepsis Action Taken by Nursing No Action Required 09/05/24 10:39 09/05/24 10:51 09/05/24 11:00 Temperature Temperature Source Pulse Rate 87 78 79 Pulse Rate from SpO2 Sensor 72 77 Pulse Rhythm Pulse Strength Respiratory Rate 16 7 L 16 Respiratory Effort / Characteristics Respiratory Depth Respiratory Pattern Blood Pressure Blood Pressure Mean Blood Pressure Position Pulse Oximetry 100 96 Oxygen Delivery Method Sepsis Recent Fever Within 48 Hours Sepsis New/Unexplained Change in Mental Status Sepsis Action Taken by Nursing 09/05/24 11:11 09/05/24 11:18 09/05/24 11:32 Temperature Temperature Source Pulse Rate 68 Pulse Rate from SpO2 Sensor 66 Pulse Rhythm Pulse Strength Respiratory Rate 23 Respiratory Effort / Characteristics Respiratory Depth Respiratory Pattern Blood Pressure 131/88 134/95 Blood Pressure Mean 96 105 Blood Pressure Position Pulse Oximetry 97 Oxygen Delivery Method Sepsis Recent Fever Within 48 Hours Sepsis New/Unexplained Change in Mental Status Sepsis Action Taken by Nursing 09/05/24 11:44 09/05/24 11:53 09/05/24 11:54 Temperature Temperature Source Pulse Rate 73 Pulse Rate from SpO2 Sensor 67 Pulse Rhythm Pulse Strength Respiratory Rate 17 Respiratory Effort / Characteristics Respiratory Depth Respiratory Pattern Blood Pressure 96/71 L 111/73 Blood Pressure Mean 89 88 Blood Pressure Position Pulse Oximetry 97 Oxygen Delivery Method Sepsis Recent Fever Within 48 Hours Sepsis New/Unexplained Change in Mental Status Sepsis Action Taken by Nursing 09/05/24 11:57 09/05/24 12:00 09/05/24 12:09 Temperature Temperature Source Pulse Rate 73 74 Pulse Rate from SpO2 Sensor 68 73 Pulse Rhythm Pulse Strength Respiratory Rate 21 19 Respiratory Effort / Characteristics Respiratory Depth Respiratory Pattern Blood Pressure 116/73 Blood Pressure Mean 86 Blood Pressure Position Pulse Oximetry 96 97 Oxygen Delivery Method Sepsis Recent Fever Within 48 Hours Sepsis New/Unexplained Change in Mental Status Sepsis Action Taken by Nursing 09/05/24 12:18 09/05/24 12:21 09/05/24 12:30 Temperature Temperature Source Pulse Rate 73 74 Pulse Rate from SpO2 Sensor 64 74 Pulse Rhythm Pulse Strength Respiratory Rate 20 20 Respiratory Effort / Characteristics Respiratory Depth Respiratory Pattern Blood Pressure 123/82 Blood Pressure Mean 88 Blood Pressure Position Pulse Oximetry 97 96 Oxygen Delivery Method Sepsis Recent Fever Within 48 Hours Sepsis New/Unexplained Change in Mental Status Sepsis Action Taken by Nursing 09/05/24 12:42 09/05/24 12:57 09/05/24 13:00 Temperature Temperature Source Pulse Rate 67 71 Pulse Rate from SpO2 Sensor 67 67 Pulse Rhythm Pulse Strength Respiratory Rate 17 22 Respiratory Effort / Characteristics Respiratory Depth Respiratory Pattern Blood Pressure 121/79 Blood Pressure Mean 92 Blood Pressure Position Pulse Oximetry 96 97 Oxygen Delivery Method Sepsis Recent Fever Within 48 Hours Sepsis New/Unexplained Change in Mental Status Sepsis Action Taken by Nursing 09/05/24 13:03 09/05/24 13:12 Temperature Temperature Source Pulse Rate 71 71 Pulse Rate from SpO2 Sensor 71 59 L Pulse Rhythm Pulse Strength Respiratory Rate 23 17 Respiratory Effort / Characteristics Respiratory Depth Respiratory Pattern Blood Pressure Blood Pressure Mean Blood Pressure Position Pulse Oximetry 96 97 Oxygen Delivery Method Sepsis Recent Fever Within 48 Hours Sepsis New/Unexplained Change in Mental Status Sepsis Action Taken by Long Term Medications Current Medication List: was personally reviewed by me Laboratory Data Attestation: I reviewed the patient's lab results. 09/05/24 10:50 09/05/24 10:50 Lab Results 09/05/24 09/05/24 09/05/24 Range/Units 10:50 11:00 12:48 WBC 5.91 (4.8-10.8) K/ul RBC 4.77 (4.70-6.10) M/uL Hgb 14.1 (14.0-18.0) g/dl POC Hgb 13.6 L (14.0-18.0) g/dl Hct 41.1 L (42.0-52.0) % POC Hct 40 L (42-52) % MCV 86.2 (80.0-100.0) fL MCH 29.6 (25.0-34.0) pg MCHC 34.3 (32.0-36.0) g/dL RDW Std Deviation 40.6 (36.4-46.3) fL RDW Coeff of Bronson 13.2 (11.5-14.5) % Plt Count 201 (130-400) K/uL MPV 11.1 (9.4-12.4) fL Immature Gran % (Auto) 0.3 % Neut % (Auto) 56.3 % Lymph % (Auto) 29.9 % Osborne % (Auto) 6.8 % Eos % (Auto) 6.4 % Baso % (Auto) 0.3 % Neut # (Auto) 3.32 (1.40-6.50) K/uL Lymph # (Auto) 1.77 (1.20-3.40) K/uL Osborne # (Auto) 0.40 (0.11-0.59) K/uL Eos # (Auto) 0.38 (0.00-0.50) K/uL Baso # (Auto) 0.02 (0.00-0.20) K/uL Immature Gran # (Auto) 0.02 (0.01-0.20) K/uL PT 17.5 H (9.0-12.0) Seconds INR 1.7 H (0.9-1.1) APTT 34 H (21-31) Seconds PTT Ratio 1.3 POC Sodium 141 (135-144) mmol/L Sodium 140 (136-145) mmol/L POC Potassium 4.0 (3.3-5.0) mmol/L Potassium 3.9 (3.5-5.1) mmol/L POC Chloride 106 (101-112) mmol/L Chloride 107 (98-107) mmol/L Carbon Dioxide 25 (21-32) mmol/L POC Total CO2 21 L (24-31) mmol/L Anion Gap 8 (3-11) POC Anion Gap 19.0 (16-25) mmol/L POC BUN 12 (7-18) mg/dl BUN 14 (6-23) mg/dl Creatinine 1.05 (0.6-1.4) mg/dl POC Creatinine 1.0 (0.6-1.3) mg/dl Est Cr Clr Drug Dosing 83.2 ml/min eGFR 85.94 BUN/Creatinine Ratio 13.3 (10-20) Glucose 98 (70-99(Fasting)) mg/dl POC Glucose (other) 96 (70-99) mg/dl Calcium 9.7 (8.6-10.3) mg/dl POC Ioniz Calcium Aida 1.20 (1.12-1.32) mmol/l Phosphorus 3.2 (2.5-4.9) mg/dl Magnesium 2.1 (1.7-2.4) mg/dl Total Bilirubin 1.0 (0.2-1.0) mg/dl AST 21 (13-39) U/L ALT 27 (7-52) U/L Alkaline Phosphatase 47 (34-104) U/L Troponin I High Sens 43.3 H 188.2 H* D (0-20) pg/ml Total Protein 7.3 (6.0-8.3) gm/dl Albumin 4.7 (3.4-5.0) gm/dl Globulin 2.6 (2.5-4.0) gm/dl Albumin/Globulin Ratio 1.8 (0.9-2) TSH 0.723 (0.300-4.500) uIu/ml Administered Medications Acyclovir (Acyclovir 400 Mg Tab) 800 mg PO DAILY@1200 [facility] Stop: 10/05/24 13:44 Last Admin: 09/05/24 15:29 Dose: Not Given Documented By: HOPE Aspirin (Aspirin 81 Mg Chew) 81 mg PO QAM MICHAEL Stop: 10/05/24 13:44 Last Admin: 09/05/24 14:02 Dose: 81 mg Documented By: MR Doxycycline Hyclate (Doxycycline Hyclate 50 Mg Cap) 50 mg PO DAILY [facility] Stop: 10/05/24 13:44 Last Admin: 09/05/24 14:02 Dose: 50 mg Documented By: MR Amiodarone HCl/Dextrose (Nexterone / D5w) 360 mg in 200 mls @ 33.333 mls/hr IV ONE ONE Stop: 09/05/24 17:12 Last Admin: 09/05/24 11:43 Dose: 1 mg/min, 33.3 mls/hr Documented By: RUMA Co-signed By: Heparin Sodium/Dextrose (Heparin Sodium/Dextrose) 25,000 units in 500 mls @ 18 mls/hr IV .Q24H [facility]; Protocol Stop: 10/05/24 14:14 Last Admin: 09/05/24 15:20 Dose: 900 units/hr, 18 mls/hr Documented By: HOPE Co-signed By: HM Discontinued Medications Amiodarone HCl (Amiodarone Iv Bolus & Drip) 1 each IV NOW STA; Protocol Stop: 09/05/24 11:04 Last Admin: 09/05/24 15:28 Dose: Not Given Documented By: HOPE Heparin Sodium/Dextrose (Heparin Iv Adult Wt-Based Low-Dose *No* Initial Bolus Protocol) 1 each IV Q15M [facility]; Protocol Stop: 09/05/24 18:00 Last Admin: 09/05/24 15:36 Dose: Not Given Documented By: HOPE Amiodarone HCl/Dextrose (Nexterone / D5w) 150 mg in 100 mls @ 600 mls/hr IV NOW STA Stop: 09/05/24 11:12 Last Infusion: 09/05/24 11:50 Dose: Infused Documented By: RUMA Co-signed By: ADONIS Admin: 09/05/24 11:24 Dose: 600 mls/hr Documented By: RUMA Co-signed By: DAMIR Miscellaneous (Stat Iv Infusion Titration Per Protocol) 1 each N/A NOW STA Stop: 09/05/24 11:04 Last Admin: 09/05/24 15:36 Dose: Not Given Documented By: HOPE Potassium Chloride (Potassium Chloride Crtab 20 Meq Tabcr) 20 meq PO NOW STA Stop: 09/05/24 13:18 Last Admin: 09/05/24 14:01 Dose: 20 meq Documented By: Warfarin Sodium (Warfarin Sod 4 Mg Tab) 4 mg PO MOTUWETHFRSA [facility] Stop: 10/05/24 13:44 Last Admin: 09/05/24 15:35 Dose: Not Given Documented By: HOPE Imaging Data Radiologist's Impression: Chest X-Ray 09/05/24 10:35 XR chest 1V portable CLINICAL HISTORY: Dysrhythmia TECHNIQUE: Single frontal radiograph of the chest was obtained. Comparison: Comparison is made to chest radiograph 10/28/2021 FINDINGS: Median sternotomy wires are unchanged. Dual-lead pacemaker is seen. The cardiomediastinal silhouette is normal. The lungs are clear. No evidence of pleural effusion or pneumothorax. IMPRESSION: No acute chest disease. ACT 112: Negative or not required by law. Electronically signed by: Paul Lopez M.D. 09/05/2024 11:17 AM Discharge Plan Visit Data Chief Complaint: Tachycardia Stated Complaint: CHEST PAIN ED Provider: Booker Carlson Discharge Problem: Ventricular tachycardia, History of permanent cardiac pacemaker placement, Hx of prosthetic aortic valve replacement, Wide-complex tachycardia, Elevated troponin Patient Disposition: Admitted As Inpatient Discharge Instructions Interventions: ED Discharge Assessment Last Done: 09/05/24 15:03
[2024-09-05] MEDS ORDERED: 0.2 MICRON FILTER SET 1 EACH IV STA (11:03)
[2024-09-05 11:11] LABS: iSTAT Hemoglobin 13.6 g/dl (14.0-18.0); iSTAT Ionized Calcium 1.2 mmol/l (1.12-1.32)
--- NOTE | 2024-09-05 11:18 | XRay Report ---
XR chest 1V portable CLINICAL HISTORY: Dysrhythmia TECHNIQUE: Single frontal radiograph of the chest was obtained. Comparison: Comparison is made to chest radiograph 10/28/2021 FINDINGS: Median sternotomy wires are unchanged. Dual-lead pacemaker is seen. The cardiomediastinal silhouette is normal. The lungs are clear. No evidence of pleural effusion or pneumothorax. IMPRESSION: No acute chest disease. ACT 112: Negative or not required by law. Electronically signed by: Paul Lopez M.D. 09/05/2024 11:17 AM
[2024-09-05] MEDS: AMIODARONE / D5W 150 MG/100 ML BAG IV STA (11:24)
[2024-09-05 11:27] LABS: Basophils # (auto) 0.02 K/uL (0.00-0.20); Basophils % (auto) 0.3 %; Eosinophils # (auto) 0.38 K/uL (0.00-0.50); Eosinophils % (auto) 6.4 %; Hematocrit (blood only) 41.1 % (42.0-52.0); Hemoglobin 14.1 g/dl (14.0-18.0); Immature Granulocytes # (auto) 0.02 K/uL (0.01-0.20); Immature Granulocytes % (auto) 0.3 %; Lymphocytes # (auto) 1.77 K/uL (1.20-3.40); Lymphocytes % (auto) 29.9 %; Mean Corpuscular Hemoglobin 29.6 pg (25.0-34.0); Mean Corpuscular Hgb Conc 34.3 g/dL (32.0-36.0); Mean Corpuscular Volume 86.2 fL (80.0-100.0); Mean Platelet Volume 11.1 fL (9.4-12.4); Monocytes % (auto) 6.8 %; Neutrophils # (auto) 3.32 K/uL (1.40-6.50); Neutrophils % (auto) 56.3 %; Platelet Count 201 K/uL (130-400); RDW Coefficient of Variation 13.2 % (11.5-14.5); RDW Standard Deviation 40.6 fL (36.4-46.3); Red Blood Count 4.77 M/uL (4.70-6.10); White Blood Count 5.91 K/ul (4.8-10.8)
[2024-09-05 11:35] LABS: Albumin Globulin Ratio 1.8 (0.9-2); Albumin Level 4.7 gm/dl (3.4-5.0); BUN Creatinine Ratio 13.3 (10-20); Calcium 9.7 mg/dl (8.6-10.3); Creatinine Clr Calc Pharmacy 83.2 ml/min; Globulin 2.6 gm/dl (2.5-4.0); Magnesium 2.1 mg/dl (1.7-2.4); Phosphorus 3.2 mg/dl (2.5-4.9); Potassium 3.9 mmol/L (3.5-5.1); Total Protein 7.3 gm/dl (6.0-8.3)
[2024-09-05 11:42] LABS: Troponin I High Sensitivity 43.3 pg/ml (0-20)
[2024-09-05] MEDS: AMIODARONE / D5W 360 MG/200 ML BAG IV ONE (11:43)
[2024-09-05 11:45] LABS: Partial Thromboplastin Ratio 1.3; Partial Thromboplastin Time 34 Seconds (21-31)
[2024-09-05 11:51] LABS: Thyroid Stimulating Hormone 0.723 uIu/ml (0.300-4.500)
[2024-09-05 12:11] LABS: INR 1.7 (0.9-1.1); Prothrombin Time 17.5 Seconds (9.0-12.0)
[2024-09-05] MEDS ORDERED: POLYETHYLENE (MIRALAX) 17 GM PACK PO PRN (13:20)
[2024-09-05] MEDS ORDERED: ALUMINUM/MAGNESIUM SUSP 30 ML UDC PO PRN (13:20)
[2024-09-05] MEDS ORDERED: MAGNESIUM HYDROXIDE SUSP 30 ML UDC PO PRN (13:20)
[2024-09-05] MEDS ORDERED: ACETAMINOPHEN 325 MG TAB PO PRN (13:20)
--- NOTE | 2024-09-05 13:32 | History & Physical Report ---
Date of Service September 05, 2024 Assessment & Plan (1) Palpitation: Plan Palpitation Chest discomfort Wide-complex tachycardia Patient had episode of palpitation associated with shortness of breath and chest discomfort, noted to have wide-complex tachycardia per EMS, received adenosine 6 Mg and 12 mg with improvement of heart rate into 80s. Patient started on amiodarone bolus and drip in the ED, continue with same per protocol. Cardiology consult, await further recommendation Add potassium chloride 20 mill equivalent, monitor and replete electrolytes to maintain potassium greater than 4 and magnesium greater than 2 Continue telemetry monitoring, get EKG as needed for chest pain, get echo. N.p.o. midnight. Other chronic medical conditions: HTN, HLD, status post bowel repair: Continue with/resume home meds as when able. Medications reviewed with the patient: Patient takes acyclovir 800 Mg daily at noon, allopurinol 300 Mg daily in the evening, amlodipine 10 Mg daily in the morning, baby aspirin daily in the morning, atorvastatin 40 Mg daily in the evening, doxycycline 50 Mg daily in the morning, lisinopril 2.5 Mg daily in the morning, metoprolol 50 Mg daily in the morning and evening, pregabalin 75 Mg daily in the evening, Coumadin [6 Mg on Saturday and 4 mg daily rest of the days]. He also takes famotidine, finasteride, hydroxyzine. DVT prophylaxis: Patient on Coumadin Full code History of Present Illness Chief Complaint: palpitation Primary Care Provider: Sergio Sosa MD 49-year-old male with PMH of CAREN on CPAP, HTN, status post mechanical aortic valve replacement, cardiac pacemaker in situ, intermittent complete atrioventricular block, GERD, status post CABG x 1 presented to the ED after having palpitation episode while at rest. Patient reports about 9 AM today when he was doing his minimal activities/resting, he started feeling chest discomfort/slight heaviness associated with palpitation, he noted his heart rate varying between 170-200. He also reported associated shortness of breath. EMS evaluated patient at the scene, wide-complex tachycardia with heart rate 200 noted, he received 6 and 12 mg of adenosine with subsequent improvement of heart rate into the 80s. Patient denies any fever/cough/sore throat/nausea/vomiting/acute changes in appetite or bowel or bladder habit/belly pain. ED physician d/w with cardiology, patient was started on amiodarone drip with better heart rate control. Patient denies a smoking/alcohol use/recreational drug use. Patient uses marijuana almost daily. Medications reviewed with the patient in detail at bedside. Plan of care discussed with the patient and bedside in detail, he voiced understanding. Full code as per my discussion with the patient. Allergies Allergy/AdvReac Type Severity Reaction Status Date / Time Sulfa (Sulfonamide Allergy Severe Unknown Verified 12/11/21 08:10 Antibiotics) Home Medications Medication Instructions Recorded Confirmed Type atorvastatin 40 mg tablet 40 mg PO HS 03/29/21 12/11/21 History famotidine 40 mg tablet 40 mg PO QAM 03/29/21 12/11/21 History acetaminophen 325 mg tablet 650 mg PO Q4H PRN Pain 10/28/21 12/11/21 History acyclovir 800 mg tablet 800 mg PO DAILY 10/28/21 12/11/21 History allopurinol 300 mg tablet 300 mg PO QAM 10/28/21 12/11/21 History amlodipine 10 mg tablet 10 mg PO DAILY 10/28/21 12/11/21 History aspirin 81 mg chewable tablet 81 mg PO QAM 10/28/21 12/11/21 History doxycycline hyclate 50 mg capsule 50 mg PO DAILY 10/28/21 12/11/21 History metoprolol tartrate 50 mg tablet 50 mg PO BID 10/28/21 12/11/21 History multivit with minerals-folic 1 tab PO QAM 10/28/21 12/11/21 History acid-lycopene 0.4 mg-600 mcg tablet (One Daily For Men) pregabalin 75 mg capsule 75 mg PO BID 10/28/21 12/11/21 History warfarin 4 mg tablet 2 mg PO ESQUIVEL 10/28/21 12/11/21 History warfarin 4 mg tablet 4 mg PO MOTUWETHFRSA 10/28/21 12/11/21 History ceftriaxone 2 gram intravenous 2 g IV DAILY #40 ea 10/31/21 12/11/21 Rx solution Past Med/Surg History Problem List Palpitation 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 Anemia Hx of prosthetic aortic valve replacement History of permanent cardiac pacemaker placement HTN (hypertension) Pacemaker (Acute) CAREN (obstructive sleep apnea) Bacteremia due to Streptococcus (Acute) Hx of mechanical aortic valve replacement (Acute) Medical History (Updated 09/05/24 @ 13:36 by Pierre Pierce MD) Retinal detachment left eye History of cardiac disorder Per outpatient cardiology note: Congenitally bicuspid aortic valve 1.Infectious endocarditis in July 2001 status post homograft aortic root replacement, aortic valve replacement, single-vessel (RCA) coronary artery bypass grafting (likely due to coronary compromise with homograft) in 2000 2.Redo aortic valve replacement with a 21 mm Anders Biomedical bioprosthesis (Serial No: [id number], Model: [id number]) due to valve deterioration,insuffciency, November 2016. Surgery performed at [facility]. Preoperative coronary angiography demonstrated chronic right coronary occlusion with collateral fill and no obstructive disease in left coronary system. Severe homograft and aortic root calcification was noted and patient underwent sutureless Anders valve surgical implantation. 3.Status post 03/29/2021 dual chamber pacemaker implantation at [facility], Dr. Tabor. Medtronic Keli XT DR SUZY Kwok [id number], Serial number [id number]. Tyrx pouch, reference [id number], lot number [id number]. Right atrial lead: Medtronic 5076-52 cm, Serial number [id number]. Left bundle lead: Medtronic 3830-69 cm, Serial number [id number]. 4.Status post June 14, 2021 excision of homograft root with rebecca valve and replacement with a 23 mm On-X mechanical prosthetic valve, ascending yrn arch replacement, and right radial artery bypass grafting to the RCA via full conventional sternotomy at [facility]. Discharge date: 06/21/2021 GERD (gastroesophageal reflux disease) Surgical History S/P CABG x 1 Family History Mother Diabetes Social History Smoking Status: Never smoker Second Hand Exposure: No; Do You Dip or Chew Tobacco: No; Hx Alcohol Use: No Hx Substance Use: Yes Last Used Substance: Unknown Preferred Language: Israeli Communication Ability: Effective Hospitality Recruiter Required: No Beliefs That Will Affect Care: None marital status: Current Living Situation: Spouse Current Living Situation Comment: second floor apartment How many Children do You have: 0 Feels Safe at Home: Yes Assistive Devices: None Review of Systems Review of Systems: Negative otherwise mentioned in HPI. Physical Exam Physical Exam: GENERAL: Alert and oriented x3. NAD, on RA. HEENT: No pallor, no icterus. Pupils equal, round and reactive to light. Oral mucosa moist. NECK: No JVD, no neck masses. HEART: S1 and S2 heard. Regular rate and rhythm. + murmur, no gallop. Central old healed mid sternotomy scar in chest. RESPIRATORY SYSTEM: Normal AP diameter. No accessory muscle use. No wheezing, no crackles. ABDOMEN: Soft, bowel sounds present, nontender, no distention. CENTRAL NERVOUS SYSTEM: No facial droop. Speech is clear. Obeys simple commands. Moves extremities. EXTREMITIES: No edema, no erythema seen. Results & Data Results & Data Vital Signs (Past 12 Hours) Vital Signs Temp Pulse Resp BP Pulse Ox O2 Del Method 09/05/24 12:21 74 20 96 09/05/24 12:18 73 20 97 09/05/24 12:09 74 19 97 09/05/24 12:00 116/73 09/05/24 11:57 73 21 96 09/05/24 11:54 73 17 97 09/05/24 11:53 111/73 09/05/24 11:44 96/71 L 09/05/24 11:32 134/95 09/05/24 11:18 68 23 97 09/05/24 11:11 131/88 09/05/24 11:00 79 16 96 09/05/24 10:51 78 7 L 100 09/05/24 10:39 87 16 09/05/24 10:39 80 09/05/24 10:30 94 Room Air 09/05/24 10:17 36.6 C 78 122/84 96 Room Air
[2024-09-05] MEDS: POTASSIUM CHLORIDE CRTAB 20 MEQ TABCR PO STA (14:01)
[2024-09-05] MEDS: ASPIRIN 81 MG CHEW PO SCH (14:02)
[2024-09-05] MEDS: DOXYCYCLINE HYCLATE 50 MG CAP PO SCH (14:02)
--- NOTE | 2024-09-05 15:09 | Cardiology Consultation ---
Date of Consultation September 05, 2024 Assessment & Plan (1) Wide-complex tachycardia: (2) Ventricular tachycardia: (3) Elevated troponin: (4) Congenital bicuspid aortic valve: (5) S/P AVR: (6) Heart block: (7) Pacemaker: Plan Symptomatic wide-complex tachycardia, ventricular tachycardia. Status post conversion after administration of IV adenosine via EMS. Amiodarone bolus and drip initiated in ER. Continue IV amiodarone drip. Increase beta-steve dosing, switching from metoprolol tartrate 50 mg BID to metoprolol succinate dosing at 75 mg twice per day. Maintain normokalemia and normomagnesemia. Refer for resting echocardiography. Elevated troponin. Known ASCVD, see below. IV heparin initiated in ER. Continue IV heparin for now. Continue beta-steve, asa, statin, and lori inhabitation. Congenitally bicuspid aortic valve. See below. Most recent surgical intervention was a June 14, 2021, excision of homograft root with rebecca valve and replacement with a 23 mm On-X mechanical prosthetic valve, ascending yrn arch replacement, and right radial artery bypass grafting to the RCA via full conventional sternotomy ([facility]). INR goal for this valve is 1.5 to 2.0, along with aspirin History of infectious endocarditis, recurrent bacteremia, recent dental work, VT. Start with TTE. Check blood cultures Intermittent high-degree AV block. Status post 03/29/2021 dual chamber pacemaker implantation at [facility], Dr. Tabor. - Medtronic Keli XT DR SUZY Kwok [id number], Serial number [id number]. - Right atrial lead: Medtronic 5076-52 cm, Serial number [id number]. - Left bundle lead: Medtronic 3830-69 cm, Serial number [id number]. - Device interrogation by Medtronic Supervisor Rod Placing today; see report. CAREN. Compliance with CPAP and supplemental oxygen encouraged. Supervising Physician Co-Signing Physician Notes I spent a total of 60 minutes on the date of service in preparation, delivery, and documentation of the care provided to this patient, excluding any time spent in the performance of separately billed services. I have personally performed a history and physical examination on the patient. I have reviewed the advance practitioner's documentation, and I agree with, and take responsibility for the plan of care. 49 year old M with extensive cardiac history as above presented today with symptoms of palpitations that started in the morning while walking his dog. He had some mild chest tightness and dyspnea but no other symptoms. He was given Adenosine 6mg and 12mg by EMS and apparently patient reverted by to sinus after 12mg of adenosine. His PPM was interrogated which showed an episode of VT lasting for 1 hour and 20 minutes. He was started on amiodarone gtt and heparin gtt (due to rising troponins). He is resting comfortably now. Is euvolemic on exam. His ECG showed no acute ischemic changes. His echocardiogram showed preserved LV function with no mechanical aortic valve stenosis (there is regurgitation noted but difficult to quantify due to shadowing from mechanical AV). He does state that a few weeks ago he had dental work (but had SBE prophylaxis). He has been having chills for the past month but no other signs of endocarditis. Would recommend septic work up. If unremarkable then will need an ischemic evaluation. Continue Amiodarone infusion then will transition to PO amiodarone. Continue to monitor on tele. History of Present Illness Reason for Consultation: Ventricular tachycardia Requesting Physician: Dr. Booker Carlson [facility] of Present Illness Rich Dumont" is a 49-year-old male who was in his usual state of health until around 830 this morning. He notes getting ready to walk the dog when he began to experience constant elevated heart rate, tachypalpitations associated with difficulty breathing and chest pressure. He was able to walk the dog with some difficulty. When he returned from the walking checked his blood pressure as well as heart rate via home monitoring and observe heart rate readings ranging from 157 to 200 bpm. Blood pressure readings were normal. Patient notes an initial telephone call to [facility] with the triage nurse advising him to hang up and call 911. EMS arrived to find the patient in a wide-complex tachycardia at 200 bpm. 6 mg then 12 mg of IV adenosine was administered with improvement in heart rates into the 80's. Patient describes having had short episodes of palpitations similar to this in the last couple months though nothing sustained like this morning. No inciting cause noted. No nausea, vomiting, or diarrhea. No recent illnesses. Compliance noted with medications including metoprolol 50 mg twice per day. Significant other notes noncompliance with CPAP every other night. No overt change in exercise tolerance or functional status until this AM. No activity related chest discomfort until this morning. No cough, chest congestion, orthopnea, lower e xtremity peripheral edema, abrupt weight change. No syncope. No fevers, chills, or night sweats. No rash. No tick bites. Dental work performed 2 weeks ago, utilizing SBE prophylaxis. EKG on presentation to the ER revealed sinus rhythm at 80 bpm with a first- degree AV block, with occasional premature ventricular complexes, low voltage QRS, possible old septal infarct. QTc 454 ms. INR therapeutic on presentation at 1.7 (INR goal 1.5-2.0). Potassium and magnesium are normal at 4.0 and 2.1. TSH within normal limits at 0.723. High-sensitivity troponin initially elevated at 43.3 then 188.2 Problem List: Congenitally bicuspid aortic valve Infectious endocarditis in July 2001 status post homograft aortic root replacement, aortic valve replacement, single-vessel (RCA) coronary artery bypass grafting (likely due to coronary compromise with homograft) in 2000 Redo aortic valve replacement with a 21 mm Anders Biomedical bioprosthesis (Serial No: [id number], Model: [id number]) due to valve deterioration, insuffciency, November 2016. Surgery performed at [facility]. Preoperative coronary angiography demonstrated chronic right coronary occlusion with collateral fill and no obstructive disease in left coronary system. Severe homograft and aortic root calcification was noted and patient underwent sutureless Anders valve surgical implantation. Intermittent high-grade 2nd and third-degree AV block, symptomatic, status post 03/29/2021 dual chamber pacemaker implantation at [facility], Dr. Tabor. Medtronic Keli XT DR SUZY Kwok [id number], Serial number [id number]. Tyrx pouch, reference [id number], lot number [id number]. Right atrial lead: Medtronic 5076-52 cm, Serial number [id number]. Left bundle lead: Medtronic 3830-69 cm, Serial number [id number]. Status post June 14, 2021 excision of homograft root with rebecca valve and replacement with a 23 mm On-X mechanical prosthetic valve, ascending yrn arch replacement, and right radial artery bypass grafting to the RCA via full conventional sternotomy at [facility]. Discharge date: 06/21/2021 Hospitalization at [facility] October 28, 2021 to October 31, 2021, presenting with Streptococcus bacteremia, Streptococcus mitis/oralis. Transesophageal echocardiography performed by Dr. Joshua Martinez on October 30, 2021 demonstrated a filamentous mitral valve echodensity suggesting possible vegetation. Infectious Disease out of [facility] (Dr. Vanessa Urbano MD) recommended treating for 6 weeks with IV ceftriaxone from first negative blood cultures as no clear source of his infection and high risk because of prosthetic valve endocarditis. Hypertension CAREN, CPAP, with supplemental oxgyen. Gastroesophageal reflux Gout Social History: Nonsmoker. Social alcohol Nightly marijuana. 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. to Kiran who also works at [employer]. Family History: Mother with diabetes. Father with hypertension. Allergies Allergy/AdvReac Type Severity Reaction Status Date / Time Sulfa (Sulfonamide Allergy Severe Unknown Verified 12/11/21 08:10 Antibiotics) Home Medications Medication Instructions Recorded Confirmed Type atorvastatin 40 mg tablet 40 mg PO HS 03/29/21 09/05/24 History famotidine 40 mg tablet 40 mg PO QAM 03/29/21 09/05/24 History acetaminophen 325 mg tablet 650 mg PO Q4H PRN Pain 10/28/21 09/05/24 History acyclovir 800 mg tablet 800 mg PO DAILY 10/28/21 09/05/24 History allopurinol 300 mg tablet 300 mg PO QAM 10/28/21 09/05/24 History amlodipine 10 mg tablet 10 mg PO DAILY 10/28/21 09/05/24 History aspirin 81 mg chewable tablet 81 mg PO QAM 10/28/21 09/05/24 History doxycycline hyclate 50 mg capsule 50 mg PO DAILY 10/28/21 09/05/24 History metoprolol tartrate 50 mg tablet 50 mg PO AMHS 10/28/21 09/05/24 History multivit with minerals-folic 1 tab PO QAM 10/28/21 09/05/24 History acid-lycopene 0.4 mg-600 mcg tablet (One Daily For Men) pregabalin 75 mg capsule 75 mg PO BID 10/28/21 09/05/24 History lisinopril 2.5 mg tablet 2.5 mg PO QAM 09/05/24 09/05/24 History warfarin 4 mg tablet 4 mg PO UD 09/05/24 09/05/24 History Patient History Medical History Retinal detachment left eye History of cardiac disorder Per outpatient cardiology note: Congenitally bicuspid aortic valve 1.Infectious endocarditis in July 2001 status post homograft aortic root replacement, aortic valve replacement, single-vessel (RCA) coronary artery bypass grafting (likely due to coronary compromise with homograft) in 2000 2.Redo aortic valve replacement with a 21 mm Anders Biomedical bioprosthesis (Serial No: [id number], Model: [id number]) due to valve deterioration,insuffciency, November 2016. Surgery performed at [facility]. Preoperative coronary angiography demonstrated chronic right coronary occlusion with collateral fill and no obstructive disease in left coronary system. Severe homograft and aortic root calcification was noted and patient underwent sutureless Anders valve surgical implantation. 3.Status post 03/29/2021 dual chamber pacemaker implantation at [facility], Dr. Tabor. Medtronic Keli XT DR SUZY Kwok [id number], Serial number [id number]. Tyrx pouch, reference [id number], lot number [id number]. Right atrial lead: Medtronic 5076-52 cm, Serial number [id number]. Left bundle lead: Medtronic 3830-69 cm, Serial number [id number]. 4.Status post June 14, 2021 excision of homograft root with rebecca valve and replacement with a 23 mm On-X mechanical prosthetic valve, ascending yrn arch replacement, and right radial artery bypass grafting to the RCA via full conventional sternotomy at [facility]. Discharge date: 06/21/2021 GERD (gastroesophageal reflux disease) Surgical History S/P CABG x 1 Family History Mother Diabetes Social History Smoking Status: Never smoker Second Hand Exposure: No; Do You Dip or Chew Tobacco: No; Hx Alcohol Use: No Hx Substance Use: Yes Last Used Substance: Unknown Preferred Language: Greek Communication Ability: Effective Bariatric Coordinator Required: No Beliefs That Will Affect Care: None marital status: Current Living Situation: Spouse Current Living Situation Comment: second floor apartment How many Children do You have: 0 Feels Safe at Home: Yes Assistive Devices: None Review of Systems Review of Systems: Complete Review of Systems is as stated above, negative, or noncontributory. Physical Exam Physical Exam: General: Alert and comfortable Eyes: PER. Conjunctiva pink, sclera clear. HENT: Normocephalic. Atraumatic. Neck: No carotid bruits. No JVD. No HJR. Heart: Regular at 74 bpm with an occasional ectopic beat. Glacier mechanical valve sounds. Soft systolic murmur at the lower left sternal border and apex. No rub. Lungs: Lungs clear to auscultation Abdomen: +BS. Soft. Nontender. No masses. No organomegaly. Extremities: No clubbing, cyanosis, or edema. Pulses: radial=2/4 Posterior tibial=2/4. Limited neurological examination: No focal deficit Results & Data Vital Signs (Past 12 Hours) Vital Signs Temp Pulse Resp BP Pulse Ox O2 Del Method 09/05/24 14:51 69 21 97 09/05/24 14:46 74 09/05/24 14:30 66 23 97 09/05/24 14:21 68 16 98 09/05/24 14:12 68 18 98 09/05/24 14:03 78 20 97 09/05/24 14:00 126/84 09/05/24 13:51 73 23 97 09/05/24 13:42 71 16 98 09/05/24 13:30 71 21 97 09/05/24 13:30 126/80 09/05/24 13:21 71 21 96 09/05/24 13:20 78 18 95 Room Air 09/05/24 13:12 71 17 97 09/05/24 13:03 71 23 96 09/05/24 13:00 121/79 09/05/24 12:57 71 22 97 09/05/24 12:42 67 17 96 09/05/24 12:30 123/82 09/05/24 12:21 74 20 96 09/05/24 12:18 73 20 97 09/05/24 12:09 74 19 97 09/05/24 12:00 116/73 10/19/24 11:57 73 21 96 09/05/24 11:54 73 17 97 09/05/24 11:53 111/73 09/05/24 11:44 96/71 L 09/05/24 11:32 134/95 09/05/24 11:18 68 23 97 09/05/24 11:11 131/88 09/05/24 11:00 79 16 96 09/05/24 10:51 78 7 L 100 09/05/24 10:39 87 16 09/05/24 10:39 80 09/05/24 10:30 94 Room Air 09/05/24 10:17 36.6 C 78 122/84 96 Room Air Laboratory Results Cardiac Enzymes 09/05/24 09/05/24 Range/Units 10:50 12:48 AST 21 (13-39) U/L Troponin I High Sens 43.3 H 188.2 H* D (0-20) pg/ml Coagulation 09/05/24 Range/Units 10:50 PT 17.5 H (9.0-12.0) Seconds APTT 34 H (21-31) Seconds CBC 09/05/24 Range/Units 10:50 WBC 5.91 (4.8-10.8) K/ul RBC 4.77 (4.70-6.10) M/uL Hgb 14.1 (14.0-18.0) g/dl Hct 41.1 L (42.0-52.0) % Plt Count 201 (130-400) K/uL Neut # (Auto) 3.32 (1.40-6.50) K/uL Lymph # (Auto) 1.77 (1.20-3.40) K/uL Taliaferro # (Auto) 0.40 (0.11-0.59) K/uL Eos # (Auto) 0.38 (0.00-0.50) K/uL Baso # (Auto) 0.02 (0.00-0.20) K/uL Comprehensive Metabolic Panel 09/05/24 Range/Units 10:50 Sodium 140 (136-145) mmol/L Potassium 3.9 (3.5-5.1) mmol/L Chloride 107 (98-107) mmol/L Carbon Dioxide 25 (21-32) mmol/L BUN 14 (6-23) mg/dl Creatinine 1.05 (0.6-1.4) mg/dl Glucose 98 (70-99(Fasting)) mg/dl Calcium 9.7 (8.6-10.3) mg/dl AST 21 (13-39) U/L ALT 27 (7-52) U/L Alkaline Phosphatase 47 (34-104) U/L Total Protein 7.3 (6.0-8.3) gm/dl Albumin 4.7 (3.4-5.0) gm/dl Intake and Output 09/05/24 09/05/24 09/05/24 06:59 14:59 22:59 Intake Total 100 / 100 Balance 100 / 100 Intake: IV 100 / 100 Amiodarone / D5w 150 mg In 100 100 / 100 ml @ 600 mls/hr IV NOW STA Rx#: [id number] Other: Weight 82.6 kg Weight Measurement Method Built in [employer] Patient Weight 09/06/24 06:59 Weight 82.6 kg Diagnostic Findings June 12, 2021 Cardiac Catheterization ([facility]) LMT: The LMT is normal. LAD: The LAD has moderate diffuse disease. The mid LAD is narrowed 40 % - moderate diffuse disease. Additional Comment: LAD is a large caliber vessel that wraps around apex. Distally, LAD provides collateral flow to RPDA. LCX: The Circumflex is normal. LCx does provide robust collateral flow to RPL branch through atrial collateral. RAMUS: Absent. RCA: The proximal RCA is narrowed 100 % - SPINE NURSE. RCA not selectively engaged, but based on injection of LCA, RCA appears to be proximally occluded. Robust left -> right collateral flow, with the entire vessel filling retrograde. GRAFTS: Saphenous Vein Graft End to Side to the Right Coronary Artery - occluded, stump. Resting echocardiography at the [facility] on January 18, 2023 revealed a well functioning ON-X AVR with stable tricuspid regurgitation. Quick look pacemaker interrogation performed this (09/05/2024) morning demonstrated appropriate function, 11 years remaining longevity. Atrial paced 29.4%. Ventricular paced 25.9%. Monomorphic ventricular tachycardia observed this morning starting at 07:38, up to 207 bpm. Multiple short episodes of SVTST and as nonsustained ventricular tachycardia observed over the last 8 months.
[2024-09-05] MEDS: HEPARIN SODIUM/DEXTROSE 25,000 UNITS/500 ML BAG IV SCH (15:20)
[2024-09-05] MEDS: AMIODARONE IV BOLUS & DRIP IV STA (15:28)
[2024-09-05] MEDS: ACYCLOVIR 400 MG TAB PO SCH (15:29)
[2024-09-05] MEDS: WARFARIN SOD 4 MG TAB PO SCH (15:35)
[2024-09-05] MEDS: Heparin IV Adult Wt-Based Low-Dose *NO* INITIAL Bolus Protocol IV SCH (15:36)
[2024-09-05] MEDS: STAT IV Infusion **Titration per Protocol STA (15:36)
[2024-09-05] MEDS: AMIODARONE / D5W 360 MG/200 ML BAG IV SCH (17:50)
[2024-09-05] MEDS: ATORVASTATIN 40 MG TAB PO SCH (19:53)
[2024-09-05] MEDS: METOPROLOL SUCC 25MG EXT REL TAB PO SCH (19:53)
[2024-09-05] MEDS: allopurinoL 300 MG TAB PO SCH (19:53)
[2024-09-05] MEDS: PREGABALIN 75 MG CAP PO SCH (20:00)
[2024-09-05] MEDS: PREGABALIN 75 MG CAP PO ONE (20:01)
[2024-09-05] MEDS ORDERED: HEPARIN SOD 5,000 UNIT/0.5 ML VIAL SQ SCH (21:00)
[2024-09-05] MEDS ORDERED: METOPROLOL TARTRATE 50 MG TAB PO SCH (21:00)
[2024-09-05 21:41] LABS: ANTI-Xa, UFH(UnfractionatedHep 0.27 IU/ml (0.3-0.7)
[2024-09-06 04:16] LABS: Hematocrit (blood only) 38.6 % (42.0-52.0); Hemoglobin 13.3 g/dl (14.0-18.0); Mean Corpuscular Hgb Conc 34.5 g/dL (32.0-36.0); Mean Corpuscular Volume 86.9 fL (80.0-100.0); Platelet Count 186 K/uL (130-400); RDW Coefficient of Variation 13.1 % (11.5-14.5); RDW Standard Deviation 41.1 fL (36.4-46.3); Red Blood Count 4.44 M/uL (4.70-6.10); White Blood Count 6.21 K/ul (4.8-10.8)
[2024-09-06 04:33] LABS: BUN Creatinine Ratio 15.7 (10-20); Calcium 8.7 mg/dl (8.6-10.3); Creatinine Clr Calc Pharmacy 85.7 ml/min; Magnesium 2.1 mg/dl (1.7-2.4); Phosphorus 3.6 mg/dl (2.5-4.9); Potassium 3.8 mmol/L (3.5-5.1)
[2024-09-06 04:41] LABS: ANTI-Xa, UFH(UnfractionatedHep 0.43 IU/ml (0.3-0.7); INR 1.6 (0.9-1.1); Prothrombin Time 16.9 Seconds (9.0-12.0)
[2024-09-06 04:43] LABS: Troponin I High Sensitivity 72.9 pg/ml (0-20)
[2024-09-06] MEDS: amLODIPine BESYLATE 5 MG TAB PO SCH (08:07)
[2024-09-06] MEDS: FAMOTIDINE 40 MG TABLET PO SCH (08:08)
[2024-09-06 08:10] LABS: ANTI-Xa, UFH(UnfractionatedHep 0.45 IU/ml (0.3-0.7)
--- NOTE | 2024-09-06 08:41 | Cardiology Progress Note ---
Date of Service September 06, 2024 Assessment & Plan (1) Wide-complex tachycardia: (2) Ventricular tachycardia: (3) Elevated troponin: (4) Congenital bicuspid aortic valve: (5) S/P AVR: (6) Heart block: (7) Pacemaker: Plan 49-year-old male presenting to the ER via EMS after experiencing tachypalpitations associated with chest pressure and dyspnea in the AM of September 05, 2024 prior to walking his dog. Wide complex tachycardia observed, receiving 2 doses of IV adenosine via EMS with conversion following the second dose. Pacemaker interrogated, revealing wide-complex tachycardia concerning for ventricular tachycardia. Troponin mildly elevated (43.3 -> 188.2-> 282.1-> 72.9 pg/mL). Patient asymptomatic since conversion. EKG without acute change. Echo as summarized below. Inpatient telemetry monitoring benign. Amiodarone and heparin initiated in the ER. Metoprolol tartrate changed to succinate formulation with dosing increased to 75 mg twice per day. Patient with prior history of infectious endocarditis, past recurrent bacteremia, recent dental work, pacemaker in place. Blood cultures pending. Recommendations: Continue Amiodarone and heparin Holding Coumadin (INR goal 1.5 to 2.0 along with ASA 81 mg/day, 23 mm On-X mechanical prosthetic valve) Metoprolol tartrate changed to succinate formulation with dosing increased to 75 mg twice per day. Continue ASA, statin, and ALLIE inhibitor Supplement potassium orally Maintain telemetry Okay to feed today NPO after midnight for possible further cardiac evaluation in AM of 09/07/2024 Admission and Anticipated Discharge Date Admission Date: September 05, 2024 Supervising Physician Co-Signing Physician Notes I spent a total of 30 minutes on the date of service in preparation, delivery, and documentation of the care provided to this patient, excluding any time spent in the performance of separately billed services. I have personally performed a history and physical examination on the patient. I have reviewed the advance practitioner's documentation, and I agree with, and take responsibility for the plan of care. Subjective Patient seen and examined. Chart, medications, and telemetry reviewed. Significant other at bedside. Feeling okay. No palpitations, shortness of breath, or chest pain Review of Systems Review of Systems: Complete Review of Systems is as stated above, negative, or noncontributory. Physical Exam Physical Exam: General: Alert and oriented x 3. Comfortable. Cooperative. Eyes: PER. Conjunctiva pink, sclera clear. HENT: Normocephalic. Atraumatic. Neck: No carotid bruits. No JVD. No HJR. Heart: Regular at 66 bpm with an occasional ectopic beat. [place] mechanical valve sounds. Soft systolic murmur at the lower left sternal border and apex. No rub. Lungs: Lungs clear to auscultation Abdomen: +BS. No organomegaly. Extremities: No clubbing, cyanosis, or edema. Pulses: Posterior tibial=2/4. Limited neurological examination: No focal deficit Results & Data Vital Signs (Past 12 Hours) Vital Signs Temp Pulse Pulse Resp BP Pulse Ox O2 Del Method 09/06/24 08:13 36.5 C 60 16 121/75 96 Room Air 09/06/24 07:15 66 09/06/24 02:34 36.7 C 60 17 115/73 98 Room Air 09/05/24 22:50 36.6 C 70 18 124/80 96 Room Air 09/05/24 22:00 65 Laboratory Results Cardiac Enzymes 09/05/24 09/05/24 09/05/24 Range/Units 10:50 12:48 16:36 AST 21 (13-39) U/L Troponin I High Sens 43.3 H 188.2 H* D 282.1 H* D (0-20) pg/ml 09/06/24 Range/Units 03:56 AST (13-39) U/L Troponin I High Sens 72.9 H* D (0-20) pg/ml Coagulation 09/05/24 09/06/24 Range/Units 10:50 03:56 PT 17.5 H 16.9 H (9.0-12.0) Seconds APTT 34 H (21-31) Seconds CBC 09/05/24 09/06/24 Range/Units 10:50 03:56 WBC 5.91 6.21 (4.8-10.8) K/ul RBC 4.77 4.44 L (4.70-6.10) M/uL Hgb 14.1 13.3 L (14.0-18.0) g/dl Hct 41.1 L 38.6 L (42.0-52.0) % Plt Count 201 186 (130-400) K/uL Neut # (Auto) 3.32 (1.40-6.50) K/uL Lymph # (Auto) 1.77 (1.20-3.40) K/uL [place] # (Auto) 0.40 (0.11-0.59) K/uL Eos # (Auto) 0.38 (0.00-0.50) K/uL Baso # (Auto) 0.02 (0.00-0.20) K/uL Comprehensive Metabolic Panel 09/05/24 09/06/24 Range/Units 10:50 03:56 Sodium 140 136 (136-145) mmol/L Potassium 3.9 3.8 (3.5-5.1) mmol/L Chloride 107 106 (98-107) mmol/L Carbon Dioxide 25 25 (21-32) mmol/L BUN 14 16 (6-23) mg/dl Creatinine 1.05 1.02 (0.6-1.4) mg/dl Glucose 98 110 H (70-99(Fasting)) mg/dl Calcium 9.7 8.7 (8.6-10.3) mg/dl AST 21 (13-39) U/L ALT 27 (7-52) U/L Alkaline Phosphatase 47 (34-104) U/L Total Protein 7.3 (6.0-8.3) gm/dl Albumin 4.7 (3.4-5.0) gm/dl Intake and Output 09/05/24 09/06/24 09/06/24 22:59 06:59 14:59 Intake Total 464.3 / 749.113 184.813 / 749.113 187 / 187 Balance 464.3 / 749.113 184.813 / 749.113 187 / 187 Intake: IV 314.3 / 599.113 184.813 / 599.113 187 / 187 Amiodarone / D5w 360 mg In 200 200 / 384.813 184.813 / 384.813 ml @ 0.5 MG/MIN 16.667 mls/hr IV .Q12H MICHAEL Rx#:[id number] Heparin Sodium/Dextrose 25,000 114.3 / 114.3 187 / 187 units In 500 ml @ 1,000 UNITS/ HR 20 mls/hr IV .Q24H MICHAEL Rx#: [id number] Oral 150 / 150 Other: Other Intake Source npo Weight 82.6 kg 76.4 kg Weight Measurement Method Built in [facility] Diagnostic Findings Telemetry: Sinus with first-degree AV block, occasional PVCs in singles, intermittent AV pacing, heart rates in the 60s to 80s. September 05, 2024 TTE ([facility]): LVEF 55 to 60%. RV not well-visualized. Normal RV systolic function. [place] mechanical aortic prosthesis. Aortic stenosis is absent. There is aortic valve regurgitation present but difficult to quantify severity due to shadowing from mechanical aortic valve prosthesis. Mild mitral and tricuspid regurgitation.
[2024-09-06] MEDS: POTASSIUM CHLORIDE CRTAB 20 MEQ TABCR PO ONE (09:17)
--- NOTE | 2024-09-06 10:14 | Hospitalist Progress Note ---
Date of Service September 06, 2024 Assessment & Plan (1) Palpitation: Plan Pt is a 49-year-old male with PMHx significant for Hx of mechanical aortic valve replacement with past episodes of endocarditis, cardiac pacemaker in situ, intermittent complete atrioventricular block, status post CABG x 1, CAREN, GERD presented to the ED after having a persistent episode of palpations with SOB at home. Palpitations Chest discomfort Wide-complex tachycardia Demand Ischemia Patient had episode of palpitations associated with shortness of breath and chest discomfort Noted to have wide-complex tachycardia per EMS, received adenosine 6 Mg and 12 mg with improvement of heart rate into 80s. Patient started on amiodarone bolus and drip in the ED, continuing Trop with noted range 43.3--->188.2--->282.1--->72.9 Echo with EF of 55 to 60%, Normal right ventricular function, aortic mechanical valve prosthesis, noted aortic regurgitation, mild mitral regurgitation, mild tricuspid regurgitation Cardiology consulted, recommended/stated the following: "Continue Amiodarone and heparin Holding Coumadin (INR goal 1.5 to 2.0 along with ASA 81 mg/day, 23 mm On-X mechanical prosthetic valve) Metoprolol tartrate changed to succinate formulation with dosing increased to 75 mg twice per day. Continue ASA, statin, and ALILE inhibitor Supplement potassium orally Maintain telemetry Okay to feed today NPO after midnight for possible further cardiac evaluation in AM of 09/07/2024" Continue to monitor Other chronic medical conditions: HTN, HLD, status post bowel repair: Continue with/resume home meds as when able. Diet: HH, NPO after midnight DVT prophylaxis: Patient on Coumadin CODE STATUS: Full code Dispo: Home once medically stable Admission and Anticipated Discharge Date Admission Date: September 05, 2024 Subjective Patient was seen with his at bedside. States that overnight he did not have any chest pain, shortness of breath or fluttering in his chest. Denies acutely any headache, changes to vision, nausea vomiting or abdominal pain. patient asking for breakfast. Review of Systems Review of Systems: All systems reviewed & are unremarkable except as noted in Subjective Physical Exam Physical Exam: General: Alert, oriented. No acute distress Skin: surgical scar noted on anterior chest wall Psych: Appropriate mood and affect Neuro: no gross deficits while laying in bed HEENT: NC/AT CV: RRR, mechanical valve sounds appreciated Resp: Breath sounds clear bilaterally, no increased effort of breathing. Abdomen: Soft, nontender Extremities: No edema in lower extremities bilaterally. Results & Data Results & Data Vital Signs (Past 12 Hours) Vital Signs Temp Pulse Pulse Resp BP Pulse Ox O2 Del Method 09/06/24 08:13 36.5 C 60 16 121/75 96 Room Air 09/06/24 07:15 66 09/06/24 02:34 36.7 C 60 17 115/73 98 Room Air 09/05/24 22:50 36.6 C 70 18 124/80 96 Room Air Diagnostic Findings Chest X-Ray 09/05/24 10:35 XR chest 1V portable CLINICAL HISTORY: Dysrhythmia TECHNIQUE: Single frontal radiograph of the chest was obtained. Comparison: Comparison is made to chest radiograph 10/28/2021 FINDINGS: Median sternotomy wires are unchanged. Dual-lead pacemaker is seen. The cardiomediastinal silhouette is normal. The lungs are clear. No evidence of pleural effusion or pneumothorax. IMPRESSION: No acute chest disease. ACT 112: Negative or not required by law. Electronically signed by: Paul Lopez M.D. 09/05/2024 11:17 AM
[2024-09-07 06:21] LABS: Basophils # (auto) 0.03 K/uL (0.00-0.20); Basophils % (auto) 0.5 %; Eosinophils # (auto) 0.45 K/uL (0.00-0.50); Eosinophils % (auto) 8.1 %; Hematocrit (blood only) 39.7 % (42.0-52.0); Immature Granulocytes # (auto) 0.01 K/uL (0.01-0.20); Immature Granulocytes % (auto) 0.2 %; Lymphocytes # (auto) 1.74 K/uL (1.20-3.40); Lymphocytes % (auto) 31.4 %; Mean Corpuscular Hemoglobin 30.1 pg (25.0-34.0); Mean Corpuscular Hgb Conc 35.3 g/dL (32.0-36.0); Mean Corpuscular Volume 85.4 fL (80.0-100.0); Mean Platelet Volume 11.3 fL (9.4-12.4); Monocytes # (auto) 0.32 K/uL (0.11-0.59); Monocytes % (auto) 5.8 %; Platelet Count 200 K/uL (130-400); RDW Coefficient of Variation 13.1 % (11.5-14.5); RDW Standard Deviation 40.2 fL (36.4-46.3); Red Blood Count 4.65 M/uL (4.70-6.10); White Blood Count 5.55 K/ul (4.8-10.8)
[2024-09-07 06:41] LABS: Calcium 9.5 mg/dl (8.6-10.3); Creatinine Clr Calc Pharmacy 87.4 ml/min; Magnesium 2.1 mg/dl (1.7-2.4); Phosphorus 3.3 mg/dl (2.5-4.9); Potassium 3.9 mmol/L (3.5-5.1)
[2024-09-07 07:16] LABS: INR 1.4 (0.9-1.1); Prothrombin Time 14.7 Seconds (9.0-12.0)
[2024-09-07] MEDS: lisinopril 2.5 MG TAB PO SCH (08:05)
--- NOTE | 2024-09-07 09:56 | Cardiology Progress Note ---
Date of Service September 07, 2024 Assessment & Plan (1) Wide-complex tachycardia: (2) Ventricular tachycardia: (3) Elevated troponin: (4) Congenital bicuspid aortic valve: (5) S/P AVR: (6) Heart block: (7) Pacemaker: Plan 49-year-old male presenting to the ER via EMS after experiencing tachypalpitations associated with chest pressure and dyspnea in the AM of September 05, 2024 prior to walking his dog. Wide complex tachycardia observed, receiving 2 doses of IV adenosine via EMS with conversion following the second dose. Pacemaker interrogated, revealing wide-complex tachycardia concerning for ventricular tachycardia. Troponin mildly elevated (43.3 -> 188.2-> 282.1-> 72.9 pg/mL). Patient asymptomatic since conversion. EKG without acute change. Echo as summarized below. Inpatient telemetry monitoring benign. Amiodarone and heparin initiated in the ER. Metoprolol tartrate changed to succinate formulation with dosing increased to 75 mg twice per day. Patient with prior history of infectious endocarditis, past recurrent bacteremia, recent dental work, pacemaker in place. Blood cultures with no growth to date. Recommendations: Discontinue IV amiodarone Start oral amiodarone, 200 mg twice per day Continue IV heparin bridge back to therapeutic INR (23 mm On-X mechanical prosthetic valve); 6 mg Coumadin today Metoprolol tartrate (50 BID) changed to metoprolol succinate at 75 mg BID this admission. Continue aspirin, statin, and ALLIE inhibition. Okay to feed Outpatient Lexiscan nuclear stress test Outpatient Electrophysiology consultation Possible discharge in 1-2 days Admission and Anticipated Discharge Date Admission Date: September 05, 2024 Supervising Physician Co-Signing Physician Notes Patient's chart reviewed and patient personally seen and examined. Full assessment and plan as outlined above. Care and management discussed with advanced provider and personally endorsed No arrhythmias since admission. No active signs of ischemia or infection. Wide-complex tachycardia responsive to adenosine on presentation rates to 100 bpm. Preserved ejection fraction places patient in better risk category. Initiated antiarrhythmic therapy with amiodarone, with change from IV to oral today. Outpatient assessments as above Subjective Patient seen and examined. Chart, medications, and telemetry reviewed. Significant other Kiran at bedside. No complaints or concerns. Telemetry: Sinus with first-degree AV block, occasional PVCs, currently paced rhythm. No ventricular tachycardia. Review of Systems Review of Systems: Complete Review of Systems is as stated above, negative, or noncontributory. Physical Exam Physical Exam: General: Alert and oriented x 3. Comfortable. Cooperative. Eyes: PER. Conjunctiva pink, sclera clear. HENT: Normocephalic. Atraumatic. Neck: No carotid bruits. No JVD. No HJR. Heart: RRR, 70 bpm. [place] mechanical valve sounds. Soft systolic murmur at the lower left sternal border Lungs: Lungs clear to auscultation Abdomen: +BS. No organomegaly. Extremities: No clubbing, cyanosis, or edema. Pulses: Posterior tibial=2/4. Limited neurological examination: No focal deficit Results & Data Vital Signs (Past 12 Hours) Vital Signs Temp Pulse Pulse Resp BP Pulse Ox O2 Del Method 09/07/24 08:00 36.5 C 60 18 111/89 96 Room Air 09/07/24 03:34 36.5 C 62 18 113/68 97 CPAP 09/06/24 23:24 58 L 09/06/24 22:59 36.7 C 54 L 17 115/68 97 Room Air Laboratory Results Coagulation 09/07/24 Range/Units 05:37 PT 14.7 H (9.0-12.0) Seconds CBC 09/07/24 Range/Units 05:37 WBC 5.55 (4.8-10.8) K/ul RBC 4.65 L (4.70-6.10) M/uL Hgb 14.0 (14.0-18.0) g/dl Hct 39.7 L (42.0-52.0) % Plt Count 200 (130-400) K/uL Neut # (Auto) 3.00 (1.40-6.50) K/uL Lymph # (Auto) 1.74 (1.20-3.40) K/uL [place] # (Auto) 0.32 (0.11-0.59) K/uL Eos # (Auto) 0.45 (0.00-0.50) K/uL Baso # (Auto) 0.03 (0.00-0.20) K/uL Comprehensive Metabolic Panel 09/07/24 Range/Units 05:37 Sodium 140 (136-145) mmol/L Potassium 3.9 (3.5-5.1) mmol/L Chloride 106 (98-107) mmol/L Carbon Dioxide 26 (21-32) mmol/L BUN 11 (6-23) mg/dl Creatinine 1.00 (0.6-1.4) mg/dl Glucose 106 H (70-99(Fasting)) mg/dl Calcium 9.5 (8.6-10.3) mg/dl Intake and Output 09/06/24 09/07/24 09/07/24 22:59 06:59 14:59 Intake Total 717.137 / 2113.407 529.270 / 2113.407 Balance 717.137 / 2113.407 529.270 / 2113.407 Intake: IV 417.137 / 1033.407 429.270 / 1033.407 Amiodarone / D5w 360 mg In 200 179.803 / 370.740 190.937 / 370.740 ml @ 0.5 MG/MIN 16.667 mls/hr IV .Q12H MICHAEL Rx#:[id number] Heparin Sodium/Dextrose 25,000 237.334 / 662.667 238.333 / 662.667 units In 500 ml @ 1,000 UNITS/ HR 20 mls/hr IV .Q24H MICHAEL Rx#: [id number] Oral 300 / 1080 100 / 1080 Other: Other Intake Source npo # Unmeasured Voids 2 Weight 77.9 kg Weight Measurement Method Built in [facility]
--- NOTE | 2024-09-07 10:09 | Hospitalist Progress Note ---
Date of Service September 07, 2024 Assessment & Plan (1) Palpitation: Plan Pt is a 49-year-old male with PMHx significant for Hx of mechanical aortic valve replacement with past episodes of endocarditis, cardiac pacemaker in situ, intermittent complete atrioventricular block, status post CABG x 1, CAREN, GERD presented to the ED after having a persistent episode of palpations with SOB at home. Palpitations Chest discomfort Wide-complex tachycardia Pacemaker in situ Demand Ischemia Patient had episode of palpitations associated with shortness of breath and chest discomfort Noted to have wide-complex tachycardia per EMS, received adenosine 6 Mg and 12 mg with improvement of heart rate into 80s. Trop with noted range 43.3--->188.2--->282.1--->72.9 Echo with EF of 55 to 60%, Normal right ventricular function, aortic mechanical valve prosthesis, noted aortic regurgitation, mild mitral regurgitation, mild tricuspid regurgitation Patient was started on amiodarone bolus and drip in the ED, transitioned to po amiodarone on 09/07/24, 200mg BID Warfarin also restarted on 09/07/2024 with heparin bridge Cardiology consulted, recommended/stated the following on 09/07/24: "Discontinue IV amiodarone Start oral amiodarone, 200 mg twice per day Continue IV heparin bridge back to therapeutic INR (23 mm On-X mechanical prosthetic valve); 6 mg Coumadin today Metoprolol tartrate (50 BID) changed to metoprolol succinate at 75 mg BID this admission. Continue aspirin, statin, and ALLIE inhibition. Okay to feed Outpatient Lexiscan nuclear stress test Outpatient Electrophysiology consultation Possible discharge in 1-2 days" Continue to monitor Other chronic medical conditions: HTN, HLD, status post bowel repair: Continue with/resume home meds as when able. Diet: HH DVT prophylaxis: Patient on Coumadin with IV heparin CODE STATUS: Full code Dispo: Home once medically stable Admission and Anticipated Discharge Date Admission Date: September 05, 2024 Subjective patient was seen with his at bedside. Denies any chest pain, shortness of breath or funny feelings in his chest/palpitations no acute events overnight Review of Systems Review of Systems: All systems reviewed & are unremarkable except as noted in Subjective Physical Exam Physical Exam: General: Alert, oriented. No acute distress Skin: surgical scar noted on anterior chest wall Psych: Appropriate mood and affect Neuro: no gross deficits while laying in bed HEENT: NC/AT CV: RRR, mechanical valve sounds appreciated Resp: Breath sounds clear bilaterally, no increased effort of breathing. Abdomen: Soft, nontender Extremities: No edema in lower extremities bilaterally. Results & Data Results & Data Vital Signs (Past 12 Hours) Vital Signs Temp Pulse Pulse Resp BP Pulse Ox O2 Del Method 09/07/24 08:00 36.5 C 60 18 111/89 96 Room Air 09/07/24 03:34 36.5 C 62 18 113/68 97 CPAP 09/06/24 23:24 58 L 09/06/24 22:59 36.7 C 54 L 17 115/68 97 Room Air
[2024-09-07] MEDS: WARFARIN SOD 6 MG TAB PO ONE (16:21)
[2024-09-07] MEDS: AMIODARONE 200 MG TAB PO SCH (17:55)
[2024-09-08 06:32] LABS: Basophils # (auto) 0.04 K/uL (0.00-0.20); Basophils % (auto) 0.6 %; Eosinophils # (auto) 0.56 K/uL (0.00-0.50); Eosinophils % (auto) 8.8 %; Hematocrit (blood only) 40.9 % (42.0-52.0); Hemoglobin 14.2 g/dl (14.0-18.0); Immature Granulocytes # (auto) 0.03 K/uL (0.01-0.20); Immature Granulocytes % (auto) 0.5 %; Lymphocytes # (auto) 2.03 K/uL (1.20-3.40); Mean Corpuscular Hemoglobin 29.6 pg (25.0-34.0); Mean Corpuscular Hgb Conc 34.7 g/dL (32.0-36.0); Mean Corpuscular Volume 85.4 fL (80.0-100.0); Mean Platelet Volume 11.1 fL (9.4-12.4); Monocytes # (auto) 0.43 K/uL (0.11-0.59); Monocytes % (auto) 6.8 %; Neutrophils # (auto) 3.26 K/uL (1.40-6.50); Neutrophils % (auto) 51.3 %; Platelet Count 213 K/uL (130-400); RDW Coefficient of Variation 12.7 % (11.5-14.5); RDW Standard Deviation 39.4 fL (36.4-46.3); Red Blood Count 4.79 M/uL (4.70-6.10); White Blood Count 6.35 K/ul (4.8-10.8)
[2024-09-08 07:01] LABS: BUN Creatinine Ratio 13.8 (10-20); Calcium 9.4 mg/dl (8.6-10.3); Creatinine Clr Calc Pharmacy 75.3 ml/min; Magnesium 2.1 mg/dl (1.7-2.4); Phosphorus 3.9 mg/dl (2.5-4.9)
[2024-09-08 07:05] LABS: ANTI-Xa, UFH(UnfractionatedHep 0.52 IU/ml (0.3-0.7); INR 1.2 (0.9-1.1); Prothrombin Time 12.8 Seconds (9.0-12.0)
--- NOTE | 2024-09-08 11:00 | Hospitalist Progress Note ---
Date of Service September 08, 2024 Assessment & Plan (1) Palpitation: Plan Pt is a 49-year-old male with PMHx significant for Hx of mechanical aortic valve replacement with past episodes of endocarditis, cardiac pacemaker in situ, intermittent complete atrioventricular block, status post CABG x 1, CAREN, GERD presented to the ED after having a persistent episode of palpations with SOB at home. Palpitations Chest discomfort Wide-complex tachycardia Pacemaker in situ Demand Ischemia Patient had episode of palpitations associated with shortness of breath and chest discomfort Noted to have wide-complex tachycardia per EMS, received adenosine 6 Mg and 12 mg with improvement of heart rate into 80s. Trop with noted range 43.3--->188.2--->282.1--->72.9 Echo with EF of 55 to 60%, Normal right ventricular function, aortic mechanical valve prosthesis, noted aortic regurgitation, mild mitral regurgitation, mild tricuspid regurgitation Patient was started on amiodarone bolus and drip in the ED, transitioned to po amiodarone on 09/07/24, 200mg BID Warfarin also restarted on 09/07/2024 with heparin bridge Cardiology consulted, recommended/stated the following: -continue amiodarone 200mg BID -Continue IV heparin with warfarin dose increased today -Continue increased dose of metoprolol succinate 75mg BID -Continue aspirin, statin and ALLIE -Outpatient Lexiscan nuclear stress test -Outpatient Electrophysiology consultation at [facility] Follow INR Continue to monitor Other chronic medical conditions: HTN, HLD, status post bowel repair: Continue with/resume home meds as when able. Diet: HH DVT prophylaxis: Patient on Coumadin with IV heparin bridge CODE STATUS: Full code Dispo: Home once medically stable Admission and Anticipated Discharge Date Admission Date: September 05, 2024 Subjective patient was seen with at bedside. Lots of questions about the INR Anxious for discharge however understands why he needs to stay. Denies any chest pain, shortness of breath or palpitations Review of Systems Review of Systems: All systems reviewed & are unremarkable except as noted in Subjective Physical Exam Physical Exam: General: Alert, oriented. No acute distress Skin: surgical scar noted on anterior chest wall Psych: Appropriate mood and affect Neuro: no gross deficits while laying in bed HEENT: NC/AT CV: RRR, mechanical valve sounds appreciated Resp: Breath sounds clear bilaterally, no increased effort of breathing. Abdomen: Soft, nontender Extremities: No edema in lower extremities bilaterally. Results & Data Results & Data Vital Signs (Past 12 Hours) Vital Signs Temp Pulse Pulse Resp BP Pulse Ox O2 Del Method 09/08/24 09:01 60 09/08/24 08:18 36.6 C 60 18 135/88 97 Room Air 09/08/24 03:07 36.6 C 60 18 112/67 97 CPAP 09/08/24 00:00 64
--- NOTE | 2024-09-08 11:32 | Cardiology Progress Note ---
Date of Service September 08, 2024 Assessment & Plan (1) Wide-complex tachycardia: (2) Ventricular tachycardia: (3) Elevated troponin: (4) Congenital bicuspid aortic valve: (5) S/P AVR: (6) Heart block: (7) Pacemaker: Plan 49-year-old male presenting to the ER via EMS after experiencing tachypalpitations associated with chest pressure and dyspnea in the AM of September 05, 2024 prior to walking his dog. Wide complex tachycardia observed, receiving 2 doses of IV adenosine via EMS with conversion following the second dose. Pacemaker interrogated, revealing wide-complex tachycardia concerning for ventricular tachycardia. Troponin mildly elevated (43.3 -> 188.2-> 282.1-> 72.9 pg/mL). Patient asymptomatic since conversion. EKG without acute change. Echo as summarized below. Inpatient telemetry monitoring benign. Amiodarone and heparin initiated in the ER. Metoprolol tartrate changed to succinate formulation with dosing increased to 75 mg twice per day. Patient with prior history of infectious endocarditis, past recurrent bacteremia, recent dental work, pacemaker in place. Blood cultures with no growth after 48 hours. Recommendations: Continue oral amiodarone at 200 mg twice per day Continue IV heparin bridge back to therapeutic INR (23 mm On-X mechanical prosthetic valve) 8 mg Coumadin today Metoprolol tartrate (50 BID) changed to metoprolol succinate at 75 mg BID this admission. Continue aspirin, statin, and ALLIE inhibition. Outpatient Lexiscan nuclear stress test Outpatient Electrophysiology Consult[place] at [facility] Admission and Anticipated Discharge Date Admission Date: September 05, 2024 Supervising Physician Co-Signing Physician Notes Patient's chart reviewed and patient personally seen and examined. Full assessment and plan as outlined above. Care and management discussed with advanced provider and personally endorsed No arrhythmias since admission. 09/08/2024 Assessment and plan as outlined Will continue IV heparin until rising INR. Subjective Patient seen and examined. Chart, medications, and telemetry reviewed. Significant other Kiran at bedside. INR 1.2 Telemetry: Sinus with first-degree AV block, occasional ventricular ectopy, intermittently paced. No ventricular tachycardia. Review of Systems Review of Systems: Complete Review of Systems is as stated above, negative, or noncontributory. Physical Exam Physical Exam: General: A&Ox3. NAD. Comfortable. Cooperative. Eyes: PER. Conjunctiva pink, sclera clear. HENT: Normocephalic. Atraumatic. Neck: No JVD. Heart: RRR, 66 bpm. Kay mechanical valve sounds. Soft systolic murmur at the lower left sternal border Lungs: Lungs clear to auscultation Abdomen: +BS. Extremities: No clubbing, cyanosis, or edema. Limited neurological examination: No focal deficit Results & Data Vital Signs (Past 12 Hours) Vital Signs Temp Pulse Pulse Resp BP Pulse Ox O2 Del Method 09/08/24 09:01 60 09/08/24 08:18 36.6 C 60 18 135/88 97 Room Air 09/08/24 03:07 36.6 C 60 18 112/67 97 CPAP 09/08/24 00:00 64 Laboratory Results Coagulation 09/08/24 Range/Units 05:38 PT 12.8 H (9.0-12.0) Seconds CBC 09/08/24 Range/Units 05:38 WBC 6.35 (4.8-10.8) K/ul RBC 4.79 (4.70-6.10) M/uL Hgb 14.2 (14.0-18.0) g/dl Hct 40.9 L (42.0-52.0) % Plt Count 213 (130-400) K/uL Neut # (Auto) 3.26 (1.40-6.50) K/uL Lymph # (Auto) 2.03 (1.20-3.40) K/uL [place] # (Auto) 0.43 (0.11-0.59) K/uL Eos # (Auto) 0.56 H (0.00-0.50) K/uL Baso # (Auto) 0.04 (0.00-0.20) K/uL Comprehensive Metabolic Panel 09/08/24 Range/Units 05:38 Sodium 138 (136-145) mmol/L Potassium 4.0 (3.5-5.1) mmol/L Chloride 106 (98-107) mmol/L Carbon Dioxide 24 (21-32) mmol/L BUN 16 (6-23) mg/dl Creatinine 1.16 (0.6-1.4) mg/dl Glucose 100 H (70-99(Fasting)) mg/dl Calcium 9.4 (8.6-10.3) mg/dl Intake and Output 09/07/24 09/08/24 09/08/24 22:59 06:59 14:59 Intake Total 197 / 1077 100 / 1077 Balance 197 / 1076 100 / 1076 Intake: IV 197 / 397 Heparin Sodium/Dextrose 25,000 197 / 197 units In 500 ml @ 1,000 UNITS/ HR 20 mls/hr IV .Q24H [facility] Rx#: [id number] Oral 100 / 680 Other: # Unmeasured Voids 1 Weight 77.7 kg Weight Measurement Method Built in [facility]
[2024-09-08] MEDS: WARFARIN SOD 4 MG TAB PO ONE (15:33)
--- NOTE | 2024-09-08 23:02 | Electrocardiogram Report ---
Test Reason : Blood Pressure : */* mmHG Vent. Rate : 80 BPM Atrial Rate : 80 BPM P-R Int : 272 ms QRS Dur : 106 ms QT Int : 394 ms P-R-T Axes : 48 20 55 degrees QTcB Int : 454 ms Sinus rhythm with 1st degree A-V block with occasional Premature ventricular complexes Low voltage QRS Septal infarct , age undetermined Abnormal ECG When compared with ECG of 28-Oct-2021 10:16, Premature ventricular complexes are now Present Left bundle branch block is no longer Present Septal infarct is now Present Confirmed by Evangelista Moralez ([id number]) on 09/08/2024 11:02:32 PM Referred By: REFERRED SELF Confirmed By: Evangelista Moralez
--- NOTE | 2024-09-08 23:03 | Electrocardiogram Report ---
Test Reason : Blood Pressure : */* mmHG Vent. Rate : 60 BPM Atrial Rate : 60 BPM P-R Int : 146 ms QRS Dur : 168 ms QT Int : 550 ms P-R-T Axes : 50 -61 109 degrees QTcB Int : 550 ms AV dual-paced rhythm Abnormal ECG When compared with ECG of 05-Sep-2024 10:28, AV pacing has replaced Sinus rhythm Confirmed by Evangelista Moralez ([id number]) on 09/08/2024 11:03:08 PM Referred By: REFERRED SELF Confirmed By: Evangelista Moralez
--- NOTE | 2024-09-08 23:04 | Electrocardiogram Report ---
Test Reason : Blood Pressure : */* mmHG Vent. Rate : 60 BPM Atrial Rate : 60 BPM P-R Int : 146 ms QRS Dur : 170 ms QT Int : 542 ms P-R-T Axes : 104 -66 102 degrees QTcB Int : 542 ms AV dual-paced rhythm Abnormal ECG When compared with ECG of 06-Sep-2024 05:19, No significant change was found Confirmed by Evangelista Moralez ([id number]) on 09/08/2024 11:03:51 PM Referred By: REFERRED SELF Confirmed By: Evangelista Moralez
[2024-09-09 06:22] LABS: Basophils # (auto) 0.03 K/uL (0.00-0.20); Basophils % (auto) 0.4 %; Eosinophils # (auto) 0.67 K/uL (0.00-0.50); Eosinophils % (auto) 9.1 %; Hematocrit (blood only) 41.4 % (42.0-52.0); Hemoglobin 14.7 g/dl (14.0-18.0); Immature Granulocytes # (auto) 0.02 K/uL (0.01-0.20); Immature Granulocytes % (auto) 0.3 %; Lymphocytes # (auto) 2.52 K/uL (1.20-3.40); Lymphocytes % (auto) 34.1 %; Mean Corpuscular Hemoglobin 30.4 pg (25.0-34.0); Mean Corpuscular Hgb Conc 35.5 g/dL (32.0-36.0); Mean Corpuscular Volume 85.5 fL (80.0-100.0); Mean Platelet Volume 11.2 fL (9.4-12.4); Monocytes # (auto) 0.56 K/uL (0.11-0.59); Monocytes % (auto) 7.6 %; Neutrophils # (auto) 3.58 K/uL (1.40-6.50); Neutrophils % (auto) 48.5 %; Platelet Count 208 K/uL (130-400); Red Blood Count 4.84 M/uL (4.70-6.10); White Blood Count 7.38 K/ul (4.8-10.8)
[2024-09-09 06:47] LABS: ANTI-Xa, UFH(UnfractionatedHep 0.52 IU/ml (0.3-0.7); INR 1.3 (0.9-1.1); Prothrombin Time 13.8 Seconds (9.0-12.0)
[2024-09-09 06:52] LABS: BUN Creatinine Ratio 13.7 (10-20); Calcium 9.2 mg/dl (8.6-10.3); Creatinine Clr Calc Pharmacy 85.7 ml/min; Magnesium 2.1 mg/dl (1.7-2.4); Phosphorus 3.9 mg/dl (2.5-4.9)
[2024-09-09 07:46] VITALS: RESP 18
--- NOTE | 2024-09-09 11:05 | Cardiology Progress Note ---
Date of Service September 09, 2024 Assessment & Plan (1) Wide-complex tachycardia: (2) Ventricular tachycardia: (3) Elevated troponin: (4) Congenital bicuspid aortic valve: (5) S/P AVR: (6) Heart block: (7) Pacemaker: Plan 49-year-old male presenting to the ER via EMS after experiencing tachypalpitations associated with chest pressure and dyspnea in the AM of September 05, 2024 prior to walking his dog. Wide complex tachycardia observed, receiving 2 doses of IV adenosine via EMS with conversion following the second dose. Pacemaker interrogated, revealing wide-complex tachycardia concerning for ventricular tachycardia. Troponin mildly elevated (43.3 -> 188.2-> 282.1-> 72.9 pg/mL). Patient asymptomatic since conversion. EKG without acute change. Echo as summarized below. Inpatient telemetry monitoring benign. Amiodarone and heparin initiated in the ER. Metoprolol tartrate changed to succinate formulation with dosing increased to 75 mg twice per day. Patient with prior history of infectious endocarditis, past recurrent bacteremia, recent dental work, pacemaker in place. Blood cultures with no growth after 48 hours. Recommendations: * OK for discharge to home with Lovenox bridge, ? repeat INR via [facility] on 09/10 * 8 mg Coumadin today * Continue oral amiodarone at 200 mg twice per day * Metoprolol tartrate (50 BID) changed to metoprolol succinate at 75 mg BID this admission. * Continue aspirin, statin, and ALLIE inhibition. * Outpatient Lexiscan nuclear stress test * Outpatient Electrophysiology Consultation at [facility] Admission and Anticipated Discharge Date Admission Date: September 05, 2024 Supervising Physician Co-Signing Physician Notes Patient was seen and examined, chart, medications, telemetry reviewed. Overall feels well no further arrhythmias predominantly AV pacing. Tolerating amiodarone without difficulty INR slightly increased today with plans to discharge with bridge anticoagulation with Lovenox close clinical follow-up coag clinic Assessment and plan as outlined above All features discussed in detail with patient and significant other Subjective Patient seen and examined. Chart, medications, and telemetry reviewed. Significant other Kiran at bedside. INR rising, 1.3 today Telemetry: Paced in the 60's and 70's. Review of Systems Review of Systems: Complete Review of Systems is as stated above, negative, or noncontributory. Physical Exam Physical Exam: General: A&Ox3. NAD. Neck: No JVD. Heart: RRR, 68 bpm. Johnston mechanical valve sounds. Soft systolic murmur at the lower left sternal border Lungs: Lungs clear to auscultation Abdomen: +BS. Extremities: No edema. Limited neurological examination: No focal deficit Results & Data Vital Signs (Past 12 Hours) Vital Signs Temp Pulse Resp BP Pulse Ox O2 Del Method 09/09/24 07:45 36.4 C L 60 18 131/84 96 Room Air 09/09/24 03:14 36.5 C 60 20 99/70 L 97 CPAP 09/08/24 23:27 36.4 C L 68 16 117/71 97 Room Air Laboratory Results Coagulation 09/09/24 Range/Units 05:36 PT 13.8 H (9.0-12.0) Seconds CBC 09/09/24 Range/Units 05:36 WBC 7.38 (4.8-10.8) K/ul RBC 4.84 (4.70-6.10) M/uL Hgb 14.7 (14.0-18.0) g/dl Hct 41.4 L (42.0-52.0) % Plt Count 208 (130-400) K/uL Neut # (Auto) 3.58 (1.40-6.50) K/uL Lymph # (Auto) 2.52 (1.20-3.40) K/uL [place] # (Auto) 0.56 (0.11-0.59) K/uL Eos # (Auto) 0.67 H (0.00-0.50) K/uL Baso # (Auto) 0.03 (0.00-0.20) K/uL Comprehensive Metabolic Panel 09/09/24 Range/Units 05:36 Sodium 139 (136-145) mmol/L Potassium 4.0 (3.5-5.1) mmol/L Chloride 107 (98-107) mmol/L Carbon Dioxide 23 (21-32) mmol/L BUN 14 (6-23) mg/dl Creatinine 1.02 (0.6-1.4) mg/dl Glucose 103 H (70-99(Fasting)) mg/dl Calcium 9.2 (8.6-10.3) mg/dl Intake and Output 09/08/24 09/09/24 09/09/24 22:59 06:59 14:59 Intake Total 314.333 / 2212.000 232.667 / 2212.000 Balance 314.333 / 2211.000 232.667 / 2211.000 Intake: IV 74.333 / 307.000 232.667 / 307.000 Heparin Sodium/Dextrose 25,000 74.333 / 307.000 232.667 / 307.000 units In 500 ml @ 1,000 UNITS/ HR 20 mls/hr IV .Q24H [facility] Rx#: [id number] Oral 240 / 1905 Other: Weight 78.2 kg Weight Measurement Method Built in [facility]
[2024-09-09 11:45] VITALS: BP 116/92; PULSE 63; TEMP 98.4; O2SAT 97
[2024-09-09] MEDS ORDERED: ENOXAPARIN 1 MG/KG SQ SCH (11:45)
--- NOTE | 2024-09-09 11:54 | Discharge Summary ---
Date of Service September 09, 2024 Admission HPI Per Admitting Provider 49-year-old male with PMH of CAREN on CPAP, HTN, status post mechanical aortic valve replacement, cardiac pacemaker in situ, intermittent complete atrioventricular block, GERD, status post CABG x 1 presented to the ED after having palpitation episode while at rest. Patient reports about 9 AM today when he was doing his minimal activities/resting, he started feeling chest discomfort/slight heaviness associated with palpitation, he noted his heart rate varying between 170-200. He also reported associated shortness of breath. EMS evaluated patient at the scene, wide-complex tachycardia with heart rate 200 noted, he received 6 and 12 mg of adenosine with subsequent improvement of heart rate into the 80s. Patient denies any fever/cough/sore throat/nausea/vomiting/acute changes in appetite or bowel or bladder habit/belly pain. ED physician d/w with cardiology, patient was started on amiodarone drip with better heart rate control. Patient denies a smoking/alcohol use/recreational drug use. Patient uses ma rijuana almost daily. Medications reviewed with the patient in detail at bedside. Plan of care discussed with the patient and bedside in detail, he voiced understanding. Full code as per my discussion with the patient. Admission Exam Per Admitting Provider GENERAL: Alert and oriented x3. NAD, on RA. HEENT: No pallor, no icterus. Pupils equal, round and reactive to light. Oral mucosa moist. NECK: No JVD, no neck masses. HEART: S1 and S2 heard. Regular rate and rhythm. + murmur, no gallop. Central old healed mid sternotomy scar in chest. RESPIRATORY SYSTEM: Normal AP diameter. No accessory muscle use. No wheezing, no crackles. ABDOMEN: Soft, bowel sounds present, nontender, no distention. CENTRAL NERVOUS SYSTEM: No facial droop. Speech is clear. Obeys simple commands. Moves extremities. EXTREMITIES: No edema, no erythema seen. Principal Diagnosis Ventricular tachycardia Subtherapeutic INR Discharge Exam Constitutional + well hydrated; no acute distress Eyes PERRL, conjunctivae normal, anicteric sclerae ENMT external ear and nose normal, oropharynx normal Respiratory normal respiratory effort, lungs clear to auscultation Cardiovascular Rate/Rhythm: regular rate and regular rhythm Gastrointestinal (Abdomen) normal bowel sounds, soft, nontender, no hepatosplenomegaly Musculoskeletal no cyanosis or clubbing, extremities motor strength 5/5 Neurologic PERRL, EOMI, accommodation nl, no face palsy, no dysarthria Psychiatric A+Ox3, euthymic affect Discharge Data Allergies Allergy/AdvReac Type Severity Reaction Status Date / Time Sulfa (Sulfonamide Allergy Severe Unknown Verified 12/11/21 08:10 Antibiotics) Consultations 09/05/24 12:10 Consult Cardiology Stat ED Decision to Admit Stat Hospital Course (1) Palpitation: Plan 49-year-old male with PMHx significant for Hx of mechanical aortic valve replacement with past episodes of endocarditis, cardiac pacemaker in situ, intermittent complete atrioventricular block, status post CABG x 1, CAREN, GERD presented to the ED after having a persistent episode of palpations with SOB at home. Palpitations Chest discomfort Wide-complex tachycardia/ Ventricular tachycardia Pacemaker in situ Demand Ischemia Patient had episode of palpitations associated with shortness of breath and chest discomfort Noted to have wide-complex tachycardia per EMS, received adenosine 6 Mg and 12 mg with improvement of heart rate into 80s. Trop with noted range 43.3--->188.2--->282.1--->72.9 Echo with EF of 55 to 60%, Normal right ventricular function, aortic mechanical valve prosthesis, noted aortic regurgitation, mild mitral regurgitation, mild tricuspid regurgitation Patient was started on amiodarone bolus and drip in the ED, transitioned to po amiodarone on 09/07/24, 200mg BID Was evaluated by Cardiology who made the following changes -Continue amiodarone 200mg BID -Discharged on lovenox-warfarin bridge until patient's follow up with Anticoagulation clinic on 09/11/24 -Metoprolol tartarate changed to increased metoprolol succinate 75mg BID -Outpatient Lexiscan nuclear stress test -Outpatient Electrophysiology consultation at [facility] Total Time Total Time Spent Total Time Spent (In Minutes): 40 Total Time Includes: Examination of the Patient, Discharge Planning, Medication Reconciliation and Communication With Other Providers Discharge Plan Discharge Items Patient Disposition: Home - Self-Care Reason For Visit: WIDE COMPLEX TACH Discharge Diagnosis: Ventricular tachycardia Subtherapeutic INR Activity: Resume your previous activity Non-emergency contact: Primary Care Provider and Finance Analyst Call non-emergency contact if: you have any medication questions and your symptoms worsen Follow-up/Referrals: Kirk Ricketts [Physician Inclined Railway Operator] - (The Cardiology office will contact you to schedule further outpatient testing.) Sergio Sosa MD [Primary Care Provider] - (Date & Time 09/14/2024 11:40 AM Provider Aly Cooper MD Department Family Practice [facility] ) Diet: Heart Healthy and Low Sodium (2gm) Addtl Attending Provider Instructions: Mr Mckeon You were hospitalized and managed for the above listed diagnoses. You were started on amiodarone. Your metoprolol tartrate was changed to metoprolol succinate 75mg twice a day. Due to your INR being low, you are being discharged on lovenox - warfarin bridge. Please continue your warfarin. You are being discharged on lovenox injection twice a day until you see the Warfarin clinic on Saturday when they can recheck your INR. Please ensure follow up with your Primary Doctor and Cardiology. It was a pleasure taking care of you. Pending Studies at Discharge: No Stand-Alone Forms: My [facility], Smoking Cessation Medications and DC Order Prescriptions: New amiodarone 200 mg Tablet 200 mg PO BIDM 30 Days Qty: 60 0RF metoprolol succinate 25 mg Tablet Extended Release 24 Hr 75 mg PO BID 30 Days Qty: 180 0RF enoxaparin [Lovenox] 80 mg/0.8 mL syringe 80 mg subcut Q12H 3 Days Qty: 4.8 0RF Continued doxycycline hyclate 50 mg capsule 50 mg PO DAILY aspirin 81 mg Tablet,Chewable 81 mg PO QAM allopurinol 300 mg tablet 300 mg PO QAM acetaminophen 325 mg tablet 650 mg PO Q4H PRN (Reason: Pain) One Daily For Men 0.4-600 mg-mcg Tablet 1 tab PO QAM acyclovir 800 mg tablet 800 mg PO DAILY amlodipine 10 mg tablet 10 mg PO DAILY pregabalin 75 mg capsule 75 mg PO BID atorvastatin 40 mg Tablet 40 mg PO HS famotidine 40 mg Tablet 40 mg PO QAM warfarin 4 mg tablet 4 mg PO UD lisinopril 2.5 mg tablet 2.5 mg PO QAM Discontinued metoprolol tartrate 50 mg tablet 50 mg PO AMHS Discharge Orders: Discharge Order (Routine); Ordered 09/09/24 Ordered By: Marli Ivan Admission Data Admit Date/Time: 09/05/24 13:20 Attending Provider: Marli Ivan I. Admit Provider: Pierre Pierce Primary Care Provider: Sergio Sosa Other Providers: Yamil Esqueda; Pierre Pierce Other Interventions: Discharge Summary Assessment (RN) Last Done: 09/09/24 12:29
[2024-09-09] MEDS: ENOXAPARIN 80 MG/0.8 ML SYR SQ SCH (12:40)
[2024-09-09] MEDS ORDERED: WARFARIN SOD 4 MG TAB PO SCH (16:00)
--- NOTE | 2024-09-14 14:24 | Coding Query ---
CODING QUERY To promote full compliance with coding requirements relating to patient care, provider participation is requested in all cases of sales program manager uncertainty. Please assist us with the question(s) below: Coding Question(s): Can you please clarify what diagnosis was most likely responsible for causing the elevated troponin? Physician's Response(s): (x ) Elevated Troponin Due to Demand Ischemia ( ) Elevated Troponin Due to Other ( ) Elevated Troponin Unspecified Thank you Latricia Cortez Principal Diagnosis: "that condition established after study, to be chiefly responsible for occasioning the admission of the patient to the hospital for care." Co-Existing Principal Diagnosis: "when two or more diagnoses equally meet the criteria for principal diagnosis as determined by the circumstances of admission, diagnostic work up, and/or therapy provided, and the Alphabetic Index, Tabular List, or another coding guideline does not provide sequencing direction, any one of the diagnoses may be sequenced first." "When the physician has documented what appears to be a current diagnosis in the body of the record, but has not included the diagnosis in the final diagnostic statement, the physician should be asked whether the diagnosis should be added." (Source Coding Clinic 2 QTR90. p3-4) [place]
== END 2024-09-09 13:00 | disposition home or self-care (01) | DRG 309 ==
LOC: ED 10:24 → 2E 13:20 → SUATTDRO 13:20 → 2E 15:03